=== PATIENT | female | born 1955 | race African-American/Black ===

== ENCOUNTER 2018-01-05 09:31 | Inpatient (IN) | payer OTHER ==
[2018-01-05 10:14] LABS: ADD MAN DIFF? NO
[2018-01-05 10:20] LABS: BASO # 0.1 x10^3/uL (0.0-0.2); BASO % 1 % (0-3); EOS # 0.2 x10^3/uL (0.0-0.7); EOS % 2 % (0-3); HEMATOCRIT 35.3 % (36.0-47.0); HEMOGLOBIN 11.8 g/dL (12.0-15.5); LYMPH % 34 % (24-48); MEAN CORPUSCULAR HEMOGLOBIN 32 pg (25-35); MEAN CORPUSCULAR HGB CONC 33 g/dL (31-37); MEAN CORPUSCULAR VOLUME 95 fL (79-100); MONO # 1.2 x10^3/uL (0.0-1.1); MONO % 10 % (0-9); NEUT # 6.4 x10^3uL (1.8-7.7); NEUT % 53 % (31-73); PLATELET COUNT 395 x10^3/uL (140-400); RED BLOOD COUNT 3.72 x10^6/uL (3.50-5.40); RED CELL DISTRIBUTION WIDTH 14.1 % (11.5-14.5)
[2018-01-05 10:28] LABS: ANION GAP 7 (6-14); BLOOD UREA NITROGEN 20 mg/dL (7-20); BUN/CREATININE RATIO 18 (6-20); CALCIUM 8.3 mg/dL (8.5-10.1); CARBON DIOXIDE 27 mmol/L (21-32); CHLORIDE 106 mmol/L (98-107); CREATININE 1.1 mg/dL (0.6-1.0); GFR 60.9; GLUCOSE 347 mg/dL (70-99); POTASSIUM 4.5 mmol/L (3.5-5.1); SODIUM 140 mmol/L (136-145)
[2018-01-05 10:34] LABS: ALBUMIN 2.7 g/dL (3.4-5.0); ALBUMIN/GLOBULIN RATIO 0.6 (1.0-1.7); ALK PHOS 91 U/L (46-116); ALT (SGPT) 38 U/L (14-59); AST (SGOT) 27 U/L (15-37); LIPASE 179 U/L (73-393); TOTAL BILIRUBIN 0.2 mg/dL (0.2-1.0); TOTAL PROTEIN 7.5 g/dL (6.4-8.2)
[2018-01-05] MEDS: HYDROcodone/APAP 5/325MG 1 TAB TABLET PO (10:36)
[2018-01-05] MEDS: FUROSEMIDE 40 MG/4 ML VIAL. IVP (10:38)
[2018-01-05] MEDS: ONDANSETRON PF 4 MG/2 ML VIAL. IV ×2 (13:03→19:32)
[2018-01-05] MEDS: fentaNYL PF VIAL 100 MCG/2 ML VIAL IV ×2 (13:05→19:33)
[2018-01-05 16:27] LABS: POC GLUCOSE 263 mg/dL (70-99)
[2018-01-05 20:21] LABS: POC GLUCOSE 271 mg/dL (70-99)
[2018-01-05] MEDS: PREGABALIN 75 MG CAPSULE PO (23:00)
[2018-01-05] MEDS: INSULIN GLARGINE 300 UNITS/3 ML INSULN.PEN. SQ (23:04)
[2018-01-06] MEDS: HYDROcodone/APAP 5/325MG 1 TAB TABLET PO (01:32)
[2018-01-06] MEDS: ONDANSETRON PF 4 MG/2 ML VIAL. IV ×2 (01:50→13:41)
[2018-01-06] MEDS: fentaNYL PF VIAL 100 MCG/2 ML VIAL IV (01:50)
[2018-01-06 05:10] LABS: ADD MAN DIFF? NO
[2018-01-06 05:21] LABS: BASO # 0.1 x10^3/uL (0.0-0.2); BASO % 1 % (0-3); EOS # 0.4 x10^3/uL (0.0-0.7); EOS % 3 % (0-3); HEMATOCRIT 32.5 % (36.0-47.0); HEMOGLOBIN 10.9 g/dL (12.0-15.5); LYMPH # 5.1 x10^3/uL (1.0-4.8); LYMPH % 45 % (24-48); MEAN CORPUSCULAR HEMOGLOBIN 32 pg (25-35); MEAN CORPUSCULAR HGB CONC 34 g/dL (31-37); MEAN CORPUSCULAR VOLUME 95 fL (79-100); MONO # 1.4 x10^3/uL (0.0-1.1); MONO % 12 % (0-9); NEUT # 4.5 x10^3uL (1.8-7.7); NEUT % 39 % (31-73); PLATELET COUNT 362 x10^3/uL (140-400); RED BLOOD COUNT 3.43 x10^6/uL (3.50-5.40); RED CELL DISTRIBUTION WIDTH 13.8 % (11.5-14.5); WHITE BLOOD COUNT 11.4 x10^3/uL (4.0-11.0)
[2018-01-06 05:57] LABS: ANION GAP 6 (6-14); BLOOD UREA NITROGEN 21 mg/dL (7-20); CALCIUM 8.6 mg/dL (8.5-10.1); CARBON DIOXIDE 27 mmol/L (21-32); CHLORIDE 107 mmol/L (98-107); GLUCOSE 199 mg/dL (70-99); POTASSIUM 4.3 mmol/L (3.5-5.1); SODIUM 140 mmol/L (136-145)
[2018-01-06 08:05] LABS: POC GLUCOSE 171 mg/dL (70-99)
[2018-01-06] MEDS: LISINOPRIL 20 MG TABLET PO (08:29)
[2018-01-06] MEDS: PREGABALIN 75 MG CAPSULE PO ×3 (08:30→20:09)
[2018-01-06] MEDS: INSULIN LISPRO 300 UNITS/3 ML INSULN.PEN. SQ ×5 (08:33→17:00)
[2018-01-06] MEDS ORDERED: ACETAMINOPHEN 500 MG TABLET PO (08:45)
[2018-01-06] MEDS ORDERED: DEXTROSE 50% 25 GM / 50ML DISP.SYRIN. IV (08:45)
[2018-01-06] MEDS ORDERED: fentaNYL PF VIAL 100 MCG/2 ML VIAL IV (08:45)
[2018-01-06 11:48] LABS: POC GLUCOSE 112 mg/dL (70-99)
[2018-01-06] MEDS: POLYETHYLENE GLYCOL 3350 17 GM PACKET. PO (11:49)
[2018-01-06] MEDS: FUROSEMIDE 20 MG/2 ML VIAL. IVP (11:49)
[2018-01-06] MEDS: MAGNESIUM HYDROXIDE 2,400 MG/30 ML ORAL.SUSP. PO (11:50)
[2018-01-06] MEDS: HYDROcodone/APAP 10/325 1 TAB TABLET PO ×2 (11:50→20:09)
[2018-01-06 14:31] LABS: MRSA BY PCR Negative (Negative)
[2018-01-06] MEDS: guaiFENesin DM 200MG/20MG 10 ML SYRUP PO (15:17)
[2018-01-06] MEDS: DULoxetine HCL 20 MG CAPSULE.DR PO (15:17)
[2018-01-06] MEDS: FUROSEMIDE 40 MG/4 ML VIAL. IVP (15:17)
[2018-01-06] MEDS: BENZONATATE 100 MG CAPSULE. PO ×2 (15:18→20:09)
[2018-01-06 16:54] LABS: POC GLUCOSE 86 mg/dL (70-99)
[2018-01-06] MEDS: MONTELUKAST SODIUM 10 MG TABLET. PO (20:09)
[2018-01-06] MEDS: DOCUSATE SODIUM 100 MG CAPSULE. PO (20:10)
[2018-01-06 20:48] LABS: POC GLUCOSE 158 mg/dL (70-99)
[2018-01-06] MEDS: INSULIN GLARGINE 300 UNITS/3 ML INSULN.PEN. SQ (21:08)
[2018-01-07] MEDS: HYDROcodone/APAP 10/325 1 TAB TABLET PO ×2 (02:33→10:03)
[2018-01-07] MEDS: ONDANSETRON PF 4 MG/2 ML VIAL. IV (06:43)
[2018-01-07] MEDS: INSULIN LISPRO 300 UNITS/3 ML INSULN.PEN. SQ ×6 (07:30→17:00)
[2018-01-07] MEDS: LISINOPRIL 20 MG TABLET PO (08:15)
[2018-01-07] MEDS: FUROSEMIDE 40 MG/4 ML VIAL. IVP ×2 (08:15→15:03)
[2018-01-07] MEDS: MAGNESIUM HYDROXIDE 2,400 MG/30 ML ORAL.SUSP. PO (08:15)
[2018-01-07] MEDS: DULoxetine HCL 20 MG CAPSULE.DR PO (08:15)
[2018-01-07] MEDS: BENZONATATE 100 MG CAPSULE. PO ×3 (08:16→20:37)
[2018-01-07] MEDS: PREGABALIN 75 MG CAPSULE PO ×3 (08:16→20:37)
[2018-01-07] MEDS: POLYETHYLENE GLYCOL 3350 17 GM PACKET. PO ×2 (08:16→15:40)
[2018-01-07] MEDS: DOCUSATE SODIUM 100 MG CAPSULE. PO ×2 (08:16→20:37)
[2018-01-07 08:44] LABS: POC GLUCOSE 65 mg/dL (70-99)
[2018-01-07 08:45] LABS: POC GLUCOSE 152 mg/dL (70-99)
[2018-01-07 08:59] LABS: ADD MAN DIFF? NO
[2018-01-07 09:01] LABS: BASO # 0.1 x10^3/uL (0.0-0.2); BASO % 1 % (0-3); EOS # 0.3 x10^3/uL (0.0-0.7); EOS % 2 % (0-3); HEMATOCRIT 36.6 % (36.0-47.0); HEMOGLOBIN 12.1 g/dL (12.0-15.5); LYMPH # 4.4 x10^3/uL (1.0-4.8); LYMPH % 42 % (24-48); MEAN CORPUSCULAR HEMOGLOBIN 32 pg (25-35); MEAN CORPUSCULAR HGB CONC 33 g/dL (31-37); MEAN CORPUSCULAR VOLUME 95 fL (79-100); MONO % 9 % (0-9); NEUT # 4.8 x10^3uL (1.8-7.7); NEUT % 46 % (31-73); PLATELET COUNT 395 x10^3/uL (140-400); RED BLOOD COUNT 3.85 x10^6/uL (3.50-5.40); RED CELL DISTRIBUTION WIDTH 13.7 % (11.5-14.5); WHITE BLOOD COUNT 10.5 x10^3/uL (4.0-11.0)
[2018-01-07 09:13] LABS: ANION GAP 9 (6-14); BLOOD UREA NITROGEN 21 mg/dL (7-20); CALCIUM 8.6 mg/dL (8.5-10.1); CARBON DIOXIDE 27 mmol/L (21-32); CHLORIDE 103 mmol/L (98-107); GLUCOSE 190 mg/dL (70-99); POTASSIUM 4.5 mmol/L (3.5-5.1); SODIUM 139 mmol/L (136-145)
[2018-01-07 11:14] LABS: SEDIMENTATION RATE 43 (0-25)
[2018-01-07 12:06] LABS: POC GLUCOSE 141 mg/dL (70-99)
[2018-01-07 16:59] LABS: POC GLUCOSE 110 mg/dL (70-99)
[2018-01-07] MEDS: MONTELUKAST SODIUM 10 MG TABLET. PO (20:37)
[2018-01-07] MEDS: HYDROcodone/APAP 5/325MG 1 TAB TABLET PO (20:44)
[2018-01-07] MEDS: INSULIN GLARGINE 300 UNITS/3 ML INSULN.PEN. SQ (20:51)
[2018-01-08 01:50] LABS: POC GLUCOSE 178 mg/dL (70-99)
[2018-01-08] MEDS: HYDROcodone/APAP 5/325MG 1 TAB TABLET PO ×2 (02:19→14:45)
[2018-01-08 04:21] LABS: HEMOGLOBIN A1C 13.5 % (4.8-5.6)
[2018-01-08 07:16] LABS: POC GLUCOSE 257 mg/dL (70-99)
[2018-01-08] MEDS: INSULIN LISPRO 300 UNITS/3 ML INSULN.PEN. SQ ×6 (08:22→17:04)
[2018-01-08] MEDS: POLYETHYLENE GLYCOL 3350 17 GM PACKET. PO (08:33)
[2018-01-08] MEDS: PREGABALIN 75 MG CAPSULE PO ×3 (08:34→21:06)
[2018-01-08] MEDS: FUROSEMIDE 40 MG/4 ML VIAL. IVP ×2 (08:34→14:44)
[2018-01-08] MEDS: DOCUSATE SODIUM 100 MG CAPSULE. PO ×2 (08:34→21:06)
[2018-01-08] MEDS: LISINOPRIL 20 MG TABLET PO (08:35)
[2018-01-08] MEDS: HYDROcodone/APAP 10/325 1 TAB TABLET PO ×2 (08:35→21:07)
[2018-01-08] MEDS: BENZONATATE 100 MG CAPSULE. PO ×3 (08:35→21:06)
[2018-01-08] MEDS: DULoxetine HCL 20 MG CAPSULE.DR PO (08:35)
[2018-01-08 11:11] LABS: POC GLUCOSE 109 mg/dL (70-99)
[2018-01-08 16:58] LABS: POC GLUCOSE 110 mg/dL (70-99)
[2018-01-08 20:43] LABS: POC GLUCOSE 109 mg/dL (70-99)
[2018-01-08] MEDS: MONTELUKAST SODIUM 10 MG TABLET. PO (21:06)
[2018-01-08] MEDS: INSULIN GLARGINE 300 UNITS/3 ML INSULN.PEN. SQ (21:11)
[2018-01-09] MEDS: HYDROcodone/APAP 5/325MG 1 TAB TABLET PO (01:09)
[2018-01-09 04:35] LABS: HEMATOCRIT 33.4 % (36.0-47.0); HEMOGLOBIN 11.2 g/dL (12.0-15.5); MEAN CORPUSCULAR HEMOGLOBIN 32 pg (25-35); MEAN CORPUSCULAR HGB CONC 34 g/dL (31-37); MEAN CORPUSCULAR VOLUME 95 fL (79-100); PLATELET COUNT 376 x10^3/uL (140-400); RED BLOOD COUNT 3.52 x10^6/uL (3.50-5.40); RED CELL DISTRIBUTION WIDTH 13.7 % (11.5-14.5); WHITE BLOOD COUNT 11.1 x10^3/uL (4.0-11.0)
[2018-01-09 05:40] LABS: ANION GAP 3 (6-14); BLOOD UREA NITROGEN 19 mg/dL (7-20); CALCIUM 8.3 mg/dL (8.5-10.1); CARBON DIOXIDE 32 mmol/L (21-32); CHLORIDE 106 mmol/L (98-107); GLUCOSE 114 mg/dL (70-99); POTASSIUM 4.5 mmol/L (3.5-5.1); SODIUM 141 mmol/L (136-145)
[2018-01-09] MEDS: INSULIN LISPRO 300 UNITS/3 ML INSULN.PEN. SQ ×6 (08:00→17:42)
[2018-01-09] MEDS: DULoxetine HCL 20 MG CAPSULE.DR PO (08:34)
[2018-01-09] MEDS: DULoxetine HCL 30 MG CAPSULE.DR PO (08:35)
[2018-01-09] MEDS: LISINOPRIL 20 MG TABLET PO (08:35)
[2018-01-09] MEDS: DOCUSATE SODIUM 100 MG CAPSULE. PO ×2 (08:35→20:52)
[2018-01-09] MEDS: BENZONATATE 100 MG CAPSULE. PO ×3 (08:35→20:52)
[2018-01-09] MEDS: POLYETHYLENE GLYCOL 3350 17 GM PACKET. PO (08:36)
[2018-01-09] MEDS: FUROSEMIDE 40 MG/4 ML VIAL. IVP (08:36)
[2018-01-09] MEDS: PREGABALIN 75 MG CAPSULE PO ×3 (08:36→20:53)
[2018-01-09] MEDS: HYDROcodone/APAP 10/325 1 TAB TABLET PO ×2 (08:42→21:37)
[2018-01-09 09:00] LABS: POC GLUCOSE 149 mg/dL (70-99)
[2018-01-09 11:39] LABS: POC GLUCOSE 158 mg/dL (70-99)
[2018-01-09] MEDS: CEPHALEXIN 250 MG CAPSULE. PO ×2 (13:55→20:53)
[2018-01-09] MEDS: FUROSEMIDE 100 MG/10 ML VIAL. IVP (13:55)
[2018-01-09 17:20] LABS: POC GLUCOSE 225 mg/dL (70-99)
[2018-01-09] MEDS: MONTELUKAST SODIUM 10 MG TABLET. PO (20:52)
[2018-01-09] MEDS: INSULIN GLARGINE 300 UNITS/3 ML INSULN.PEN. SQ (21:02)
[2018-01-09 22:14] LABS: POC GLUCOSE 137 mg/dL (70-99)
[2018-01-10] MEDS: INSULIN LISPRO 300 UNITS/3 ML INSULN.PEN. SQ ×6 (08:00→17:01)
[2018-01-10 08:34] LABS: POC GLUCOSE 114 mg/dL (70-99)
[2018-01-10] MEDS: POLYETHYLENE GLYCOL 3350 17 GM PACKET. PO (09:02)
[2018-01-10] MEDS: DOCUSATE SODIUM 100 MG CAPSULE. PO ×2 (09:03→21:48)
[2018-01-10] MEDS: LISINOPRIL 20 MG TABLET PO (09:03)
[2018-01-10] MEDS: CEPHALEXIN 250 MG CAPSULE. PO ×3 (09:04→21:48)
[2018-01-10] MEDS: BENZONATATE 100 MG CAPSULE. PO ×3 (09:04→21:48)
[2018-01-10] MEDS: DULoxetine HCL 30 MG CAPSULE.DR PO (09:04)
[2018-01-10] MEDS: PREGABALIN 75 MG CAPSULE PO ×3 (09:04→22:35)
[2018-01-10] MEDS: FUROSEMIDE 100 MG/10 ML VIAL. IVP ×3 (09:05→21:52)
[2018-01-10] MEDS: HYDROcodone/APAP 10/325 1 TAB TABLET PO ×2 (09:13→22:35)
[2018-01-10 11:41] LABS: POC GLUCOSE 164 mg/dL (70-99)
[2018-01-10 16:55] LABS: POC GLUCOSE 182 mg/dL (70-99)
[2018-01-10 21:14] LABS: POC GLUCOSE 105 mg/dL (70-99)
[2018-01-10] MEDS: MONTELUKAST SODIUM 10 MG TABLET. PO (21:48)
[2018-01-10] MEDS: LACTOBACILLUS RHAMNOSUS GG 1 CAPSULE. PO (21:48)
[2018-01-10] MEDS: INSULIN GLARGINE 300 UNITS/3 ML INSULN.PEN. SQ (22:39)
[2018-01-11 08:03] LABS: POC GLUCOSE 199 mg/dL (70-99)
[2018-01-11] MEDS: POLYETHYLENE GLYCOL 3350 17 GM PACKET. PO (08:11)
[2018-01-11] MEDS: HYDROcodone/APAP 10/325 1 TAB TABLET PO ×2 (08:12→21:00)
[2018-01-11] MEDS: CEPHALEXIN 250 MG CAPSULE. PO ×3 (08:12→21:00)
[2018-01-11] MEDS: LISINOPRIL 20 MG TABLET PO (08:13)
[2018-01-11] MEDS: DOCUSATE SODIUM 100 MG CAPSULE. PO ×2 (08:13→20:59)
[2018-01-11] MEDS: DULoxetine HCL 30 MG CAPSULE.DR PO (08:14)
[2018-01-11] MEDS: BENZONATATE 100 MG CAPSULE. PO ×3 (08:14→20:59)
[2018-01-11] MEDS: LACTOBACILLUS RHAMNOSUS GG 1 CAPSULE. PO ×2 (08:14→20:59)
[2018-01-11] MEDS: PREGABALIN 75 MG CAPSULE PO ×3 (08:14→20:59)
[2018-01-11] MEDS: FUROSEMIDE 100 MG/10 ML VIAL. IVP ×3 (08:15→21:00)
[2018-01-11] MEDS: INSULIN LISPRO 300 UNITS/3 ML INSULN.PEN. SQ ×6 (08:24→17:21)
[2018-01-11 12:11] LABS: POC GLUCOSE 104 mg/dL (70-99)
[2018-01-11 12:53] LABS: BILIRUBIN,URINE NEGATIVE (NEG); CLARITY,URINE CLEAR; COLOR,URINE YELLOW; GLUCOSE,URINE NEGATIVE (NEG); NITRITE,URINE NEGATIVE (NEG); PROTEIN,URINE 100 mg/dL (NEG-TRACE); UROBILINOGEN,URINE 0.2 mg/dL (0.2 mg/dL)
[2018-01-11 13:13] LABS: BACTERIA,URINE 0 /HPF (0-FEW); RBC,URINE 0 /HPF (0-2); SQUAMOUS EPITHELIAL CELL,UR MOD /LPF
[2018-01-11 17:19] LABS: POC GLUCOSE 165 mg/dL (70-99)
[2018-01-11] MEDS: MONTELUKAST SODIUM 10 MG TABLET. PO (21:00)
[2018-01-11] MEDS: INSULIN GLARGINE 300 UNITS/3 ML INSULN.PEN. SQ (21:18)
[2018-01-11 21:32] LABS: POC GLUCOSE 157 mg/dL (70-99)
[2018-01-12] MEDS: HYDROcodone/APAP 10/325 1 TAB TABLET PO (03:09)
[2018-01-12 05:03] LABS: ADD MAN DIFF? NO
[2018-01-12 05:28] LABS: BASO # 0.1 x10^3/uL (0.0-0.2); BASO % 1 % (0-3); EOS # 0.3 x10^3/uL (0.0-0.7); EOS % 3 % (0-3); HEMATOCRIT 33.4 % (36.0-47.0); LYMPH # 5.1 x10^3/uL (1.0-4.8); LYMPH % 46 % (24-48); MEAN CORPUSCULAR HEMOGLOBIN 31 pg (25-35); MEAN CORPUSCULAR HGB CONC 33 g/dL (31-37); MEAN CORPUSCULAR VOLUME 95 fL (79-100); MONO # 1.2 x10^3/uL (0.0-1.1); MONO % 11 % (0-9); NEUT # 4.3 x10^3uL (1.8-7.7); NEUT % 39 % (31-73); PLATELET COUNT 372 x10^3/uL (140-400); RED BLOOD COUNT 3.51 x10^6/uL (3.50-5.40); RED CELL DISTRIBUTION WIDTH 13.8 % (11.5-14.5)
[2018-01-12 05:56] LABS: ALBUMIN 2.5 g/dL (3.4-5.0); ANION GAP 5 (6-14); BLOOD UREA NITROGEN 22 mg/dL (7-20); CALCIUM 8.4 mg/dL (8.5-10.1); CARBON DIOXIDE 35 mmol/L (21-32); CHLORIDE 102 mmol/L (98-107); CREATININE 1.2 mg/dL (0.6-1.0); GFR 55.1; GLUCOSE 189 mg/dL (70-99); PHOSPHORUS 4.7 mg/dL (2.6-4.7); POTASSIUM 4.9 mmol/L (3.5-5.1); SODIUM 142 mmol/L (136-145)
[2018-01-12 07:33] LABS: POC GLUCOSE 203 mg/dL (70-99)
[2018-01-12] MEDS: POLYETHYLENE GLYCOL 3350 17 GM PACKET. PO (08:05)
[2018-01-12] MEDS: DOCUSATE SODIUM 100 MG CAPSULE. PO (08:06)
[2018-01-12] MEDS: CEPHALEXIN 250 MG CAPSULE. PO (08:06)
[2018-01-12] MEDS: LACTOBACILLUS RHAMNOSUS GG 1 CAPSULE. PO (08:06)
[2018-01-12] MEDS: HYDROcodone/APAP 5/325MG 1 TAB TABLET PO (08:06)
[2018-01-12] MEDS: BENZONATATE 100 MG CAPSULE. PO (08:06)
[2018-01-12] MEDS: LISINOPRIL 20 MG TABLET PO (08:07)
[2018-01-12] MEDS: PREGABALIN 75 MG CAPSULE PO (08:07)
[2018-01-12] MEDS: DULoxetine HCL 30 MG CAPSULE.DR PO (08:07)
[2018-01-12] MEDS: FUROSEMIDE 100 MG/10 ML VIAL. IVP (08:09)
[2018-01-12] MEDS: INSULIN LISPRO 300 UNITS/3 ML INSULN.PEN. SQ ×4 (08:15→11:54)
[2018-01-12 11:49] LABS: POC GLUCOSE 128 mg/dL (70-99)
== END 2018-01-12 13:30 | disposition home health service (06) | DRG 602 ==
LOC: ER 09:31 → 6 SOUTH 12:41 → 5 SOUTH 14:41
DX: L03.116 Cellulitis of left lower limb (principal); E43 Unspecified severe protein-calorie malnutrition; E11.22 Type 2 diabetes mellitus with diabetic chronic kidney disease; E11.42 Type 2 diabetes mellitus with diabetic polyneuropathy; E11.43 Type 2 diabetes mellitus with diabetic autonomic (poly)neuropathy; F11.20 Opioid dependence, uncomplicated; I89.0 Lymphedema, not elsewhere classified; K31.84 Gastroparesis; E11.649 Type 2 diabetes mellitus with hypoglycemia without coma; Z68.35 Body mass index [BMI] 35.0-35.9, adult; D63.8 Anemia in other chronic diseases classified elsewhere; E66.9 Obesity, unspecified; F12.10 Cannabis abuse, uncomplicated; G47.419 Narcolepsy without cataplexy; G89.29 Other chronic pain; I12.9 Hypertensive chronic kidney disease with stage 1 through stage 4 chronic kidney disease, or unspecified chronic kidney disease; J44.9 Chronic obstructive pulmonary disease, unspecified; L03.115 Cellulitis of right lower limb; K21.0 Gastro-esophageal reflux disease with esophagitis; K52.9 Noninfective gastroenteritis and colitis, unspecified; K59.00 Constipation, unspecified; M54.9 Dorsalgia, unspecified; N18.3 Chronic kidney disease, stage 3 (moderate); Z68.32 Body mass index [BMI] 32.0-32.9, adult; Z79.4 Long term (current) use of insulin; Z79.899 Other long term (current) drug therapy; Z83.3 Family history of diabetes mellitus; Z90.710 Acquired absence of both cervix and uterus; Z90.81 Acquired absence of spleen; Z90.49 Acquired absence of other specified parts of digestive tract
CPT/HCPCS: 36415; 80048; 80053; 80069; 81001; 82962; 83036; 83690; 85025; 85027; 85651; 87641; 93970; 96365; 96375; 97116-GP; 97140-GO; 97162-GP; 97165-GO; 97530-GP; 99285; 99285-25; J0690; J1815; J1940; J2405; J3010

== ENCOUNTER 2018-11-17 13:38 | Inpatient (IN) | payer OTHER ==
[~2018-11-17] VITALS: Ht 170.2 cm; Wt 84.4 kg
[~2018-11-17 13:38] MED LIST: BENZ-8 PO; CIPR250T30 PO; FURO-68 PO; GUAI5SYR PO; INSU100I11 SQ; INSU100I13 SQ; LISI-130 PO; METR500T PO; MONT10TA9 PO; PREG75CA PO
[2018-11-17] MEDS ORDERED: VANCOMYCIN PER PHARMACY MC PRN (14:30)
[2018-11-17] MEDS ORDERED: PIPERACILLIN/TAZOBACTAM 3.375 GM in IV NORMAL SALINE 50ML 50 ML IV ONE (14:30)
[2018-11-17] MEDS ORDERED: VANCOMYCIN 2 GM in IV NORMAL SALINE 500ML BAG 500 ML IV ONE (14:45)
--- NOTE | 2018-11-17 14:48 | RAD ---
EXAM: Chest, single view. HISTORY: Swelling. Shortness of air. COMPARISON: None. FINDINGS: A frontal view of the chest is obtained. There is a small nodular opacity overlying the left upper lobe measuring approximately 1.4 cm. There is no consolidation, pleural effusion or pneumothorax. The heart is normal in size. IMPRESSION: Small nodular opacity overlying the left upper lobe. This may be due to nodular infiltrate or noncalcified pulmonary nodule. Short-term radiographic or CT follow-up is recommended to exclude neoplasm. Electronically signed by: Cecily Hernandez MD (11/17/2018 2:45 PM) [id number]
--- NOTE | 2018-11-17 15:00 | RAD ---
CT head without contrast dated 11/17/2018. No comparison available. Clinical indication: Altered mental status. TECHNIQUE: Contiguous axial imaging the head was performed from skull base to vertex. No contrast administered.. One or more of the following individualized dose reduction techniques were utilized for this examination: 1. Automated exposure control 2. Adjustment of the mA and/or kV according to patient size 3. Use of iterative reconstruction technique FINDINGS: Ventricles and sulci are mildly prominent for age. No midline shift or mass effect. Mild patchy low density in the deep/subcortical periventricular white matter. No hemorrhage or extra axial collection. Posterior fossa and brainstem unremarkable. Minimal mucosal thickening of the bilateral ethmoid air cells. The visualized paranasal sinuses and mastoid air cells are otherwise clear. No apparent calvarial abnormality. IMPRESSION: 1. No evidence of acute intracranial hemorrhage or mass. 2. Mild chronic small vessel ischemic changes and atrophy. 3. Mild sinus disease. Electronically signed by: Rian Spence MD (11/17/2018 2:57 PM) [id number]
[2018-11-17 15:18] LABS: BASO # 0.1 x10^3/uL (0.0-0.2); BASO % 1 % (0-3); EOS # 0.2 x10^3/uL (0.0-0.7); EOS % 2 % (0-3); HEMATOCRIT 40.6 % (36.0-47.0); HEMOGLOBIN 13.5 g/dL (12.0-15.5); LYMPH # 3.8 x10^3/uL (1.0-4.8); LYMPH % 30 % (24-48); MEAN CORPUSCULAR HEMOGLOBIN 33 pg (25-35); MEAN CORPUSCULAR HGB CONC 33 g/dL (31-37); MEAN CORPUSCULAR VOLUME 100 fL (79-100); MONO # 1.2 x10^3/uL (0.0-1.1); MONO % 9 % (0-9); NEUT # 7.2 x10^3uL (1.8-7.7); NEUT % 58 % (31-73); PLATELET COUNT 388 x10^3/uL (140-400); RED BLOOD COUNT 4.05 x10^6/uL (3.50-5.40); RED CELL DISTRIBUTION WIDTH 13.9 % (11.5-14.5); WHITE BLOOD COUNT 12.5 x10^3/uL (4.0-11.0)
[2018-11-17 15:31] LABS: CALCIUM 8.7 mg/dL (8.5-10.1); CREATININE 1.7 mg/dL (0.6-1.0); GFR 36.7
[2018-11-17 15:35] LABS: ALBUMIN 2.3 g/dL (3.4-5.0); ALBUMIN/GLOBULIN RATIO 0.4 (1.0-1.7); TOTAL BILIRUBIN 0.2 mg/dL (0.2-1.0); TOTAL PROTEIN 7.5 g/dL (6.4-8.2)
[2018-11-17 16:04] LABS: BILIRUBIN,URINE NEGATIVE (NEG); CLARITY,URINE CLEAR; COLOR,URINE YELLOW; NITRITE,URINE POSITIVE (NEG); PH,URINE 6.5; PROTEIN,URINE >=300 mg/dL (NEG-TRACE)
[2018-11-17 16:14] LABS: BARBITURATES NEG (NEG); BENZODIAZEPINES NEG (NEG); CANNABINOIDS POS (NEG); COCAINE POS (NEG); METHADONE NEG (NEG); OPIATES NEG (NEG); PHENCYCLIDINE NEG (NEG)
[2018-11-17 16:19] LABS: AMPHETAMINE/METHAMPHETAMINE NEG (NEG)
[2018-11-17 16:28] LABS: BACTERIA,URINE MANY /HPF (0-FEW); RBC,URINE RARE /HPF (0-2); SQUAMOUS EPITHELIAL CELL,UR FEW /LPF
--- NOTE | 2018-11-17 16:29 | EKG ---
[facility] [address] [place] [address] Test Date: 2018-11-17 Test Time: 15:19:48 Pat Name: ANAND DEGROOT Department: Room: Gender: F Director Acute: : 1955 Requested By: AMY GARCIA Order Number: [id number] Reading MD: Graham Asher MD Measurements Intervals [place] Rate: 88 P: 63 DC: 146 QRS: 62 QRSD: 76 T: 59 QT: 368 QTc: 448 Interpretive Statements SINUS RHYTHM POSSIBLE LVH Electronically Signed On 11-26-2018 9:30:18 CDT by Graham Asher MD
--- NOTE | 2018-11-17 16:32 | RAD ---
EXAM: Left lower extremity venous Doppler sonogram. HISTORY: Pain. TECHNIQUE: Greenfield scale and color Doppler sonographic evaluation of the left lower extremity veins with spectral waveform analysis was performed. FINDINGS: There is normal color flow, normal compressibility and there are normal spectral waveforms in the common femoral, superficial femoral, and popliteal veins. The calf veins not well seen due to edema. IMPRESSION: No Doppler evidence of lower extremity deep venous thrombosis, with limited evaluation of the calf veins due to soft tissue edema. Electronically signed by: Cecily Hernandez MD (11/17/2018 4:29 PM) [facility]
--- NOTE | 2018-11-17 17:09 | PHYS DOC ---
Past Medical History Past Medical History: COPD, Diabetes-Type II, High Cholesterol, Hypertension, Other Additional Past Medical Histor: neuropathy Past Surgical History: Cholecystectomy, , Hysterectomy, Splenectomy Additional Information: 1 PPD Alcohol Use: None Drug Use: Cocaine, Marijuana, Other Social History Narrative: LAST USED FRIDAY,NOVEMBER 16, 2018 Adult General Chief Complaint Chief Complaint: LOWER EXTREMITY SWELLING HPI HPI Patient is a 63 year old female with history of chronic lymphedema, diabetes, hypertension COPD homelessness, who presents to the ED today complaining of some redness to the left lower extremity and increased swelling. Patient states she scraped her left gray on tile one week ago. Patient arrives in the ED crying out loud. At some points he starts stating she's been hallucinating 4 days. She states she keeps seeing "things". Patient denies any suicidal or homicidal ideations at some point she fell asleep and has been sleeping on and off since then. PAT team was consulted. Review of Systems Review of Systems Constitutional: Denies fever or chills [] Eyes: Denies change in visual acuity, redness, or eye pain [] HENT: Denies nasal congestion or sore throat [] Respiratory: Denies cough or shortness of breath [] Cardiovascular: No additional information not addressed in HPI [] GI: Denies abdominal pain, nausea, vomiting, bloody stools or diarrhea [] : Denies dysuria or hematuria [] Musculoskeletal: Denies back pain or joint pain [] Integument: Denies rash or skin lesions [] Neurologic: Denies headache, focal weakness or sensory changes [] Pysch: Reports hallucination All other systems were reviewed and found to be within normal limits, except as documented in this note. Current Medications Current Medications Current Medications Medications (Trade) Dose Ordered Sig/Lisa Start Time Stop Time Status Last Admin Dose Admin Piperacillin Sod/ Tazobactam Sod 3.375 gm/Sodium Chloride 50 ml @ 100 mls/hr 1X ONCE 11/17/18 14:30 11/17/18 14:59 DC 11/17/18 15:45 100 MLS/HR Vancomycin HCl (Vanco Per Pharmacy) 1 each PRN DAILY PRN 11/17/18 14:30 UNV Vancomycin HCl 2 gm/Sodium Chloride 500 ml @ 250 mls/hr ONCE ONCE 11/17/18 14:45 11/17/18 16:44 DC 11/17/18 16:20 250 MLS/HR Allergies Allergies Allergies Coded Allergies Type Severity Reaction Last Updated Verified aspirin Adverse Reaction Mild Nausea and Vomiting 01/05/18 Yes ketorolac Adverse Reaction Mild Nausea 01/05/18 Yes morphine Adverse Reaction Mild Nausea and Vomiting 01/05/18 Yes Physical Exam Physical Exam Constitutional: Well developed, well nourished, no acute distress, non-toxic appearance. [] HENT: Normocephalic, atraumatic, bilateral external ears normal, oropharynx moist, no oral exudates, nose normal. [] Eyes: PERRLA, EOMI, conjunctiva normal, no discharge. [] Neck: Normal range of motion, no tenderness, supple, no stridor. [] Cardiovascular:Heart rate regular rhythm, no murmur [] Lungs & Thorax: Bilateral breath sounds clear to auscultation [] Abdomen: Bowel sounds normal, soft, no tenderness, no masses, no pulsatile masses. [] Skin: Warm, dry, no erythema, no rash. [] Back: No tenderness, no CVA tenderness. [] Extremities: Bilateral lower extremities with +3 chronic lymphedema. There is cellulitis over the left gray, there is an open wound approximately 2 cm long on the proximal aspect of the left gray. Negative Homans sign bilaterally. +1 bilateral pedal pulses. Neurologic: Alert and oriented X 3, normal motor function, normal sensory function, no focal deficits noted. [] Psychologic: Tearful, crying out loud, stopped crying and started falling asleep every few minutes during conversations Current Patient Data Vital Signs Vital Signs Date Time Temp Pulse Resp B/P (MAP) Pulse Ox O2 Delivery O2 Flow Rate FiO2 11/17/18 16:49 82 18 116/57 (76) 100 11/17/18 14:10 98.2 Room Air 98.2 Lab Values Laboratory Tests Test 11/17/18 15:06 11/17/18 15:55 White Blood Count 12.5 x10^3/uL (4.0-11.0) H Red Blood Count 4.05 x10^6/uL (3.50-5.40) Hemoglobin 13.5 g/dL (12.0-15.5) Hematocrit 40.6 % (36.0-47.0) Mean Corpuscular Volume 100 fL (79-100) Mean Corpuscular Hemoglobin 33 pg (25-35) Mean Corpuscular Hemoglobin Concent 33 g/dL (31-37) Red Cell Distribution Width 13.9 % (11.5-14.5) Platelet Count 388 x10^3/uL (140-400) Neutrophils (%) (Auto) 58 % (31-73) Lymphocytes (%) (Auto) 30 % (24-48) Monocytes (%) (Auto) 9 % (0-9) Eosinophils (%) (Auto) 2 % (0-3) Basophils (%) (Auto) 1 % (0-3) Neutrophils # (Auto) 7.2 x10^3uL (1.8-7.7) Lymphocytes # (Auto) 3.8 x10^3/uL (1.0-4.8) Monocytes # (Auto) 1.2 x10^3/uL (0.0-1.1) H Eosinophils # (Auto) 0.2 x10^3/uL (0.0-0.7) Basophils # (Auto) 0.1 x10^3/uL (0.0-0.2) Sodium Level 142 mmol/L (136-145) Potassium Level 4.0 mmol/L (3.5-5.1) Chloride Level 105 mmol/L (98-107) Carbon Dioxide Level 30 mmol/L (21-32) Anion Gap 7 (6-14) Blood Urea Nitrogen 29 mg/dL (7-20) H Creatinine 1.7 mg/dL (0.6-1.0) H Estimated GFR (Cockcroft-Gault) 36.7 BUN/Creatinine Ratio 17 (6-20) Glucose Level 173 mg/dL (70-99) H Calcium Level 8.7 mg/dL (8.5-10.1) Total Bilirubin 0.2 mg/dL (0.2-1.0) Aspartate Amino Transferase (AST) 32 U/L (15-37) Alanine Aminotransferase (ALT) 35 U/L (14-59) Alkaline Phosphatase 79 U/L (46-116) Troponin I Quantitative < 0.017 ng/mL (0.000-0.055) IW-Pul-U-Type Natriuretic Peptide 225 pg/mL (0-124) H Total Protein 7.5 g/dL (6.4-8.2) Albumin 2.3 g/dL (3.4-5.0) L Albumin/Globulin Ratio 0.4 (1.0-1.7) L Ethyl Alcohol Level < 10 mg/dL (0-10) Urine Collection Type U cath Urine Color Yellow Urine Clarity Clear Urine pH 6.5 Urine Specific [place] 1.020 Urine Protein >=300 mg/dL (NEG-TRACE) Urine Glucose (UA) Negative mg/dL (NEG) Urine Ketones (Stick) Negative mg/dL (NEG) Urine Blood Small (NEG) Urine Nitrite Positive (NEG) Urine Bilirubin Negative (NEG) Urine Urobilinogen Dipstick 1.0 mg/dL (0.2 mg/dL) Urine Leukocyte Esterase Trace (NEG) Urine RBC Rare /HPF (0-2) Urine WBC 1-4 /HPF (0-4) Urine Squamous Epithelial Cells Few /LPF Urine Bacteria Many /HPF (0-FEW) Urine Opiates Screen Neg (NEG) Urine Methadone Screen Neg (NEG) Urine Barbiturates Neg (NEG) Urine Phencyclidine Screen Neg (NEG) Urine Amphetamine/Methamphetamine Neg (NEG) Urine Benzodiazepines Screen Neg (NEG) Urine Cocaine Screen Pos (NEG) Urine Cannabinoids Screen Pos (NEG) Urine Ethyl Alcohol Neg (NEG) Laboratory Tests 11/17/18 15:06 Laboratory Tests 11/17/18 15:06 EKG EKG [] Radiology/Procedures Radiology/Procedures [] Course & Med Decision Making Course & Med Decision Making Pertinent Labs and Imaging studies reviewed. (See chart for details) This is a 63-year-old female patient presenting to the ED today with multiple complaints. Patient spent complain is redness and swelling to the left lower extremity. Physical exam she has cellulitis to the left lower extremity stemming from a wound on the anterior gray that she sustained after scraping her gray on tile a week ago. She also has chronic lymphedema. Venous Doppler of the left lower extremity is negative for any acute findings. CBC with a WBC of 12.5, CMP with creatinine of 1.7, BUN 29. CT of the head is negative for any acute findings, chest x-ray is negative. She somehow started sleeping in the ED and has been sleeping on and off since then. She is also homeless. Her drug screen is positive for cocaine and marijuana she admits to using. PAT was notified. Patient was started on vancomycin and Zosyn in the ED and IV fluids ordered. Consulted with Dr. Guerrero who accepted patient for admission. Dragon Disclaimer Dragon Disclaimer This electronic medical record was generated, in whole or in part, using a voice recognition dictation system. Departure Departure Impression: Primary Impression: Cellulitis of left lower extremity Additional Impressions: Chronic acquired lymphedema Drug abuse Homeless Disposition: 09 ADMITTED INPATIENT Condition: STABLE Referrals: TAISHA SANTOS MD (PCP) Problem Qualifiers AMY GARCIA APRN Nov 17, 2018 17:09
[2018-11-17] MEDS ORDERED: ACETAMINOPHEN 325 MG TABLET. PO PRN (17:15)
[2018-11-17] MEDS ORDERED: ONDANSETRON PF 4 MG/2 ML VIAL. IV PRN (17:15)
[2018-11-17] MEDS ORDERED: IV NORMAL SALINE 1000ML BAG 1,000 ML IV ONE (17:15)
--- NOTE | 2018-11-17 18:11 | PDOC1 ---
History and Physical Date of Admission Date of Admission DATE: 11/17/18 TIME: 18:11 Identification/Chief Complaint Chief Complaint SEEN IN ER WITH INFECTED LEFT ANKLE history of chronic lymphedema, diabetes, hypertension COPD homelessness, who presents to the ED today complaining of MARKED redness to the left lower extremity and increased swelling. Patient states she scraped her left gray on tile one week ago. she's been hallucinating 4 days. She states she keeps seeing "things". Patient denies any suicidal or homicidal ideations denies injecting cocaine/ unreliable hx//. PAT team consulted. History of Present Illness History of Present Illness Past Medical History Past Medical History: COPD, Diabetes-Type II, High Cholesterol, Hypertension, Other Additional Past Medical Histor: neuropathy Past Surgical History: Cholecystectomy, , Hysterectomy, Splenectomy Additional Information: 1 PPD Alcohol Use: None Drug Use: Cocaine, Marijuana, Other Social History Narrative: LAST USED 2018 fhx copd, drug use Past Medical History Psych: Anxiety, Addictions Dermatology: Cellulitis Family History Family History: No Significant Social History ALCOHOL: none Drugs: Marijuana Current Problem List Problem List Problems Medical Problems: (1) Cellulitis of left lower extremity Status: Acute (2) Chronic acquired lymphedema Status: Acute (3) Drug abuse Status: Acute (4) Homeless Status: Acute Current Medications Current Medications Current Medications Piperacillin Sod/ Tazobactam Sod 3.375 gm/Sodium Chloride 50 ml @ 100 mls/hr 1X ONCE IV Last administered on 11/17/18at 15:45; Start 11/17/18 at 14:30; Stop 11/17/18 at 14:59; Status DC Vancomycin HCl (Vanco Per Pharmacy) 1 each PRN DAILY PRN MC SEE COMMENTS; Start 11/17/18 at 14:30; Status UNV Vancomycin HCl 2 gm/Sodium Chloride 500 ml @ 250 mls/hr ONCE ONCE IV Last administered on 11/17/18at 16:20; Start 11/17/18 at 14:45; Stop 11/17/18 at 16:44 ; Status DC Ondansetron HCl (Zofran) 4 mg PRN Q8HRS PRN IV NAUSEA/VOMITING; Start 11/17/18 at 17:15; Stop 11/18/18 at 17:14 Acetaminophen (Tylenol) 650 mg PRN Q4HRS PRN PO FEVER; Start 11/17/18 at 17:15 ; Stop 11/18/18 at 17:14 Sodium Chloride 1,000 ml @ 75 mls/hr 1X ONCE IV ; Start 11/17/18 at 17:15; Stop 11/18/18 at 06:34 Active Scripts Active Lasix (Furosemide) 40 Mg Tablet 40 Mg PO BID 30 Days Humalog (Insulin Lispro) 100 Unit/1 Ml Insuln.pen 7 Units SQ TIDAC 30 Days Lantus Solostar (Insulin Glargine,Hum.rec.anlog) 100 Unit/1 Ml Insuln.pen 20 Units SQ QHS 30 Days Guaifenesin Dm Syrup (Guaifenesin/Dextromethorphan) 5 Ml Syrup 10 Ml PO PRN Q6HRS PRN 30 Days Benzonatate 100 Mg Capsule 100 Mg PO [id number] 30 Days Montelukast Sodium Tablet (Montelukast Sodium) 10 Mg Tablet 10 Mg PO QHS 30 Days Humalog (Insulin Lispro) 100 Unit/1 Ml Insuln.pen 10 Units SQ TIDAC 30 Days Lantus Solostar (Insulin Glargine,Hum.rec.anlog) 100 Unit/1 Ml Insuln.pen 30 Units SQ QHS 30 Days Lyrica (Pregabalin) 75 Mg Capsule 75 Mg PO TID 30 Days Lisinopril 40 Mg Tablet 20 Mg PO DAILY 30 Days Allergies Allergies: Coded Allergies: aspirin (Verified Adverse Reaction, Mild, Nausea and Vomiting, 01/05/18) ketorolac (Verified Adverse Reaction, Mild, Nausea, 01/05/18) morphine (Verified Adverse Reaction, Mild, Nausea and Vomiting, 01/05/18) ROS Review of System Review of Systems Review of Systems Constitutional: fever / chills [] Eyes: Denies change in visual acuity, redness, or eye pain [] HENT: Denies nasal congestion or sore throat [] Respiratory: Denies cough or shortness of breath [] Cardiovascular: No additional information not addressed in HPI [] GI: Denies abdominal pain, nausea, vomiting, bloody stools or diarrhea [] : Denies dysuria or hematuria [] Musculoskeletal: Denies back pain or joint pain [] Integument: left ankle rash // skin lesions SEVERE CELLULITIS LEFT LOWER LEG [] Neurologic: Denies headache, focal weakness or sensory changes [] Pysch: Reports hallucination 14 pt systems were reviewed and found to be within normal limits, except as documented General: YES: Fatigue PSYCHOLOGICAL ROS: YES: Anxiety Respiratory: No: Cough, Hemoptysis, Orthopnea, Pleuritic Pain, Shortness of breath, SOB with excertion, Sputum Changes, Stridor, Tachypnea, Wheezing, Other Musculoskeletal: Yes Joint Stiffness, Yes Joint Swelling, Yes Muscle Pain, Yes Muscular Weakness Physical Exam Physical Exam Physical Exam Physical Exam Constitutional: Well developed, well nourished, severe acute distress, non- toxic appearance. [] HENT: Normocephalic, atraumatic, bilateral external ears normal, oropharynx moist, no oral exudates, nose normal. [] Eyes: PERRLA, EOMI, conjunctiva normal, no discharge. [] Neck: Normal range of motion, no tenderness, supple, no stridor. [] Cardiovascular:Heart rate regular rhythm, no murmur [] Lungs & Thorax: Bilateral breath sounds clear to auscultation [] Abdomen: Bowel sounds normal, soft, no tenderness, no masses, no pulsatile masses. [] Skin: Warm, dry, no erythema, no rash. [] Back: No tenderness, no CVA tenderness. [] Extremities: Bilateral lower extremities with +3 chronic lymphedema. There marked cellulitis over the left gray, there is an open wound approximately 2 cm long on the proximal aspect of the left gray. Negative Homans sign bilaterally. +1 bilateral pedal pulses. Neurologic: normal sensory function, no focal deficits noted. [] Psychologic: Tearful, crying out loud, / then difficult to awake General: Cooperative, moderate distress HEENT: Atraumatic, EOMI, Mucous membr. moist/pink Lungs: Clear to auscultation Heart: RRR Breasts: Not examined Abdomen: Soft, No tenderness Rectal Exam: not examined Skin: Other (MARKED ERYTHEMA LEFT ANKLE/ LOWER LEG TENDER) Neuro: Cranial nerves 3-12 NL Vitals Vitals Vital Signs Date Time Temp Pulse Resp B/P (MAP) Pulse Ox O2 Delivery O2 Flow Rate FiO2 11/17/18 16:49 82 18 116/57 (76) 100 11/17/18 14:10 98.2 Room Air 98.2 Labs Labs Laboratory Tests Test 11/17/18 15:05 11/17/18 15:06 11/17/18 15:55 Lactic Acid Level 1.4 mmol/L (0.4-2.0) White Blood Count 12.5 x10^3/uL (4.0-11.0) Red Blood Count 4.05 x10^6/uL (3.50-5.40) Hemoglobin 13.5 g/dL (12.0-15.5) Hematocrit 40.6 % (36.0-47.0) Mean Corpuscular Volume 100 fL (79-100) Mean Corpuscular Hemoglobin 33 pg (25-35) Mean Corpuscular Hemoglobin Concent 33 g/dL (31-37) Red Cell Distribution Width 13.9 % (11.5-14.5) Platelet Count 388 x10^3/uL (140-400) Neutrophils (%) (Auto) 58 % (31-73) Lymphocytes (%) (Auto) 30 % (24-48) Monocytes (%) (Auto) 9 % (0-9) Eosinophils (%) (Auto) 2 % (0-3) Basophils (%) (Auto) 1 % (0-3) Neutrophils # (Auto) 7.2 x10^3uL (1.8-7.7) Lymphocytes # (Auto) 3.8 x10^3/uL (1.0-4.8) Monocytes # (Auto) 1.2 x10^3/uL (0.0-1.1) Eosinophils # (Auto) 0.2 x10^3/uL (0.0-0.7) Basophils # (Auto) 0.1 x10^3/uL (0.0-0.2) Sodium Level 142 mmol/L (136-145) Potassium Level 4.0 mmol/L (3.5-5.1) Chloride Level 105 mmol/L (98-107) Carbon Dioxide Level 30 mmol/L (21-32) Anion Gap 7 (6-14) Blood Urea Nitrogen 29 mg/dL (7-20) Creatinine 1.7 mg/dL (0.6-1.0) Estimated GFR (Cockcroft-Gault) 36.7 BUN/Creatinine Ratio 17 (6-20) Glucose Level 173 mg/dL (70-99) Calcium Level 8.7 mg/dL (8.5-10.1) Total Bilirubin 0.2 mg/dL (0.2-1.0) Aspartate Amino Transf (AST/SGOT) 32 U/L (15-37) Alanine Aminotransferase (ALT/SGPT) 35 U/L (14-59) Alkaline Phosphatase 79 U/L (46-116) Troponin I Quantitative < 0.017 ng/mL (0.000-0.055) RD-Gnl-O-Type Natriuretic Peptide 225 pg/mL (0-124) Total Protein 7.5 g/dL (6.4-8.2) Albumin 2.3 g/dL (3.4-5.0) Albumin/Globulin Ratio 0.4 (1.0-1.7) Ethyl Alcohol Level < 10 mg/dL (0-10) Urine Collection Type U cath Urine Color Yellow Urine Clarity Clear Urine pH 6.5 Urine Specific [place] 1.020 Urine Protein >=300 mg/dL (NEG-TRACE) Urine Glucose (UA) Negative mg/dL (NEG) Urine Ketones (Stick) Negative mg/dL (NEG) Urine Blood Small (NEG) Urine Nitrite Positive (NEG) Urine Bilirubin Negative (NEG) Urine Urobilinogen Dipstick 1.0 mg/dL (0.2 mg/dL) Urine Leukocyte Esterase Trace (NEG) Urine RBC Rare /HPF (0-2) Urine WBC 1-4 /HPF (0-4) Urine Squamous Epithelial Cells Few /LPF Urine Bacteria Many /HPF (0-FEW) Urine Opiates Screen Neg (NEG) Urine Methadone Screen Neg (NEG) Urine Barbiturates Neg (NEG) Urine Phencyclidine Screen Neg (NEG) Urine Amphetamine/Methamphetamine Neg (NEG) Urine Benzodiazepines Screen Neg (NEG) Urine Cocaine Screen Pos (NEG) Urine Cannabinoids Screen Pos (NEG) Urine Ethyl Alcohol Neg (NEG) Laboratory Tests Test 11/17/18 15:05 11/17/18 15:06 11/17/18 15:55 Lactic Acid Level 1.4 mmol/L (0.4-2.0) White Blood Count 12.5 x10^3/uL (4.0-11.0) Red Blood Count 4.05 x10^6/uL (3.50-5.40) Hemoglobin 13.5 g/dL (12.0-15.5) Hematocrit 40.6 % (36.0-47.0) Mean Corpuscular Volume 100 fL (79-100) Mean Corpuscular Hemoglobin 33 pg (25-35) Mean Corpuscular Hemoglobin Concent 33 g/dL (31-37) Red Cell Distribution Width 13.9 % (11.5-14.5) Platelet Count 388 x10^3/uL (140-400) Neutrophils (%) (Auto) 58 % (31-73) Lymphocytes (%) (Auto) 30 % (24-48) Monocytes (%) (Auto) 9 % (0-9) Eosinophils (%) (Auto) 2 % (0-3) Basophils (%) (Auto) 1 % (0-3) Neutrophils # (Auto) 7.2 x10^3uL (1.8-7.7) Lymphocytes # (Auto) 3.8 x10^3/uL (1.0-4.8) Monocytes # (Auto) 1.2 x10^3/uL (0.0-1.1) Eosinophils # (Auto) 0.2 x10^3/uL (0.0-0.7) Basophils # (Auto) 0.1 x10^3/uL (0.0-0.2) Sodium Level 142 mmol/L (136-145) Potassium Level 4.0 mmol/L (3.5-5.1) Chloride Level 105 mmol/L (98-107) Carbon Dioxide Level 30 mmol/L (21-32) Anion Gap 7 (6-14) Blood Urea Nitrogen 29 mg/dL (7-20) Creatinine 1.7 mg/dL (0.6-1.0) Estimated GFR (Cockcroft-Gault) 36.7 BUN/Creatinine Ratio 17 (6-20) Glucose Level 173 mg/dL (70-99) Calcium Level 8.7 mg/dL (8.5-10.1) Total Bilirubin 0.2 mg/dL (0.2-1.0) Aspartate Amino Transf (AST/SGOT) 32 U/L (15-37) Alanine Aminotransferase (ALT/SGPT) 35 U/L (14-59) Alkaline Phosphatase 79 U/L (46-116) Troponin I Quantitative < 0.017 ng/mL (0.000-0.055) XM-Thz-I-Type Natriuretic Peptide 225 pg/mL (0-124) Total Protein 7.5 g/dL (6.4-8.2) Albumin 2.3 g/dL (3.4-5.0) Albumin/Globulin Ratio 0.4 (1.0-1.7) Ethyl Alcohol Level < 10 mg/dL (0-10) Urine Collection Type U cath Urine Color Yellow Urine Clarity Clear Urine pH 6.5 Urine Specific [place] 1.020 Urine Protein >=300 mg/dL (NEG-TRACE) Urine Glucose (UA) Negative mg/dL (NEG) Urine Ketones (Stick) Negative mg/dL (NEG) Urine Blood Small (NEG) Urine Nitrite Positive (NEG) Urine Bilirubin Negative (NEG) Urine Urobilinogen Dipstick 1.0 mg/dL (0.2 mg/dL) Urine Leukocyte Esterase Trace (NEG) Urine RBC Rare /HPF (0-2) Urine WBC 1-4 /HPF (0-4) Urine Squamous Epithelial Cells Few /LPF Urine Bacteria Many /HPF (0-FEW) Urine Opiates Screen Neg (NEG) Urine Methadone Screen Neg (NEG) Urine Barbiturates Neg (NEG) Urine Phencyclidine Screen Neg (NEG) Urine Amphetamine/Methamphetamine Neg (NEG) Urine Benzodiazepines Screen Neg (NEG) Urine Cocaine Screen Pos (NEG) Urine Cannabinoids Screen Pos (NEG) Urine Ethyl Alcohol Neg (NEG) Images Images CT head without contrast dated 11/17/2018. No comparison available. Clinical indication: Altered mental status. TECHNIQUE: Contiguous axial imaging the head was performed from skull base to vertex. No contrast administered.. One or more of the following individualized dose reduction techniques were utilized for this examination: 1. Automated exposure control 2. Adjustment of the mA and/or kV according to patient size 3. Use of iterative reconstruction technique FINDINGS: Ventricles and sulci are mildly prominent for age. No midline shift or mass effect. Mild patchy low density in the deep/subcortical periventricular white matter. No hemorrhage or extra axial collection. Posterior fossa and brainstem unremarkable. Minimal mucosal thickening of the bilateral ethmoid air cells. The visualized paranasal sinuses and mastoid air cells are otherwise clear. No apparent calvarial abnormality. IMPRESSION: 1. No evidence of acute intracranial hemorrhage or mass. 2. Mild chronic small vessel ischemic changes and atrophy. 3. Mild sinus disease. Electronically signed by: Rian Spence MD (11/17/2018 2:57 PM) [id number] EXAM: Left lower extremity venous Doppler sonogram. HISTORY: Pain. TECHNIQUE: Greenfield scale and color Doppler sonographic evaluation of the left lower extremity veins with spectral waveform analysis was performed. FINDINGS: There is normal color flow, normal compressibility and there are normal spectral waveforms in the common femoral, superficial femoral, and popliteal veins. The calf veins not well seen due to edema. IMPRESSION: No Doppler evidence of lower extremity deep venous thrombosis, with limited evaluation of the calf veins due to soft tissue edema. Electronically signed by: Cecily Hernandez MD (11/17/2018 4:29 PM) [id number] VTE Prophylaxis Ordered VTE Prophylaxis Devices: Yes VTE Pharmacological Prophylaxi: Yes Assessment/Plan Assessment/Plan impression 1. severe cellulitis left lower leg/ ankle 2. bilat lymphedema 3. homeless socal issues/ complex care needed 4. hx iv cocaine abuse 5. THC ABUSE 6. WITHDRAWAL FROM COCAINE/THC 7. DELIRIUM 8. Anemia of chronic disease, normocytic 9. Constipation 10. Narcotic dependence 11.acute weakness and debility 12 gastroenteritis HX 13. 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 HX moderate gastroparesis 20. back pain chronic 21reflux esophagitis 22. bl leg lymphedema 23, COCAINE ABUSE PLAN 1, BLOOD CULT 2. IV ANTIBIOTICS 3. BANANA BAG IV 4.IV VANC 5. ID CONSULT 6. CONSULT WOUND CARE NURSE 7. IV ATIVAN PRN AGITATION PROTOCOL/SET 8. iv vanc/ zosyn pending ID CONSULT 9. TD BOOSTER IF NOT UTD 10. DVT PROPHYLAXIS 11. WOUND CULTURE LEFT LEG COMPLEX CARE RE SOCIAL /UNSTABLE/ DRUG ABUSE after chart review per SEBAS Ruvalcaba MD Nov 17, 2018 18:11
--- NOTE | 2018-11-17 18:28 | NUR ---
Pharmacy Vancomycin Dosing Note S:Consulted to monitor and dose vancomycin started 11/17/18. O:WAYANAND V is a 63 year old F with Cellulitis . Height: 5 feet, 7 inches Weight: 81.262244 kg [place] Body Weight: 61.60 Adjusted Body Weight: 69.68 Dosing Weight: Actual Other Antibiotics: LABS: Last BUN: Last Creatinine: 1.7 Creatinine Clearance: 37 mL/min Last WBC: 12.5 Last Procalcitonin: Tmax (past 24 hours): Microbiology: I/O: Drug Levels: Last level: on at Last dose given 11/17/18 at 1630 Vancomycin Dosing: Loading Dose: 2000 mg x1 Dosing Weight: Actual Target Trough: 10-20 A: Based on: WEIGHT AND RENAL FUNCTION, VANCOMYCIN 2GM IV BOLUS, THEN P: 1. Begin Vancomycin 1250 mg IV q24h TOMORROW 2. Follow up Trough level on 11/19/18 at 1600 3. Pharmacy will continue to monitor, follow and adjust therapy as needed. BECCA JACKSON, [facility], 11/17/18 [id number]
--- NOTE | 2018-11-17 18:50 | NUR ---
The patient, ANAND DEGROOT V, 63 y/o, F admitted by SEBAS ROOT MD, was given written information regarding hospital policies, unit procedures and contact persons. Valuables were checked and left with her.
[2018-11-17 19:00] VITALS: BP 161/104
--- NOTE | 2018-11-17 19:00 | NUR ---
This nurse went into patient room with Aaliyah Sheikh RN to do walking shift report. Patient was on gurney from ED. Mert Martínez was also in room from ED and CARROLL Pennington in room to assist patient to commode. Patient had eyes closed on gurney and this nurse moved patient purse from gurney to chair and clasp was open, patient had cigarettes and lighters at the top of purse. Patient woke up and began yelling at this nurse to not go through her things and that we could not go through her purse. She stated she would call her sister to picking table worker her purse. Patient informed she could not use cigarettes or lighters in room and patient stated that the next thing you know we would be having her arrested for something in her bag. Patient informed she was not to have illegal things in the facility and that she could call sister to come get personal items or that they would need to be locked in security if patient was worried about items. Patient agitated stating this nurse was taking advantage of her narcolepsy to go through her things. Other staff in room also saw cigarette pack at top of bag which was closed and placed in patient's chair who was then assisted to BSC. nursing supervisory civil engineer notified. Patient verbalized she is aware that she can call family to picking table worker personal items.
[2018-11-17] MEDS: ENOXAPARIN 40 MG/0.4 ML SYRINGE. SQ SCH ×2 (22:00→22:56)
[2018-11-17] MEDS ORDERED: HALOPERIDOL LACTATE 5 MG/ML VIAL. IVP PRN (22:00)
[2018-11-17] MEDS ORDERED: diphenhydrAMINE 50 MG/ML VIAL IVP PRN (22:00)
[2018-11-17] MEDS ORDERED: NOREPINEPHRIN 8MG/250ML PREMIX 250 ML IV PRN (22:00)
[2018-11-17] MEDS ORDERED: LORazepam 1 MG TABLET PO PRN (22:00)
[2018-11-17] MEDS ORDERED: IV NORMAL SALINE 1000ML BAG 1,000 ML IV SCH (22:15)
[2018-11-17] MEDS ORDERED: IV NORMAL SALINE 500ML BAG 500 ML IV PRN (22:15)
[2018-11-17] MEDS: cloNIDine HCL 0.1 MG TABLET PO PRN (22:55)
[2018-11-17 23:46] VITALS: BP 142/63
--- NOTE | 2018-11-18 02:53 | RAD ---
Indication:swelling left ankle foot TECHNIQUE: 3 views of the left ankle COMPARISON:None FINDINGS/ impression: No acute fracture or dislocation. Ankle mortise is intact. Ankle edema. Electronically signed by: Bassem Méndez DO (11/18/2018 2:51 AM) [id number]
--- NOTE | 2018-11-18 02:55 | RAD ---
Indication:swelling left ankle foot TECHNIQUE: 3 views of the left foot COMPARISON:None FINDINGS/ impression: No acute fracture or dislocation. Significant foot soft tissue swelling noted. No arthritic process. Electronically signed by: Bassem Méndez DO (11/18/2018 2:52 AM) [id number]
[2018-11-18 03:21] VITALS: BP 113/55
[2018-11-18 04:26] LABS: BASO # 0.1 x10^3/uL (0.0-0.2); BASO % 1 % (0-3); EOS # 0.2 x10^3/uL (0.0-0.7); EOS % 3 % (0-3); HEMOGLOBIN 11.4 g/dL (12.0-15.5); LYMPH # 3.1 x10^3/uL (1.0-4.8); LYMPH % 35 % (24-48); MEAN CORPUSCULAR HEMOGLOBIN 33 pg (25-35); MEAN CORPUSCULAR HGB CONC 33 g/dL (31-37); MEAN CORPUSCULAR VOLUME 101 fL (79-100); MONO % 11 % (0-9); NEUT # 4.7 x10^3uL (1.8-7.7); NEUT % 52 % (31-73); PLATELET COUNT 337 x10^3/uL (140-400); RED BLOOD COUNT 3.48 x10^6/uL (3.50-5.40); WHITE BLOOD COUNT 9.1 x10^3/uL (4.0-11.0)
[2018-11-18 04:35] LABS: PROTHROMBIN TIME PATIENT 12.7 SEC (11.7-14.0)
[2018-11-18 04:45] LABS: CREATININE 1.4 mg/dL (0.6-1.0); POTASSIUM 4.2 mmol/L (3.5-5.1)
[2018-11-18 07:47] VITALS: BP 160/76
[2018-11-18] MEDS ORDERED: THIAMINE IM 200 MG/2 ML VIAL. IM SCH (09:00)
[2018-11-18] MEDS ORDERED: FOLIC ACID 1 MG TABLET. PO SCH (09:00)
[2018-11-18] MEDS: MULTIVIT INFUSN,ADULT 4,VIT K 10 ML, THIAMINE INJ 100 MG, FOLIC ACID INJ 1 MG in IV NOR... IV SCH (10:11)
[2018-11-18] MEDS: MULTIVITAMIN with MINERAL TABLET. PO SCH (10:11)
[2018-11-18 11:00] VITALS: BP 178/82
[2018-11-18] MEDS: oxyCODONE IR 5 MG TABLET PO PRN ×2 (11:18→17:44)
--- NOTE | 2018-11-18 11:45 | NUR ---
Wound care: Patient seen per wound care consult. See wound assessment. Patient has wound to left lower leg, wound cleansed and assessed. Recommendations for Xeroform gauze and Aquacel foam dressing. Dressing applied and patient tolerated well. There are no other wounds noted upon complete head to toe assessment. Dressing change instructions left in room. Patient repositioned in bed. Bilateral lower extremities elevated. Patient educated on elevating to help with swelling. Reinforcements needed as patient is drowsy. Bed lowered and call light in reach. Spoke with RN regarding POC. Will follow patient regarding wound care.
--- NOTE | 2018-11-18 11:54 | PDOC ---
Infectious Disease Note Vital Sign Vital Signs Vital Signs Date Time Temp Pulse Resp B/P (MAP) Pulse Ox O2 Delivery O2 Flow Rate FiO2 11/18/18 11:18 18 100 Nasal Cannula 2.0 11/18/18 11:00 98.6 71 178/82 (114) 98.6 Labs Lab Laboratory Tests Test 11/17/18 15:05 11/17/18 15:06 11/17/18 15:55 11/18/18 03:15 Lactic Acid Level 1.4 mmol/L (0.4-2.0) White Blood Count 12.5 x10^3/uL (4.0-11.0) 9.1 x10^3/uL (4.0-11.0) Red Blood Count 4.05 x10^6/uL (3.50-5.40) 3.48 x10^6/uL (3.50-5.40) Hemoglobin 13.5 g/dL (12.0-15.5) 11.4 g/dL (12.0-15.5) Hematocrit 40.6 % (36.0-47.0) 35.0 % (36.0-47.0) Mean Corpuscular Volume 100 fL (79-100) 101 fL (79-100) Mean Corpuscular Hemoglobin 33 pg (25-35) 33 pg (25-35) Mean Corpuscular Hemoglobin Concent 33 g/dL (31-37) 33 g/dL (31-37) Red Cell Distribution Width 13.9 % (11.5-14.5) 14.0 % (11.5-14.5) Platelet Count 388 x10^3/uL (140-400) 337 x10^3/uL (140-400) Neutrophils (%) (Auto) 58 % (31-73) 52 % (31-73) Lymphocytes (%) (Auto) 30 % (24-48) 35 % (24-48) Monocytes (%) (Auto) 9 % (0-9) 11 % (0-9) Eosinophils (%) (Auto) 2 % (0-3) 3 % (0-3) Basophils (%) (Auto) 1 % (0-3) 1 % (0-3) Neutrophils # (Auto) 7.2 x10^3uL (1.8-7.7) 4.7 x10^3uL (1.8-7.7) Lymphocytes # (Auto) 3.8 x10^3/uL (1.0-4.8) 3.1 x10^3/uL (1.0-4.8) Monocytes # (Auto) 1.2 x10^3/uL (0.0-1.1) 1.0 x10^3/uL (0.0-1.1) Eosinophils # (Auto) 0.2 x10^3/uL (0.0-0.7) 0.2 x10^3/uL (0.0-0.7) Basophils # (Auto) 0.1 x10^3/uL (0.0-0.2) 0.1 x10^3/uL (0.0-0.2) Sodium Level 142 mmol/L (136-145) 144 mmol/L (136-145) Potassium Level 4.0 mmol/L (3.5-5.1) 4.2 mmol/L (3.5-5.1) Chloride Level 105 mmol/L (98-107) 110 mmol/L (98-107) Carbon Dioxide Level 30 mmol/L (21-32) 27 mmol/L (21-32) Anion Gap 7 (6-14) 7 (6-14) Blood Urea Nitrogen 29 mg/dL (7-20) 26 mg/dL (7-20) Creatinine 1.7 mg/dL (0.6-1.0) 1.4 mg/dL (0.6-1.0) Estimated GFR (Cockcroft-Gault) 36.7 46.0 BUN/Creatinine Ratio 17 (6-20) Glucose Level 173 mg/dL (70-99) 134 mg/dL (70-99) Calcium Level 8.7 mg/dL (8.5-10.1) 8.0 mg/dL (8.5-10.1) Total Bilirubin 0.2 mg/dL (0.2-1.0) Aspartate Amino Transf (AST/SGOT) 32 U/L (15-37) Alanine Aminotransferase (ALT/SGPT) 35 U/L (14-59) Alkaline Phosphatase 79 U/L (46-116) Troponin I Quantitative < 0.017 ng/mL (0.000-0.055) DZ-Jel-W-Type Natriuretic Peptide 225 pg/mL (0-124) Total Protein 7.5 g/dL (6.4-8.2) Albumin 2.3 g/dL (3.4-5.0) Albumin/Globulin Ratio 0.4 (1.0-1.7) Ethyl Alcohol Level < 10 mg/dL (0-10) Urine Collection Type U cath Urine Color Yellow Urine Clarity Clear Urine pH 6.5 Urine Specific [place] 1.020 Urine Protein >=300 mg/dL (NEG-TRACE) Urine Glucose (UA) Negative mg/dL (NEG) Urine Ketones (Stick) Negative mg/dL (NEG) Urine Blood Small (NEG) Urine Nitrite Positive (NEG) Urine Bilirubin Negative (NEG) Urine Urobilinogen Dipstick 1.0 mg/dL (0.2 mg/dL) Urine Leukocyte Esterase Trace (NEG) Urine RBC Rare /HPF (0-2) Urine WBC 1-4 /HPF (0-4) Urine Squamous Epithelial Cells Few /LPF Urine Bacteria Many /HPF (0-FEW) Urine Opiates Screen Neg (NEG) Urine Methadone Screen Neg (NEG) Urine Barbiturates Neg (NEG) Urine Phencyclidine Screen Neg (NEG) Urine Amphetamine/Methamphetamine Neg (NEG) Urine Benzodiazepines Screen Neg (NEG) Urine Cocaine Screen Pos (NEG) Urine Cannabinoids Screen Pos (NEG) Urine Ethyl Alcohol Neg (NEG) Prothrombin Time 12.7 SEC (11.7-14.0) Prothromb Time International Ratio 1.0 (0.8-1.1) Activated Partial Thromboplast Time 27 SEC (24-38) Procalcitonin < 0.10 ng/mL (0.00-0.10) Test 11/18/18 07:46 Glucose (Fingerstick) 174 mg/dL (70-99) Objective Assessment Left leg cellulitis Leukocytosis Fever DM COPD Lymphedema Plan Plan of Care d/c vanc cont zosyn leg elevation ZENIA LU MD Nov 18, 2018 11:54
[2018-11-18] MEDS ORDERED: DEXTROSE 50% 25 GM / 50ML DISP.SYRIN. IV PRN (13:15)
[2018-11-18] MEDS: INSULIN LISPRO 300 UNITS/3 ML INSULN.PEN. SQ SCH ×2 (13:42→17:00)
--- NOTE | 2018-11-18 14:19 | PDOC ---
PROGRESS NOTES Chief Complaint Chief Complaint 1. severe cellulitis left lower leg/ ankle 2. bilat lymphedema 3. homeless socal issues/ complex care needed 4. hx iv cocaine abuse 5. THC ABUSE 6. WITHDRAWAL FROM COCAINE/THC 7. DELIRIUM 8. Anemia of chronic disease, normocytic 9. Constipation 10. Narcotic dependence 11.acute weakness and debility 12 gastroenteritis HX 13. 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 HX moderate gastroparesis 20. back pain chronic 21reflux esophagitis 22. bl leg lymphedema 23, COCAINE ABUSE History of Present Illness History of Present Illness Pt seen and examined with RN Pt was tearful Vitals Vitals Vital Signs Date Time Temp Pulse Resp B/P (MAP) Pulse Ox O2 Delivery O2 Flow Rate FiO2 11/18/18 12:20 18 100 Nasal Cannula 2.0 11/18/18 11:00 98.6 71 178/82 (114) 98.6 Physical Exam General: Alert, Oriented X3, Cooperative, moderate distress Heart: Regular rate, Normal S1 Lungs: Clear Abdomen: Normal bowel sounds, Soft, No tenderness Extremities: Other (R leg swollen more than left) Skin: No breakdown (leg is swollen too.), Other (MARKED ERYTHEMA LEFT ANKLE/ LOWER LEG TENDER CDI bandaging) Labs LABS Laboratory Tests Test 11/17/18 15:05 11/17/18 15:06 11/17/18 15:55 11/18/18 03:15 Lactic Acid Level 1.4 mmol/L (0.4-2.0) White Blood Count 12.5 x10^3/uL (4.0-11.0) 9.1 x10^3/uL (4.0-11.0) Red Blood Count 4.05 x10^6/uL (3.50-5.40) 3.48 x10^6/uL (3.50-5.40) Hemoglobin 13.5 g/dL (12.0-15.5) 11.4 g/dL (12.0-15.5) Hematocrit 40.6 % (36.0-47.0) 35.0 % (36.0-47.0) Mean Corpuscular Volume 100 fL (79-100) 101 fL (79-100) Mean Corpuscular Hemoglobin 33 pg (25-35) 33 pg (25-35) Mean Corpuscular Hemoglobin Concent 33 g/dL (31-37) 33 g/dL (31-37) Red Cell Distribution Width 13.9 % (11.5-14.5) 14.0 % (11.5-14.5) Platelet Count 388 x10^3/uL (140-400) 337 x10^3/uL (140-400) Neutrophils (%) (Auto) 58 % (31-73) 52 % (31-73) Lymphocytes (%) (Auto) 30 % (24-48) 35 % (24-48) Monocytes (%) (Auto) 9 % (0-9) 11 % (0-9) Eosinophils (%) (Auto) 2 % (0-3) 3 % (0-3) Basophils (%) (Auto) 1 % (0-3) 1 % (0-3) Neutrophils # (Auto) 7.2 x10^3uL (1.8-7.7) 4.7 x10^3uL (1.8-7.7) Lymphocytes # (Auto) 3.8 x10^3/uL (1.0-4.8) 3.1 x10^3/uL (1.0-4.8) Monocytes # (Auto) 1.2 x10^3/uL (0.0-1.1) 1.0 x10^3/uL (0.0-1.1) Eosinophils # (Auto) 0.2 x10^3/uL (0.0-0.7) 0.2 x10^3/uL (0.0-0.7) Basophils # (Auto) 0.1 x10^3/uL (0.0-0.2) 0.1 x10^3/uL (0.0-0.2) Sodium Level 142 mmol/L (136-145) 144 mmol/L (136-145) Potassium Level 4.0 mmol/L (3.5-5.1) 4.2 mmol/L (3.5-5.1) Chloride Level 105 mmol/L (98-107) 110 mmol/L (98-107) Carbon Dioxide Level 30 mmol/L (21-32) 27 mmol/L (21-32) Anion Gap 7 (6-14) 7 (6-14) Blood Urea Nitrogen 29 mg/dL (7-20) 26 mg/dL (7-20) Creatinine 1.7 mg/dL (0.6-1.0) 1.4 mg/dL (0.6-1.0) Estimated GFR (Cockcroft-Gault) 36.7 46.0 BUN/Creatinine Ratio 17 (6-20) Glucose Level 173 mg/dL (70-99) 134 mg/dL (70-99) Calcium Level 8.7 mg/dL (8.5-10.1) 8.0 mg/dL (8.5-10.1) Total Bilirubin 0.2 mg/dL (0.2-1.0) Aspartate Amino Transf (AST/SGOT) 32 U/L (15-37) Alanine Aminotransferase (ALT/SGPT) 35 U/L (14-59) Alkaline Phosphatase 79 U/L (46-116) Troponin I Quantitative < 0.017 ng/mL (0.000-0.055) ZQ-Cmj-V-Type Natriuretic Peptide 225 pg/mL (0-124) Total Protein 7.5 g/dL (6.4-8.2) Albumin 2.3 g/dL (3.4-5.0) Albumin/Globulin Ratio 0.4 (1.0-1.7) Ethyl Alcohol Level < 10 mg/dL (0-10) Urine Collection Type U cath Urine Color Yellow Urine Clarity Clear Urine pH 6.5 Urine Specific Hamilton 1.020 Urine Protein >=300 mg/dL (NEG-TRACE) Urine Glucose (UA) Negative mg/dL (NEG) Urine Ketones (Stick) Negative mg/dL (NEG) Urine Blood Small (NEG) Urine Nitrite Positive (NEG) Urine Bilirubin Negative (NEG) Urine Urobilinogen Dipstick 1.0 mg/dL (0.2 mg/dL) Urine Leukocyte Esterase Trace (NEG) Urine RBC Rare /HPF (0-2) Urine WBC 1-4 /HPF (0-4) Urine Squamous Epithelial Cells Few /LPF Urine Bacteria Many /HPF (0-FEW) Urine Opiates Screen Neg (NEG) Urine Methadone Screen Neg (NEG) Urine Barbiturates Neg (NEG) Urine Phencyclidine Screen Neg (NEG) Urine Amphetamine/Methamphetamine Neg (NEG) Urine Benzodiazepines Screen Neg (NEG) Urine Cocaine Screen Pos (NEG) Urine Cannabinoids Screen Pos (NEG) Urine Ethyl Alcohol Neg (NEG) Prothrombin Time 12.7 SEC (11.7-14.0) Prothromb Time International Ratio 1.0 (0.8-1.1) Activated Partial Thromboplast Time 27 SEC (24-38) Procalcitonin < 0.10 ng/mL (0.00-0.10) Test 11/18/18 07:46 11/18/18 12:01 Glucose (Fingerstick) 174 mg/dL (70-99) 262 mg/dL (70-99) Review of Systems Review of Systems co pain co depression Assessment and Plan Assessmemt and Plan Problems Medical Problems: (1) Cellulitis of left lower extremity Status: Acute (2) Chronic acquired lymphedema Status: Acute (3) Drug abuse Status: Acute (4) Homeless Status: Acute 1. severe cellulitis left lower leg/ ankle 2. bilat lymphedema 3. homeless socal issues/ complex care needed 4. hx iv cocaine abuse 5. THC ABUSE 6. WITHDRAWAL FROM COCAINE/THC 7. DELIRIUM 8. Anemia of chronic disease, normocytic 9. Constipation 10. Narcotic dependence 11.acute weakness and debility 12 gastroenteritis HX 13. 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 HX moderate gastroparesis 20. back pain chronic 21reflux esophagitis 22. bl leg lymphedema 23, COCAINE ABUSE PLAN 1, BLOOD CULT 2. IV ANTIBIOTICS 3. BANANA BAG IV 4.IV VANC 5. ID CONSULT 6. CONSULT WOUND CARE NURSE 7. IV ATIVAN PRN AGITATION PROTOCOL/SET 8. iv vanc/ zosyn pending ID CONSULT 9. TD BOOSTER IF NOT UTD 10. DVT PROPHYLAXIS 11. WOUND CULTURE LEFT LEG Plan IV antibx ID Consulted Labs PRN narcotics Home meds Banana Bag DVT proph PTOT Comment Review of Relevant I have reviewed the following items peyton (where applicable) has been applied. Labs Laboratory Tests Test 11/17/18 15:05 11/17/18 15:06 11/17/18 15:55 11/18/18 03:15 Lactic Acid Level 1.4 mmol/L (0.4-2.0) White Blood Count 12.5 x10^3/uL (4.0-11.0) 9.1 x10^3/uL (4.0-11.0) Red Blood Count 4.05 x10^6/uL (3.50-5.40) 3.48 x10^6/uL (3.50-5.40) Hemoglobin 13.5 g/dL (12.0-15.5) 11.4 g/dL (12.0-15.5) Hematocrit 40.6 % (36.0-47.0) 35.0 % (36.0-47.0) Mean Corpuscular Volume 100 fL (79-100) 101 fL (79-100) Mean Corpuscular Hemoglobin 33 pg (25-35) 33 pg (25-35) Mean Corpuscular Hemoglobin Concent 33 g/dL (31-37) 33 g/dL (31-37) Red Cell Distribution Width 13.9 % (11.5-14.5) 14.0 % (11.5-14.5) Platelet Count 388 x10^3/uL (140-400) 337 x10^3/uL (140-400) Neutrophils (%) (Auto) 58 % (31-73) 52 % (31-73) Lymphocytes (%) (Auto) 30 % (24-48) 35 % (24-48) Monocytes (%) (Auto) 9 % (0-9) 11 % (0-9) Eosinophils (%) (Auto) 2 % (0-3) 3 % (0-3) Basophils (%) (Auto) 1 % (0-3) 1 % (0-3) Neutrophils # (Auto) 7.2 x10^3uL (1.8-7.7) 4.7 x10^3uL (1.8-7.7) Lymphocytes # (Auto) 3.8 x10^3/uL (1.0-4.8) 3.1 x10^3/uL (1.0-4.8) Monocytes # (Auto) 1.2 x10^3/uL (0.0-1.1) 1.0 x10^3/uL (0.0-1.1) Eosinophils # (Auto) 0.2 x10^3/uL (0.0-0.7) 0.2 x10^3/uL (0.0-0.7) Basophils # (Auto) 0.1 x10^3/uL (0.0-0.2) 0.1 x10^3/uL (0.0-0.2) Sodium Level 142 mmol/L (136-145) 144 mmol/L (136-145) Potassium Level 4.0 mmol/L (3.5-5.1) 4.2 mmol/L (3.5-5.1) Chloride Level 105 mmol/L (98-107) 110 mmol/L (98-107) Carbon Dioxide Level 30 mmol/L (21-32) 27 mmol/L (21-32) Anion Gap 7 (6-14) 7 (6-14) Blood Urea Nitrogen 29 mg/dL (7-20) 26 mg/dL (7-20) Creatinine 1.7 mg/dL (0.6-1.0) 1.4 mg/dL (0.6-1.0) Estimated GFR (Cockcroft-Gault) 36.7 46.0 BUN/Creatinine Ratio 17 (6-20) Glucose Level 173 mg/dL (70-99) 134 mg/dL (70-99) Calcium Level 8.7 mg/dL (8.5-10.1) 8.0 mg/dL (8.5-10.1) Total Bilirubin 0.2 mg/dL (0.2-1.0) Aspartate Amino Transf (AST/SGOT) 32 U/L (15-37) Alanine Aminotransferase (ALT/SGPT) 35 U/L (14-59) Alkaline Phosphatase 79 U/L (46-116) Troponin I Quantitative < 0.017 ng/mL (0.000-0.055) GY-Cgn-Z-Type Natriuretic Peptide 225 pg/mL (0-124) Total Protein 7.5 g/dL (6.4-8.2) Albumin 2.3 g/dL (3.4-5.0) Albumin/Globulin Ratio 0.4 (1.0-1.7) Ethyl Alcohol Level < 10 mg/dL (0-10) Urine Collection Type U cath Urine Color Yellow Urine Clarity Clear Urine pH 6.5 Urine Specific Hamilton 1.020 Urine Protein >=300 mg/dL (NEG-TRACE) Urine Glucose (UA) Negative mg/dL (NEG) Urine Ketones (Stick) Negative mg/dL (NEG) Urine Blood Small (NEG) Urine Nitrite Positive (NEG) Urine Bilirubin Negative (NEG) Urine Urobilinogen Dipstick 1.0 mg/dL (0.2 mg/dL) Urine Leukocyte Esterase Trace (NEG) Urine RBC Rare /HPF (0-2) Urine WBC 1-4 /HPF (0-4) Urine Squamous Epithelial Cells Few /LPF Urine Bacteria Many /HPF (0-FEW) Urine Opiates Screen Neg (NEG) Urine Methadone Screen Neg (NEG) Urine Barbiturates Neg (NEG) Urine Phencyclidine Screen Neg (NEG) Urine Amphetamine/Methamphetamine Neg (NEG) Urine Benzodiazepines Screen Neg (NEG) Urine Cocaine Screen Pos (NEG) Urine Cannabinoids Screen Pos (NEG) Urine Ethyl Alcohol Neg (NEG) Prothrombin Time 12.7 SEC (11.7-14.0) Prothromb Time International Ratio 1.0 (0.8-1.1) Activated Partial Thromboplast Time 27 SEC (24-38) Procalcitonin < 0.10 ng/mL (0.00-0.10) Test 11/18/18 07:46 11/18/18 12:01 Glucose (Fingerstick) 174 mg/dL (70-99) 262 mg/dL (70-99) Laboratory Tests Test 11/17/18 15:05 11/17/18 15:06 11/17/18 15:55 11/18/18 03:15 Lactic Acid Level 1.4 mmol/L (0.4-2.0) White Blood Count 12.5 x10^3/uL (4.0-11.0) 9.1 x10^3/uL (4.0-11.0) Red Blood Count 4.05 x10^6/uL (3.50-5.40) 3.48 x10^6/uL (3.50-5.40) Hemoglobin 13.5 g/dL (12.0-15.5) 11.4 g/dL (12.0-15.5) Hematocrit 40.6 % (36.0-47.0) 35.0 % (36.0-47.0) Mean Corpuscular Volume 100 fL (79-100) 101 fL (79-100) Mean Corpuscular Hemoglobin 33 pg (25-35) 33 pg (25-35) Mean Corpuscular Hemoglobin Concent 33 g/dL (31-37) 33 g/dL (31-37) Red Cell Distribution Width 13.9 % (11.5-14.5) 14.0 % (11.5-14.5) Platelet Count 388 x10^3/uL (140-400) 337 x10^3/uL (140-400) Neutrophils (%) (Auto) 58 % (31-73) 52 % (31-73) Lymphocytes (%) (Auto) 30 % (24-48) 35 % (24-48) Monocytes (%) (Auto) 9 % (0-9) 11 % (0-9) Eosinophils (%) (Auto) 2 % (0-3) 3 % (0-3) Basophils (%) (Auto) 1 % (0-3) 1 % (0-3) Neutrophils # (Auto) 7.2 x10^3uL (1.8-7.7) 4.7 x10^3uL (1.8-7.7) Lymphocytes # (Auto) 3.8 x10^3/uL (1.0-4.8) 3.1 x10^3/uL (1.0-4.8) Monocytes # (Auto) 1.2 x10^3/uL (0.0-1.1) 1.0 x10^3/uL (0.0-1.1) Eosinophils # (Auto) 0.2 x10^3/uL (0.0-0.7) 0.2 x10^3/uL (0.0-0.7) Basophils # (Auto) 0.1 x10^3/uL (0.0-0.2) 0.1 x10^3/uL (0.0-0.2) Sodium Level 142 mmol/L (136-145) 144 mmol/L (136-145) Potassium Level 4.0 mmol/L (3.5-5.1) 4.2 mmol/L (3.5-5.1) Chloride Level 105 mmol/L (98-107) 110 mmol/L (98-107) Carbon Dioxide Level 30 mmol/L (21-32) 27 mmol/L (21-32) Anion Gap 7 (6-14) 7 (6-14) Blood Urea Nitrogen 29 mg/dL (7-20) 26 mg/dL (7-20) Creatinine 1.7 mg/dL (0.6-1.0) 1.4 mg/dL (0.6-1.0) Estimated GFR (Cockcroft-Gault) 36.7 46.0 BUN/Creatinine Ratio 17 (6-20) Glucose Level 173 mg/dL (70-99) 134 mg/dL (70-99) Calcium Level 8.7 mg/dL (8.5-10.1) 8.0 mg/dL (8.5-10.1) Total Bilirubin 0.2 mg/dL (0.2-1.0) Aspartate Amino Transf (AST/SGOT) 32 U/L (15-37) Alanine Aminotransferase (ALT/SGPT) 35 U/L (14-59) Alkaline Phosphatase 79 U/L (46-116) Troponin I Quantitative < 0.017 ng/mL (0.000-0.055) TV-Rlz-W-Type Natriuretic Peptide 225 pg/mL (0-124) Total Protein 7.5 g/dL (6.4-8.2) Albumin 2.3 g/dL (3.4-5.0) Albumin/Globulin Ratio 0.4 (1.0-1.7) Ethyl Alcohol Level < 10 mg/dL (0-10) Urine Collection Type U cath Urine Color Yellow Urine Clarity Clear Urine pH 6.5 Urine Specific Hamilton 1.020 Urine Protein >=300 mg/dL (NEG-TRACE) Urine Glucose (UA) Negative mg/dL (NEG) Urine Ketones (Stick) Negative mg/dL (NEG) Urine Blood Small (NEG) Urine Nitrite Positive (NEG) Urine Bilirubin Negative (NEG) Urine Urobilinogen Dipstick 1.0 mg/dL (0.2 mg/dL) Urine Leukocyte Esterase Trace (NEG) Urine RBC Rare /HPF (0-2) Urine WBC 1-4 /HPF (0-4) Urine Squamous Epithelial Cells Few /LPF Urine Bacteria Many /HPF (0-FEW) Urine Opiates Screen Neg (NEG) Urine Methadone Screen Neg (NEG) Urine Barbiturates Neg (NEG) Urine Phencyclidine Screen Neg (NEG) Urine Amphetamine/Methamphetamine Neg (NEG) Urine Benzodiazepines Screen Neg (NEG) Urine Cocaine Screen Pos (NEG) Urine Cannabinoids Screen Pos (NEG) Urine Ethyl Alcohol Neg (NEG) Prothrombin Time 12.7 SEC (11.7-14.0) Prothromb Time International Ratio 1.0 (0.8-1.1) Activated Partial Thromboplast Time 27 SEC (24-38) Procalcitonin < 0.10 ng/mL (0.00-0.10) Test 11/18/18 07:46 11/18/18 12:01 Glucose (Fingerstick) 174 mg/dL (70-99) 262 mg/dL (70-99) Medications Current Medications Piperacillin Sod/ Tazobactam Sod 3.375 gm/Sodium Chloride 50 ml @ 100 mls/hr 1X ONCE IV Last administered on 11/17/18 15:45; Start 11/17/18 at 14:30; Stop 11/17/18 at 14:59; Status DC Vancomycin HCl (Vanco Per Pharmacy) 1 each PRN DAILY PRN MC SEE COMMENTS Last administered on 11/17/18at 18:24; Start 11/17/18 at 14:30; Stop 11/18/18 at 11:54 ; Status DC Vancomycin HCl 2 gm/Sodium Chloride 500 ml @ 250 mls/hr ONCE ONCE IV Last administered on 11/17/18at 16:20; Start 11/17/18 at 14:45; Stop 11/17/18 at 16:44 ; Status DC Ondansetron HCl (Zofran) 4 mg PRN Q8HRS PRN IV NAUSEA/VOMITING; Start 11/17/18 at 17:15; Stop 11/18/18 at 17:14 Acetaminophen (Tylenol) 650 mg PRN Q4HRS PRN PO FEVER Last administered on 11/17at 19:55; Start 11/17/18 at 17:15; Stop 11/18/18 at 17:14 Sodium Chloride 1,000 ml @ 75 mls/hr 1X ONCE IV Last administered on at 19:55; Start 11/17/18 at 17:15; Stop 11/18/18 at 06:34; Status DC Vancomycin HCl 1.25 gm/Sodium Chloride 250 ml @ 167 mls/hr Q24H IV ; Start at 16:30; Stop 11/18/18 at 16:30; Status DC Vancomycin HCl (Vancomycin Trough Level) 1 each 1X ONCE MC ; Start 11/19/18 at 16:00; Stop 11/19/18 at 16:00; Status DC Enoxaparin Sodium (Lovenox 40mg Syringe) 40 mg Q24H SQ ; Start 11/17/18 at 22:00 Sodium Chloride 1,000 ml @ 1,860 mls/hr Q33M IV ; Start 11/17/18 at 22:15; Stop 11/17/18 at 22:48; Status DC Sodium Chloride 500 ml @ 1,000 mls/hr PRN Q30MIN PRN IV SEE COMMENTS; Start at 22:15; Stop 11/17/18 at 22:48; Status DC Norepinephrine Bitartrate 250 ml @ 0 mls/hr CONT PRN IV SEE I/O RECORD; Start 11/17/18 at 22:00; Status UNV Multivitamins 10 ml/Thiamine HCl 100 mg/Folic Acid 1 mg/Sodium Chloride 1,011.2 ml @ 100 mls/ hr DAILY IV Last administered on 11/18/18at 10:11; Start at 09:00; Stop 11/22/18 at 19:07 Multivitamins (Thera M Plus) 1 tab DAILY PO Last administered on 11/18/18at 10: 11; Start 11/18/18 at 09:00 Folic Acid (Folic Acid) 1 mg DAILY PO Last administered on 11/18/18at 10:11; Start 11/18/18 at 09:00 Thiamine HCl 100 mg DAILY IM ; Start 11/18/18 at 09:00; Stop 11/23/18 at 08:59 Lorazepam (Ativan) 4 mg PRN Q1HR PRN PO For CIWA 8-14; Start 11/17/18 at 22:00 Lorazepam (Ativan) 2 mg PRN Q1HR PRN IV For CIWA 8-14; Start 11/17/18 at 22:00 Haloperidol Lactate (Haldol Inj) 5 mg PRN Q4HRS PRN IVP Hallucinatns,Confusn, Delirium; Start 11/17/18 at 22:00 Diphenhydramine HCl (Benadryl) 25 mg PRN Q15MIN PRN IVP EPS symptoms 2'Haldol admin; Start 11/17/18 at 22:00 Clonidine HCl (Catapres) 0.1 mg PRN Q1HR PRN PO SBP > 180 or DBP > 100, MRX3 Last administered on 11/17/18at 22:55; Start 11/17/18 at 22:00 Lorazepam (Ativan) 2 mg PRN Q15MIN PRN IV ANXIETY / AGITATION; Start 11/17/18 at 22:00; Stop 11/18/18 at 06:02; Status DC Fentanyl Citrate (Fentanyl 2ml Vial) 50 mcg PRN Q2HR PRN IV PAIN; Start at 11:00 Oxycodone HCl (Roxicodone) 5 mg PRN Q6HRS PRN PO PAIN Last administered on 11/18at 11:18; Start 11/18/18 at 11:00 Insulin Human Lispro (HumaLOG) 0-7 UNITS TIDWMEALS SQ Last administered on 11/18at 13:42; Start 11/18/18 at 13:30 Dextrose (Dextrose 50%-Water Syringe) 12.5 gm PRN Q15MIN PRN IV SEE COMMENTS; Start 11/18/18 at 13:15 Active Scripts Active Lasix (Furosemide) 40 Mg Tablet 40 Mg PO BID 30 Days Humalog (Insulin Lispro) 100 Unit/1 Ml Insuln.pen 7 Units SQ TIDAC 30 Days Lantus Solostar (Insulin Glargine,Hum.rec.anlog) 100 Unit/1 Ml Insuln.pen 20 Units SQ QHS 30 Days Guaifenesin Dm Syrup (Guaifenesin/Dextromethorphan) 5 Ml Syrup 10 Ml PO PRN Q6HRS PRN 30 Days Benzonatate 100 Mg Capsule 100 Mg PO QAG958 30 Days Montelukast Sodium Tablet (Montelukast Sodium) 10 Mg Tablet 10 Mg PO QHS 30 Days Humalog (Insulin Lispro) 100 Unit/1 Ml Insuln.pen 10 Units SQ TIDAC 30 Days Lantus Solostar (Insulin Glargine,Hum.rec.anlog) 100 Unit/1 Ml Insuln.pen 30 Units SQ QHS 30 Days Lyrica (Pregabalin) 75 Mg Capsule 75 Mg PO TID 30 Days Lisinopril 40 Mg Tablet 20 Mg PO DAILY 30 Days Vitals/I & O Vital Sign - Last 24 Hours 11/17/18 11/17/18 11/17/1812/19 15:33 16:49 17:56 18:07 Pulse 96 82 80 78 Resp 16 18 25 18 B/P (MAP) 186/92 (123) 116/57 (76) 181/85 (117) 152/78 (102) Pulse Ox 100 100 100 100 O2 Delivery Room Air Nasal Cannula O2 Flow Rate 2.0 11/17/18 11/17/18 11/17/18 11/17/18 18:50 19:00 22:55 23:46 Temp 98.5 98.3 98.5 98.3 Pulse 80 80 71 Resp 20 20 B/P (MAP) 161/104 (123) 161/104 142/63 (89) Pulse Ox 100 100 O2 Delivery Nasal Cannula Nasal Cannula Nasal Cannula O2 Flow Rate 2.0 2.0 2.0 11/18/18 11/18/18 11/18/18 11/18/18 03:21 07:47 08:00 11:00 Temp 98.2 99.1 98.6 98.2 99.1 98.6 Pulse 67 69 71 Resp 20 20 20 B/P (MAP) 113/55 (74) 160/76 (104) 178/82 (114) Pulse Ox 94 100 100 O2 Delivery Nasal Cannula Nasal Cannula Nasal Cannula Nasal Cannula O2 Flow Rate 2.0 2.0 2.0 2.0 11/18/18 11/18/18 11:18 12:20 Resp 18 18 Pulse Ox 100 100 O2 Delivery Nasal Cannula Nasal Cannula O2 Flow Rate 2.0 2.0 Intake and Output 11/17/18 11/17/18 11/18/18 15:00 23:00 07:00 Intake Total 800 ml 0 ml Balance 800 ml 0 ml JASON HOUSE III DO Nov 18, 2018 14:19
[2018-11-18 15:00] VITALS: BP 157/74
--- NOTE | 2018-11-18 16:03 | NUR ---
SW responding to a referral regarding homeless. Spoke with pt in room who was tearful and reported she has been homeless for a while. Pt reported she has been staying with family members. Pt reported she is thinking on moving to [place] to be close to some family members but is not sure when she will do that. Pt states she was staying with her niece prior hospital admission and her daughter lives in [place]. Pt stated she will have somewhere to go to upon dc. Pt aware SW can assist with finding homeless shelters as well. Pt verbalized understanding. Will continue to follow.
[2018-11-18] MEDS ORDERED: VANCOMYCIN 1.25 GM in IV NORMAL SALINE 250ML 250 ML IV SCH (16:30)
[2018-11-18] MEDS: PIPERACILLIN/TAZOBACTAM 3.375 GM in IV NORMAL SALINE 50ML 50 ML IV SCH ×2 (17:45→23:28)
[2018-11-18 19:45] VITALS: BP 148/75
[2018-11-18] MEDS: LACTOBACILLUS RHAMNOSUS GG 1 CAPSULE. PO SCH (20:58)
[2018-11-18] MEDS: IV NORMAL SALINE 1000ML BAG 1,000 ML IV SCH (20:58)
[2018-11-18] MEDS: ENOXAPARIN 40 MG/0.4 ML SYRINGE. SQ SCH (21:03)
[2018-11-18 23:16] VITALS: BP 156/76
[2018-11-19] VITALS (7 sets, daily range): BP systolic 166–187; BP diastolic 69–94
[2018-11-19] MEDS: oxyCODONE IR 5 MG TABLET PO PRN ×2 (02:30→18:01)
[2018-11-19] MEDS: PIPERACILLIN/TAZOBACTAM 3.375 GM in IV NORMAL SALINE 50ML 50 ML IV SCH ×2 (06:02→12:41)
--- NOTE | 2018-11-19 06:39 | CONS ---
DATE OF CONSULTATION: 11/18/2018 REQUESTING PHYSICIAN: Dr. Guerrero. REASON FOR CONSULTATION: Cellulitis. HISTORY OF PRESENT ILLNESS: This is a 63-year-old -[place] female with history of multiple medical problems including drug use, who presented with a week history of injury to the left leg as she scraped her leg on to the tile. The patient subsequently developed redness, swelling and pain, hence she came in. She says that was the reason also she did drugs. The patient did have fever, did have leukocytosis and left leg swelling and redness and induration. The patient denies any nausea, vomiting, diarrhea. Denies any urinary symptoms. Denies any chest pain or shortness of breath. PAST MEDICAL HISTORY: Positive for diabetes mellitus, hypertension, obesity, COPD, hyperlipidemia. She has had hysterectomy, splenectomy, cholecystectomy and . SOCIAL HISTORY: Positive for smoking. Occasional alcohol use and she does do off and on drugs. ALLERGIES: LISTED ALLERGIC TO ASPIRIN, KETOROLAC AND MORPHINE. CURRENT MEDICATIONS: Reviewed. The patient is on vancomycin and Zosyn. REVIEW OF SYSTEMS: As per HPI. All other systems reviewed are negative. PHYSICAL EXAMINATION: GENERAL: Alert, oriented female, not in any distress. VITAL SIGNS: Stable, afebrile. HEENT: NAD. NECK: Supple, no JVP, no lymphadenopathy. LUNGS: Clear. HEART: S1, S2 regular. ABDOMEN: Benign. EXTREMITIES: Right lower extremity has some edema. Left lower extremity is much more swollen, red and tender and there is some minor skin breakdown on the lower part of the leg. The patient is neurologically alert, awake and appropriate. No focal neurologic deficit. LABORATORY DATA: White count is 12.5 on admission, now down to 9.1. Hemoglobin 11.4, platelets are normal. BUN and creatinine is 26 and 1.4. Urinalysis unremarkable. Drug screen was positive with cocaine and marijuana. X-ray not showing any acute fracture or injury. IMPRESSION: 1. Left leg cellulitis. 2. Leukocytosis. 3. History of fever at home. 4. Minor trauma to the left leg with skin breakdown. 5. Diabetes. 6. Hypertension. 7. Drug use. RECOMMENDATIONS: We will discontinue vancomycin, continue Zosyn. Leg elevation, supportive care and we will continue to follow. Thank you very much, Dr. Guerrero, for giving me the opportunity to participate in this patient's care. ZENIA LU MD DR: SARA/lionel JOB#: [id number] / [id number]
[2018-11-19] MEDS: INSULIN LISPRO 300 UNITS/3 ML INSULN.PEN. SQ SCH ×3 (07:30→16:51)
--- NOTE | 2018-11-19 08:07 | NUR ---
SW following pt. JOSE left a voice mail at PAT team for assessment and evaluation for drug use. Will continue to follow.
[2018-11-19] MEDS: LACTOBACILLUS RHAMNOSUS GG 1 CAPSULE. PO SCH ×2 (08:24→20:16)
[2018-11-19] MEDS: MULTIVITAMIN with MINERAL TABLET. PO SCH (08:24)
[2018-11-19] MEDS: MULTIVIT INFUSN,ADULT 4,VIT K 10 ML, THIAMINE INJ 100 MG, FOLIC ACID INJ 1 MG in IV NOR... IV SCH (08:36)
[2018-11-19] MEDS: IV NORMAL SALINE 1000ML BAG 1,000 ML IV SCH ×2 (08:37→22:40)
[2018-11-19] MEDS: cloNIDine HCL 0.1 MG TABLET PO PRN (11:04)
--- NOTE | 2018-11-19 11:11 | PDOC ---
PROGRESS NOTES Chief Complaint Chief Complaint 1. severe cellulitis left lower leg/ ankle 2. bilat lymphedema, 3. homeless socal issues/ complex care needed, Hx of Bipolar disorder 4. THC and cocaine abuse disorder 5. Anemia of chronic disease, normocytic 6. Constipation 7. Narcotic dependence 8.acute weakness and debility 9 gastroenteritis HX 10. 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 chronic pain History of Present Illness History of Present Illness she feels better still having pain, has taken Gabapentin with poor side effects, better with Lyrica, some benefit Neuro with Cymbalta, meds reviewed more than 10 minutes plus exam, Vitals Vitals Vital Signs Date Time Temp Pulse Resp B/P (MAP) Pulse Ox O2 Delivery O2 Flow Rate FiO2 11/19/18 11:04 76 187/94 11/19/18 10:59 98.1 18 100 Room Air 98.1 11/19/18 03:30 2.0 Physical Exam General: Alert, Oriented X3, Cooperative, moderate distress Heart: Regular rate, Normal S1 Lungs: Clear Abdomen: Normal bowel sounds, Soft, No tenderness Extremities: Other (R leg swollen more than left) Skin: No breakdown (leg is swollen too.), Other (MARKED ERYTHEMA LEFT ANKLE/ LOWER LEG TENDER CDI bandaging) Labs LABS Laboratory Tests Test 11/18/18 12:01 11/18/18 16:55 11/18/18 19:53 11/19/18 07:10 Glucose (Fingerstick) 262 mg/dL (70-99) 117 mg/dL (70-99) 142 mg/dL (70-99) 132 mg/dL (70-99) Assessment and Plan Assessmemt and Plan Problems Medical Problems: (1) Cellulitis of left lower extremity Status: Acute (2) Chronic acquired lymphedema Status: Acute (3) Drug abuse Status: Acute (4) Homeless Status: Acute Comment Review of Relevant I have reviewed the following items peyton (where applicable) has been applied. Labs Laboratory Tests Test 11/17/18 15:05 11/17/18 15:06 11/17/18 15:55 11/18/18 02:45 Lactic Acid Level 1.4 mmol/L (0.4-2.0) White Blood Count 12.5 x10^3/uL (4.0-11.0) Red Blood Count 4.05 x10^6/uL (3.50-5.40) Hemoglobin 13.5 g/dL (12.0-15.5) Hematocrit 40.6 % (36.0-47.0) Mean Corpuscular Volume 100 fL (79-100) Mean Corpuscular Hemoglobin 33 pg (25-35) Mean Corpuscular Hemoglobin Concent 33 g/dL (31-37) Red Cell Distribution Width 13.9 % (11.5-14.5) Platelet Count 388 x10^3/uL (140-400) Neutrophils (%) (Auto) 58 % (31-73) Lymphocytes (%) (Auto) 30 % (24-48) Monocytes (%) (Auto) 9 % (0-9) Eosinophils (%) (Auto) 2 % (0-3) Basophils (%) (Auto) 1 % (0-3) Neutrophils # (Auto) 7.2 x10^3uL (1.8-7.7) Lymphocytes # (Auto) 3.8 x10^3/uL (1.0-4.8) Monocytes # (Auto) 1.2 x10^3/uL (0.0-1.1) Eosinophils # (Auto) 0.2 x10^3/uL (0.0-0.7) Basophils # (Auto) 0.1 x10^3/uL (0.0-0.2) Sodium Level 142 mmol/L (136-145) Potassium Level 4.0 mmol/L (3.5-5.1) Chloride Level 105 mmol/L (98-107) Carbon Dioxide Level 30 mmol/L (21-32) Anion Gap 7 (6-14) Blood Urea Nitrogen 29 mg/dL (7-20) Creatinine 1.7 mg/dL (0.6-1.0) Estimated GFR (Cockcroft-Gault) 36.7 BUN/Creatinine Ratio 17 (6-20) Glucose Level 173 mg/dL (70-99) Calcium Level 8.7 mg/dL (8.5-10.1) Total Bilirubin 0.2 mg/dL (0.2-1.0) Aspartate Amino Transf (AST/SGOT) 32 U/L (15-37) Alanine Aminotransferase (ALT/SGPT) 35 U/L (14-59) Alkaline Phosphatase 79 U/L (46-116) Troponin I Quantitative < 0.017 ng/mL (0.000-0.055) SX-Hoz-F-Type Natriuretic Peptide 225 pg/mL (0-124) Total Protein 7.5 g/dL (6.4-8.2) Albumin 2.3 g/dL (3.4-5.0) Albumin/Globulin Ratio 0.4 (1.0-1.7) Ethyl Alcohol Level < 10 mg/dL (0-10) Urine Collection Type U cath Urine Color Yellow Urine Clarity Clear Urine pH 6.5 Urine Specific [place] 1.020 Urine Protein >=300 mg/dL (NEG-TRACE) Urine Glucose (UA) Negative mg/dL (NEG) Urine Ketones (Stick) Negative mg/dL (NEG) Urine Blood Small (NEG) Urine Nitrite Positive (NEG) Urine Bilirubin Negative (NEG) Urine Urobilinogen Dipstick 1.0 mg/dL (0.2 mg/dL) Urine Leukocyte Esterase Trace (NEG) Urine RBC Rare /HPF (0-2) Urine WBC 1-4 /HPF (0-4) Urine Squamous Epithelial Cells Few /LPF Urine Bacteria Many /HPF (0-FEW) Urine Opiates Screen Neg (NEG) Urine Methadone Screen Neg (NEG) Urine Barbiturates Neg (NEG) Urine Phencyclidine Screen Neg (NEG) Urine Amphetamine/Methamphetamine Neg (NEG) Urine Benzodiazepines Screen Neg (NEG) Urine Cocaine Screen Pos (NEG) Urine Cannabinoids Screen Pos (NEG) Urine Ethyl Alcohol Neg (NEG) Nasal Screen MRSA (PCR) Negative (Negative) Test 11/18/18 03:15 11/18/18 07:46 11/18/18 12:01 11/18/18 16:55 White Blood Count 9.1 x10^3/uL (4.0-11.0) Red Blood Count 3.48 x10^6/uL (3.50-5.40) Hemoglobin 11.4 g/dL (12.0-15.5) Hematocrit 35.0 % (36.0-47.0) Mean Corpuscular Volume 101 fL (79-100) Mean Corpuscular Hemoglobin 33 pg (25-35) Mean Corpuscular Hemoglobin Concent 33 g/dL (31-37) Red Cell Distribution Width 14.0 % (11.5-14.5) Platelet Count 337 x10^3/uL (140-400) Neutrophils (%) (Auto) 52 % (31-73) Lymphocytes (%) (Auto) 35 % (24-48) Monocytes (%) (Auto) 11 % (0-9) Eosinophils (%) (Auto) 3 % (0-3) Basophils (%) (Auto) 1 % (0-3) Neutrophils # (Auto) 4.7 x10^3uL (1.8-7.7) Lymphocytes # (Auto) 3.1 x10^3/uL (1.0-4.8) Monocytes # (Auto) 1.0 x10^3/uL (0.0-1.1) Eosinophils # (Auto) 0.2 x10^3/uL (0.0-0.7) Basophils # (Auto) 0.1 x10^3/uL (0.0-0.2) Prothrombin Time 12.7 SEC (11.7-14.0) Prothromb Time International Ratio 1.0 (0.8-1.1) Activated Partial Thromboplast Time 27 SEC (24-38) Sodium Level 144 mmol/L (136-145) Potassium Level 4.2 mmol/L (3.5-5.1) Chloride Level 110 mmol/L (98-107) Carbon Dioxide Level 27 mmol/L (21-32) Anion Gap 7 (6-14) Blood Urea Nitrogen 26 mg/dL (7-20) Creatinine 1.4 mg/dL (0.6-1.0) Estimated GFR (Cockcroft-Gault) 46.0 Glucose Level 134 mg/dL (70-99) Calcium Level 8.0 mg/dL (8.5-10.1) Procalcitonin < 0.10 ng/mL (0.00-0.10) Glucose (Fingerstick) 174 mg/dL (70-99) 262 mg/dL (70-99) 117 mg/dL (70-99) Test 11/18/18 19:53 11/19/18 07:10 Glucose (Fingerstick) 142 mg/dL (70-99) 132 mg/dL (70-99) Laboratory Tests Test 11/18/18 12:01 11/18/18 16:55 11/18/18 19:53 11/19/18 07:10 Glucose (Fingerstick) 262 mg/dL (70-99) 117 mg/dL (70-99) 142 mg/dL (70-99) 132 mg/dL (70-99) Microbiology 11/17/18 Blood Culture - Preliminary, Resulted NO GROWTH AFTER 1 DAY Medications Current Medications Piperacillin Sod/ Tazobactam Sod 3.375 gm/Sodium Chloride 50 ml @ 100 mls/hr 1X ONCE IV Last administered on 11/17/18at 15:45; Start 11/17/18 at 14:30; Stop 11/17/18 at 14:59; Status DC Vancomycin HCl (Vanco Per Pharmacy) 1 each PRN DAILY PRN MC SEE COMMENTS Last administered on 11/17/18at 18:24; Start 11/17/18 at 14:30; Stop 11/18/18 at 11:54 ; Status DC Vancomycin HCl 2 gm/Sodium Chloride 500 ml @ 250 mls/hr ONCE ONCE IV Last administered on 11/17/18at 16:20; Start 11/17/18 at 14:45; Stop 11/17/18 at 16:44 ; Status DC Ondansetron HCl (Zofran) 4 mg PRN Q8HRS PRN IV NAUSEA/VOMITING; Start 11/17/18 at 17:15; Stop 11/18/18 at 17:14; Status DC Acetaminophen (Tylenol) 650 mg PRN Q4HRS PRN PO FEVER Last administered on 11/17at 19:55; Start 11/17/18 at 17:15; Stop 11/18/18 at 17:14; Status DC Sodium Chloride 1,000 ml @ 75 mls/hr 1X ONCE IV Last administered on at 19:55; Start 11/17/18 at 17:15; Stop 11/18/18 at 06:34; Status DC Vancomycin HCl 1.25 gm/Sodium Chloride 250 ml @ 167 mls/hr Q24H IV ; Start at 16:30; Stop 11/18/18 at 16:30; Status DC Vancomycin HCl (Vancomycin Trough Level) 1 each 1X ONCE MC ; Start 11/19/18 at 16:00; Stop 11/19/18 at 16:00; Status DC Enoxaparin Sodium (Lovenox 40mg Syringe) 40 mg Q24H SQ Last administered on at 21:03; Start 11/17/18 at 22:00 Sodium Chloride 1,000 ml @ 1,860 mls/hr Q33M IV ; Start 11/17/18 at 22:15; Stop 11/17/18 at 22:48; Status DC Sodium Chloride 500 ml @ 1,000 mls/hr PRN Q30MIN PRN IV SEE COMMENTS; Start at 22:15; Stop 11/17/18 at 22:48; Status DC Norepinephrine Bitartrate 250 ml @ 0 mls/hr CONT PRN IV SEE I/O RECORD; Start 11/17/18 at 22:00; Status UNV Multivitamins 10 ml/Thiamine HCl 100 mg/Folic Acid 1 mg/Sodium Chloride 1,011.2 ml @ 100 mls/ hr DAILY IV Last administered on 11/19/18at 08:36; Start at 09:00; Stop 11/22/18 at 19:07 Multivitamins (Thera M Plus) 1 tab DAILY PO Last administered on 11/18/18at 10: 11; Start 11/18/18 at 09:00 Folic Acid (Folic Acid) 1 mg DAILY PO Last administered on 11/18/18at 10:11; Start 11/18/18 at 09:00; Stop 11/18/18 at 16:15; Status DC Thiamine HCl 100 mg DAILY IM ; Start 11/18/18 at 09:00; Stop 11/18/18 at 16:13; Status DC Lorazepam (Ativan) 4 mg PRN Q1HR PRN PO For CIWA 8-14; Start 11/17/18 at 22:00 Lorazepam (Ativan) 2 mg PRN Q1HR PRN IV For CIWA 8-14; Start 11/17/18 at 22:00 Haloperidol Lactate (Haldol Inj) 5 mg PRN Q4HRS PRN IVP Hallucinatns,Confusn, Delirium; Start 11/17/18 at 22:00 Diphenhydramine HCl (Benadryl) 25 mg PRN Q15MIN PRN IVP EPS symptoms 2'Haldol admin; Start 11/17/18 at 22:00 Clonidine HCl (Catapres) 0.1 mg PRN Q1HR PRN PO SBP > 180 or DBP > 100, MRX3 Last administered on 11/19/18at 11:04; Start 11/17/18 at 22:00 Lorazepam (Ativan) 2 mg PRN Q15MIN PRN IV ANXIETY / AGITATION; Start 11/17/18 at 22:00; Stop 11/18/18 at 06:02; Status DC Fentanyl Citrate (Fentanyl 2ml Vial) 50 mcg PRN Q2HR PRN IV PAIN; Start at 11:00 Oxycodone HCl (Roxicodone) 5 mg PRN Q6HRS PRN PO PAIN Last administered on 11/19at 02:30; Start 11/18/18 at 11:00 Insulin Human Lispro (HumaLOG) 0-7 UNITS TIDWMEALS SQ Last administered on 11/18at 13:42; Start 11/18/18 at 13:30 Dextrose (Dextrose 50%-Water Syringe) 12.5 gm PRN Q15MIN PRN IV SEE COMMENTS; Start 11/18/18 at 13:15 Sodium Chloride 1,000 ml @ 75 mls/hr [id number] IV Last administered on at 20:58; Start 11/18/18 at 20:00 Folic Acid (Folic Acid) 1 mg DAILY PO ; Start 11/23/18 at 09:00 Lactobacillus Rhamnosus (Culturelle) 1 cap BID PO Last administered on at 20:58; Start 11/18/18 at 21:00 Piperacillin Sod/ Tazobactam Sod 3.375 gm/Sodium Chloride 50 ml @ 100 mls/hr Q6HRS IV Last administered on 11/19/18at 06:02; Start 11/18/18 at 17:00 Active Scripts Active Lasix (Furosemide) 40 Mg Tablet 40 Mg PO BID 30 Days Humalog (Insulin Lispro) 100 Unit/1 Ml Insuln.pen 7 Units SQ TIDAC 30 Days Lantus Solostar (Insulin Glargine,Hum.rec.anlog) 100 Unit/1 Ml Insuln.pen 20 Units SQ QHS 30 Days Guaifenesin Dm Syrup (Guaifenesin/Dextromethorphan) 5 Ml Syrup 10 Ml PO PRN Q6HRS PRN 30 Days Benzonatate 100 Mg Capsule 100 Mg PO [id number] 30 Days Montelukast Sodium Tablet (Montelukast Sodium) 10 Mg Tablet 10 Mg PO QHS 30 Days Humalog (Insulin Lispro) 100 Unit/1 Ml Insuln.pen 10 Units SQ TIDAC 30 Days Lantus Solostar (Insulin Glargine,Hum.rec.anlog) 100 Unit/1 Ml Insuln.pen 30 Units SQ QHS 30 Days Lyrica (Pregabalin) 75 Mg Capsule 75 Mg PO TID 30 Days Lisinopril 40 Mg Tablet 20 Mg PO DAILY 30 Days Vitals/I & O Vital Sign - Last 24 Hours 11/18/18 11/18/18 11/18/18 11/18/18 11:18 12:20 15:00 17:44 Temp 97.9 97.9 Pulse 71 Resp 18 18 20 18 B/P (MAP) 157/74 (101) Pulse Ox 100 100 100 O2 Delivery Nasal Cannula Nasal Cannula Nasal Cannula O2 Flow Rate 2.0 2.0 2.0 11/18/18 11/18/18 11/18/18 11/19/18 19:45 20:00 23:16 02:30 Temp 98.2 98.0 98.2 98.0 Pulse 70 64 Resp 20 20 B/P (MAP) 148/75 (99) 156/76 (102) Pulse Ox 98 100 100 O2 Delivery Nasal Cannula Nasal Cannula Nasal Cannula Nasal Cannula O2 Flow Rate 2.0 2.0 2.0 2.0 11/19/18 11/19/18 11/19/18 11/19/18 03:29 03:30 07:19 08:00 Temp 98.6 98.2 98.6 98.2 Pulse 69 65 Resp 20 18 B/P (MAP) 177/69 (105) 166/74 (104) Pulse Ox 100 100 99 O2 Delivery Nasal Cannula Nasal Cannula Room Air Nasal Cannula O2 Flow Rate 2.0 2.0 11/19/18 11/19/18 10:59 11:04 Temp 98.1 98.1 Pulse 76 76 Resp 18 B/P (MAP) 187/94 (125) 187/94 Pulse Ox 100 O2 Delivery Room Air Intake and Output 11/18/18 11/18/18 11/19/18 14:59 22:59 06:59 Intake Total 220 ml 300 ml 150 ml Balance 220 ml 300 ml 150 ml KARLA MOREAU MD Nov 19, 2018 11:11
[2018-11-19] MEDS: PREGABALIN 25 MG CAPSULE PO SCH ×2 (14:20→20:16)
--- NOTE | 2018-11-19 14:29 | PDOC ---
Infectious Disease Note Subjective Subjective pt is feeling ok ROS ROS no n/v/d/sob Vital Sign Vital Signs Vital Signs Date Time Temp Pulse Resp B/P (MAP) Pulse Ox O2 Delivery O2 Flow Rate FiO2 11/19/18 11:51 81 175/87 (116) 11/19/18 10:59 98.1 18 100 Room Air 98.1 11/19/18 03:30 2.0 Physical Exam PHYSICAL EXAM GENERAL: Alert, oriented female, not in any distress. VITAL SIGNS: Stable, afebrile. HEENT: NAD. NECK: Supple, no JVP, no lymphadenopathy. LUNGS: Clear. HEART: S1, S2 regular. ABDOMEN: Benign. EXTREMITIES: Right lower extremity has some edema. Left lower extremity is much more swollen, red and tender and there is some minor skin breakdown on the lower part of the leg. The patient is neurologically alert, awake and appropriate. No focal neurologic deficit. redness better Labs Lab Laboratory Tests Test 11/18/18 16:55 11/18/18 19:53 11/19/18 07:10 11/19/18 11:47 Glucose (Fingerstick) 117 mg/dL (70-99) 142 mg/dL (70-99) 132 mg/dL (70-99) 138 mg/dL (70-99) Micro bc Objective Assessment Left leg cellulitis Leukocytosis Fever DM COPD Lymphedema Plan Plan of Care zosyn,, change to po augmentin leg elevation ok to d/c ZENIA LU MD Nov 19, 2018 14:29
--- NOTE | 2018-11-19 15:39 | NUR ---
SW following pt. Spoke with Casey and pt has been off of Bipolar medication for two years, smokes marijuana and had used cocaine recently. Pt has an appointment with Dr. Rian Nunez, in [place], [place] and will f/u about her medications. Pt does not think she needs help regarding marijuana use and reported she had only used cocaine recently. Community resources are provided to pt. RN aware.
[2018-11-19] MEDS: AMOXICILLIN/K CLAV 875/125MG TABLET. PO SCH (20:16)
[2018-11-19] MEDS: ENOXAPARIN 40 MG/0.4 ML SYRINGE. SQ SCH (20:16)
[2018-11-20] MEDS: oxyCODONE IR 5 MG TABLET PO PRN ×4 (02:46→23:43)
[2018-11-20 03:46] VITALS: BP 179/83
[2018-11-20 07:12] VITALS: BP 197/96
[2018-11-20] MEDS: INSULIN LISPRO 300 UNITS/3 ML INSULN.PEN. SQ SCH ×3 (08:00→17:41)
[2018-11-20] MEDS: cloNIDine HCL 0.1 MG TABLET PO PRN (08:09)
[2018-11-20] MEDS: MULTIVIT INFUSN,ADULT 4,VIT K 10 ML, THIAMINE INJ 100 MG, FOLIC ACID INJ 1 MG in IV NOR... IV SCH (08:14)
[2018-11-20] MEDS: LACTOBACILLUS RHAMNOSUS GG 1 CAPSULE. PO SCH ×2 (08:25→21:33)
[2018-11-20] MEDS: AMOXICILLIN/K CLAV 875/125MG TABLET. PO SCH (08:25)
[2018-11-20] MEDS: PREGABALIN 25 MG CAPSULE PO SCH ×2 (08:26→14:40)
--- NOTE | 2018-11-20 10:24 | PDOC ---
Infectious Disease Note Subjective Subjective cont to have leg pain, coughing bloody sputum ROS ROS no n/v/d/fever Vital Sign Vital Signs Vital Signs Date Time Temp Pulse Resp B/P (MAP) Pulse Ox O2 Delivery O2 Flow Rate FiO2 11/20/18 08:48 18 99 Room Air 11/20/18 08:09 63 197/96 11/20/18 08:00 2.0 11/20/18 07:12 98.1 98.1 Physical Exam PHYSICAL EXAM GENERAL: Alert, oriented female, not in any distress. VITAL SIGNS: Stable, afebrile. HEENT: NAD. NECK: Supple, no JVP, no lymphadenopathy. LUNGS: Clear. HEART: S1, S2 regular. ABDOMEN: Benign. EXTREMITIES: Right lower extremity has some edema. Left lower extremity is much more swollen, red and tender and there is some minor skin breakdown on the lower part of the leg. The patient is neurologically alert, awake and appropriate. No focal neurologic deficit. redness better Labs Lab Laboratory Tests Test 11/19/18 11:47 11/19/18 16:39 11/19/18 20:44 11/20/18 07:11 Glucose (Fingerstick) 138 mg/dL (70-99) 121 mg/dL (70-99) 176 mg/dL (70-99) 106 mg/dL (70-99) Micro AEROBIC CULTURE Preliminary Preliminary report AEROBIC RES 1 Preliminary Staphylococcus aureus 4+ AEROBIC RES 2 Preliminary Gram negative rods 4+ Performed at: - [facility] [address], [place], [place] [id number] [employer] Supervisor: BRIONNA Means MD, Phone: [phone] GRAM STAIN Final Final report GRAM STAIN RESULT 1 Final Comment No white blood cells seen. GRAM STAIN RESULT 2 Final Comment Few gram positive cocci Objective Assessment Left leg cellulitis Leukocytosis Fever DM COPD Lymphedema Plan Plan of Care zosyn and zyvox leg elevation ZENIA LU MD Nov 20, 2018 10:24
[2018-11-20 10:56] VITALS: BP 153/73
--- NOTE | 2018-11-20 11:58 | RAD ---
CT of the chest without contrast, 11/20/2018: HISTORY: Infiltrate versus nodule Noncontrast scans were obtained. There is moderate calcific plaquing of the aorta without evidence of aneurysm. Several coronary artery calcifications are noted. There is streaky increased density in the subcutaneous and mediastinal fat suggesting anasarca. No mediastinal mass is evident. There are small bilateral pleural effusions. There is mild underlying atelectasis posteriorly in the lung bases. A tiny 3-4 mm nodule is noted laterally in the left upper lobe on image 21 of series #2. No calcification is evident in the nodule. No other pulmonary nodularity or consolidation is seen. Moderate scattered degenerative changes are present in the spine. IMPRESSION: 1. Small bilateral pleural effusions with mild underlying basilar atelectasis. 2. Anasarca. 3. Tiny left upper lobe pulmonary nodule. Depending on the patient's risk factors, CT follow-up may be useful to establish stability. PQRS Compliance Statement: One or more of the following individualized dose reduction techniques were utilized for this examination: 1. Automated exposure control 2. Adjustment of the mA and/or kV according to patient size 3. Use of iterative reconstruction technique Electronically signed by: Luis Haque MD (11/20/2018 11:55 AM) [facility]
[2018-11-20] MEDS: IV NORMAL SALINE 1000ML BAG 1,000 ML IV SCH ×2 (12:00→23:44)
[2018-11-20] MEDS: ONDANSETRON PF 4 MG/2 ML VIAL. IV PRN (12:06)
[2018-11-20] MEDS: PIPERACILLIN/TAZOBACTAM 3.375 GM in IV NORMAL SALINE 50ML 50 ML IV SCH ×3 (12:07→23:43)
[2018-11-20] MEDS: LINEZOLID 600 MG TABLET PO SCH ×2 (12:19→21:32)
[2018-11-20 14:59] VITALS: BP 136/80
[2018-11-20] MEDS: PREGABALIN 50 MG CAPSULE PO SCH ×2 (14:59→21:32)
--- NOTE | 2018-11-20 14:59 | NUR ---
Patient had episode of coughing out blood (bright red) this morning, no chest pain or phlegm. Dr. Carpenter requested for chest CT. Dr. Beltrán aware of patient's complaint. She also had 2 episodes of vomiting of previously ingested food before lunch. Zofran given per IV. Upon rounds at 1430, patient is more comfortable, no episodes of coughing out blood, no N/V. However, patient refused the banana bag and IV NS. She said, she wants to take a break from IVF.
--- NOTE | 2018-11-20 15:17 | PDOC ---
PROGRESS NOTES Chief Complaint Chief Complaint 1. severe cellulitis left lower leg/ ankle 2. bilat lymphedema, 3. homeless socal issues/ complex care needed, Hx of Bipolar disorder 4. THC and cocaine abuse disorder 5. Anemia of chronic disease, normocytic 6. Constipation 7. Narcotic dependence 8.acute weakness and debility 9 gastroenteritis HX 10. 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 chronic pain History of Present Illness History of Present Illness she feels better still having pain, wants a higher dose of lyrica meds reviewed more than 10 minutes plus exam, Vitals Vitals Vital Signs Date Time Temp Pulse Resp B/P (MAP) Pulse Ox O2 Delivery O2 Flow Rate FiO2 11/20/18 14:59 97.6 64 17 136/80 (98) 99 Room Air 97.6 11/20/18 08:00 2.0 Physical Exam Physical Exam GENERAL: Alert, oriented female, not in any distress. VITAL SIGNS: Stable, afebrile. HEENT: NAD. NECK: Supple, no JVP, no lymphadenopathy. LUNGS: Clear. HEART: S1, S2 regular. ABDOMEN: Benign. EXTREMITIES: Right lower extremity has some edema. Left lower extremity is much more swollen, red and tender and there is some minor skin breakdown on the lower part of the leg. The patient is neurologically alert, awake and appropriate. No focal neurologic deficit. redness better General: Alert, Oriented X3, Cooperative, moderate distress Heart: Regular rate, Normal S1 Lungs: Clear Abdomen: Normal bowel sounds, Soft, No tenderness Extremities: Other (R leg swollen more than left) Skin: No breakdown (leg is swollen too.), Other (MARKED ERYTHEMA LEFT ANKLE/ LOWER LEG TENDER CDI bandaging) Labs LABS Laboratory Tests Test 11/19/18 16:39 11/19/18 20:44 11/20/18 07:11 11/20/18 11:58 Glucose (Fingerstick) 121 mg/dL (70-99) 176 mg/dL (70-99) 106 mg/dL (70-99) 157 mg/dL (70-99) Review of Systems Review of Systems no n.v.d Assessment and Plan Assessmemt and Plan Problems Medical Problems: (1) Cellulitis of left lower extremity Status: Acute (2) Chronic acquired lymphedema Status: Acute (3) Drug abuse Status: Acute (4) Homeless Status: Acute Comment Review of Relevant I have reviewed the following items peyton (where applicable) has been applied. Labs Laboratory Tests Test 11/18/18 16:55 11/18/18 19:53 11/19/18 07:10 11/19/18 11:47 Glucose (Fingerstick) 117 mg/dL (70-99) 142 mg/dL (70-99) 132 mg/dL (70-99) 138 mg/dL (70-99) Test 11/19/18 16:39 11/19/18 20:44 11/20/18 07:11 11/20/18 11:58 Glucose (Fingerstick) 121 mg/dL (70-99) 176 mg/dL (70-99) 106 mg/dL (70-99) 157 mg/dL (70-99) Laboratory Tests Test 11/19/18 16:39 11/19/18 20:44 11/20/18 07:11 11/20/18 11:58 Glucose (Fingerstick) 121 mg/dL (70-99) 176 mg/dL (70-99) 106 mg/dL (70-99) 157 mg/dL (70-99) Microbiology 11/17/18 Blood Culture - Preliminary, Resulted NO GROWTH AFTER 3 DAYS 11/17/18 Urine Culture - Preliminary, Resulted 11/17/18 Urine Culture Result 1 (GABRIELE) - Preliminary, Resulted 11/17/18 Aerobic Culture - Final, Complete 11/17/18 Aerobic Culture Result 1 (GABRIELE) - Final, Complete 11/17/18 Aerobic Culture Result 2 (GABRIELE) - Final, Complete 11/17/18 Antimicrobic Susceptibility - Final, Complete 11/17/18 Gram Stain - Final, Complete 11/17/18 Gram Stain Result 1 (GABRIELE) - Final, Complete 11/17/18 Gram Stain Result 2 (GABRIELE) - Final, Complete Medications Current Medications Piperacillin Sod/ Tazobactam Sod 3.375 gm/Sodium Chloride 50 ml @ 100 mls/hr 1X ONCE IV Last administered on 11/17/18at 15:45; Start 11/17/18 at 14:30; Stop 11/17/18 at 14:59; Status DC Vancomycin HCl (Vanco Per Pharmacy) 1 each PRN DAILY PRN MC SEE COMMENTS Last administered on 11/17/18at 18:24; Start 11/17/18 at 14:30; Stop 3/13/19 at 11:54 ; Status DC Vancomycin HCl 2 gm/Sodium Chloride 500 ml @ 250 mls/hr ONCE ONCE IV Last administered on 11/17/18at 16:20; Start 11/17/18 at 14:45; Stop 11/17/18 at 16:44 ; Status DC Ondansetron HCl (Zofran) 4 mg PRN Q8HRS PRN IV NAUSEA/VOMITING; Start 11/17/18 at 17:15; Stop 11/18/18 at 17:14; Status DC Acetaminophen (Tylenol) 650 mg PRN Q4HRS PRN PO FEVER Last administered on 11/17at 19:55; Start 11/17/18 at 17:15; Stop 11/18/18 at 17:14; Status DC Sodium Chloride 1,000 ml @ 75 mls/hr 1X ONCE IV Last administered on at 19:55; Start 11/17/18 at 17:15; Stop 11/18/18 at 06:34; Status DC Vancomycin HCl 1.25 gm/Sodium Chloride 250 ml @ 167 mls/hr Q24H IV ; Start at 16:30; Stop 11/18/18 at 16:30; Status DC Vancomycin HCl (Vancomycin Trough Level) 1 each 1X ONCE MC ; Start 11/19/18 at 16:00; Stop 11/19/18 at 16:00; Status DC Enoxaparin Sodium (Lovenox 40mg Syringe) 40 mg Q24H SQ Last administered on at 20:16; Start 11/17/18 at 22:00 Sodium Chloride 1,000 ml @ 1,860 mls/hr Q33M IV ; Start 11/17/18 at 22:15; Stop 11/17/18 at 22:48; Status DC Sodium Chloride 500 ml @ 1,000 mls/hr PRN Q30MIN PRN IV SEE COMMENTS; Start at 22:15; Stop 11/17/18 at 22:48; Status DC Norepinephrine Bitartrate 250 ml @ 0 mls/hr CONT PRN IV SEE I/O RECORD; Start 11/17/18 at 22:00; Status UNV Multivitamins 10 ml/Thiamine HCl 100 mg/Folic Acid 1 mg/Sodium Chloride 1,011.2 ml @ 100 mls/ hr DAILY IV Last administered on 11/20/18at 08:14; Start at 09:00; Stop 11/20/18 at 13:45; Status DC Multivitamins (Thera M Plus) 1 tab DAILY PO Last administered on 11/18/18at 10: 11; Start 11/18/18 at 09:00; Stop 11/19/18 at 15:09; Status DC Folic Acid (Folic Acid) 1 mg DAILY PO Last administered on 11/18/18at 10:11; Start 11/18/18 at 09:00; Stop 11/18/18 at 16:15; Status DC Thiamine HCl 100 mg DAILY IM ; Start 11/18/18 at 09:00; Stop 11/18/18 at 16:13; Status DC Lorazepam (Ativan) 4 mg PRN Q1HR PRN PO For CIWA 8-14; Start 11/17/18 at 22:00 Lorazepam (Ativan) 2 mg PRN Q1HR PRN IV For CIWA 8-14; Start 11/17/18 at 22:00 Haloperidol Lactate (Haldol Inj) 5 mg PRN Q4HRS PRN IVP Hallucinatns,Confusn, Delirium; Start 11/17/18 at 22:00 Diphenhydramine HCl (Benadryl) 25 mg PRN Q15MIN PRN IVP EPS symptoms 2'Haldol admin; Start 11/17/18 at 22:00 Clonidine HCl (Catapres) 0.1 mg PRN Q1HR PRN PO SBP > 180 or DBP > 100, MRX3 Last administered on 11/20/18at 08:09; Start 11/17/18 at 22:00 Lorazepam (Ativan) 2 mg PRN Q15MIN PRN IV ANXIETY / AGITATION; Start 11/17/18 at 22:00; Stop 11/18/18 at 06:02; Status DC Fentanyl Citrate (Fentanyl 2ml Vial) 50 mcg PRN Q2HR PRN IV PAIN; Start at 11:00 Oxycodone HCl (Roxicodone) 5 mg PRN Q6HRS PRN PO PAIN Last administered on 11/20at 08:48; Start 11/18/18 at 11:00 Insulin Human Lispro (HumaLOG) 0-7 UNITS TIDWMEALS SQ Last administered on 11/20 12:26; Start 11/18/18 at 13:30 Dextrose (Dextrose 50%-Water Syringe) 12.5 gm PRN Q15MIN PRN IV SEE COMMENTS; Start 11/18/18 at 13:15 Sodium Chloride 1,000 ml @ 75 mls/hr [id number] IV Last administered on at 20:58; Start 11/18/18 at 20:00 Folic Acid (Folic Acid) 1 mg DAILY PO ; Start 11/21/18 at 09:00 Lactobacillus Rhamnosus (Culturelle) 1 cap BID PO Last administered on 08:25; Start 11/18/18 at 21:00 Piperacillin Sod/ Tazobactam Sod 3.375 gm/Sodium Chloride 50 ml @ 100 mls/hr Q6HRS IV Last administered on 11/19/18at 12:41; Start 11/18/18 at 17:00; Stop at 14:32; Status DC Pregabalin (Lyrica) 25 mg [id number] PO Last administered on 11/20/18 08:26; Start 11/19/18 at 14:00; Stop 11/20/18 at 14:49; Status DC Amoxicillin/ Clavulanate Potassium (Augmentin 875/ 125mg) 1 tab BID PO Last administered on 11/20/18 08:25; Start 11/19/18 at 21:00; Stop 11/20/18 at 10:29 ; Status DC Multivitamins (Thera M Plus) 1 tab DAILY PO ; Start 11/21/18 at 09:00 Piperacillin Sod/ Tazobactam Sod 3.375 gm/Sodium Chloride 50 ml @ 100 mls/hr Q6HRS IV Last administered on 11/20/18at 12:07; Start 11/20/18 at 11:00 Linezolid (Zyvox) 600 mg BID PO Last administered on 11/20/18at 12:19; Start at 11:00 Ondansetron HCl (Zofran) 4 mg PRN Q8HRS PRN IV NAUSEA/VOMITING Last administered on 11/20/18at 12:06; Start 11/20/18 at 12:00 Thiamine Mononitrate (Vitamin B-1) 100 mg DAILY PO ; Start 11/21/18 at 09:00 Pregabalin (Lyrica) 50 mg TID PO Last administered on 11/20/18at 14:59; Start at 15:00 Active Scripts Active Lasix (Furosemide) 40 Mg Tablet 40 Mg PO BID 30 Days Humalog (Insulin Lispro) 100 Unit/1 Ml Insuln.pen 7 Units SQ TIDAC 30 Days Lantus Solostar (Insulin Glargine,Hum.rec.anlog) 100 Unit/1 Ml Insuln.pen 20 Units SQ QHS 30 Days Guaifenesin Dm Syrup (Guaifenesin/Dextromethorphan) 5 Ml Syrup 10 Ml PO PRN Q6HRS PRN 30 Days Benzonatate 100 Mg Capsule 100 Mg PO [id number] 30 Days Montelukast Sodium Tablet (Montelukast Sodium) 10 Mg Tablet 10 Mg PO QHS 30 Days Humalog (Insulin Lispro) 100 Unit/1 Ml Insuln.pen 10 Units SQ TIDAC 30 Days Lantus Solostar (Insulin Glargine,Hum.rec.anlog) 100 Unit/1 Ml Insuln.pen 30 Units SQ QHS 30 Days Lyrica (Pregabalin) 75 Mg Capsule 75 Mg PO TID 30 Days Lisinopril 40 Mg Tablet 20 Mg PO DAILY 30 Days Vitals/I & O Vital Sign - Last 24 Hours 11/19/18 11/19/18 11/19/18 11/19/18 15:20 18:01 19:55 20:00 Temp 98.2 98.2 98.2 98.2 Pulse 68 69 Resp 18 18 B/P (MAP) 173/76 (108) 183/82 (115) Pulse Ox 100 97 O2 Delivery Room Air Room Air Room Air Room Air 11/19/18 11/20/18 11/20/18 11/20/18 23:29 02:46 03:46 07:12 Temp 97.9 98.6 98.1 97.9 98.6 98.1 Pulse 61 63 63 Resp 20 18 20 18 B/P (MAP) 167/77 (107) 179/83 (115) 197/96 (129) Pulse Ox 100 97 99 O2 Delivery Room Air Room Air Room Air Room Air 11/20/18 11/20/18 11/20/18 11/20/18 08:00 08:09 08:48 09:48 Pulse 63 Resp 18 18 B/P (MAP) 197/96 Pulse Ox 99 98 O2 Delivery Room Air Room Air Room Air O2 Flow Rate 2.0 11/20/18 11/20/18 10:56 14:59 Temp 97.9 97.6 97.9 97.6 Pulse 57 64 Resp 16 17 B/P (MAP) 153/73 (99) 136/80 (98) Pulse Ox 98 99 O2 Delivery Room Air Room Air Intake and Output 11/19/18 11/19/18 11/20/18 15:00 23:00 07:00 Intake Total 840 ml 3300 ml 1200 ml Output Total 700 ml Balance 840 ml 3300 ml 500 ml KARLA MOREAU MD Nov 20, 2018 15:17
[2018-11-20 19:25] VITALS: BP 150/83
[2018-11-20] MEDS: ENOXAPARIN 40 MG/0.4 ML SYRINGE. SQ SCH (21:37)
[2018-11-20 23:25] VITALS: BP 134/72
[2018-11-21 03:25] VITALS: BP 135/78
[2018-11-21] MEDS: PIPERACILLIN/TAZOBACTAM 3.375 GM in IV NORMAL SALINE 50ML 50 ML IV SCH ×3 (06:18→18:18)
[2018-11-21 07:25] VITALS: BP 168/83
[2018-11-21] MEDS: THIAMINE 100 MG TABLET. PO SCH (08:28)
[2018-11-21] MEDS: MULTIVITAMIN with MINERAL TABLET. PO SCH (08:28)
[2018-11-21] MEDS: INSULIN LISPRO 300 UNITS/3 ML INSULN.PEN. SQ SCH ×3 (08:29→18:28)
[2018-11-21] MEDS: LINEZOLID 600 MG TABLET PO SCH ×2 (08:29→21:09)
[2018-11-21] MEDS: LACTOBACILLUS RHAMNOSUS GG 1 CAPSULE. PO SCH ×2 (08:30→21:09)
[2018-11-21] MEDS: FOLIC ACID 1 MG TABLET. PO SCH (08:30)
[2018-11-21] MEDS: PREGABALIN 50 MG CAPSULE PO SCH (08:31)
[2018-11-21] MEDS: QUEtiapine 100 MG TABLET. PO SCH (10:30)
[2018-11-21 10:39] VITALS: BP 167/82
[2018-11-21] MEDS ORDERED: diphenhydrAMINE HCL 25 MG CAPSULE PO PRN (12:00)
--- NOTE | 2018-11-21 12:10 | PDOC ---
PROGRESS NOTES Chief Complaint Chief Complaint 1. severe cellulitis left lower leg/ ankle 2. bilat lymphedema, 3. homeless socal issues/ complex care needed, Hx of Bipolar disorder 4. THC and cocaine abuse disorder 5. Anemia of chronic disease, normocytic 6. Constipation 7. Narcotic dependence 8.acute weakness and debility 9 gastroenteritis HX 10. 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 chronic pain History of Present Illness History of Present Illness tearful and emotional today, upset with friends of her for being mean to her, still having pain, lyrica changed to 75 TID today, increased dose aggresively, will give benadryl and ativan to try to help her calm down and try to sleep she asked for spiritual support meds reviewed Vitals Vitals Vital Signs Date Time Temp Pulse Resp B/P (MAP) Pulse Ox O2 Delivery O2 Flow Rate FiO2 11/21/18 10:39 98.0 60 17 167/82 (110) 100 Room Air 98.0 11/20/18 08:00 2.0 Physical Exam Physical Exam GENERAL: Alert, oriented female, not in any distress. VITAL SIGNS: Stable, afebrile. HEENT: NAD. NECK: Supple, no JVP, no lymphadenopathy. LUNGS: Clear. HEART: S1, S2 regular. ABDOMEN: Benign. EXTREMITIES: Right lower extremity has some edema. Left lower extremity is much more swollen, red and tender and there is some minor skin breakdown on the lower part of the leg. The patient is neurologically alert, awake and appropriate. No focal neurologic deficit. redness better General: Alert, Oriented X3, Cooperative, moderate distress Heart: Regular rate, Normal S1 Lungs: Clear Abdomen: Normal bowel sounds, Soft, No tenderness Extremities: Other (R leg swollen more than left) Skin: No breakdown (leg is swollen too.), Other (MARKED ERYTHEMA LEFT ANKLE/ LOWER LEG TENDER CDI bandaging) Labs LABS Laboratory Tests Test 11/20/18 16:32 11/20/18 21:00 11/21/18 07:30 11/21/18 11:28 Glucose (Fingerstick) 197 mg/dL (70-99) 179 mg/dL (70-99) 162 mg/dL (70-99) 161 mg/dL (70-99) Assessment and Plan Assessmemt and Plan Problems Medical Problems: (1) Cellulitis of left lower extremity Status: Acute (2) Chronic acquired lymphedema Status: Acute (3) Drug abuse Status: Acute (4) Homeless Status: Acute Comment Review of Relevant I have reviewed the following items peyton (where applicable) has been applied. Labs Laboratory Tests Test 11/19/18 16:39 11/19/18 20:44 11/20/18 07:11 11/20/18 11:58 Glucose (Fingerstick) 121 mg/dL (70-99) 176 mg/dL (70-99) 106 mg/dL (70-99) 157 mg/dL (70-99) Test 11/20/18 16:32 11/20/18 21:00 11/21/18 07:30 11/21/18 11:28 Glucose (Fingerstick) 197 mg/dL (70-99) 179 mg/dL (70-99) 162 mg/dL (70-99) 161 mg/dL (70-99) Laboratory Tests Test 11/20/18 16:32 11/20/18 21:00 11/21/18 07:30 11/21/18 11:28 Glucose (Fingerstick) 197 mg/dL (70-99) 179 mg/dL (70-99) 162 mg/dL (70-99) 161 mg/dL (70-99) Microbiology 11/17/18 Blood Culture - Preliminary, Resulted NO GROWTH AFTER 3 DAYS 11/17/18 Urine Culture - Preliminary, Resulted 11/17/18 Urine Culture Result 1 (GABRIELE) - Preliminary, Resulted 11/17/18 Aerobic Culture - Final, Complete 11/17/18 Aerobic Culture Result 1 (GABRIELE) - Final, Complete 11/17/18 Aerobic Culture Result 2 (GABRIELE) - Final, Complete 11/17/18 Antimicrobic Susceptibility - Final, Complete 11/17/18 Gram Stain - Final, Complete 11/17/18 Gram Stain Result 1 (GABRIELE) - Final, Complete 11/17/18 Gram Stain Result 2 (GABRIELE) - Final, Complete Medications Current Medications Piperacillin Sod/ Tazobactam Sod 3.375 gm/Sodium Chloride 50 ml @ 100 mls/hr 1X ONCE IV Last administered on 11/17/18at 15:45; Start 11/17/18 at 14:30; Stop 11/17/18 at 14:59; Status DC Vancomycin HCl (Vanco Per Pharmacy) 1 each PRN DAILY PRN MC SEE COMMENTS Last administered on 11/17/18at 18:24; Start 11/17/18 at 14:30; Stop 11/18/18 at 11:54 ; Status DC Vancomycin HCl 2 gm/Sodium Chloride 500 ml @ 250 mls/hr ONCE ONCE IV Last administered on 11/17/18at 16:20; Start 11/17/18 at 14:45; Stop 11/17/18 at 16:44 ; Status DC Ondansetron HCl (Zofran) 4 mg PRN Q8HRS PRN IV NAUSEA/VOMITING; Start 11/17/18 at 17:15; Stop 11/18/18 at 17:14; Status DC Acetaminophen (Tylenol) 650 mg PRN Q4HRS PRN PO FEVER Last administered on 11/17at 19:55; Start 11/17/18 at 17:15; Stop 11/18/18 at 17:14; Status DC Sodium Chloride 1,000 ml @ 75 mls/hr 1X ONCE IV Last administered on at 19:55; Start 11/17/18 at 17:15; Stop 11/18/18 at 06:34; Status DC Vancomycin HCl 1.25 gm/Sodium Chloride 250 ml @ 167 mls/hr Q24H IV ; Start at 16:30; Stop 11/18/18 at 16:30; Status DC Vancomycin HCl (Vancomycin Trough Level) 1 each 1X ONCE MC ; Start 11/19/18 at 16:00; Stop 11/19/18 at 16:00; Status DC Enoxaparin Sodium (Lovenox 40mg Syringe) 40 mg Q24H SQ Last administered on at 21:37; Start 11/17/18 at 22:00 Sodium Chloride 1,000 ml @ 1,860 mls/hr Q33M IV ; Start 11/17/18 at 22:15; Stop 11/17/18 at 22:48; Status DC Sodium Chloride 500 ml @ 1,000 mls/hr PRN Q30MIN PRN IV SEE COMMENTS; Start at 22:15; Stop 11/17/18 at 22:48; Status DC Norepinephrine Bitartrate 250 ml @ 0 mls/hr CONT PRN IV SEE I/O RECORD; Start 11/17/18 at 22:00; Status UNV Multivitamins 10 ml/Thiamine HCl 100 mg/Folic Acid 1 mg/Sodium Chloride 1,011.2 ml @ 100 mls/ hr DAILY IV Last administered on 11/20/18at 08:14; Start at 09:00; Stop 11/20/18 at 13:45; Status DC Multivitamins (Thera M Plus) 1 tab DAILY PO Last administered on 11/18/18at 10: 11; Start 11/18/18 at 09:00; Stop 11/19/18 at 15:09; Status DC Folic Acid (Folic Acid) 1 mg DAILY PO Last administered on 11/18/18at 10:11; Start 11/18/18 at 09:00; Stop 11/18/18 at 16:15; Status DC Thiamine HCl 100 mg DAILY IM ; Start 11/18/18 at 09:00; Stop 11/18/18 at 16:13; Status DC Lorazepam (Ativan) 4 mg PRN Q1HR PRN PO For CIWA 8-14 Last administered on 11/20at 23:47; Start 11/17/18 at 22:00 Lorazepam (Ativan) 2 mg PRN Q1HR PRN IV For CIWA 8-14; Start 11/17/18 at 22:00 Haloperidol Lactate (Haldol Inj) 5 mg PRN Q4HRS PRN IVP Hallucinatns,Confusn, Delirium; Start 11/17/18 at 22:00 Diphenhydramine HCl (Benadryl) 25 mg PRN Q15MIN PRN IVP EPS symptoms 2'Haldol admin; Start 11/17/18 at 22:00 Clonidine HCl (Catapres) 0.1 mg PRN Q1HR PRN PO SBP > 180 or DBP > 100, MRX3 Last administered on 11/20/18at 08:09; Start 11/17/18 at 22:00 Lorazepam (Ativan) 2 mg PRN Q15MIN PRN IV ANXIETY / AGITATION; Start 11/17/18 at 22:00; Stop 11/18/18 at 06:02; Status DC Fentanyl Citrate (Fentanyl 2ml Vial) 50 mcg PRN Q2HR PRN IV PAIN; Start at 11:00 Oxycodone HCl (Roxicodone) 5 mg PRN Q6HRS PRN PO PAIN Last administered on 11/20 23:43; Start 11/18/18 at 11:00 Insulin Human Lispro (HumaLOG) 0-7 UNITS TIDWMEALS SQ Last administered on 11/21 08:29; Start 11/18/18 at 13:30 Dextrose (Dextrose 50%-Water Syringe) 12.5 gm PRN Q15MIN PRN IV SEE COMMENTS; Start 11/18/18 at 13:15 Sodium Chloride 1,000 ml @ 75 mls/hr [id number] IV Last administered on 23:44; Start 11/18/18 at 20:00 Folic Acid (Folic Acid) 1 mg DAILY PO Last administered on 11/21/18 08:30; Start 11/21/18 at 09:00 Lactobacillus Rhamnosus (Culturelle) 1 cap BID PO Last administered on 08:30; Start 11/18/18 at 21:00 Piperacillin Sod/ Tazobactam Sod 3.375 gm/Sodium Chloride 50 ml @ 100 mls/hr Q6HRS IV Last administered on 11/19/18 12:41; Start 11/18/18 at 17:00; Stop at 14:32; Status DC Pregabalin (Lyrica) 25 mg [id number] PO Last administered on 11/20/18 08:26; Start 11/19/18 at 14:00; Stop 11/20/18 at 14:49; Status DC Amoxicillin/ Clavulanate Potassium (Augmentin 875/ 125mg) 1 tab BID PO Last administered on 11/20/18 08:25; Start 11/19/18 at 21:00; Stop 11/20/18 at 10:29 ; Status DC Multivitamins (Thera M Plus) 1 tab DAILY PO Last administered on 11/21/18 08: 28; Start 11/21/18 at 09:00 Piperacillin Sod/ Tazobactam Sod 3.375 gm/Sodium Chloride 50 ml @ 100 mls/hr Q6HRS IV Last administered on 11/21/18 06:18; Start 11/20/18 at 11:00 Linezolid (Zyvox) 600 mg BID PO Last administered on 3/16/19at 08:29; Start at 11:00 Ondansetron HCl (Zofran) 4 mg PRN Q8HRS PRN IV NAUSEA/VOMITING Last administered on 11/20/18at 12:06; Start 11/20/18 at 12:00 Thiamine Mononitrate (Vitamin B-1) 100 mg DAILY PO Last administered on at 08:28; Start 11/21/18 at 09:00 Pregabalin (Lyrica) 50 mg TID PO Last administered on 11/21/18at 08:31; Start at 15:00; Stop 11/21/18 at 09:49; Status DC Lorazepam (Ativan) 2 mg PRN Q4HRS PRN IV ANXIETY / AGITATION; Start 11/21/18 at 10:00 Pregabalin (Lyrica) 75 mg TID PO ; Start 11/21/18 at 14:00 Quetiapine Fumarate (SEROquel) 100 mg DAILY PO ; Start 11/21/18 at 10:30 Diphenhydramine HCl (Benadryl) 25 mg PRN Q6HRS PRN PO WITHDRAWAL IRRITABILITY; Start 11/21/18 at 12:00 Active Scripts Active Lasix (Furosemide) 40 Mg Tablet 40 Mg PO BID 30 Days Humalog (Insulin Lispro) 100 Unit/1 Ml Insuln.pen 7 Units SQ TIDAC 30 Days Lantus Solostar (Insulin Glargine,Hum.rec.anlog) 100 Unit/1 Ml Insuln.pen 20 Units SQ QHS 30 Days Guaifenesin Dm Syrup (Guaifenesin/Dextromethorphan) 5 Ml Syrup 10 Ml PO PRN Q6HRS PRN 30 Days Benzonatate 100 Mg Capsule 100 Mg PO [id number] 30 Days Montelukast Sodium Tablet (Montelukast Sodium) 10 Mg Tablet 10 Mg PO QHS 30 Days Humalog (Insulin Lispro) 100 Unit/1 Ml Insuln.pen 10 Units SQ TIDAC 30 Days Lantus Solostar (Insulin Glargine,Hum.rec.anlog) 100 Unit/1 Ml Insuln.pen 30 Units SQ QHS 30 Days Lyrica (Pregabalin) 75 Mg Capsule 75 Mg PO TID 30 Days Lisinopril 40 Mg Tablet 20 Mg PO DAILY 30 Days Vitals/I & O Vital Sign - Last 24 Hours 11/20/18 11/20/18 11/20/18 11/20/18 14:59 17:43 18:43 19:25 Temp 97.6 98.4 97.6 98.4 Pulse 64 68 Resp 17 18 18 20 B/P (MAP) 136/80 (98) 150/83 (105) Pulse Ox 99 99 99 98 O2 Delivery Room Air Room Air Room Air Room Air 11/20/18 11/20/18 11/21/18 11/21/18 20:10 23:25 03:25 07:25 Temp 98.2 98.0 98.0 98.2 98.0 98.0 Pulse 55 59 59 Resp 18 18 17 B/P (MAP) 134/72 (92) 135/78 (97) 168/83 (111) Pulse Ox 98 94 100 O2 Delivery Room Air Room Air Room Air Room Air 11/21/18 11/21/18 08:00 10:39 Temp 98.0 98.0 Pulse 60 Resp 17 B/P (MAP) 167/82 (110) Pulse Ox 100 O2 Delivery Room Air Room Air Intake and Output 11/20/18 11/20/18 11/21/18 14:59 22:59 06:59 Intake Total 600 ml 1740 ml 400 ml Output Total 200 ml Balance 600 ml 1740 ml 200 ml KARLA MOREAU MD Nov 21, 2018 12:10
--- NOTE | 2018-11-21 13:46 | NUR ---
Patient was agitated, has been crying after talking to his daughter. She became impulsive and threw the breakfast tray on the floor. Then she took a shower this morning. Paged Dr. Beltrán at 1000, order was placed for ativan. Patient was also seen at bedside. Ativan and Benadryl were given. However she refused seroquel stating that it makes her sleep for 2 days. At 1300, she called for help. This nurse came to check the patient, she was teary eyed, and was walking in her room. She was noted to be unsteady thus assisted to the bed. Patient was encouraged to eat her lunch, reassured that staff will be taking good care of her. We'll continue to monitor patient.
[2018-11-21 14:43] VITALS: BP 179/82
[2018-11-21] MEDS: PREGABALIN 75 MG CAPSULE PO SCH ×2 (15:44→21:11)
[2018-11-21] MEDS: oxyCODONE IR 5 MG TABLET PO PRN (15:46)
--- NOTE | 2018-11-21 17:30 | PDOC ---
Infectious Disease Note Subjective Subjective Comfortable, denies pain No fevers/chills/aches No N/V/D ROS ROS per HPI Vital Sign Vital Signs Vital Signs Date Time Temp Pulse Resp B/P (MAP) Pulse Ox O2 Delivery O2 Flow Rate FiO2 11/21/18 15:46 18 99 Room Air 2.0 11/21/18 14:43 98.1 70 179/82 (114) 98.1 Physical Exam PHYSICAL EXAM GENERAL: Sleeping HEENT: Oral cavity clear NECK: Supple, no JVP, no lymphadenopathy. LUNGS: Clear. HEART: S1, S2 regular. ABDOMEN: SOft and nontender EXTREMITIES: RLE trace edema. LLE edema, less red and less tender with minor skin breakdown on the lower part of the leg. 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, responds to few questions appropriately PIV ok Labs Lab Laboratory Tests Test 11/20/18 21:00 11/21/18 07:30 11/21/18 11:28 11/21/18 16:23 Glucose (Fingerstick) 179 mg/dL (70-99) 162 mg/dL (70-99) 161 mg/dL (70-99) 160 mg/dL (70-99) Micro 11/17/18 Blood Culture - Preliminary, Resulted NO GROWTH AFTER 4 DAYS URINE CULTURE RES 1 Final Comment Diphtheroids, not Corynebacterium urealyticum AEROBIC RES 1 Final Staphylococcus aureus AEROBIC RES 2 Final Escherichia coli ANTIMICROBIAL SUSCEPTIBILITY Final MICS are expressed in micrograms per mL Antibiotic RSLT#1 RSLT#2 Amoxicillin/Clavulanic Acid S =4 Ampicillin S =8 Cefepime S<=0.12 Ceftriaxone S<=0.25 Cefuroxime I =16 Ciprofloxacin S<=0.5 S<=0.25 Clindamycin S<=0.25 Ertapenem S<=0.12 Erythromycin R>=8 Gentamicin S<=0.5 S<=1 Imipenem S<=0.25 Levofloxacin S<=0.12 S<=0.12 Linezolid S =2 Meropenem S<=0.25 Moxifloxacin S<=0.25 Oxacillin S =0.5 Penicillin R =0.25 Piperacillin/Tazobactam S<=4 Quinupristin/Dalfopristin S<=0.25 Rifampin S<=0.5 Tetracycline S<=1 S<=1 Tobramycin S<=1 Trimethoprim/Sulfa S<=10 S<=20 Vancomycin S =1 Objective Assessment Left leg cellulitis with small infected wound. MSSA and E. coli Leukocytosis, improved Fever, improved DM COPD Lymphedema Substance abuse Plan Plan of Care Zosyn and Zyvox leg elevation D/w nursing Patient seen and examined. Chart reviewed in detail. Case discussed with CPA TAX. Agree with above plan. BRITTANY BRANHAM APRN Nov 21, 2018 17:30 JAMEEL WREN MD Nov 21, 2018 20:11
[2018-11-21] MEDS: IV NORMAL SALINE 1000ML BAG 1,000 ML IV SCH (18:20)
[2018-11-21 19:00] VITALS: BP 176/93
[2018-11-21] MEDS: ENOXAPARIN 40 MG/0.4 ML SYRINGE. SQ SCH (21:11)
[2018-11-21 22:59] VITALS: BP 181/82
[2018-11-22] MEDS: PIPERACILLIN/TAZOBACTAM 3.375 GM in IV NORMAL SALINE 50ML 50 ML IV SCH ×4 (00:55→17:29)
[2018-11-22] MEDS: fentaNYL PF VIAL 100 MCG/2 ML VIAL IV PRN ×6 (02:18→22:34)
[2018-11-22 02:58] VITALS: BP 177/89
[2018-11-22] MEDS: IV NORMAL SALINE 1000ML BAG 1,000 ML IV SCH (05:38)
--- NOTE | 2018-11-22 06:00 | NUR ---
LE, Pt more calm during the noc, pt brother did come by to see her and the only complications at the time was pain in lower ext. Pt given fentanyl IV x1 during the noc and pain was relieved. Pt states being able to sleep without complications. Will continue current plan of care.
[2018-11-22 07:24] VITALS: BP 157/89
--- NOTE | 2018-11-22 07:54 | PDOC ---
Infectious Disease Note Subjective Subjective c/o legs feeling achy and heavy No fevers/chills/aches No N/V/D ROS ROS per HPI Vital Sign Vital Signs Vital Signs Date Time Temp Pulse Resp B/P (MAP) Pulse Ox O2 Delivery O2 Flow Rate FiO2 11/22/18 07:24 98.6 68 18 157/89 (111) 99 Room Air 98.6 11/22/18 02:58 2.0 Physical Exam PHYSICAL EXAM GENERAL: Sitting on the side of the bed, listening to music, alert, HEENT: Oral cavity clear NECK: Supple, no JVP, no lymphadenopathy. LUNGS: Clear. HEART: S1, S2 regular. ABDOMEN: Soft and nontender EXTREMITIES: BLE edema R > L; small minor wound left lower leg. 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: Alert, responds to few questions appropriately PIV ok Labs Lab Laboratory Tests Test 11/21/18 11:28 11/21/18 16:23 11/21/18 20:23 11/22/18 07:22 Glucose (Fingerstick) 161 mg/dL (70-99) 160 mg/dL (70-99) 144 mg/dL (70-99) 115 mg/dL (70-99) Micro 11/17/18 Blood Culture - Preliminary, Resulted NO GROWTH AFTER 4 DAYS URINE CULTURE RES 1 Final Comment Diphtheroids, not Corynebacterium urealyticum AEROBIC RES 1 Final Staphylococcus aureus AEROBIC RES 2 Final Escherichia coli ANTIMICROBIAL SUSCEPTIBILITY Final MICS are expressed in micrograms per mL Antibiotic RSLT#1 RSLT#2 Amoxicillin/Clavulanic Acid S =4 Ampicillin S =8 Cefepime S<=0.12 Ceftriaxone S<=0.25 Cefuroxime I =16 Ciprofloxacin S<=0.5 S<=0.25 Clindamycin S<=0.25 Ertapenem S<=0.12 Erythromycin R>=8 Gentamicin S<=0.5 S<=1 Imipenem S<=0.25 Levofloxacin S<=0.12 S<=0.12 Linezolid S =2 Meropenem S<=0.25 Moxifloxacin S<=0.25 Oxacillin S =0.5 Penicillin R =0.25 Piperacillin/Tazobactam S<=4 Quinupristin/Dalfopristin S<=0.25 Rifampin S<=0.5 Tetracycline S<=1 S<=1 Tobramycin S<=1 Trimethoprim/Sulfa S<=10 S<=20 Vancomycin S =1 Objective Assessment Left leg cellulitis with small infected wound. MSSA and E. coli Leukocytosis, improved Fever, improved DM COPD Lymphedema Substance abuse Plan Plan of Care Zosyn and Zyvox - wean soon leg elevation Patient seen and examined. Chart reviewed in detail. Case discussed with CLINIC RECEPTIONIST. Agree with above plan. BRITTANY BRANHAM APRN Nov 22, 2018 07:54 JAMEEL WREN MD Nov 22, 2018 21:21
[2018-11-22] MEDS: INSULIN LISPRO 300 UNITS/3 ML INSULN.PEN. SQ SCH ×3 (08:00→17:00)
[2018-11-22] MEDS: QUEtiapine 100 MG TABLET. PO SCH (09:00)
[2018-11-22] MEDS: PREGABALIN 75 MG CAPSULE PO SCH ×4 (09:02→19:55)
[2018-11-22] MEDS: THIAMINE 100 MG TABLET. PO SCH (09:02)
[2018-11-22] MEDS: MULTIVITAMIN with MINERAL TABLET. PO SCH (09:02)
[2018-11-22] MEDS: LINEZOLID 600 MG TABLET PO SCH ×2 (09:02→19:55)
[2018-11-22] MEDS: LACTOBACILLUS RHAMNOSUS GG 1 CAPSULE. PO SCH ×2 (09:02→19:55)
[2018-11-22] MEDS: FOLIC ACID 1 MG TABLET. PO SCH (09:02)
[2018-11-22 11:13] VITALS: BP 165/85
[2018-11-22] MEDS: LISINOPRIL 5 MG TABLET. PO SCH (12:28)
[2018-11-22] MEDS: VITAMIN B12,B9,B6 COMPLEX 1 TABLET. PO SCH (12:28)
--- NOTE | 2018-11-22 13:26 | PDOC ---
PROGRESS NOTES Chief Complaint Chief Complaint 1. severe cellulitis left lower leg/ ankle 2. bilat lymphedema, 3. homeless socal issues/ complex care needed, Hx of Bipolar disorder 4. THC and cocaine abuse disorder 5. Anemia of chronic disease, normocytic 6. Constipation 7. Narcotic dependence 8.acute weakness and debility 9 gastroenteritis HX 10. 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 chronic pain History of Present Illness History of Present Illness more agreeable today complains of LE edema, will stop IV fluid vitals better, Pain OK will need PT and OT< start today lyrica 75 TID she asked for spiritual support meds reviewed Vitals Vitals Vital Signs Date Time Temp Pulse Resp B/P (MAP) Pulse Ox O2 Delivery O2 Flow Rate FiO2 11/22/18 12:28 76 165/85 11/22/18 11:30 18 95 Room Air 11/22/18 11:13 97.5 97.5 11/22/18 02:58 2.0 Physical Exam Physical Exam GENERAL: Sitting on the side of the bed, listening to music, alert, HEENT: Oral cavity clear NECK: Supple, no JVP, no lymphadenopathy. LUNGS: Clear. HEART: S1, S2 regular. ABDOMEN: Soft and nontender EXTREMITIES: BLE edema R > L; small minor wound left lower leg. 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, responds to few questions appropriately PIV ok General: Alert, Oriented X3, Cooperative, moderate distress Heart: Regular rate, Normal S1 Lungs: Clear Abdomen: Normal bowel sounds, Soft, No tenderness Extremities: Other (R leg swollen more than left) Skin: No breakdown (leg is swollen too.), Other (MARKED ERYTHEMA LEFT ANKLE/ LOWER LEG TENDER CDI bandaging) Labs LABS Laboratory Tests Test 11/21/18 16:23 11/21/18 20:23 11/22/18 07:22 11/22/18 11:38 Glucose (Fingerstick) 160 mg/dL (70-99) 144 mg/dL (70-99) 115 mg/dL (70-99) 164 mg/dL (70-99) Assessment and Plan Assessmemt and Plan Problems Medical Problems: (1) Cellulitis of left lower extremity Status: Acute (2) Chronic acquired lymphedema Status: Acute (3) Drug abuse Status: Acute (4) Homeless Status: Acute Comment Review of Relevant I have reviewed the following items peyton (where applicable) has been applied. Labs Laboratory Tests Test 11/20/18 16:32 11/20/18 21:00 11/21/18 07:30 11/21/18 11:28 Glucose (Fingerstick) 197 mg/dL (70-99) 179 mg/dL (70-99) 162 mg/dL (70-99) 161 mg/dL (70-99) Test 11/21/18 16:23 11/21/18 20:23 11/22/18 07:22 11/22/18 11:38 Glucose (Fingerstick) 160 mg/dL (70-99) 144 mg/dL (70-99) 115 mg/dL (70-99) 164 mg/dL (70-99) Laboratory Tests Test 11/21/18 16:23 11/21/18 20:23 11/22/18 07:22 11/22/18 11:38 Glucose (Fingerstick) 160 mg/dL (70-99) 144 mg/dL (70-99) 115 mg/dL (70-99) 164 mg/dL (70-99) Microbiology 11/17/18 Blood Culture - Preliminary, Resulted NO GROWTH AFTER 4 DAYS 11/17/18 Urine Culture - Final, Complete 11/17/18 Urine Culture Result 1 (GABRIELE) - Final, Complete 11/17/18 Aerobic Culture - Final, Complete 11/17/18 Aerobic Culture Result 1 (GABRIELE) - Final, Complete 11/17/18 Aerobic Culture Result 2 (GABRIELE) - Final, Complete 11/17/18 Antimicrobic Susceptibility - Final, Complete 11/17/18 Gram Stain - Final, Complete 11/17/18 Gram Stain Result 1 (GABRIELE) - Final, Complete 11/17/18 Gram Stain Result 2 (GABRIELE) - Final, Complete Medications Current Medications Piperacillin Sod/ Tazobactam Sod 3.375 gm/Sodium Chloride 50 ml @ 100 mls/hr 1X ONCE IV Last administered on 11/17/18at 15:45; Start 11/17/18 at 14:30; Stop 11/17/18 at 14:59; Status DC Vancomycin HCl (Vanco Per Pharmacy) 1 each PRN DAILY PRN MC SEE COMMENTS Last administered on 11/17/18at 18:24; Start 11/17/18 at 14:30; Stop 11/18/18 at 11:54 ; Status DC Vancomycin HCl 2 gm/Sodium Chloride 500 ml @ 250 mls/hr ONCE ONCE IV Last administered on 11/17/18at 16:20; Start 11/17/18 at 14:45; Stop 11/17/18 at 16:44 ; Status DC Ondansetron HCl (Zofran) 4 mg PRN Q8HRS PRN IV NAUSEA/VOMITING; Start 11/17/18 at 17:15; Stop 11/18/18 at 17:14; Status DC Acetaminophen (Tylenol) 650 mg PRN Q4HRS PRN PO FEVER Last administered on 11/17at 19:55; Start 11/17/18 at 17:15; Stop 11/18/18 at 17:14; Status DC Sodium Chloride 1,000 ml @ 75 mls/hr 1X ONCE IV Last administered on at 19:55; Start 11/17/18 at 17:15; Stop 11/18/18 at 06:34; Status DC Vancomycin HCl 1.25 gm/Sodium Chloride 250 ml @ 167 mls/hr Q24H IV ; Start at 16:30; Stop 11/18/18 at 16:30; Status DC Vancomycin HCl (Vancomycin Trough Level) 1 each 1X ONCE MC ; Start 11/19/18 at 16:00; Stop 11/19/18 at 16:00; Status DC Enoxaparin Sodium (Lovenox 40mg Syringe) 40 mg Q24H SQ Last administered on at 21:11; Start 11/17/18 at 22:00 Sodium Chloride 1,000 ml @ 1,860 mls/hr Q33M IV ; Start 11/17/18 at 22:15; Stop 11/17/18 at 22:48; Status DC Sodium Chloride 500 ml @ 1,000 mls/hr PRN Q30MIN PRN IV SEE COMMENTS; Start at 22:15; Stop 11/17/18 at 22:48; Status DC Norepinephrine Bitartrate 250 ml @ 0 mls/hr CONT PRN IV SEE I/O RECORD; Start 11/17/18 at 22:00; Status UNV Multivitamins 10 ml/Thiamine HCl 100 mg/Folic Acid 1 mg/Sodium Chloride 1,011.2 ml @ 100 mls/ hr DAILY IV Last administered on 11/20/18at 08:14; Start at 09:00; Stop 11/20/18 at 13:45; Status DC Multivitamins (Thera M Plus) 1 tab DAILY PO Last administered on 11/18/18at 10: 11; Start 11/18/18 at 09:00; Stop 11/19/18 at 15:09; Status DC Folic Acid (Folic Acid) 1 mg DAILY PO Last administered on 11/18/18at 10:11; Start 11/18/18 at 09:00; Stop 11/18/18 at 16:15; Status DC Thiamine HCl 100 mg DAILY IM ; Start 11/18/18 at 09:00; Stop 11/18/18 at 16:13; Status DC Lorazepam (Ativan) 4 mg PRN Q1HR PRN PO For CIWA 8-14 Last administered on 11/20at 23:47; Start 11/17/18 at 22:00 Lorazepam (Ativan) 2 mg PRN Q1HR PRN IV For CIWA 8-14; Start 11/17/18 at 22:00 Haloperidol Lactate (Haldol Inj) 5 mg PRN Q4HRS PRN IVP Hallucinatns,Confusn, Delirium; Start 11/17/18 at 22:00 Diphenhydramine HCl (Benadryl) 25 mg PRN Q15MIN PRN IVP EPS symptoms 2'Haldol admin; Start 11/17/18 at 22:00 Clonidine HCl (Catapres) 0.1 mg PRN Q1HR PRN PO SBP > 180 or DBP > 100, MRX3 Last administered on 11/20/18at 08:09; Start 11/17/18 at 22:00 Lorazepam (Ativan) 2 mg PRN Q15MIN PRN IV ANXIETY / AGITATION; Start 11/17/18 at 22:00; Stop 11/18/18 at 06:02; Status DC Fentanyl Citrate (Fentanyl 2ml Vial) 50 mcg PRN Q2HR PRN IV PAIN Last administered on 11/22/18at 10:54; Start 11/18/18 at 11:00 Oxycodone HCl (Roxicodone) 5 mg PRN Q6HRS PRN PO PAIN Last administered on 11/21at 15:46; Start 11/18/18 at 11:00 Insulin Human Lispro (HumaLOG) 0-7 UNITS TIDWMEALS SQ Last administered on 11/22at 12:33; Start 11/18/18 at 13:30 Dextrose (Dextrose 50%-Water Syringe) 12.5 gm PRN Q15MIN PRN IV SEE COMMENTS; Start 11/18/18 at 13:15 Sodium Chloride 1,000 ml @ 75 mls/hr [id number] IV Last administered on at 05:38; Start 11/18/18 at 20:00; Stop 11/22/18 at 11:43; Status DC Folic Acid (Folic Acid) 1 mg DAILY PO Last administered on 11/22/18 09:02; Start 11/21/18 at 09:00 Lactobacillus Rhamnosus (Culturelle) 1 cap BID PO Last administered on 09:02; Start 11/18/18 at 21:00 Piperacillin Sod/ Tazobactam Sod 3.375 gm/Sodium Chloride 50 ml @ 100 mls/hr Q6HRS IV Last administered on 11/19/18at 12:41; Start 11/18/18 at 17:00; Stop at 14:32; Status DC Pregabalin (Lyrica) 25 mg [id number] PO Last administered on 11/20/18 08:26; Start 11/19/18 at 14:00; Stop 11/20/18 at 14:49; Status DC Amoxicillin/ Clavulanate Potassium (Augmentin 875/ 125mg) 1 tab BID PO Last administered on 11/20/18at 08:25; Start 11/19/18 at 21:00; Stop 11/20/18 at 10:29 ; Status DC Multivitamins (Thera M Plus) 1 tab DAILY PO Last administered on 11/22/18at 09: 02; Start 11/21/18 at 09:00 Piperacillin Sod/ Tazobactam Sod 3.375 gm/Sodium Chloride 50 ml @ 100 mls/hr Q6HRS IV Last administered on 11/22/18at 12:27; Start 11/20/18 at 11:00 Linezolid (Zyvox) 600 mg BID PO Last administered on 11/22/18at 09:02; Start at 11:00 Ondansetron HCl (Zofran) 4 mg PRN Q8HRS PRN IV NAUSEA/VOMITING Last administered on 11/20/18 12:06; Start 11/20/18 at 12:00 Thiamine Mononitrate (Vitamin B-1) 100 mg DAILY PO Last administered on 09:02; Start 11/21/18 at 09:00 Pregabalin (Lyrica) 50 mg TID PO Last administered on 11/21/18at 08:31; Start at 15:00; Stop 11/21/18 at 09:49; Status DC Lorazepam (Ativan) 2 mg PRN Q4HRS PRN IV ANXIETY / AGITATION Last administered on 11/21/18at 12:20; Start 11/21/18 at 10:00 Pregabalin (Lyrica) 75 mg TID PO Last administered on 11/22/18at 09:02; Start at 14:00 Quetiapine Fumarate (SEROquel) 100 mg DAILY PO ; Start 11/21/18 at 10:30 Diphenhydramine HCl (Benadryl) 25 mg PRN Q6HRS PRN PO WITHDRAWAL IRRITABILITY Last administered on 11/21/18 12:20; Start 11/21/18 at 12:00 Vitamin B Complex (Folbic Tablet) 1 tab DAILY PO Last administered on 12:28; Start 11/22/18 at 12:30 Lisinopril (Prinivil) 5 mg DAILY PO Last administered on 11/22/18at 12:28; Start 11/22/18 at 12:00 Active Scripts Active Lasix (Furosemide) 40 Mg Tablet 40 Mg PO BID 30 Days Humalog (Insulin Lispro) 100 Unit/1 Ml Insuln.pen 7 Units SQ TIDAC 30 Days Lantus Solostar (Insulin Glargine,Hum.rec.anlog) 100 Unit/1 Ml Insuln.pen 20 Units SQ QHS 30 Days Guaifenesin Dm Syrup (Guaifenesin/Dextromethorphan) 5 Ml Syrup 10 Ml PO PRN Q6HRS PRN 30 Days Benzonatate 100 Mg Capsule 100 Mg PO [id number] 30 Days Montelukast Sodium Tablet (Montelukast Sodium) 10 Mg Tablet 10 Mg PO QHS 30 Days Humalog (Insulin Lispro) 100 Unit/1 Ml Insuln.pen 10 Units SQ TIDAC 30 Days Lantus Solostar (Insulin Glargine,Hum.rec.anlog) 100 Unit/1 Ml Insuln.pen 30 Units SQ QHS 30 Days Lyrica (Pregabalin) 75 Mg Capsule 75 Mg PO TID 30 Days Lisinopril 40 Mg Tablet 20 Mg PO DAILY 30 Days Vitals/I & O Vital Sign - Last 24 Hours 11/21/18 11/21/18 11/21/18 11/21/18 14:43 15:46 16:50 19:00 Temp 98.1 99.3 98.1 99.3 Pulse 70 84 Resp 17 18 18 18 B/P (MAP) 179/82 (114) 176/93 (120) Pulse Ox 99 99 99 96 O2 Delivery Room Air Room Air Room Air Room Air O2 Flow Rate 2.0 2.0 11/21/18 11/21/18 11/22/18 11/22/18 20:00 22:59 02:18 02:58 Temp 98.2 98.1 98.2 98.1 Pulse 70 67 Resp 18 18 B/P (MAP) 181/82 (115) 177/89 (118) Pulse Ox 100 97 O2 Delivery Room Air Room Air Room Air Room Air O2 Flow Rate 2.0 2.0 2.0 11/22/18 11/22/18 11/22/18 11/22/18 07:24 08:00 10:54 11:13 Temp 98.6 97.5 98.6 97.5 Pulse 68 76 Resp 18 18 20 B/P (MAP) 157/89 (111) 165/85 (111) Pulse Ox 99 99 95 O2 Delivery Room Air Room Air Room Air Room Air 11/22/18 11/22/18 11:30 12:28 Pulse 76 Resp 18 B/P (MAP) 165/85 Pulse Ox 95 O2 Delivery Room Air Intake and Output 11/21/18 11/21/18 11/22/18 15:00 23:00 07:00 Intake Total 540 ml 1000 ml Balance 540 ml 1000 ml KARLA MOREAU MD Nov 22, 2018 13:26
[2018-11-22 15:05] VITALS: BP 177/96
[2018-11-22] MEDS: oxyCODONE IR 5 MG TABLET PO PRN (15:23)
[2018-11-22] MEDS: FUROSEMIDE 20 MG TABLET PO SCH (16:59)
[2018-11-22] MEDS: ONDANSETRON PF 4 MG/2 ML VIAL. IV PRN (17:11)
[2018-11-22 19:23] VITALS: BP 162/79
[2018-11-22 22:30] VITALS: BP 147/69
[2018-11-22] MEDS: ENOXAPARIN 40 MG/0.4 ML SYRINGE. SQ SCH (22:35)
--- NOTE | 2018-11-22 22:52 | NUR ---
Pt states feeling a little restless tonight and having pain in lower ext. Pt given fentanyl IV tonight. Pt wants to wait on ativan before taking to see if fentanyl will work. No further complaints at this time. Will continue to monitor.
[2018-11-23] MEDS: PIPERACILLIN/TAZOBACTAM 3.375 GM in IV NORMAL SALINE 50ML 50 ML IV SCH ×3 (00:31→12:08)
--- NOTE | 2018-11-23 00:45 | NUR ---
Pt states having a difficult time resting at this time and would like to go ahead and take the ativan. Pt states going through some mental health issues at this time. Pt given ativan. No further complaints at this time. Will continue to monitor.
[2018-11-23 02:30] VITALS: BP 134/64
[2018-11-23 05:39] LABS: BASO # 0.1 x10^3/uL (0.0-0.2); BASO % 1 % (0-3); EOS # 0.3 x10^3/uL (0.0-0.7); EOS % 3 % (0-3); HEMOGLOBIN 11.9 g/dL (12.0-15.5); LYMPH # 3.9 x10^3/uL (1.0-4.8); LYMPH % 37 % (24-48); MEAN CORPUSCULAR HEMOGLOBIN 33 pg (25-35); MEAN CORPUSCULAR HGB CONC 33 g/dL (31-37); MEAN CORPUSCULAR VOLUME 100 fL (79-100); MONO # 1.1 x10^3/uL (0.0-1.1); MONO % 10 % (0-9); NEUT # 5.1 x10^3uL (1.8-7.7); NEUT % 49 % (31-73); PLATELET COUNT 343 x10^3/uL (140-400); RED BLOOD COUNT 3.59 x10^6/uL (3.50-5.40); RED CELL DISTRIBUTION WIDTH 13.6 % (11.5-14.5); WHITE BLOOD COUNT 10.5 x10^3/uL (4.0-11.0)
[2018-11-23 06:15] LABS: ALBUMIN 1.6 g/dL (3.4-5.0); ALBUMIN/GLOBULIN RATIO 0.4 (1.0-1.7); CALCIUM 8.4 mg/dL (8.5-10.1); CREATININE 1.1 mg/dL (0.6-1.0); GFR 60.7; POTASSIUM 4.4 mmol/L (3.5-5.1); TOTAL BILIRUBIN 0.2 mg/dL (0.2-1.0); TOTAL PROTEIN 6.1 g/dL (6.4-8.2)
[2018-11-23 07:00] VITALS: BP 167/83
[2018-11-23] MEDS: THIAMINE 100 MG TABLET. PO SCH (08:28)
[2018-11-23] MEDS: LACTOBACILLUS RHAMNOSUS GG 1 CAPSULE. PO SCH ×2 (08:28→21:15)
[2018-11-23] MEDS: LINEZOLID 600 MG TABLET PO SCH ×2 (08:28→21:15)
[2018-11-23] MEDS: FOLIC ACID 1 MG TABLET. PO SCH (08:28)
[2018-11-23] MEDS: PREGABALIN 75 MG CAPSULE PO SCH ×3 (08:28→21:16)
[2018-11-23] MEDS: MULTIVITAMIN with MINERAL TABLET. PO SCH (08:28)
[2018-11-23] MEDS: VITAMIN B12,B9,B6 COMPLEX 1 TABLET. PO SCH (08:28)
[2018-11-23] MEDS: FUROSEMIDE 20 MG TABLET PO SCH (08:29)
[2018-11-23] MEDS: LISINOPRIL 5 MG TABLET. PO SCH (08:29)
[2018-11-23] MEDS: QUEtiapine 100 MG TABLET. PO SCH ×2 (08:31→17:13)
[2018-11-23] MEDS: INSULIN LISPRO 300 UNITS/3 ML INSULN.PEN. SQ SCH ×3 (08:35→17:26)
[2018-11-23 11:00] VITALS: BP 128/80
--- NOTE | 2018-11-23 11:44 | PDOC ---
Infectious Disease Note Subjective Subjective c/o legs feeling achy and heavy No fevers/chills/aches No N/V/D Vital Sign Vital Signs Vital Signs Date Time Temp Pulse Resp B/P (MAP) Pulse Ox O2 Delivery O2 Flow Rate FiO2 11/23/18 11:00 98.5 87 16 128/80 (96) 98 Room Air 98.5 11/22/18 20:00 2.0 Physical Exam PHYSICAL EXAM GENERAL: Sitting on the side of the bed, listening to music, alert, HEENT: Oral cavity clear NECK: Supple, no JVP, no lymphadenopathy. LUNGS: Clear. HEART: S1, S2 regular. ABDOMEN: Soft and nontender EXTREMITIES: BLE edema R > L; small minor wound left lower leg. 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, responds to few questions appropriately PIV ok Labs Lab Laboratory Tests Test 11/22/18 16:42 11/22/18 20:31 11/23/18 04:34 11/23/18 07:35 Glucose (Fingerstick) 96 mg/dL (70-99) 164 mg/dL (70-99) 181 mg/dL (70-99) White Blood Count 10.5 x10^3/uL (4.0-11.0) Red Blood Count 3.59 x10^6/uL (3.50-5.40) Hemoglobin 11.9 g/dL (12.0-15.5) Hematocrit 36.0 % (36.0-47.0) Mean Corpuscular Volume 100 fL (79-100) Mean Corpuscular Hemoglobin 33 pg (25-35) Mean Corpuscular Hemoglobin Concent 33 g/dL (31-37) Red Cell Distribution Width 13.6 % (11.5-14.5) Platelet Count 343 x10^3/uL (140-400) Neutrophils (%) (Auto) 49 % (31-73) Lymphocytes (%) (Auto) 37 % (24-48) Monocytes (%) (Auto) 10 % (0-9) Eosinophils (%) (Auto) 3 % (0-3) Basophils (%) (Auto) 1 % (0-3) Neutrophils # (Auto) 5.1 x10^3uL (1.8-7.7) Lymphocytes # (Auto) 3.9 x10^3/uL (1.0-4.8) Monocytes # (Auto) 1.1 x10^3/uL (0.0-1.1) Eosinophils # (Auto) 0.3 x10^3/uL (0.0-0.7) Basophils # (Auto) 0.1 x10^3/uL (0.0-0.2) Sodium Level 142 mmol/L (136-145) Potassium Level 4.4 mmol/L (3.5-5.1) Chloride Level 108 mmol/L (98-107) Carbon Dioxide Level 28 mmol/L (21-32) Anion Gap 6 (6-14) Blood Urea Nitrogen 16 mg/dL (7-20) Creatinine 1.1 mg/dL (0.6-1.0) Estimated GFR (Cockcroft-Gault) 60.7 BUN/Creatinine Ratio 15 (6-20) Glucose Level 135 mg/dL (70-99) Calcium Level 8.4 mg/dL (8.5-10.1) Total Bilirubin 0.2 mg/dL (0.2-1.0) Aspartate Amino Transf (AST/SGOT) 25 U/L (15-37) Alanine Aminotransferase (ALT/SGPT) 24 U/L (14-59) Alkaline Phosphatase 66 U/L (46-116) Total Protein 6.1 g/dL (6.4-8.2) Albumin 1.6 g/dL (3.4-5.0) Albumin/Globulin Ratio 0.4 (1.0-1.7) Vitamin B12 Level 485 pg/mL (247-911) Test 11/23/18 11:25 Glucose (Fingerstick) 268 mg/dL (70-99) Micro AEROBIC CULTURE Preliminary Preliminary report AEROBIC RES 1 Preliminary Staphylococcus aureus 4+ AEROBIC RES 2 Preliminary Gram negative rods 4+ Performed at: DA - [facility] [address] [facility] [address], [place], [place] [id number] [employer] Operator: BRIONNA Means MD, Phone: [phone] GRAM STAIN Final Final report GRAM STAIN RESULT 1 Final Comment No white blood cells seen. GRAM STAIN RESULT 2 Final Comment Few gram positive cocci Objective Assessment Left leg cellulitis Leukocytosis Fever DM COPD Lymphedema Plan Plan of Care change Zosyn and Zyvox - to po augmentin leg elevation Consult pulmonary, lung nodule, for f/u d/w ZENIA GOMEZ MD Nov 23, 2018 11:44
--- NOTE | 2018-11-23 13:15 | PDOC ---
PROGRESS NOTES Chief Complaint Chief Complaint 1. severe cellulitis left lower leg/ ankle 2. bilat lymphedema, 3. homeless socal issues/ complex care needed, Hx of Bipolar disorder 4. THC and cocaine abuse disorder 5. Anemia of chronic disease, normocytic 6. Constipation 7. Narcotic dependence 8.acute weakness and debility 9 gastroenteritis HX 10. 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 chronic pain History of Present Illness History of Present Illness more agreeable today, took her seroquel complains of LE edema, it is a bit worse today. vitals better, Pain OK will need PT and OT lyrica 75 TID may need to be reduced based on her swelling. Compressive wraps today. she asked for spiritual support meds reviewed Vitals Vitals Vital Signs Date Time Temp Pulse Resp B/P (MAP) Pulse Ox O2 Delivery O2 Flow Rate FiO2 11/23/18 11:00 98.5 87 16 128/80 (96) 98 Room Air 98.5 11/22/18 20:00 2.0 Physical Exam Physical Exam GENERAL: Sitting on the side of the bed, listening to music, alert, HEENT: Oral cavity clear NECK: Supple, no JVP, no lymphadenopathy. LUNGS: Clear. HEART: S1, S2 regular. ABDOMEN: Soft and nontender EXTREMITIES: BLE edema R > L; small minor wound left lower leg. SKIN: Warm without rash [employer]: Alert, responds to few questions appropriately PIV ok General: Alert, Oriented X3, Cooperative, moderate distress Heart: Regular rate, Normal S1 Lungs: Clear Abdomen: Normal bowel sounds, Soft, No tenderness Extremities: Other (R leg swollen more than left) Skin: No breakdown (leg is swollen too.), Other (MARKED ERYTHEMA LEFT ANKLE/ LOWER LEG TENDER CDI bandaging) Labs LABS Laboratory Tests Test 11/22/18 16:42 11/22/18 20:31 11/23/18 04:34 11/23/18 07:35 Glucose (Fingerstick) 96 mg/dL (70-99) 164 mg/dL (70-99) 181 mg/dL (70-99) White Blood Count 10.5 x10^3/uL (4.0-11.0) Red Blood Count 3.59 x10^6/uL (3.50-5.40) Hemoglobin 11.9 g/dL (12.0-15.5) Hematocrit 36.0 % (36.0-47.0) Mean Corpuscular Volume 100 fL (79-100) Mean Corpuscular Hemoglobin 33 pg (25-35) Mean Corpuscular Hemoglobin Concent 33 g/dL (31-37) Red Cell Distribution Width 13.6 % (11.5-14.5) Platelet Count 343 x10^3/uL (140-400) Neutrophils (%) (Auto) 49 % (31-73) Lymphocytes (%) (Auto) 37 % (24-48) Monocytes (%) (Auto) 10 % (0-9) Eosinophils (%) (Auto) 3 % (0-3) Basophils (%) (Auto) 1 % (0-3) Neutrophils # (Auto) 5.1 x10^3uL (1.8-7.7) Lymphocytes # (Auto) 3.9 x10^3/uL (1.0-4.8) Monocytes # (Auto) 1.1 x10^3/uL (0.0-1.1) Eosinophils # (Auto) 0.3 x10^3/uL (0.0-0.7) Basophils # (Auto) 0.1 x10^3/uL (0.0-0.2) Sodium Level 142 mmol/L (136-145) Potassium Level 4.4 mmol/L (3.5-5.1) Chloride Level 108 mmol/L (98-107) Carbon Dioxide Level 28 mmol/L (21-32) Anion Gap 6 (6-14) Blood Urea Nitrogen 16 mg/dL (7-20) Creatinine 1.1 mg/dL (0.6-1.0) Estimated GFR (Cockcroft-Gault) 60.7 BUN/Creatinine Ratio 15 (6-20) Glucose Level 135 mg/dL (70-99) Calcium Level 8.4 mg/dL (8.5-10.1) Total Bilirubin 0.2 mg/dL (0.2-1.0) Aspartate Amino Transf (AST/SGOT) 25 U/L (15-37) Alanine Aminotransferase (ALT/SGPT) 24 U/L (14-59) Alkaline Phosphatase 66 U/L (46-116) Total Protein 6.1 g/dL (6.4-8.2) Albumin 1.6 g/dL (3.4-5.0) Albumin/Globulin Ratio 0.4 (1.0-1.7) Vitamin B12 Level 485 pg/mL (247-911) Test 11/23/18 11:25 Glucose (Fingerstick) 268 mg/dL (70-99) Assessment and Plan Assessmemt and Plan Problems Medical Problems: (1) Cellulitis of left lower extremity Status: Acute (2) Chronic acquired lymphedema Status: Acute (3) Drug abuse Status: Acute (4) Homeless Status: Acute Comment Review of Relevant I have reviewed the following items peyton (where applicable) has been applied. Labs Laboratory Tests Test 11/21/18 16:23 11/21/18 20:23 11/22/18 07:22 11/22/18 11:38 Glucose (Fingerstick) 160 mg/dL (70-99) 144 mg/dL (70-99) 115 mg/dL (70-99) 164 mg/dL (70-99) Test 11/22/18 16:42 11/22/18 20:31 11/23/18 04:34 11/23/18 07:35 Glucose (Fingerstick) 96 mg/dL (70-99) 164 mg/dL (70-99) 181 mg/dL (70-99) White Blood Count 10.5 x10^3/uL (4.0-11.0) Red Blood Count 3.59 x10^6/uL (3.50-5.40) Hemoglobin 11.9 g/dL (12.0-15.5) Hematocrit 36.0 % (36.0-47.0) Mean Corpuscular Volume 100 fL (79-100) Mean Corpuscular Hemoglobin 33 pg (25-35) Mean Corpuscular Hemoglobin Concent 33 g/dL (31-37) Red Cell Distribution Width 13.6 % (11.5-14.5) Platelet Count 343 x10^3/uL (140-400) Neutrophils (%) (Auto) 49 % (31-73) Lymphocytes (%) (Auto) 37 % (24-48) Monocytes (%) (Auto) 10 % (0-9) Eosinophils (%) (Auto) 3 % (0-3) Basophils (%) (Auto) 1 % (0-3) Neutrophils # (Auto) 5.1 x10^3uL (1.8-7.7) Lymphocytes # (Auto) 3.9 x10^3/uL (1.0-4.8) Monocytes # (Auto) 1.1 x10^3/uL (0.0-1.1) Eosinophils # (Auto) 0.3 x10^3/uL (0.0-0.7) Basophils # (Auto) 0.1 x10^3/uL (0.0-0.2) Sodium Level 142 mmol/L (136-145) Potassium Level 4.4 mmol/L (3.5-5.1) Chloride Level 108 mmol/L (98-107) Carbon Dioxide Level 28 mmol/L (21-32) Anion Gap 6 (6-14) Blood Urea Nitrogen 16 mg/dL (7-20) Creatinine 1.1 mg/dL (0.6-1.0) Estimated GFR (Cockcroft-Gault) 60.7 BUN/Creatinine Ratio 15 (6-20) Glucose Level 135 mg/dL (70-99) Calcium Level 8.4 mg/dL (8.5-10.1) Total Bilirubin 0.2 mg/dL (0.2-1.0) Aspartate Amino Transf (AST/SGOT) 25 U/L (15-37) Alanine Aminotransferase (ALT/SGPT) 24 U/L (14-59) Alkaline Phosphatase 66 U/L (46-116) Total Protein 6.1 g/dL (6.4-8.2) Albumin 1.6 g/dL (3.4-5.0) Albumin/Globulin Ratio 0.4 (1.0-1.7) Vitamin B12 Level 485 pg/mL (247-911) Test 11/23/18 11:25 Glucose (Fingerstick) 268 mg/dL (70-99) Laboratory Tests Test 11/22/18 16:42 11/22/18 20:31 11/23/18 04:34 11/23/18 07:35 Glucose (Fingerstick) 96 mg/dL (70-99) 164 mg/dL (70-99) 181 mg/dL (70-99) White Blood Count 10.5 x10^3/uL (4.0-11.0) Red Blood Count 3.59 x10^6/uL (3.50-5.40) Hemoglobin 11.9 g/dL (12.0-15.5) Hematocrit 36.0 % (36.0-47.0) Mean Corpuscular Volume 100 fL (79-100) Mean Corpuscular Hemoglobin 33 pg (25-35) Mean Corpuscular Hemoglobin Concent 33 g/dL (31-37) Red Cell Distribution Width 13.6 % (11.5-14.5) Platelet Count 343 x10^3/uL (140-400) Neutrophils (%) (Auto) 49 % (31-73) Lymphocytes (%) (Auto) 37 % (24-48) Monocytes (%) (Auto) 10 % (0-9) Eosinophils (%) (Auto) 3 % (0-3) Basophils (%) (Auto) 1 % (0-3) Neutrophils # (Auto) 5.1 x10^3uL (1.8-7.7) Lymphocytes # (Auto) 3.9 x10^3/uL (1.0-4.8) Monocytes # (Auto) 1.1 x10^3/uL (0.0-1.1) Eosinophils # (Auto) 0.3 x10^3/uL (0.0-0.7) Basophils # (Auto) 0.1 x10^3/uL (0.0-0.2) Sodium Level 142 mmol/L (136-145) Potassium Level 4.4 mmol/L (3.5-5.1) Chloride Level 108 mmol/L (98-107) Carbon Dioxide Level 28 mmol/L (21-32) Anion Gap 6 (6-14) Blood Urea Nitrogen 16 mg/dL (7-20) Creatinine 1.1 mg/dL (0.6-1.0) Estimated GFR (Cockcroft-Gault) 60.7 BUN/Creatinine Ratio 15 (6-20) Glucose Level 135 mg/dL (70-99) Calcium Level 8.4 mg/dL (8.5-10.1) Total Bilirubin 0.2 mg/dL (0.2-1.0) Aspartate Amino Transf (AST/SGOT) 25 U/L (15-37) Alanine Aminotransferase (ALT/SGPT) 24 U/L (14-59) Alkaline Phosphatase 66 U/L (46-116) Total Protein 6.1 g/dL (6.4-8.2) Albumin 1.6 g/dL (3.4-5.0) Albumin/Globulin Ratio 0.4 (1.0-1.7) Vitamin B12 Level 485 pg/mL (247-911) Test 11/23/18 11:25 Glucose (Fingerstick) 268 mg/dL (70-99) Microbiology 11/17/18 Blood Culture - Final, Complete NO GROWTH AFTER 5 DAYS 11/17/18 Urine Culture - Final, Complete 11/17/18 Urine Culture Result 1 (GABRIELE) - Final, Complete 11/17/18 Aerobic Culture - Final, Complete 11/17/18 Aerobic Culture Result 1 (GABRIELE) - Final, Complete 11/17/18 Aerobic Culture Result 2 (GABRIELE) - Final, Complete 11/17/18 Antimicrobic Susceptibility - Final, Complete 11/17/18 Gram Stain - Final, Complete 11/17/18 Gram Stain Result 1 (GABRIELE) - Final, Complete 11/17/18 Gram Stain Result 2 (GABRIELE) - Final, Complete Medications Current Medications Piperacillin Sod/ Tazobactam Sod 3.375 gm/Sodium Chloride 50 ml @ 100 mls/hr 1X ONCE IV Last administered on 11/17/18at 15:45; Start 11/17/18 at 14:30; Stop 11/17/18 at 14:59; Status DC Vancomycin HCl (Vanco Per Pharmacy) 1 each PRN DAILY PRN MC SEE COMMENTS Last administered on 11/17/18at 18:24; Start 11/17/18 at 14:30; Stop 11/18/18 at 11:54 ; Status DC Vancomycin HCl 2 gm/Sodium Chloride 500 ml @ 250 mls/hr ONCE ONCE IV Last administered on 11/17/18at 16:20; Start 11/17/18 at 14:45; Stop 11/17/18 at 16:44 ; Status DC Ondansetron HCl (Zofran) 4 mg PRN Q8HRS PRN IV NAUSEA/VOMITING; Start 11/17/18 at 17:15; Stop 11/18/18 at 17:14; Status DC Acetaminophen (Tylenol) 650 mg PRN Q4HRS PRN PO FEVER Last administered on 11/17at 19:55; Start 11/17/18 at 17:15; Stop 11/18/18 at 17:14; Status DC Sodium Chloride 1,000 ml @ 75 mls/hr 1X ONCE IV Last administered on at 19:55; Start 11/17/18 at 17:15; Stop 11/18/18 at 06:34; Status DC Vancomycin HCl 1.25 gm/Sodium Chloride 250 ml @ 167 mls/hr Q24H IV ; Start at 16:30; Stop 11/18/18 at 16:30; Status DC Vancomycin HCl (Vancomycin Trough Level) 1 each 1X ONCE MC ; Start 11/19/18 at 16:00; Stop 11/19/18 at 16:00; Status DC Enoxaparin Sodium (Lovenox 40mg Syringe) 40 mg Q24H SQ Last administered on at 22:35; Start 11/17/18 at 22:00 Sodium Chloride 1,000 ml @ 1,860 mls/hr Q33M IV ; Start 11/17/18 at 22:15; Stop 11/17/18 at 22:48; Status DC Sodium Chloride 500 ml @ 1,000 mls/hr PRN Q30MIN PRN IV SEE COMMENTS; Start at 22:15; Stop 11/17/18 at 22:48; Status DC Norepinephrine Bitartrate 250 ml @ 0 mls/hr CONT PRN IV SEE I/O RECORD; Start 11/17/18 at 22:00; Status UNV Multivitamins 10 ml/Thiamine HCl 100 mg/Folic Acid 1 mg/Sodium Chloride 1,011.2 ml @ 100 mls/ hr DAILY IV Last administered on 11/20/18at 08:14; Start at 09:00; Stop 11/20/18 at 13:45; Status DC Multivitamins (Thera M Plus) 1 tab DAILY PO Last administered on 11/18/18at 10: 11; Start 11/18/18 at 09:00; Stop 11/19/18 at 15:09; Status DC Folic Acid (Folic Acid) 1 mg DAILY PO Last administered on 11/18/18at 10:11; Start 11/18/18 at 09:00; Stop 11/18/18 at 16:15; Status DC Thiamine HCl 100 mg DAILY IM ; Start 11/18/18 at 09:00; Stop 11/18/18 at 16:13; Status DC Lorazepam (Ativan) 4 mg PRN Q1HR PRN PO For CIWA 8-14 Last administered on 11/20at 23:47; Start 11/17/18 at 22:00 Lorazepam (Ativan) 2 mg PRN Q1HR PRN IV For CIWA 8-14; Start 11/17/18 at 22:00 Haloperidol Lactate (Haldol Inj) 5 mg PRN Q4HRS PRN IVP Hallucinatns,Confusn, Delirium; Start 11/17/18 at 22:00 Diphenhydramine HCl (Benadryl) 25 mg PRN Q15MIN PRN IVP EPS symptoms 2'Haldol admin; Start 11/17/18 at 22:00 Clonidine HCl (Catapres) 0.1 mg PRN Q1HR PRN PO SBP > 180 or DBP > 100, MRX3 Last administered on 11/20/18at 08:09; Start 11/17/18 at 22:00 Lorazepam (Ativan) 2 mg PRN Q15MIN PRN IV ANXIETY / AGITATION; Start 11/17/18 at 22:00; Stop 11/18/18 at 06:02; Status DC Fentanyl Citrate (Fentanyl 2ml Vial) 50 mcg PRN Q2HR PRN IV PAIN Last administered on 11/22/18at 22:34; Start 11/18/18 at 11:00 Oxycodone HCl (Roxicodone) 5 mg PRN Q6HRS PRN PO PAIN Last administered on 11/22at 15:23; Start 11/18/18 at 11:00 Insulin Human Lispro (HumaLOG) 0-7 UNITS TIDWMEALS SQ Last administered on 11/23at 12:15; Start 11/18/18 at 13:30 Dextrose (Dextrose 50%-Water Syringe) 12.5 gm PRN Q15MIN PRN IV SEE COMMENTS; Start 11/18/18 at 13:15 Sodium Chloride 1,000 ml @ 75 mls/hr [id number] IV Last administered on at 05:38; Start 11/18/18 at 20:00; Stop 11/22/18 at 11:43; Status DC Folic Acid (Folic Acid) 1 mg DAILY PO Last administered on 11/23/18at 08:28; Start 11/21/18 at 09:00 Lactobacillus Rhamnosus (Culturelle) 1 cap BID PO Last administered on 08:28; Start 11/18/18 at 21:00 Piperacillin Sod/ Tazobactam Sod 3.375 gm/Sodium Chloride 50 ml @ 100 mls/hr Q6HRS IV Last administered on 11/19/18 12:41; Start 11/18/18 at 17:00; Stop at 14:32; Status DC Pregabalin (Lyrica) 25 mg [id number] PO Last administered on 11/20/18 08:26; Start 11/19/18 at 14:00; Stop 11/20/18 at 14:49; Status DC Amoxicillin/ Clavulanate Potassium (Augmentin 875/ 125mg) 1 tab BID PO Last administered on 11/20/18 08:25; Start 11/19/18 at 21:00; Stop 11/20/18 at 10:29 ; Status DC Multivitamins (Thera M Plus) 1 tab DAILY PO Last administered on 11/23/18 08: 28; Start 11/21/18 at 09:00 Piperacillin Sod/ Tazobactam Sod 3.375 gm/Sodium Chloride 50 ml @ 100 mls/hr Q6HRS IV Last administered on 11/23/18 12:08; Start 11/20/18 at 11:00 Linezolid (Zyvox) 600 mg BID PO Last administered on 11/23/18 08:28; Start at 11:00 Ondansetron HCl (Zofran) 4 mg PRN Q8HRS PRN IV NAUSEA/VOMITING Last administered on 11/22/18 17:11; Start 11/20/18 at 12:00 Thiamine Mononitrate (Vitamin B-1) 100 mg DAILY PO Last administered on 08:28; Start 11/21/18 at 09:00 Pregabalin (Lyrica) 50 mg TID PO Last administered on 11/21/18 08:31; Start at 15:00; Stop 11/21/18 at 09:49; Status DC Lorazepam (Ativan) 2 mg PRN Q4HRS PRN IV ANXIETY / AGITATION Last administered on 11/23/18 00:38; Start 11/21/18 at 10:00 Pregabalin (Lyrica) 75 mg TID PO Last administered on 11/23/18 08:28; Start at 14:00 Quetiapine Fumarate (SEROquel) 100 mg DAILY PO Last administered on 11/23/18 08:31; Start 11/21/18 at 10:30 Diphenhydramine HCl (Benadryl) 25 mg PRN Q6HRS PRN PO WITHDRAWAL IRRITABILITY Last administered on 11/21/18at 12:20; Start 11/21/18 at 12:00 Vitamin B Complex (Folbic Tablet) 1 tab DAILY PO Last administered on 08:28; Start 11/22/18 at 12:30 Lisinopril (Prinivil) 5 mg DAILY PO Last administered on 11/23/18 08:29; Start 11/22/18 at 12:00 Furosemide (Lasix) 20 mg DAILY PO Last administered on 11/23/18 08:29; Start 11/22/18 at 16:30 Active Scripts Active Lasix (Furosemide) 40 Mg Tablet 40 Mg PO BID 30 Days Humalog (Insulin Lispro) 100 Unit/1 Ml Insuln.pen 7 Units SQ TIDAC 30 Days Lantus Solostar (Insulin Glargine,Hum.rec.anlog) 100 Unit/1 Ml Insuln.pen 20 Units SQ QHS 30 Days Guaifenesin Dm Syrup (Guaifenesin/Dextromethorphan) 5 Ml Syrup 10 Ml PO PRN Q6HRS PRN 30 Days Benzonatate 100 Mg Capsule 100 Mg PO [id number] 30 Days Montelukast Sodium Tablet (Montelukast Sodium) 10 Mg Tablet 10 Mg PO QHS 30 Days Humalog (Insulin Lispro) 100 Unit/1 Ml Insuln.pen 10 Units SQ TIDAC 30 Days Lantus Solostar (Insulin Glargine,Hum.rec.anlog) 100 Unit/1 Ml Insuln.pen 30 Units SQ QHS 30 Days Lyrica (Pregabalin) 75 Mg Capsule 75 Mg PO TID 30 Days Lisinopril 40 Mg Tablet 20 Mg PO DAILY 30 Days Vitals/I & O Vital Sign - Last 24 Hours 11/22/18 11/22/18 11/22/18 11/22/18 15:05 15:23 16:25 17:28 Temp 98.4 98.4 Pulse 74 Resp 20 18 18 18 B/P (MAP) 177/96 (123) Pulse Ox 99 99 99 99 O2 Delivery Room Air Room Air Room Air Room Air 11/22/18 11/22/18 11/22/18 11/22/18 18:00 19:23 19:56 20:00 Temp 97.9 97.9 Pulse 75 Resp 19 16 B/P (MAP) 162/79 (106) Pulse Ox 99 100 O2 Delivery Room Air Room Air Room Air O2 Flow Rate 2.0 11/22/18 11/22/18 11/22/18 11/23/18 22:30 22:34 23:04 02:30 Temp 98.2 98.1 98.2 98.1 Pulse 68 65 B/P (MAP) 147/69 (95) 134/64 (87) Pulse Ox 100 99 O2 Delivery Room Air Room Air Room Air Room Air 11/23/18 11/23/18 11/23/18 11/23/18 07:00 08:00 08:29 11:00 Temp 98.4 98.5 98.4 98.5 Pulse 74 74 87 Resp 18 16 B/P (MAP) 167/83 (111) 167/83 128/80 (96) Pulse Ox 100 98 O2 Delivery Room Air Room Air Room Air Intake and Output 11/22/18 11/22/18 11/23/18 14:59 22:59 06:59 Intake Total 500 ml 300 ml 480 ml Output Total 1 ml 200 ml Balance 499 ml 300 ml 280 ml EBNOIE COLE MD Nov 23, 2018 13:15
--- NOTE | 2018-11-23 14:02 | CONS ---
DATE OF CONSULTATION: ATTENDING PHYSICIAN: Dr. Guerrero. REASON FOR CONSULTATION: Lung nodule. HISTORY OF PRESENT ILLNESS: The patient is a 63-year-old who smoked for at least 35 years and still has not completely quit. She has history of chronic lymphedema over lower extremities. She was hospitalized for left lower extremity cellulitis. She had a CT chest, which was reviewed by me and was abnormal. As a result, consult was obtained. The patient has a tiny 3-4 mm nodule in the left upper lobe. There were small bilateral pleural effusions. She denies any headache. No nausea, vomiting, no diarrhea. She has occasional shortness of breath. No chest pain. No dysuria. No focal weakness. PAST MEDICAL HISTORY: Significant for COPD, type 2 diabetes, dyslipidemia, hypertension and neuropathy. PAST SURGICAL HISTORY: Cholecystectomy, , hysterectomy, splenectomy. ALLERGIES: ASPIRIN, KETOROLAC AND MORPHINE. SOCIAL HISTORY: Smoker for 35-40 years and still smokes a few cigarettes a day. MEDICATIONS: All reviewed as listed in the MRAD. REVIEW OF SYSTEMS: Twelve-point system obtained. Pertinent positives discussed in my history of present illness, otherwise noncontributory. All systems that were negative were reviewed as well. PHYSICAL EXAMINATION: VITAL SIGNS: Reviewed. Pulse ox 98% room air, afebrile. NECK: Supple. LUNGS: Clear. CARDIOVASCULAR: Regular rate and rhythm. ABDOMEN: Soft, obese. EXTREMITIES: With lymphedema of lower extremities. Erythema in the left leg. LABORATORY DATA: Reviewed. White cell count 10.5, hemoglobin 11.9, platelets are 343. IMPRESSION: 1. Abnormal CT chest with tiny 4-5 mm nodule in the left upper lobe. This is a patient who smoked for at least 35 years. I would recommend repeating a CT chest in 6 months. She also has small tiny basal pleural effusion, which is not of much significance. 2. 35+ years of tobacco use, has not completely quit. Suspect underlying chronic obstructive pulmonary disease. 3. Chronic lower extremity edema with cellulitis of left lower extremity. RECOMMENDATIONS: 1. From a pulmonary standpoint, I have recommended a followup CT in 6 months regarding any further increase in the size of the nodule and assess for stability. 2. Smoking cessation counseling provided. 3. PFTs as an outpatient. 4. Antibiotic per ID for cellulitis. Will be available for further recommendations. The patient can have a CT chest follow through her primary care. CHESTER JANG MD DR: MARCIAL/lionel JOB#: [id number] / [id number]
[2018-11-23 15:00] VITALS: BP 180/93
[2018-11-23 19:30] VITALS: BP 191/97
[2018-11-23] MEDS: AMOXICILLIN/K CLAV 875/125MG TABLET. PO SCH (21:15)
[2018-11-23] MEDS: ENOXAPARIN 40 MG/0.4 ML SYRINGE. SQ SCH (21:19)
[2018-11-23] MEDS: fentaNYL PF VIAL 100 MCG/2 ML VIAL IV PRN (21:19)
[2018-11-23 23:30] VITALS: BP 125/67
[2018-11-24] MEDS: fentaNYL PF VIAL 100 MCG/2 ML VIAL IV PRN ×3 (02:57→09:00)
[2018-11-24 03:30] VITALS: BP 128/65
[2018-11-24 07:30] VITALS: BP 172/89
--- NOTE | 2018-11-24 08:01 | PDOC ---
PROGRESS NOTES Chief Complaint Chief Complaint 1. severe cellulitis left lower leg/ ankle 2. bilat lymphedema, 3. homeless socal issues/ complex care needed, Hx of Bipolar disorder 4. THC and cocaine abuse disorder 5. Anemia of chronic disease, normocytic 6. Constipation 7. Narcotic dependence 8.acute weakness and debility 9 gastroenteritis HX 10. 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 chronic pain History of Present Illness History of Present Illness more agreeable today, took her seroquel LE edema much better vitals better, Pain OK She needs all her outpatient meds refilled lyrica 75 TID may need to be reduced based on her swelling. Compressive wraps helped D/c today Vitals Vitals Vital Signs Date Time Temp Pulse Resp B/P (MAP) Pulse Ox O2 Delivery O2 Flow Rate FiO2 11/24/18 07:30 97.9 72 17 172/89 (116) 99 Room Air 97.9 11/23/18 21:49 2.0 Physical Exam Physical Exam GENERAL: Sitting on the side of the bed, listening to music, alert, HEENT: Oral cavity clear NECK: Supple, no JVP, no lymphadenopathy. LUNGS: Clear. HEART: S1, S2 regular. ABDOMEN: Soft and nontender EXTREMITIES: BLE edema R > L; small minor wound left lower leg. 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 appropriately PIV ok General: Alert, Oriented X3, Cooperative, moderate distress Heart: Regular rate, Normal S1 Lungs: Clear Abdomen: Normal bowel sounds, Soft, No tenderness Extremities: Other (R leg swollen more than left) Skin: No breakdown (leg is swollen too.), Other (MARKED ERYTHEMA LEFT ANKLE/ LOWER LEG TENDER CDI bandaging) Labs LABS Laboratory Tests Test 11/23/18 11:25 11/23/18 16:32 11/23/18 20:45 11/24/18 07:23 Glucose (Fingerstick) 268 mg/dL (70-99) 176 mg/dL (70-99) 138 mg/dL (70-99) 209 mg/dL (70-99) Assessment and Plan Assessmemt and Plan Problems Medical Problems: (1) Cellulitis of left lower extremity Status: Acute (2) Chronic acquired lymphedema Status: Acute (3) Drug abuse Status: Acute (4) Homeless Status: Acute Comment Review of Relevant I have reviewed the following items peyton (where applicable) has been applied. Labs Laboratory Tests Test 11/22/18 11:38 11/22/18 16:42 11/22/18 20:31 11/23/18 04:34 Glucose (Fingerstick) 164 mg/dL (70-99) 96 mg/dL (70-99) 164 mg/dL (70-99) White Blood Count 10.5 x10^3/uL (4.0-11.0) Red Blood Count 3.59 x10^6/uL (3.50-5.40) Hemoglobin 11.9 g/dL (12.0-15.5) Hematocrit 36.0 % (36.0-47.0) Mean Corpuscular Volume 100 fL (79-100) Mean Corpuscular Hemoglobin 33 pg (25-35) Mean Corpuscular Hemoglobin Concent 33 g/dL (31-37) Red Cell Distribution Width 13.6 % (11.5-14.5) Platelet Count 343 x10^3/uL (140-400) Neutrophils (%) (Auto) 49 % (31-73) Lymphocytes (%) (Auto) 37 % (24-48) Monocytes (%) (Auto) 10 % (0-9) Eosinophils (%) (Auto) 3 % (0-3) Basophils (%) (Auto) 1 % (0-3) Neutrophils # (Auto) 5.1 x10^3uL (1.8-7.7) Lymphocytes # (Auto) 3.9 x10^3/uL (1.0-4.8) Monocytes # (Auto) 1.1 x10^3/uL (0.0-1.1) Eosinophils # (Auto) 0.3 x10^3/uL (0.0-0.7) Basophils # (Auto) 0.1 x10^3/uL (0.0-0.2) Sodium Level 142 mmol/L (136-145) Potassium Level 4.4 mmol/L (3.5-5.1) Chloride Level 108 mmol/L (98-107) Carbon Dioxide Level 28 mmol/L (21-32) Anion Gap 6 (6-14) Blood Urea Nitrogen 16 mg/dL (7-20) Creatinine 1.1 mg/dL (0.6-1.0) Estimated GFR (Cockcroft-Gault) 60.7 BUN/Creatinine Ratio 15 (6-20) Glucose Level 135 mg/dL (70-99) Calcium Level 8.4 mg/dL (8.5-10.1) Total Bilirubin 0.2 mg/dL (0.2-1.0) Aspartate Amino Transf (AST/SGOT) 25 U/L (15-37) Alanine Aminotransferase (ALT/SGPT) 24 U/L (14-59) Alkaline Phosphatase 66 U/L (46-116) Total Protein 6.1 g/dL (6.4-8.2) Albumin 1.6 g/dL (3.4-5.0) Albumin/Globulin Ratio 0.4 (1.0-1.7) Vitamin B12 Level 485 pg/mL (247-911) Test 11/23/18 07:35 11/23/18 11:25 11/23/18 16:32 11/23/18 20:45 Glucose (Fingerstick) 181 mg/dL (70-99) 268 mg/dL (70-99) 176 mg/dL (70-99) 138 mg/dL (70-99) Test 11/24/18 07:23 Glucose (Fingerstick) 209 mg/dL (70-99) Laboratory Tests Test 11/23/18 11:25 11/23/18 16:32 11/23/18 20:45 11/24/18 07:23 Glucose (Fingerstick) 268 mg/dL (70-99) 176 mg/dL (70-99) 138 mg/dL (70-99) 209 mg/dL (70-99) Microbiology 11/17/18 Blood Culture - Final, Complete NO GROWTH AFTER 5 DAYS 11/17/18 Urine Culture - Final, Complete 11/17/18 Urine Culture Result 1 (GABRIELE) - Final, Complete 11/17/18 Aerobic Culture - Final, Complete 11/17/18 Aerobic Culture Result 1 (GABRIELE) - Final, Complete 11/17/18 Aerobic Culture Result 2 (GABRIELE) - Final, Complete 11/17/18 Antimicrobic Susceptibility - Final, Complete 11/17/18 Gram Stain - Final, Complete 11/17/18 Gram Stain Result 1 (GABRIELE) - Final, Complete 11/17/18 Gram Stain Result 2 (GABRIELE) - Final, Complete Medications Current Medications Piperacillin Sod/ Tazobactam Sod 3.375 gm/Sodium Chloride 50 ml @ 100 mls/hr 1X ONCE IV Last administered on 11/17/18at 15:45; Start 11/17/18 at 14:30; Stop 11/17/18 at 14:59; Status DC Vancomycin HCl (Vanco Per Pharmacy) 1 each PRN DAILY PRN MC SEE COMMENTS Last administered on 11/17/18at 18:24; Start 11/17/18 at 14:30; Stop 11/18/18 at 11:54 ; Status DC Vancomycin HCl 2 gm/Sodium Chloride 500 ml @ 250 mls/hr ONCE ONCE IV Last administered on 11/17/18at 16:20; Start 11/17/18 at 14:45; Stop 11/17/18 at 16:44 ; Status DC Ondansetron HCl (Zofran) 4 mg PRN Q8HRS PRN IV NAUSEA/VOMITING; Start 11/17/18 at 17:15; Stop 11/18/18 at 17:14; Status DC Acetaminophen (Tylenol) 650 mg PRN Q4HRS PRN PO FEVER Last administered on 11/17at 19:55; Start 11/17/18 at 17:15; Stop 11/18/18 at 17:14; Status DC Sodium Chloride 1,000 ml @ 75 mls/hr 1X ONCE IV Last administered on at 19:55; Start 11/17/18 at 17:15; Stop 11/18/18 at 06:34; Status DC Vancomycin HCl 1.25 gm/Sodium Chloride 250 ml @ 167 mls/hr Q24H IV ; Start at 16:30; Stop 11/18/18 at 16:30; Status DC Vancomycin HCl (Vancomycin Trough Level) 1 each 1X ONCE MC ; Start 11/19/18 at 16:00; Stop 11/19/18 at 16:00; Status DC Enoxaparin Sodium (Lovenox 40mg Syringe) 40 mg Q24H SQ Last administered on at 21:19; Start 11/17/18 at 22:00 Sodium Chloride 1,000 ml @ 1,860 mls/hr Q33M IV ; Start 11/17/18 at 22:15; Stop 11/17/18 at 22:48; Status DC Sodium Chloride 500 ml @ 1,000 mls/hr PRN Q30MIN PRN IV SEE COMMENTS; Start at 22:15; Stop 11/17/18 at 22:48; Status DC Norepinephrine Bitartrate 250 ml @ 0 mls/hr CONT PRN IV SEE I/O RECORD; Start 11/17/18 at 22:00; Status UNV Multivitamins 10 ml/Thiamine HCl 100 mg/Folic Acid 1 mg/Sodium Chloride 1,011.2 ml @ 100 mls/ hr DAILY IV Last administered on 11/20/18at 08:14; Start at 09:00; Stop 11/20/18 at 13:45; Status DC Multivitamins (Thera M Plus) 1 tab DAILY PO Last administered on 11/18/18at 10: 11; Start 11/18/18 at 09:00; Stop 11/19/18 at 15:09; Status DC Folic Acid (Folic Acid) 1 mg DAILY PO Last administered on 11/18/18at 10:11; Start 11/18/18 at 09:00; Stop 11/18/18 at 16:15; Status DC Thiamine HCl 100 mg DAILY IM ; Start 11/18/18 at 09:00; Stop 11/18/18 at 16:13; Status DC Lorazepam (Ativan) 4 mg PRN Q1HR PRN PO For CIWA 8-14 Last administered on 11/20at 23:47; Start 11/17/18 at 22:00 Lorazepam (Ativan) 2 mg PRN Q1HR PRN IV For CIWA 8-14; Start 11/17/18 at 22:00 Haloperidol Lactate (Haldol Inj) 5 mg PRN Q4HRS PRN IVP Hallucinatns,Confusn, Delirium; Start 11/17/18 at 22:00 Diphenhydramine HCl (Benadryl) 25 mg PRN Q15MIN PRN IVP EPS symptoms 2'Haldol admin; Start 11/17/18 at 22:00 Clonidine HCl (Catapres) 0.1 mg PRN Q1HR PRN PO SBP > 180 or DBP > 100, MRX3 Last administered on 11/20/18at 08:09; Start 11/17/18 at 22:00 Lorazepam (Ativan) 2 mg PRN Q15MIN PRN IV ANXIETY / AGITATION; Start 11/17/18 at 22:00; Stop 11/18/18 at 06:02; Status DC Fentanyl Citrate (Fentanyl 2ml Vial) 50 mcg PRN Q2HR PRN IV PAIN Last administered on 11/24/18at 05:16; Start 11/18/18 at 11:00 Oxycodone HCl (Roxicodone) 5 mg PRN Q6HRS PRN PO PAIN Last administered on 11/22at 15:23; Start 11/18/18 at 11:00 Insulin Human Lispro (HumaLOG) 0-7 UNITS TIDWMEALS SQ Last administered on 11/23at 17:26; Start 11/18/18 at 13:30 Dextrose (Dextrose 50%-Water Syringe) 12.5 gm PRN Q15MIN PRN IV SEE COMMENTS; Start 11/18/18 at 13:15 Sodium Chloride 1,000 ml @ 75 mls/hr [id number] IV Last administered on at 05:38; Start 11/18/18 at 20:00; Stop 11/22/18 at 11:43; Status DC Folic Acid (Folic Acid) 1 mg DAILY PO Last administered on 11/23/18at 08:28; Start 11/21/18 at 09:00 Lactobacillus Rhamnosus (Culturelle) 1 cap BID PO Last administered on at 21:15; Start 11/18/18 at 21:00 Piperacillin Sod/ Tazobactam Sod 3.375 gm/Sodium Chloride 50 ml @ 100 mls/hr Q6HRS IV Last administered on 11/19/18at 12:41; Start 11/18/18 at 17:00; Stop at 14:32; Status DC Pregabalin (Lyrica) 25 mg [id number] PO Last administered on 11/20/18 08:26; Start 11/19/18 at 14:00; Stop 11/20/18 at 14:49; Status DC Amoxicillin/ Clavulanate Potassium (Augmentin 875/ 125mg) 1 tab BID PO Last administered on 11/20/18at 08:25; Start 11/19/18 at 21:00; Stop 11/20/18 at 10:29 ; Status DC Multivitamins (Thera M Plus) 1 tab DAILY PO Last administered on 11/23/18 08: 28; Start 11/21/18 at 09:00 Piperacillin Sod/ Tazobactam Sod 3.375 gm/Sodium Chloride 50 ml @ 100 mls/hr Q6HRS IV Last administered on 11/23/18 12:08; Start 11/20/18 at 11:00; Stop at 17:18; Status DC Linezolid (Zyvox) 600 mg BID PO Last administered on 11/23/18 21:15; Start at 11:00 Ondansetron HCl (Zofran) 4 mg PRN Q8HRS PRN IV NAUSEA/VOMITING Last administered on 11/22/18 17:11; Start 11/20/18 at 12:00 Thiamine Mononitrate (Vitamin B-1) 100 mg DAILY PO Last administered on 08:28; Start 11/21/18 at 09:00 Pregabalin (Lyrica) 50 mg TID PO Last administered on 11/21/18 08:31; Start at 15:00; Stop 11/21/18 at 09:49; Status DC Lorazepam (Ativan) 2 mg PRN Q4HRS PRN IV ANXIETY / AGITATION Last administered on 11/23/18 00:38; Start 11/21/18 at 10:00 Pregabalin (Lyrica) 75 mg TID PO Last administered on 11/23/18 21:16; Start at 14:00 Quetiapine Fumarate (SEROquel) 100 mg DAILY PO Last administered on 11/23/18 08:31; Start 11/21/18 at 10:30 Diphenhydramine HCl (Benadryl) 25 mg PRN Q6HRS PRN PO WITHDRAWAL IRRITABILITY Last administered on 11/21/18 12:20; Start 11/21/18 at 12:00 Vitamin B Complex (Folbic Tablet) 1 tab DAILY PO Last administered on 08:28; Start 11/22/18 at 12:30 Lisinopril (Prinivil) 5 mg DAILY PO Last administered on 11/23/18 08:29; Start 11/22/18 at 12:00 Furosemide (Lasix) 20 mg DAILY PO Last administered on 11/23/18at 08:29; Start 11/22/18 at 16:30 Amoxicillin/ Clavulanate Potassium (Augmentin 875/ 125mg) 1 tab BID PO Last administered on 11/23/18at 21:15; Start 11/23/18 at 21:00 Active Scripts Active Lasix (Furosemide) 40 Mg Tablet 40 Mg PO BID 30 Days Humalog (Insulin Lispro) 100 Unit/1 Ml Insuln.pen 7 Units SQ TIDAC 30 Days Lantus Solostar (Insulin Glargine,Hum.rec.anlog) 100 Unit/1 Ml Insuln.pen 20 Units SQ QHS 30 Days Guaifenesin Dm Syrup (Guaifenesin/Dextromethorphan) 5 Ml Syrup 10 Ml PO PRN Q6HRS PRN 30 Days Benzonatate 100 Mg Capsule 100 Mg PO [id number] 30 Days Montelukast Sodium Tablet (Montelukast Sodium) 10 Mg Tablet 10 Mg PO QHS 30 Days Humalog (Insulin Lispro) 100 Unit/1 Ml Insuln.pen 10 Units SQ TIDAC 30 Days Lantus Solostar (Insulin Glargine,Hum.rec.anlog) 100 Unit/1 Ml Insuln.pen 30 Units SQ QHS 30 Days Lyrica (Pregabalin) 75 Mg Capsule 75 Mg PO TID 30 Days Lisinopril 40 Mg Tablet 20 Mg PO DAILY 30 Days Vitals/I & O Vital Sign - Last 24 Hours 11/23/18 11/23/18 11/23/18 11/23/18 08:29 11:00 15:00 19:30 Temp 98.5 98.4 98.5 98.5 98.4 98.5 Pulse 74 87 86 90 Resp 16 16 16 B/P (MAP) 167/83 128/80 (96) 180/93 (122) 191/97 (128) Pulse Ox 98 100 100 O2 Delivery Room Air Room Air Room Air 11/23/18 11/23/18 11/23/18 11/23/18 20:00 21:19 21:49 23:30 Temp 97.8 97.8 Pulse 80 Resp 16 B/P (MAP) 125/67 (86) Pulse Ox 100 98 O2 Delivery Room Air Room Air Room Air O2 Flow Rate 2.0 11/24/18 11/24/18 11/24/18 11/24/18 02:57 03:30 05:16 05:46 Temp 98.2 98.2 Pulse 67 Resp 16 B/P (MAP) 128/65 (86) Pulse Ox 98 98 98 97 O2 Delivery Room Air Room Air Room Air Room Air 11/24/18 07:30 Temp 97.9 97.9 Pulse 72 Resp 17 B/P (MAP) 172/89 (116) Pulse Ox 99 O2 Delivery Room Air Intake and Output 11/23/18 11/23/18 11/24/18 15:00 23:00 07:00 Intake Total 1080 ml 480 ml 1100 ml Output Total 600 ml Balance 480 ml 480 ml 1100 ml EBONIE COLE MD Nov 24, 2018 08:01
[2018-11-24] MEDS: AMOXICILLIN/K CLAV 875/125MG TABLET. PO SCH (09:03)
[2018-11-24] MEDS: FOLIC ACID 1 MG TABLET. PO SCH (09:03)
[2018-11-24] MEDS: LACTOBACILLUS RHAMNOSUS GG 1 CAPSULE. PO SCH (09:03)
[2018-11-24] MEDS: FUROSEMIDE 20 MG TABLET PO SCH (09:03)
[2018-11-24] MEDS: PREGABALIN 75 MG CAPSULE PO SCH ×2 (09:03→14:00)
[2018-11-24] MEDS: MULTIVITAMIN with MINERAL TABLET. PO SCH (09:03)
[2018-11-24] MEDS: THIAMINE 100 MG TABLET. PO SCH (09:03)
[2018-11-24] MEDS: VITAMIN B12,B9,B6 COMPLEX 1 TABLET. PO SCH (09:03)
[2018-11-24] MEDS: LISINOPRIL 5 MG TABLET. PO SCH (09:03)
[2018-11-24] MEDS: LINEZOLID 600 MG TABLET PO SCH (09:03)
[2018-11-24] MEDS: INSULIN LISPRO 300 UNITS/3 ML INSULN.PEN. SQ SCH ×2 (09:26→13:21)
--- NOTE | 2018-11-24 10:20 | PDOC ---
PULMONARY PROGRESS NOTES Subjective no soa Vitals Vital Signs Date Time Temp Pulse Resp B/P (MAP) Pulse Ox O2 Delivery O2 Flow Rate FiO2 11/24/18 10:09 99 Room Air 2.0 11/24/18 09:03 72 172/89 11/24/18 07:30 97.9 17 97.9 ROS: No Chest Pain, No Increase Cough General: Alert, No acute distress Lungs: Clear Cardiovascular: S1 Abdomen: Soft Neuro Exam: Alert Extremities: Other (lymphedema) Labs Laboratory Tests Test 11/22/18 11:38 11/22/18 16:42 11/22/18 20:31 11/23/18 04:34 Glucose (Fingerstick) 164 mg/dL (70-99) 96 mg/dL (70-99) 164 mg/dL (70-99) White Blood Count 10.5 x10^3/uL (4.0-11.0) Red Blood Count 3.59 x10^6/uL (3.50-5.40) Hemoglobin 11.9 g/dL (12.0-15.5) Hematocrit 36.0 % (36.0-47.0) Mean Corpuscular Volume 100 fL (79-100) Mean Corpuscular Hemoglobin 33 pg (25-35) Mean Corpuscular Hemoglobin Concent 33 g/dL (31-37) Red Cell Distribution Width 13.6 % (11.5-14.5) Platelet Count 343 x10^3/uL (140-400) Neutrophils (%) (Auto) 49 % (31-73) Lymphocytes (%) (Auto) 37 % (24-48) Monocytes (%) (Auto) 10 % (0-9) Eosinophils (%) (Auto) 3 % (0-3) Basophils (%) (Auto) 1 % (0-3) Neutrophils # (Auto) 5.1 x10^3uL (1.8-7.7) Lymphocytes # (Auto) 3.9 x10^3/uL (1.0-4.8) Monocytes # (Auto) 1.1 x10^3/uL (0.0-1.1) Eosinophils # (Auto) 0.3 x10^3/uL (0.0-0.7) Basophils # (Auto) 0.1 x10^3/uL (0.0-0.2) Sodium Level 142 mmol/L (136-145) Potassium Level 4.4 mmol/L (3.5-5.1) Chloride Level 108 mmol/L (98-107) Carbon Dioxide Level 28 mmol/L (21-32) Anion Gap 6 (6-14) Blood Urea Nitrogen 16 mg/dL (7-20) Creatinine 1.1 mg/dL (0.6-1.0) Estimated GFR (Cockcroft-Gault) 60.7 BUN/Creatinine Ratio 15 (6-20) Glucose Level 135 mg/dL (70-99) Calcium Level 8.4 mg/dL (8.5-10.1) Total Bilirubin 0.2 mg/dL (0.2-1.0) Aspartate Amino Transf (AST/SGOT) 25 U/L (15-37) Alanine Aminotransferase (ALT/SGPT) 24 U/L (14-59) Alkaline Phosphatase 66 U/L (46-116) Total Protein 6.1 g/dL (6.4-8.2) Albumin 1.6 g/dL (3.4-5.0) Albumin/Globulin Ratio 0.4 (1.0-1.7) Vitamin B12 Level 485 pg/mL (247-911) Test 11/23/18 07:35 11/23/18 11:25 11/23/18 16:32 11/23/18 20:45 Glucose (Fingerstick) 181 mg/dL (70-99) 268 mg/dL (70-99) 176 mg/dL (70-99) 138 mg/dL (70-99) Test 11/24/18 07:23 Glucose (Fingerstick) 209 mg/dL (70-99) Laboratory Tests Test 11/23/18 11:25 11/23/18 16:32 11/23/18 20:45 11/24/18 07:23 Glucose (Fingerstick) 268 mg/dL (70-99) 176 mg/dL (70-99) 138 mg/dL (70-99) 209 mg/dL (70-99) Medications Active Scripts Medications Dose Route/Sig Max Daily Dose Days Date Category Lasix (Furosemide) 40 Mg Tablet 40 Mg PO BID 30 01/12/18 Rx Humalog (Insulin Lispro) 100 Unit/1 Ml Insuln.pen 7 Units SQ TIDAC 30 01/12/18 Rx Lantus Solostar (Insulin Glargine,Hum.rec.anlog) 100 Unit/1 Ml Insuln.pen 20 Units SQ QHS 30 01/12/18 Rx Guaifenesin Dm Syrup (Guaifenesin/Dextromethorphan) 5 Ml Syrup 10 Ml PO PRN Q6HRS PRN 30 01/12/18 Rx Benzonatate 100 Mg Capsule 100 Mg PO [id number] 30 01/12/18 Rx Montelukast Sodium Tablet (Montelukast Sodium) 10 Mg Tablet 10 Mg PO QHS 30 01/12/18 Rx Humalog (Insulin Lispro) 100 Unit/1 Ml Insuln.pen 10 Units SQ TIDAC 30 01/03/18 Rx Lantus Solostar (Insulin Glargine,Hum.rec.anlog) 100 Unit/1 Ml Insuln.pen 30 Units SQ QHS 30 01/03/18 Rx Lyrica (Pregabalin) 75 Mg Capsule 75 Mg PO TID 30 01/03/18 Rx Lisinopril 40 Mg Tablet 20 Mg PO DAILY 30 01/03/18 Rx Impression . 1. Abnormal CT chest with tiny 4-5 mm nodule in the left upper lobe. This is a patient who smoked for at least 35 years. I would recommend repeating a CT chest in 6 months. She also has small tiny basal pleural effusion, which is not of much significance. 2. 35+ years of tobacco use, has not completely quit. Suspect underlying chronic obstructive pulmonary disease. 3. Chronic lower extremity edema with cellulitis of left lower extremity. Plan . 1. From a pulmonary standpoint, I have recommended a followup CT in 6 months regarding any further increase in the size of the nodule and assess for stability. 2. Smoking cessation counseling provided. 3. PFTs as an outpatient. 4. Antibiotic per ID for cellulitis. 5. f/u with me in [address] chest prior CHESTER JANG MD Nov 24, 2018 10:20
[2018-11-24 10:29] VITALS: BP 150/106
[2018-11-24] MEDS ORDERED: AMOX1TAB61 PO (10:41)
[2018-11-24] MEDS ORDERED: DULO30CA2 PO (10:41)
[2018-11-24] MEDS ORDERED: TRAM50TA PO (10:41)
[2018-11-24] MEDS ORDERED: QUET100T PO (10:41)
--- NOTE | 2018-11-24 10:45 | PDOC3 ---
Discharge Summary Visit Information Date of Admission: Nov 17, 2018 Date of Discharge: Nov 24, 2018 Admitting Diagnosis: Cellulitis LLE Final Diagnosis Problems Medical Problems: (1) Cellulitis of left lower extremity Status: Acute (2) Chronic acquired lymphedema Status: Acute (3) Drug abuse Status: Acute (4) Homeless Status: Acute Brief Hospital Course Allergies Allergies Coded Allergies Type Severity Reaction Last Updated Verified aspirin Adverse Reaction Mild Nausea and Vomiting 01/05/18 Yes ketorolac Adverse Reaction Mild Nausea 01/05/18 Yes morphine Adverse Reaction Mild Nausea and Vomiting 01/05/18 Yes Vital Signs Vital Signs Date Time Temp Pulse Resp B/P (MAP) Pulse Ox O2 Delivery O2 Flow Rate FiO2 11/24/18 10:29 98.1 76 18 150/106 (121) 98 Room Air 98.1 11/24/18 10:09 2.0 Lab Results Laboratory Tests Test 11/22/18 11:38 11/22/18 16:42 11/22/18 20:31 11/23/18 04:34 Glucose (Fingerstick) 164 mg/dL (70-99) 96 mg/dL (70-99) 164 mg/dL (70-99) White Blood Count 10.5 x10^3/uL (4.0-11.0) Red Blood Count 3.59 x10^6/uL (3.50-5.40) Hemoglobin 11.9 g/dL (12.0-15.5) Hematocrit 36.0 % (36.0-47.0) Mean Corpuscular Volume 100 fL (79-100) Mean Corpuscular Hemoglobin 33 pg (25-35) Mean Corpuscular Hemoglobin Concent 33 g/dL (31-37) Red Cell Distribution Width 13.6 % (11.5-14.5) Platelet Count 343 x10^3/uL (140-400) Neutrophils (%) (Auto) 49 % (31-73) Lymphocytes (%) (Auto) 37 % (24-48) Monocytes (%) (Auto) 10 % (0-9) Eosinophils (%) (Auto) 3 % (0-3) Basophils (%) (Auto) 1 % (0-3) Neutrophils # (Auto) 5.1 x10^3uL (1.8-7.7) Lymphocytes # (Auto) 3.9 x10^3/uL (1.0-4.8) Monocytes # (Auto) 1.1 x10^3/uL (0.0-1.1) Eosinophils # (Auto) 0.3 x10^3/uL (0.0-0.7) Basophils # (Auto) 0.1 x10^3/uL (0.0-0.2) Sodium Level 142 mmol/L (136-145) Potassium Level 4.4 mmol/L (3.5-5.1) Chloride Level 108 mmol/L (98-107) Carbon Dioxide Level 28 mmol/L (21-32) Anion Gap 6 (6-14) Blood Urea Nitrogen 16 mg/dL (7-20) Creatinine 1.1 mg/dL (0.6-1.0) Estimated GFR (Cockcroft-Gault) 60.7 BUN/Creatinine Ratio 15 (6-20) Glucose Level 135 mg/dL (70-99) Calcium Level 8.4 mg/dL (8.5-10.1) Total Bilirubin 0.2 mg/dL (0.2-1.0) Aspartate Amino Transf (AST/SGOT) 25 U/L (15-37) Alanine Aminotransferase (ALT/SGPT) 24 U/L (14-59) Alkaline Phosphatase 66 U/L (46-116) Total Protein 6.1 g/dL (6.4-8.2) Albumin 1.6 g/dL (3.4-5.0) Albumin/Globulin Ratio 0.4 (1.0-1.7) Vitamin B12 Level 485 pg/mL (247-911) Test 11/23/18 07:35 11/23/18 11:25 11/23/18 16:32 11/23/18 20:45 Glucose (Fingerstick) 181 mg/dL (70-99) 268 mg/dL (70-99) 176 mg/dL (70-99) 138 mg/dL (70-99) Test 11/24/18 07:23 Glucose (Fingerstick) 209 mg/dL (70-99) Laboratory Tests Test 11/23/18 11:25 11/23/18 16:32 11/23/18 20:45 11/24/18 07:23 Glucose (Fingerstick) 268 mg/dL (70-99) 176 mg/dL (70-99) 138 mg/dL (70-99) 209 mg/dL (70-99) Brief Hospital Course The patient is a 63-year-old who smoked for at least 35 years and still has not completely quit, has PMHx DM, ?BP disorder with depression, chronic lymphedema over lower extremities. She was hospitalized for left lower extremity cellulitis. She had a CT chest, which was reviewed by Pulmonology and was abnormal. The patient has a tiny 3-4 mm nodule in the left upper lobe. There were small bilateral pleural effusions. She denies any headache. No nausea, vomiting, no diarrhea. She has occasional shortness of breath. No chest pain. No dysuria. No focal weakness. Was also seen by ID for treatment for her cellulitis, had LE wraps, discharged on augmentin after days on zyvox, vancomycin. lyrica 75 TID may need to be reduced based on her swelling. Compressive wraps today. she asked for spiritual support Greater than 30 minutes spent on discharge including PCP f/u the 3rd week of December. 1. severe cellulitis left lower leg/ ankle 2. bilat lymphedema, 3. homeless socal issues/ complex care needed, Hx of Bipolar disorder 4. THC and cocaine abuse disorder 5. Anemia of chronic disease, normocytic 6. Constipation 7. Narcotic dependence 8.acute weakness and debility 9 gastroenteritis HX 10. 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 chronic pain Discharge Information Condition at Discharge: Improved Follow Up: Weeks (2) Disposition/Orders: D/C to Home Scheduled Amoxicillin/Potassium Clav (Augmentin 875-125 Tablet) 1 Each Tablet, 1 TAB PO BID for Cellulitis for 7 Days, #14 Prescribed by: EBONIE COLE MD on 11/24/18 1041 Benzonatate (Benzonatate) 100 Mg Capsule, 100 MG PO [id number] for 30 Days, #90 Prescribed by: PRATIMA ARANGO on 01/12/18 1107 Duloxetine Hcl (Cymbalta) 30 Mg Capsule., 1 CAP PO DAILY for Mood, #30 Ref 0 Prescribed by: EBONIE COLE MD on 11/24/18 1041 Furosemide (Lasix) 40 Mg Tablet, 40 MG PO BID for 30 Days, #60 Prescribed by: PRATIMA ARANGO on 01/12/18 1107 Insulin Glargine,Hum.rec.anlog (Lantus Solostar) 100 Unit/1 Ml Insuln.pen, 20 UNITS SQ QHS for 30 Days Prescribed by: PRATIMA ARANGO on 01/12/18 1107 Insulin Lispro (Humalog) 100 Unit/1 Ml Insuln.pen, 7 UNITS SQ TIDAC for 30 Days Prescribed by: PRATIMA ARANGO on 01/12/18 1107 Lisinopril (Lisinopril) 40 Mg Tablet, 20 MG PO DAILY for 30 Days, #30 Prescribed by: CHET CAZARES MD on 01/03/18 1121 Montelukast Sodium (Montelukast Sodium Tablet) 10 Mg Tablet, 10 MG PO QHS for 30 Days, #30 Prescribed by: PRATIMA ARANGO on 01/12/18 1107 Pregabalin (Lyrica) 75 Mg Capsule, 75 MG PO TID for 30 Days, #90 Prescribed by: CHET CAZARES MD on 01/03/18 1121 Quetiapine Fumarate (Quetiapine Fumarate) 100 Mg Tablet, 100 MG PO QHS for Mood for 30 Days, #30 Prescribed by: EBONIE COLE MD on 11/24/18 1041 Scheduled PRN Guaifenesin/Dextromethorphan (Guaifenesin Dm Syrup) 5 Ml Syrup, 10 ML PO PRN Q6HRS PRN for COUGH for 30 Days Prescribed by: PRTAIMA ARANGO on 01/12/18 1107 Tramadol Hcl (Tramadol Hcl) 50 Mg Tablet, 50 MG PO Q6HRS PRN for PAIN for 6 Days , #24 Prescribed by: EBONIE COLE MD on 11/24/18 1041 EBONIE COLE MD Nov 24, 2018 10:45
--- NOTE | 2018-11-24 11:22 | PDOC ---
Infectious Disease Note Subjective Subjective c/o legs feeling achy and heavy No fevers/chills/aches No N/V/D Vital Sign Vital Signs Vital Signs Date Time Temp Pulse Resp B/P (MAP) Pulse Ox O2 Delivery O2 Flow Rate FiO2 11/24/18 10:29 98.1 76 18 150/106 (121) 98 Room Air 98.1 11/24/18 10:09 2.0 Physical Exam PHYSICAL EXAM GENERAL: Sitting on the side of the bed, listening to music, alert, HEENT: Oral cavity clear NECK: Supple, no JVP, no lymphadenopathy. LUNGS: Clear. HEART: S1, S2 regular. ABDOMEN: Soft and nontender EXTREMITIES: BLE edema R > L; small minor wound left lower leg. SKIN: Warm without rash SPECIAL NEEDS NANNY: Alert, responds to few questions appropriately PIV ok Labs Lab Laboratory Tests Test 11/23/18 11:25 11/23/18 16:32 11/23/18 20:45 11/24/18 07:23 Glucose (Fingerstick) 268 mg/dL (70-99) 176 mg/dL (70-99) 138 mg/dL (70-99) 209 mg/dL (70-99) Micro AEROBIC CULTURE Preliminary Preliminary report AEROBIC RES 1 Preliminary Staphylococcus aureus 4+ AEROBIC RES 2 Preliminary Gram negative rods 4+ Performed at: [facility], [place], [place] [id number] Driver Supervisor: BRIONNA Means MD, Phone: [phone] GRAM STAIN Final Final report GRAM STAIN RESULT 1 Final Comment No white blood cells seen. GRAM STAIN RESULT 2 Final Comment Few gram positive cocci Objective Assessment Left leg cellulitis Leukocytosis Fever DM COPD Lymphedema Plan Plan of Care po augmentin for 5 more days leg elevation pulmonary, lung nodule, for f/u d/w ZENIA GOMEZ MD Nov 24, 2018 11:22
--- NOTE | 2018-11-24 12:15 | NUR ---
Wound care: Patient seen per f/u of wound care consult. See wound assessment. Patient has wound to left lower leg, wound cleaned, measured and pictured and redressed with recommendations of Xeroform gauze and Aquacel foam dressing. Dressing applied and patient tolerated well. per AEMYA Proctor patient is to discharge today and is going to [place], patient given extra supplies for dressing changes, educated patient regarding dressing changes, notified AMEYA Proctor.
--- NOTE | 2018-11-24 17:16 | NUR ---
Discharge Note: ANAND DEGROOT V [address] [facility] Discharge instructions and discharge home medications reviewed with Patient and a copy given. All questions have been answered and understanding verbalized. The following instructions and handouts were given: Diet, activity, medication list and follow up instructions provided to patient. Patient given prescriptions to refill home medications and prescription to get glucose monitor supplies. Discontinued lines and drains: Peripheral IV discontinued and catheter intact. Patient discharged to Home or Self Care with Family Member via Wheelchair
== END 2018-11-24 17:05 | disposition home or self-care (01) | DRG 871 ==
LOC: ER 13:38 → 6 SOUTH 16:49
PROVIDERS: ADMIT Family Medicine; ATTEND Family Medicine
DX: A41.9 Sepsis, unspecified organism (principal); N17.0 Acute kidney failure with tubular necrosis; L03.116 Cellulitis of left lower limb; F14.23 Cocaine dependence with withdrawal; F11.20 Opioid dependence, uncomplicated; N18.3 Chronic kidney disease, stage 3 (moderate); I12.9 Hypertensive chronic kidney disease with stage 1 through stage 4 chronic kidney disease, or unspecified chronic kidney disease; F12.10 Cannabis abuse, uncomplicated; E11.22 Type 2 diabetes mellitus with diabetic chronic kidney disease; I89.0 Lymphedema, not elsewhere classified; J44.9 Chronic obstructive pulmonary disease, unspecified; G47.419 Narcolepsy without cataplexy; D63.8 Anemia in other chronic diseases classified elsewhere; K59.00 Constipation, unspecified; G89.29 Other chronic pain; F19.10 Other psychoactive substance abuse, uncomplicated; E78.00 Pure hypercholesterolemia, unspecified; E11.40 Type 2 diabetes mellitus with diabetic neuropathy, unspecified; F41.9 Anxiety disorder, unspecified; K20.9 Esophagitis, unspecified; E78.5 Hyperlipidemia, unspecified; E66.9 Obesity, unspecified; F17.210 Nicotine dependence, cigarettes, uncomplicated; F31.9 Bipolar disorder, unspecified; Z59.0 Homelessness; Z90.710 Acquired absence of both cervix and uterus; Z90.81 Acquired absence of spleen; Z90.49 Acquired absence of other specified parts of digestive tract; Z88.6 Allergy status to analgesic agent; Z88.5 Allergy status to narcotic agent; Z82.5 Family history of asthma and other chronic lower respiratory diseases; Z68.29 Body mass index [BMI] 29.0-29.9, adult; Z71.6 Tobacco abuse counseling
CPT/HCPCS: 36415; 51701; 70450; 71045; 71250; 73610; 73630; 80048; 80053; 80307; 81001; 82607; 82962; 83605; 83880; 84145; 84484; 85025; 85610; 85730; 87040; 87070; 87086; 87186; 87641; 93005; 93971; 96365; 96366; 96367; G0480; J1650; J1815; J2060; J2405; J2543; J3010; J3370; J7030; J7040; Q0163; 97116; 97535; 99285-25

== ENCOUNTER 2018-11-26 08:39 | Inpatient (IN) | payer OTHER ==
[~2018-11-26] VITALS: Ht 170.2 cm; Wt 89.8 kg
[~2018-11-26 08:39] MED LIST changes: +AMOX1TAB61 PO; +DULO30CA2 PO; +QUET100T PO; +TRAM50TA PO
[2018-11-26] MEDS ORDERED: fentaNYL PF VIAL 100 MCG/2 ML VIAL IV ONE ×2 (09:30→11:15)
[2018-11-26 09:34] LABS: BILIRUBIN,URINE NEGATIVE (NEG); CLARITY,URINE CLEAR; COLOR,URINE YELLOW; NITRITE,URINE NEGATIVE (NEG); PH,URINE 7.5; PROTEIN,URINE >=300 mg/dL (NEG-TRACE)
[2018-11-26 09:41] LABS: BACTERIA,URINE FEW /HPF (0-FEW); BARBITURATES NEG (NEG); BENZODIAZEPINES NEG (NEG); CANNABINOIDS POS (NEG); COCAINE POS (NEG); HYALINE CASTS, URINE FEW /HPF; METHADONE NEG (NEG); OPIATES NEG (NEG); PHENCYCLIDINE NEG (NEG); RBC,URINE 0 /HPF (0-2); SQUAMOUS EPITHELIAL CELL,UR FEW /LPF
[2018-11-26 09:45] LABS: AMPHETAMINE/METHAMPHETAMINE NEG (NEG)
[2018-11-26 10:38] LABS: BASO # 0.1 x10^3/uL (0.0-0.2); BASO % 1 % (0-3); EOS # 0.3 x10^3/uL (0.0-0.7); EOS % 2 % (0-3); HEMATOCRIT 39.7 % (36.0-47.0); HEMOGLOBIN 12.9 g/dL (12.0-15.5); LYMPH # 3.7 x10^3/uL (1.0-4.8); LYMPH % 30 % (24-48); MEAN CORPUSCULAR HEMOGLOBIN 33 pg (25-35); MEAN CORPUSCULAR HGB CONC 32 g/dL (31-37); MEAN CORPUSCULAR VOLUME 101 fL (79-100); MONO # 1.3 x10^3/uL (0.0-1.1); MONO % 10 % (0-9); NEUT # 6.7 x10^3uL (1.8-7.7); NEUT % 56 % (31-73); PLATELET COUNT 355 x10^3/uL (140-400); RED BLOOD COUNT 3.95 x10^6/uL (3.50-5.40); RED CELL DISTRIBUTION WIDTH 14.3 % (11.5-14.5); WHITE BLOOD COUNT 12.1 x10^3/uL (4.0-11.0)
[2018-11-26 10:52] LABS: CALCIUM 8.7 mg/dL (8.5-10.1); CREATININE 1.6 mg/dL (0.6-1.0); GFR 39.4; POTASSIUM 4.4 mmol/L (3.5-5.1)
[2018-11-26 10:56] LABS: ALBUMIN 1.9 g/dL (3.4-5.0); ALBUMIN/GLOBULIN RATIO 0.4 (1.0-1.7); TOTAL BILIRUBIN 0.2 mg/dL (0.2-1.0); TOTAL PROTEIN 6.8 g/dL (6.4-8.2)
--- NOTE | 2018-11-26 11:41 | PDOC1 ---
History and Physical Date of Admission Date of Admission DATE: 11/26/18 TIME: 11:39 Identification/Chief Complaint Chief Complaint Acute Psychosis Source Source: Chart review History of Present Illness History of Present Illness The patient is a 63-year-old who smoked for at least 35 years and still has not completely quit, has PMHx DM, ?BP disorder with depression, chronic lymphedema over lower extremities. She was hospitalized for left lower extremity cellulitis this past week. She had a CT chest, which was reviewed by Pulmonology and was abnormal. The patient has a tiny 3-4 mm nodule in the left upper lobe. She returns to the ED today acutely psychotic, cocaine positive UDS. Blood pressure and blood sugar elevated. There were small bilateral pleural effusions. She denies any headache. No nausea, vomiting, no diarrhea. She has occasional shortness of breath. No chest pain. No dysuria. No focal weakness. Was also seen by ID for treatment for her cellulitis, had LE wraps, discharged on augmentin after days on zyvox (1x vancomycin), and zosyn Past Medical History Psych: Anxiety, Addictions Family History Family History: No Significant Social History ALCOHOL: none Drugs: Marijuana Current Medications Current Medications Current Medications Fentanyl Citrate (Fentanyl 2ml Vial) 50 mcg 1X ONCE IV Last administered on at 10:02; Start 11/26/18 at 09:30; Stop 11/26/18 at 09:31; Status DC Fentanyl Citrate (Fentanyl 2ml Vial) 50 mcg 1X ONCE IV Last administered on at 11:18; Start 11/26/18 at 11:15; Stop 11/26/18 at 11:16; Status DC Metoprolol Tartrate (Lopressor Vial) 5 mg 1X ONCE IVP ; Start 11/26/18 at 11:45 ; Stop 11/26/18 at 11:46 Active Scripts Active Cymbalta (Duloxetine Hcl) 30 Mg Capsule.dr 1 Cap PO DAILY Tramadol Hcl 50 Mg Tablet 50 Mg PO Q6HRS PRN 6 Days Augmentin 875-125 Tablet (Amoxicillin/Potassium Clav) 1 Each Tablet 1 Tab PO BID 7 Days Quetiapine Fumarate 100 Mg Tablet 100 Mg PO QHS 30 Days Lasix (Furosemide) 40 Mg Tablet 40 Mg PO BID 30 Days Humalog (Insulin Lispro) 100 Unit/1 Ml Insuln.pen 7 Units SQ TIDAC 30 Days Lantus Solostar (Insulin Glargine,Hum.rec.anlog) 100 Unit/1 Ml Insuln.pen 20 Units SQ QHS 30 Days Guaifenesin Dm Syrup (Guaifenesin/Dextromethorphan) 5 Ml Syrup 10 Ml PO PRN Q6HRS PRN 30 Days Benzonatate 100 Mg Capsule 100 Mg PO [id number] 30 Days Montelukast Sodium Tablet (Montelukast Sodium) 10 Mg Tablet 10 Mg PO QHS 30 Days Lyrica (Pregabalin) 75 Mg Capsule 75 Mg PO TID 30 Days Lisinopril 40 Mg Tablet 20 Mg PO DAILY 30 Days Allergies Allergies: Coded Allergies: aspirin (Verified Adverse Reaction, Mild, Nausea and Vomiting, 01/05/18) ketorolac (Verified Adverse Reaction, Mild, Nausea, 01/05/18) morphine (Verified Adverse Reaction, Mild, Nausea and Vomiting, 01/05/18) Physical Exam General: Alert, Oriented X3, Cooperative, No acute distress, mild distress HEENT: Atraumatic, PERRLA, EOMI, Mucous membr. moist/pink Lungs: Clear to auscultation, Normal air movement Heart: S1S2, RRR Abdomen: Normal bowel sounds, Soft, No tenderness, No hepatosplenomegaly, No masses Extremities: No clubbing, No cyanosis, Normal pulses, No tenderness/swelling Skin: No rashes, No breakdown, No significant lesion Neuro: Normal gait, Normal speech, Strength at 5/5 X4 ext, Normal tone, Sensation intact, Cranial nerves 3-12 NL, Reflexes 2+ Psych/Mental Status: Mental status NL, Mood NL Vitals Vitals Vital Signs Date Time Temp Pulse Resp B/P (MAP) Pulse Ox O2 Delivery O2 Flow Rate FiO2 11/26/18 11:18 18 100 Room Air 11/26/18 08:55 98.3 95 178/91 (120) 98.3 Labs Labs Laboratory Tests Test 11/26/18 09:07 11/26/18 10:30 Urine Collection Type Unknown Urine Color Yellow Urine Clarity Clear Urine pH 7.5 Urine Specific [place] 1.020 Urine Protein >=300 mg/dL (NEG-TRACE) Urine Glucose (UA) 100 mg/dL (NEG) Urine Ketones (Stick) Negative mg/dL (NEG) Urine Blood Negative (NEG) Urine Nitrite Negative (NEG) Urine Bilirubin Negative (NEG) Urine Urobilinogen Dipstick 1.0 mg/dL (0.2 mg/dL) Urine Leukocyte Esterase Negative (NEG) Urine RBC 0 /HPF (0-2) Urine WBC 1-4 /HPF (0-4) Urine Squamous Epithelial Cells Few /LPF Urine Bacteria Few /HPF (0-FEW) Urine Hyaline Casts Few /HPF Urine Mucus Slight /LPF Urine Opiates Screen Neg (NEG) Urine Methadone Screen Neg (NEG) Urine Barbiturates Neg (NEG) Urine Phencyclidine Screen Neg (NEG) Urine Amphetamine/Methamphetamine Neg (NEG) Urine Benzodiazepines Screen Neg (NEG) Urine Cocaine Screen Pos (NEG) Urine Cannabinoids Screen Pos (NEG) Urine Ethyl Alcohol Neg (NEG) White Blood Count 12.1 x10^3/uL (4.0-11.0) Red Blood Count 3.95 x10^6/uL (3.50-5.40) Hemoglobin 12.9 g/dL (12.0-15.5) Hematocrit 39.7 % (36.0-47.0) Mean Corpuscular Volume 101 fL (79-100) Mean Corpuscular Hemoglobin 33 pg (25-35) Mean Corpuscular Hemoglobin Concent 32 g/dL (31-37) Red Cell Distribution Width 14.3 % (11.5-14.5) Platelet Count 355 x10^3/uL (140-400) Neutrophils (%) (Auto) 56 % (31-73) Lymphocytes (%) (Auto) 30 % (24-48) Monocytes (%) (Auto) 10 % (0-9) Eosinophils (%) (Auto) 2 % (0-3) Basophils (%) (Auto) 1 % (0-3) Neutrophils # (Auto) 6.7 x10^3uL (1.8-7.7) Lymphocytes # (Auto) 3.7 x10^3/uL (1.0-4.8) Monocytes # (Auto) 1.3 x10^3/uL (0.0-1.1) Eosinophils # (Auto) 0.3 x10^3/uL (0.0-0.7) Basophils # (Auto) 0.1 x10^3/uL (0.0-0.2) Sodium Level 143 mmol/L (136-145) Potassium Level 4.4 mmol/L (3.5-5.1) Chloride Level 107 mmol/L (98-107) Carbon Dioxide Level 26 mmol/L (21-32) Anion Gap 10 (6-14) Blood Urea Nitrogen 35 mg/dL (7-20) Creatinine 1.6 mg/dL (0.6-1.0) Estimated GFR (Cockcroft-Gault) 39.4 BUN/Creatinine Ratio 22 (6-20) Glucose Level 177 mg/dL (70-99) Calcium Level 8.7 mg/dL (8.5-10.1) Total Bilirubin 0.2 mg/dL (0.2-1.0) Aspartate Amino Transf (AST/SGOT) 29 U/L (15-37) Alanine Aminotransferase (ALT/SGPT) 30 U/L (14-59) Alkaline Phosphatase 81 U/L (46-116) Total Protein 6.8 g/dL (6.4-8.2) Albumin 1.9 g/dL (3.4-5.0) Albumin/Globulin Ratio 0.4 (1.0-1.7) Laboratory Tests Test 11/26/18 09:07 11/26/18 10:30 Urine Collection Type Unknown Urine Color Yellow Urine Clarity Clear Urine pH 7.5 Urine Specific [place]ris 1.020 Urine Protein >=300 mg/dL (NEG-TRACE) Urine Glucose (UA) 100 mg/dL (NEG) Urine Ketones (Stick) Negative mg/dL (NEG) Urine Blood Negative (NEG) Urine Nitrite Negative (NEG) Urine Bilirubin Negative (NEG) Urine Urobilinogen Dipstick 1.0 mg/dL (0.2 mg/dL) Urine Leukocyte Esterase Negative (NEG) Urine RBC 0 /HPF (0-2) Urine WBC 1-4 /HPF (0-4) Urine Squamous Epithelial Cells Few /LPF Urine Bacteria Few /HPF (0-FEW) Urine Hyaline Casts Few /HPF Urine Mucus Slight /LPF Urine Opiates Screen Neg (NEG) Urine Methadone Screen Neg (NEG) Urine Barbiturates Neg (NEG) Urine Phencyclidine Screen Neg (NEG) Urine Amphetamine/Methamphetamine Neg (NEG) Urine Benzodiazepines Screen Neg (NEG) Urine Cocaine Screen Pos (NEG) Urine Cannabinoids Screen Pos (NEG) Urine Ethyl Alcohol Neg (NEG) White Blood Count 12.1 x10^3/uL (4.0-11.0) Red Blood Count 3.95 x10^6/uL (3.50-5.40) Hemoglobin 12.9 g/dL (12.0-15.5) Hematocrit 39.7 % (36.0-47.0) Mean Corpuscular Volume 101 fL (79-100) Mean Corpuscular Hemoglobin 33 pg (25-35) Mean Corpuscular Hemoglobin Concent 32 g/dL (31-37) Red Cell Distribution Width 14.3 % (11.5-14.5) Platelet Count 355 x10^3/uL (140-400) Neutrophils (%) (Auto) 56 % (31-73) Lymphocytes (%) (Auto) 30 % (24-48) Monocytes (%) (Auto) 10 % (0-9) Eosinophils (%) (Auto) 2 % (0-3) Basophils (%) (Auto) 1 % (0-3) Neutrophils # (Auto) 6.7 x10^3uL (1.8-7.7) Lymphocytes # (Auto) 3.7 x10^3/uL (1.0-4.8) Monocytes # (Auto) 1.3 x10^3/uL (0.0-1.1) Eosinophils # (Auto) 0.3 x10^3/uL (0.0-0.7) Basophils # (Auto) 0.1 x10^3/uL (0.0-0.2) Sodium Level 143 mmol/L (136-145) Potassium Level 4.4 mmol/L (3.5-5.1) Chloride Level 107 mmol/L (98-107) Carbon Dioxide Level 26 mmol/L (21-32) Anion Gap 10 (6-14) Blood Urea Nitrogen 35 mg/dL (7-20) Creatinine 1.6 mg/dL (0.6-1.0) Estimated GFR (Cockcroft-Gault) 39.4 BUN/Creatinine Ratio 22 (6-20) Glucose Level 177 mg/dL (70-99) Calcium Level 8.7 mg/dL (8.5-10.1) Total Bilirubin 0.2 mg/dL (0.2-1.0) Aspartate Amino Transf (AST/SGOT) 29 U/L (15-37) Alanine Aminotransferase (ALT/SGPT) 30 U/L (14-59) Alkaline Phosphatase 81 U/L (46-116) Total Protein 6.8 g/dL (6.4-8.2) Albumin 1.9 g/dL (3.4-5.0) Albumin/Globulin Ratio 0.4 (1.0-1.7) VTE Prophylaxis Ordered VTE Prophylaxis Devices: Contraindicated VTE Pharmacological Prophylaxi: Yes Assessment/Plan Assessment/Plan A/P: Severe cellulitis left lower leg/ ankle - zyvox and zosyn. Repeat MRSA and ASO titers. may need to reconsult ID Bilat lymphedema - advised to stop lyrica, she refuses. Elevated, compression Bipolar disorder - acutely psychotic, continue home meds THC and cocaine abuse disorder - positive for use right before admit. 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 chronic pain - tramadol, cymbalta, small dose lyrica FEN - General diet PPX - Lovenox FULL CODE Inpatient for acute psychosis, needs placement, will stabilize her BP and her cellulitis over the next 24 hours. EBONIE COLE MD Nov 26, 2018 11:41
[2018-11-26] MEDS: METOPROLOL TARTRATE 5 MG/5 ML VIAL. IVP ONE ×2 (11:45→12:27)
[2018-11-26] MEDS ORDERED: ONDANSETRON PF 4 MG/2 ML VIAL. IV PRN (13:00)
[2018-11-26] MEDS ORDERED: fentaNYL PF VIAL 100 MCG/2 ML VIAL IV PRN (13:00)
[2018-11-26] MEDS ORDERED: traMADol 50 MG TABLET PO PRN (14:00)
[2018-11-26] MEDS ORDERED: guaiFENesin DM 200MG/20MG 10 ML SYRUP PO PRN (14:00)
[2018-11-26] MEDS: ENOXAPARIN 30 MG/0.3 ML SYRINGE. SQ SCH (14:43)
[2018-11-26] MEDS: BENZONATATE 100 MG CAPSULE. PO SCH ×2 (14:43→20:22)
[2018-11-26] MEDS: DULoxetine HCL 30 MG CAPSULE.DR PO SCH (14:43)
[2018-11-26] MEDS: HYDROcodone/APAP 5/325MG 1 TAB TABLET PO PRN ×2 (14:43→20:22)
[2018-11-26] MEDS: PREGABALIN 75 MG CAPSULE PO SCH ×2 (14:43→20:22)
[2018-11-26] MEDS: IV NORMAL SALINE 1000ML BAG 1,000 ML IV SCH ×2 (14:44→20:21)
[2018-11-26 15:00] VITALS: BP 158/85
[2018-11-26] MEDS: INSULIN LISPRO 300 UNITS/3 ML INSULN.PEN. SQ SCH (16:30)
[2018-11-26] MEDS: PIPERACILLIN/TAZOBACTAM 3.375 GM in IV NORMAL SALINE 50ML 50 ML IV SCH (16:44)
--- NOTE | 2018-11-26 18:49 | PHYS DOC ---
Past Medical History Past Medical History: COPD, Depression, Diabetes-Type II, High Cholesterol, Hypertension, Other Additional Past Medical Histor: neuropathy, narcolepsy Past Surgical History: Cholecystectomy, , Hysterectomy, Splenectomy Additional Information: 4-10 CIGS/DAY Alcohol Use: None Drug Use: Cocaine, Marijuana, Other Adult General Chief Complaint Chief Complaint: LOWER EXTREMITY SWELLING HPI HPI Patient is a 63 year old female who presents with problems with stress and coping. The patient is also having pain to her left lower leg from a diagnosis of cellulitis. She also was complaining of a headache. The patient states that she was inpatient and discharged 2 days ago. She states that she was unable to get her medications filled. She states that she is currently living at her niece 's house. She states that there is a lot of commotion at the home and it is very stressful. The patient is tearful. She was recently living in [place] but was homeless. She states that she does not have mental health services in the area. She is requesting assistance from the psychiatric assessment team for help. Review of Systems Review of Systems Constitutional: Denies fever or chills [] Eyes: Denies change in visual acuity, redness, or eye pain [] HENT: Denies nasal congestion or sore throat [] Respiratory: Denies cough or shortness of breath [] Cardiovascular: No additional information not addressed in HPI [] GI: Denies abdominal pain, nausea, vomiting, bloody stools or diarrhea [] : Denies dysuria or hematuria [] Musculoskeletal: Denies back pain or joint pain [] Integument: See history of present illness Neurologic: See history of present illness Endocrine: Denies polyuria or polydipsia [] All other systems were reviewed and found to be within normal limits, except as documented in this note. Current Medications Current Medications Current Medications Medications (Trade) Dose Ordered Sig/[facility] Start Time Stop Time Status Last Admin Dose Admin Fentanyl Citrate (Fentanyl 2ml Vial) 50 mcg 1X ONCE 11/26/18 11:15 11/26/18 11:16 DC 11/26/18 11:18 50 MCG Allergies Allergies Allergies Coded Allergies Type Severity Reaction Last Updated Verified aspirin Adverse Reaction Mild Nausea and Vomiting 01/05/18 Yes ketorolac Adverse Reaction Mild Nausea 01/05/18 Yes morphine Adverse Reaction Mild Nausea and Vomiting 01/05/18 Yes Physical Exam Physical Exam Constitutional: Well developed, well nourished, no acute distress, non-toxic appearance. [] Cardiovascular:Heart rate regular rhythm, no murmur [] Lungs & Thorax: Bilateral breath sounds clear to auscultation [] Abdomen: Bowel sounds normal, soft, no tenderness, no masses, no pulsatile masses. [] Skin: Warm, dry, no erythema, no rash. [] Back: No tenderness, no CVA tenderness. [] Extremities: No tenderness, no cyanosis, no clubbing, ROM intact, no edema. [] Neurologic: Alert and oriented X 3, normal motor function, normal sensory function, no focal deficits noted. [] Psychologic: The patient is tearful with pressured speech Current Patient Data Vital Signs Vital Signs Date Time Temp Pulse Resp B/P (MAP) Pulse Ox O2 Delivery O2 Flow Rate FiO2 11/26/18 11:18 18 100 Room Air 11/26/18 11:00 92 177/81 (113) 11/26/18 08:55 98.3 98.3 Lab Values Laboratory Tests Test 11/26/18 09:07 11/26/18 10:30 Urine Collection Type Unknown Urine Color Yellow Urine Clarity Clear Urine pH 7.5 Urine Specific [place] 1.020 Urine Protein >=300 mg/dL (NEG-TRACE) Urine Glucose (UA) 100 mg/dL (NEG) Urine Ketones (Stick) Negative mg/dL (NEG) Urine Blood Negative (NEG) Urine Nitrite Negative (NEG) Urine Bilirubin Negative (NEG) Urine Urobilinogen Dipstick 1.0 mg/dL (0.2 mg/dL) Urine Leukocyte Esterase Negative (NEG) Urine RBC 0 /HPF (0-2) Urine WBC 1-4 /HPF (0-4) Urine Squamous Epithelial Cells Few /LPF Urine Bacteria Few /HPF (0-FEW) Urine Hyaline Casts Few /HPF Urine Mucus Slight /LPF Urine Opiates Screen Neg (NEG) Urine Methadone Screen Neg (NEG) Urine Barbiturates Neg (NEG) Urine Phencyclidine Screen Neg (NEG) Urine Amphetamine/Methamphetamine Neg (NEG) Urine Benzodiazepines Screen Neg (NEG) Urine Cocaine Screen Pos (NEG) Urine Cannabinoids Screen Pos (NEG) Urine Ethyl Alcohol Neg (NEG) White Blood Count 12.1 x10^3/uL (4.0-11.0) H Red Blood Count 3.95 x10^6/uL (3.50-5.40) Hemoglobin 12.9 g/dL (12.0-15.5) Hematocrit 39.7 % (36.0-47.0) Mean Corpuscular Volume 101 fL (79-100) H Mean Corpuscular Hemoglobin 33 pg (25-35) Mean Corpuscular Hemoglobin Concent 32 g/dL (31-37) Red Cell Distribution Width 14.3 % (11.5-14.5) Platelet Count 355 x10^3/uL (140-400) Neutrophils (%) (Auto) 56 % (31-73) Lymphocytes (%) (Auto) 30 % (24-48) Monocytes (%) (Auto) 10 % (0-9) H Eosinophils (%) (Auto) 2 % (0-3) Basophils (%) (Auto) 1 % (0-3) Neutrophils # (Auto) 6.7 x10^3uL (1.8-7.7) Lymphocytes # (Auto) 3.7 x10^3/uL (1.0-4.8) Monocytes # (Auto) 1.3 x10^3/uL (0.0-1.1) H Eosinophils # (Auto) 0.3 x10^3/uL (0.0-0.7) Basophils # (Auto) 0.1 x10^3/uL (0.0-0.2) Sodium Level 143 mmol/L (136-145) Potassium Level 4.4 mmol/L (3.5-5.1) Chloride Level 107 mmol/L (98-107) Carbon Dioxide Level 26 mmol/L (21-32) Anion Gap 10 (6-14) Blood Urea Nitrogen 35 mg/dL (7-20) H Creatinine 1.6 mg/dL (0.6-1.0) H Estimated GFR (Cockcroft-Gault) 39.4 BUN/Creatinine Ratio 22 (6-20) H Glucose Level 177 mg/dL (70-99) H Calcium Level 8.7 mg/dL (8.5-10.1) Total Bilirubin 0.2 mg/dL (0.2-1.0) Aspartate Amino Transferase (AST) 29 U/L (15-37) Alanine Aminotransferase (ALT) 30 U/L (14-59) Alkaline Phosphatase 81 U/L (46-116) Total Protein 6.8 g/dL (6.4-8.2) Albumin 1.9 g/dL (3.4-5.0) L Albumin/Globulin Ratio 0.4 (1.0-1.7) L Laboratory Tests 11/26/18 10:30 Laboratory Tests 11/26/18 10:30 EKG EKG [] Radiology/Procedures Radiology/Procedures [] Course & Med Decision Making Course & Med Decision Making Pertinent Labs and Imaging studies reviewed. (See chart for details) Casey, with the psychiatric assessment team, spoke with the patient. The patient is in agreement to go to [facility] but does need to be medically stable before she can be admitted to that institution. The patient is being admitted to Dr. Padilla's service for medical stabilization. A social work consult has also been placed. Dragon Disclaimer Dragon Disclaimer This electronic medical record was generated, in whole or in part, using a voice recognition dictation system. Departure Departure Impression: Primary Impression: Hypertension Additional Impressions: Cellulitis of left lower extremity Bipolar 1 disorder, depressed Diabetes Disposition: 09 ADMITTED INPATIENT Condition: GOOD Problem Qualifiers RICK CRESPO APRN Nov 26, 2018 18:49
[2018-11-26 19:00] VITALS: BP 172/87
[2018-11-26] MEDS: MONTELUKAST SODIUM 10 MG TABLET. PO SCH (20:22)
[2018-11-26] MEDS ORDERED: QUEtiapine 50 MG TAB.ER.24H. PO SCH (21:00)
[2018-11-26] MEDS: INSULIN GLARGINE 300 UNITS/3 ML INSULN.PEN. SQ SCH (22:25)
[2018-11-26 23:00] VITALS: BP 133/69
[2018-11-27] MEDS: PIPERACILLIN/TAZOBACTAM 3.375 GM in IV NORMAL SALINE 50ML 50 ML IV SCH ×4 (00:37→17:45)
[2018-11-27 03:00] VITALS: BP 130/68
[2018-11-27] MEDS: IV NORMAL SALINE 1000ML BAG 1,000 ML IV SCH (05:33)
[2018-11-27 05:37] LABS: BASO # 0.1 x10^3/uL (0.0-0.2); BASO % 1 % (0-3); EOS # 0.4 x10^3/uL (0.0-0.7); EOS % 4 % (0-3); HEMATOCRIT 38.2 % (36.0-47.0); HEMOGLOBIN 12.2 g/dL (12.0-15.5); LYMPH # 4.4 x10^3/uL (1.0-4.8); LYMPH % 44 % (24-48); MEAN CORPUSCULAR HEMOGLOBIN 32 pg (25-35); MEAN CORPUSCULAR HGB CONC 32 g/dL (31-37); MEAN CORPUSCULAR VOLUME 101 fL (79-100); MONO # 1.1 x10^3/uL (0.0-1.1); MONO % 11 % (0-9); NEUT # 3.8 x10^3uL (1.8-7.7); NEUT % 39 % (31-73); PLATELET COUNT 366 x10^3/uL (140-400); RED BLOOD COUNT 3.78 x10^6/uL (3.50-5.40); RED CELL DISTRIBUTION WIDTH 14.3 % (11.5-14.5); WHITE BLOOD COUNT 9.8 x10^3/uL (4.0-11.0)
[2018-11-27 05:59] LABS: CALCIUM 8.2 mg/dL (8.5-10.1); CREATININE 1.4 mg/dL (0.6-1.0); POTASSIUM 4.4 mmol/L (3.5-5.1)
[2018-11-27 07:00] VITALS: BP 139/100
[2018-11-27] MEDS: INSULIN LISPRO 300 UNITS/3 ML INSULN.PEN. SQ SCH ×6 (07:30→17:00)
[2018-11-27] MEDS: PREGABALIN 75 MG CAPSULE PO SCH ×3 (07:45→20:56)
[2018-11-27] MEDS: DULoxetine HCL 30 MG CAPSULE.DR PO SCH (07:46)
[2018-11-27] MEDS: BENZONATATE 100 MG CAPSULE. PO SCH ×3 (07:46→20:55)
--- NOTE | 2018-11-27 08:08 | PDOC ---
PROGRESS NOTES Chief Complaint Chief Complaint A/P: Severe cellulitis left lower leg/ ankle - zyvox and zosyn. Repeat MRSA and ASO titers. may need to reconsult ID. ASO titer negative Bilat lymphedema - advised to stop lyrica, she refuses. Elevated, compression Bipolar disorder - acutely psychotic, continue home meds THC and cocaine abuse disorder - positive for use right before admit. 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 chronic pain - tramadol, cymbalta, small dose lyrica FEN - General diet PPX - Lovenox FULL CODE Inpatient for acute psychosis, needs placement, will stabilize her BP and her cellulitis over the next 24 hours. History of Present Illness History of Present Illness The patient is a 63-year-old who smoked for at least 35 years and still has not completely quit, has PMHx DM, ?BP disorder with depression, chronic lymphedema over lower extremities. She was hospitalized for left lower extremity cellulitis this past week. She had a CT chest, which was reviewed by Pulmonology and was abnormal. The patient has a tiny 3-4 mm nodule in the left upper lobe. She returns to the ED today acutely psychotic, cocaine positive UDS. Blood pressure and blood sugar elevated. There were small bilateral pleural effusions. She denies any headache. No nausea, vomiting, no diarrhea. She has occasional shortness of breath. No chest pain. No dysuria. No focal weakness. Was also seen by ID for treatment for her cellulitis, had LE wraps, discharged on augmentin after days on zyvox (1x vancomycin), and zosyn BP better controlled. Blood glucose up. Cr improving. ASO titer low, awaiting MRSA nares. She states she does not want to take seroquel, has some N/V this morning. Plan: With compliance difficulties, placement may be the best way to ensure her cellulitis is treated, will need MRSA nares back as this may be MRSA we are treating as she has low ASO titer Will change to [facility] Vitals Vitals Vital Signs Date Time Temp Pulse Resp B/P (MAP) Pulse Ox O2 Delivery O2 Flow Rate FiO2 11/27/18 03:00 97.8 72 20 130/68 (88) 98 Room Air 97.8 Physical Exam General: Alert, Oriented X3, Cooperative, No acute distress, mild distress Lungs: Clear Abdomen: Normal bowel sounds, Soft, No tenderness, No hepatosplenomegaly, No masses Extremities: No clubbing, No cyanosis, Normal pulses, No tenderness/swelling Skin: No rashes, No breakdown, No significant lesion Labs LABS Laboratory Tests Test 11/26/18 09:07 11/26/18 10:30 11/26/18 14:33 11/26/18 15:45 Urine Collection Type Unknown Urine Color Yellow Urine Clarity Clear Urine pH 7.5 Urine Specific [place] 1.020 Urine Protein >=300 mg/dL (NEG-TRACE) Urine Glucose (UA) 100 mg/dL (NEG) Urine Ketones (Stick) Negative mg/dL (NEG) Urine Blood Negative (NEG) Urine Nitrite Negative (NEG) Urine Bilirubin Negative (NEG) Urine Urobilinogen Dipstick 1.0 mg/dL (0.2 mg/dL) Urine Leukocyte Esterase Negative (NEG) Urine RBC 0 /HPF (0-2) Urine WBC 1-4 /HPF (0-4) Urine Squamous Epithelial Cells Few /LPF Urine Bacteria Few /HPF (0-FEW) Urine Hyaline Casts Few /HPF Urine Mucus Slight /LPF Urine Opiates Screen Neg (NEG) Urine Methadone Screen Neg (NEG) Urine Barbiturates Neg (NEG) Urine Phencyclidine Screen Neg (NEG) Urine Amphetamine/Methamphetamine Neg (NEG) Urine Benzodiazepines Screen Neg (NEG) Urine Cocaine Screen Pos (NEG) Urine Cannabinoids Screen Pos (NEG) Urine Ethyl Alcohol Neg (NEG) White Blood Count 12.1 x10^3/uL (4.0-11.0) Red Blood Count 3.95 x10^6/uL (3.50-5.40) Hemoglobin 12.9 g/dL (12.0-15.5) Hematocrit 39.7 % (36.0-47.0) Mean Corpuscular Volume 101 fL (79-100) Mean Corpuscular Hemoglobin 33 pg (25-35) Mean Corpuscular Hemoglobin Concent 32 g/dL (31-37) Red Cell Distribution Width 14.3 % (11.5-14.5) Platelet Count 355 x10^3/uL (140-400) Neutrophils (%) (Auto) 56 % (31-73) Lymphocytes (%) (Auto) 30 % (24-48) Monocytes (%) (Auto) 10 % (0-9) Eosinophils (%) (Auto) 2 % (0-3) Basophils (%) (Auto) 1 % (0-3) Neutrophils # (Auto) 6.7 x10^3uL (1.8-7.7) Lymphocytes # (Auto) 3.7 x10^3/uL (1.0-4.8) Monocytes # (Auto) 1.3 x10^3/uL (0.0-1.1) Eosinophils # (Auto) 0.3 x10^3/uL (0.0-0.7) Basophils # (Auto) 0.1 x10^3/uL (0.0-0.2) Sodium Level 143 mmol/L (136-145) Potassium Level 4.4 mmol/L (3.5-5.1) Chloride Level 107 mmol/L (98-107) Carbon Dioxide Level 26 mmol/L (21-32) Anion Gap 10 (6-14) Blood Urea Nitrogen 35 mg/dL (7-20) Creatinine 1.6 mg/dL (0.6-1.0) Estimated GFR (Cockcroft-Gault) 39.4 BUN/Creatinine Ratio 22 (6-20) Glucose Level 177 mg/dL (70-99) Calcium Level 8.7 mg/dL (8.5-10.1) Total Bilirubin 0.2 mg/dL (0.2-1.0) Aspartate Amino Transf (AST/SGOT) 29 U/L (15-37) Alanine Aminotransferase (ALT/SGPT) 30 U/L (14-59) Alkaline Phosphatase 81 U/L (46-116) Total Protein 6.8 g/dL (6.4-8.2) Albumin 1.9 g/dL (3.4-5.0) Albumin/Globulin Ratio 0.4 (1.0-1.7) Glucose (Fingerstick) 146 mg/dL (70-99) Anti-Streptolysin O Antibody 57.8 IU/mL (0.0-200.0) Test 11/26/18 16:44 11/26/18 21:06 11/27/18 04:15 Glucose (Fingerstick) 178 mg/dL (70-99) 229 mg/dL (70-99) White Blood Count 9.8 x10^3/uL (4.0-11.0) Red Blood Count 3.78 x10^6/uL (3.50-5.40) Hemoglobin 12.2 g/dL (12.0-15.5) Hematocrit 38.2 % (36.0-47.0) Mean Corpuscular Volume 101 fL (79-100) Mean Corpuscular Hemoglobin 32 pg (25-35) Mean Corpuscular Hemoglobin Concent 32 g/dL (31-37) Red Cell Distribution Width 14.3 % (11.5-14.5) Platelet Count 366 x10^3/uL (140-400) Neutrophils (%) (Auto) 39 % (31-73) Lymphocytes (%) (Auto) 44 % (24-48) Monocytes (%) (Auto) 11 % (0-9) Eosinophils (%) (Auto) 4 % (0-3) Basophils (%) (Auto) 1 % (0-3) Neutrophils # (Auto) 3.8 x10^3uL (1.8-7.7) Lymphocytes # (Auto) 4.4 x10^3/uL (1.0-4.8) Monocytes # (Auto) 1.1 x10^3/uL (0.0-1.1) Eosinophils # (Auto) 0.4 x10^3/uL (0.0-0.7) Basophils # (Auto) 0.1 x10^3/uL (0.0-0.2) Sodium Level 142 mmol/L (136-145) Potassium Level 4.4 mmol/L (3.5-5.1) Chloride Level 107 mmol/L (98-107) Carbon Dioxide Level 28 mmol/L (21-32) Anion Gap 7 (6-14) Blood Urea Nitrogen 33 mg/dL (7-20) Creatinine 1.4 mg/dL (0.6-1.0) Estimated GFR (Cockcroft-Gault) 46.0 Glucose Level 76 mg/dL (70-99) Calcium Level 8.2 mg/dL (8.5-10.1) Assessment and Plan Assessmemt and Plan Problems Medical Problems: (1) Bipolar 1 disorder, depressed Status: Acute (2) Bipolar 1 disorder, depressed, severe Status: Acute (3) Cellulitis of left lower extremity Status: Acute (4) Diabetes Status: Acute (5) Hypertension Status: Acute Comment Review of Relevant I have reviewed the following items peyton (where applicable) has been applied. Labs Laboratory Tests Test 11/26/18 09:07 11/26/18 10:30 11/26/18 14:33 11/26/18 15:45 Urine Collection Type Unknown Urine Color Yellow Urine Clarity Clear Urine pH 7.5 Urine Specific [place] 1.020 Urine Protein >=300 mg/dL (NEG-TRACE) Urine Glucose (UA) 100 mg/dL (NEG) Urine Ketones (Stick) Negative mg/dL (NEG) Urine Blood Negative (NEG) Urine Nitrite Negative (NEG) Urine Bilirubin Negative (NEG) Urine Urobilinogen Dipstick 1.0 mg/dL (0.2 mg/dL) Urine Leukocyte Esterase Negative (NEG) Urine RBC 0 /HPF (0-2) Urine WBC 1-4 /HPF (0-4) Urine Squamous Epithelial Cells Few /LPF Urine Bacteria Few /HPF (0-FEW) Urine Hyaline Casts Few /HPF Urine Mucus Slight /LPF Urine Opiates Screen Neg (NEG) Urine Methadone Screen Neg (NEG) Urine Barbiturates Neg (NEG) Urine Phencyclidine Screen Neg (NEG) Urine Amphetamine/Methamphetamine Neg (NEG) Urine Benzodiazepines Screen Neg (NEG) Urine Cocaine Screen Pos (NEG) Urine Cannabinoids Screen Pos (NEG) Urine Ethyl Alcohol Neg (NEG) White Blood Count 12.1 x10^3/uL (4.0-11.0) Red Blood Count 3.95 x10^6/uL (3.50-5.40) Hemoglobin 12.9 g/dL (12.0-15.5) Hematocrit 39.7 % (36.0-47.0) Mean Corpuscular Volume 101 fL (79-100) Mean Corpuscular Hemoglobin 33 pg (25-35) Mean Corpuscular Hemoglobin Concent 32 g/dL (31-37) Red Cell Distribution Width 14.3 % (11.5-14.5) Platelet Count 355 x10^3/uL (140-400) Neutrophils (%) (Auto) 56 % (31-73) Lymphocytes (%) (Auto) 30 % (24-48) Monocytes (%) (Auto) 10 % (0-9) Eosinophils (%) (Auto) 2 % (0-3) Basophils (%) (Auto) 1 % (0-3) Neutrophils # (Auto) 6.7 x10^3uL (1.8-7.7) Lymphocytes # (Auto) 3.7 x10^3/uL (1.0-4.8) Monocytes # (Auto) 1.3 x10^3/uL (0.0-1.1) Eosinophils # (Auto) 0.3 x10^3/uL (0.0-0.7) Basophils # (Auto) 0.1 x10^3/uL (0.0-0.2) Sodium Level 143 mmol/L (136-145) Potassium Level 4.4 mmol/L (3.5-5.1) Chloride Level 107 mmol/L (98-107) Carbon Dioxide Level 26 mmol/L (21-32) Anion Gap 10 (6-14) Blood Urea Nitrogen 35 mg/dL (7-20) Creatinine 1.6 mg/dL (0.6-1.0) Estimated GFR (Cockcroft-Gault) 39.4 BUN/Creatinine Ratio 22 (6-20) Glucose Level 177 mg/dL (70-99) Calcium Level 8.7 mg/dL (8.5-10.1) Total Bilirubin 0.2 mg/dL (0.2-1.0) Aspartate Amino Transf (AST/SGOT) 29 U/L (15-37) Alanine Aminotransferase (ALT/SGPT) 30 U/L (14-59) Alkaline Phosphatase 81 U/L (46-116) Total Protein 6.8 g/dL (6.4-8.2) Albumin 1.9 g/dL (3.4-5.0) Albumin/Globulin Ratio 0.4 (1.0-1.7) Glucose (Fingerstick) 146 mg/dL (70-99) Anti-Streptolysin O Antibody 57.8 IU/mL (0.0-200.0) Test 11/26/18 16:44 11/26/18 21:06 11/27/18 04:15 Glucose (Fingerstick) 178 mg/dL (70-99) 229 mg/dL (70-99) White Blood Count 9.8 x10^3/uL (4.0-11.0) Red Blood Count 3.78 x10^6/uL (3.50-5.40) Hemoglobin 12.2 g/dL (12.0-15.5) Hematocrit 38.2 % (36.0-47.0) Mean Corpuscular Volume 101 fL (79-100) Mean Corpuscular Hemoglobin 32 pg (25-35) Mean Corpuscular Hemoglobin Concent 32 g/dL (31-37) Red Cell Distribution Width 14.3 % (11.5-14.5) Platelet Count 366 x10^3/uL (140-400) Neutrophils (%) (Auto) 39 % (31-73) Lymphocytes (%) (Auto) 44 % (24-48) Monocytes (%) (Auto) 11 % (0-9) Eosinophils (%) (Auto) 4 % (0-3) Basophils (%) (Auto) 1 % (0-3) Neutrophils # (Auto) 3.8 x10^3uL (1.8-7.7) Lymphocytes # (Auto) 4.4 x10^3/uL (1.0-4.8) Monocytes # (Auto) 1.1 x10^3/uL (0.0-1.1) Eosinophils # (Auto) 0.4 x10^3/uL (0.0-0.7) Basophils # (Auto) 0.1 x10^3/uL (0.0-0.2) Sodium Level 142 mmol/L (136-145) Potassium Level 4.4 mmol/L (3.5-5.1) Chloride Level 107 mmol/L (98-107) Carbon Dioxide Level 28 mmol/L (21-32) Anion Gap 7 (6-14) Blood Urea Nitrogen 33 mg/dL (7-20) Creatinine 1.4 mg/dL (0.6-1.0) Estimated GFR (Cockcroft-Gault) 46.0 Glucose Level 76 mg/dL (70-99) Calcium Level 8.2 mg/dL (8.5-10.1) Laboratory Tests Test 11/26/18 09:07 11/26/18 10:30 11/26/18 14:33 11/26/18 15:45 Urine Collection Type Unknown Urine Color Yellow Urine Clarity Clear Urine pH 7.5 Urine Specific [place] 1.020 Urine Protein >=300 mg/dL (NEG-TRACE) Urine Glucose (UA) 100 mg/dL (NEG) Urine Ketones (Stick) Negative mg/dL (NEG) Urine Blood Negative (NEG) Urine Nitrite Negative (NEG) Urine Bilirubin Negative (NEG) Urine Urobilinogen Dipstick 1.0 mg/dL (0.2 mg/dL) Urine Leukocyte Esterase Negative (NEG) Urine RBC 0 /HPF (0-2) Urine WBC 1-4 /HPF (0-4) Urine Squamous Epithelial Cells Few /LPF Urine Bacteria Few /HPF (0-FEW) Urine Hyaline Casts Few /HPF Urine Mucus Slight /LPF Urine Opiates Screen Neg (NEG) Urine Methadone Screen Neg (NEG) Urine Barbiturates Neg (NEG) Urine Phencyclidine Screen Neg (NEG) Urine Amphetamine/Methamphetamine Neg (NEG) Urine Benzodiazepines Screen Neg (NEG) Urine Cocaine Screen Pos (NEG) Urine Cannabinoids Screen Pos (NEG) Urine Ethyl Alcohol Neg (NEG) White Blood Count 12.1 x10^3/uL (4.0-11.0) Red Blood Count 3.95 x10^6/uL (3.50-5.40) Hemoglobin 12.9 g/dL (12.0-15.5) Hematocrit 39.7 % (36.0-47.0) Mean Corpuscular Volume 101 fL (79-100) Mean Corpuscular Hemoglobin 33 pg (25-35) Mean Corpuscular Hemoglobin Concent 32 g/dL (31-37) Red Cell Distribution Width 14.3 % (11.5-14.5) Platelet Count 355 x10^3/uL (140-400) Neutrophils (%) (Auto) 56 % (31-73) Lymphocytes (%) (Auto) 30 % (24-48) Monocytes (%) (Auto) 10 % (0-9) Eosinophils (%) (Auto) 2 % (0-3) Basophils (%) (Auto) 1 % (0-3) Neutrophils # (Auto) 6.7 x10^3uL (1.8-7.7) Lymphocytes # (Auto) 3.7 x10^3/uL (1.0-4.8) Monocytes # (Auto) 1.3 x10^3/uL (0.0-1.1) Eosinophils # (Auto) 0.3 x10^3/uL (0.0-0.7) Basophils # (Auto) 0.1 x10^3/uL (0.0-0.2) Sodium Level 143 mmol/L (136-145) Potassium Level 4.4 mmol/L (3.5-5.1) Chloride Level 107 mmol/L (98-107) Carbon Dioxide Level 26 mmol/L (21-32) Anion Gap 10 (6-14) Blood Urea Nitrogen 35 mg/dL (7-20) Creatinine 1.6 mg/dL (0.6-1.0) Estimated GFR (Cockcroft-Gault) 39.4 BUN/Creatinine Ratio 22 (6-20) Glucose Level 177 mg/dL (70-99) Calcium Level 8.7 mg/dL (8.5-10.1) Total Bilirubin 0.2 mg/dL (0.2-1.0) Aspartate Amino Transf (AST/SGOT) 29 U/L (15-37) Alanine Aminotransferase (ALT/SGPT) 30 U/L (14-59) Alkaline Phosphatase 81 U/L (46-116) Total Protein 6.8 g/dL (6.4-8.2) Albumin 1.9 g/dL (3.4-5.0) Albumin/Globulin Ratio 0.4 (1.0-1.7) Glucose (Fingerstick) 146 mg/dL (70-99) Anti-Streptolysin O Antibody 57.8 IU/mL (0.0-200.0) Test 11/26/18 16:44 11/26/18 21:06 11/27/18 04:15 Glucose (Fingerstick) 178 mg/dL (70-99) 229 mg/dL (70-99) White Blood Count 9.8 x10^3/uL (4.0-11.0) Red Blood Count 3.78 x10^6/uL (3.50-5.40) Hemoglobin 12.2 g/dL (12.0-15.5) Hematocrit 38.2 % (36.0-47.0) Mean Corpuscular Volume 101 fL (79-100) Mean Corpuscular Hemoglobin 32 pg (25-35) Mean Corpuscular Hemoglobin Concent 32 g/dL (31-37) Red Cell Distribution Width 14.3 % (11.5-14.5) Platelet Count 366 x10^3/uL (140-400) Neutrophils (%) (Auto) 39 % (31-73) Lymphocytes (%) (Auto) 44 % (24-48) Monocytes (%) (Auto) 11 % (0-9) Eosinophils (%) (Auto) 4 % (0-3) Basophils (%) (Auto) 1 % (0-3) Neutrophils # (Auto) 3.8 x10^3uL (1.8-7.7) Lymphocytes # (Auto) 4.4 x10^3/uL (1.0-4.8) Monocytes # (Auto) 1.1 x10^3/uL (0.0-1.1) Eosinophils # (Auto) 0.4 x10^3/uL (0.0-0.7) Basophils # (Auto) 0.1 x10^3/uL (0.0-0.2) Sodium Level 142 mmol/L (136-145) Potassium Level 4.4 mmol/L (3.5-5.1) Chloride Level 107 mmol/L (98-107) Carbon Dioxide Level 28 mmol/L (21-32) Anion Gap 7 (6-14) Blood Urea Nitrogen 33 mg/dL (7-20) Creatinine 1.4 mg/dL (0.6-1.0) Estimated GFR (Cockcroft-Gault) 46.0 Glucose Level 76 mg/dL (70-99) Calcium Level 8.2 mg/dL (8.5-10.1) Medications Current Medications Fentanyl Citrate (Fentanyl 2ml Vial) 50 mcg 1X ONCE IV Last administered on at 10:02; Start 11/26/18 at 09:30; Stop 11/26/18 at 09:31; Status DC Fentanyl Citrate (Fentanyl 2ml Vial) 50 mcg 1X ONCE IV Last administered on at 11:18; Start 11/26/18 at 11:15; Stop 11/26/18 at 11:16; Status DC Metoprolol Tartrate (Lopressor Vial) 5 mg 1X ONCE IVP ; Start 11/26/18 at 11:45 ; Stop 11/26/18 at 11:46; Status DC Ondansetron HCl (Zofran) 4 mg PRN Q8HRS PRN IV NAUSEA/VOMITING; Start 11/26/18 at 13:00; Stop 11/27/18 at 12:59 Fentanyl Citrate (Fentanyl 2ml Vial) 50 mcg PRN Q1HR PRN IV PAIN; Start at 13:00; Stop 11/27/18 at 12:59 Sodium Chloride 1,000 ml @ 125 mls/hr Q8H IV Last administered on 11/27/18at 05 :33; Start 11/26/18 at 12:53; Stop 11/27/18 at 12:52 Duloxetine HCl (Cymbalta) 30 mg DAILY PO Last administered on 11/27/18at 07:46; Start 11/26/18 at 14:00 Guaifenesin (Robitussin Dm) 10 ml PRN Q6HRS PRN PO COUGH; Start 11/26/18 at 14: 00 Insulin Glargine (Lantus) 20 units QHS SQ Last administered on 11/26/18at 22:25 ; Start 11/26/18 at 21:00 Insulin Human Lispro (HumaLOG) 7 units TIDAC SQ ; Start 11/26/18 at 16:30 Pregabalin (Lyrica) 75 mg TID PO Last administered on 11/27/18at 07:45; Start at 14:00 Tramadol HCl (Ultram) 50 mg PRN Q6HRS PRN PO PAIN; Start 11/26/18 at 14:00 Benzonatate (Tessalon Perle) 100 mg [id number] PO Last administered on 11/27/18at 07 :46; Start 11/26/18 at 14:00 Montelukast Sodium (Singulair) 10 mg QHS PO Last administered on 11/26/18at 20: 22; Start 11/26/18 at 21:00 Quetiapine Fumarate (SEROquel XR) 100 mg QHS PO Last administered on 11/26/18at 20:22; Start 11/26/18 at 21:00 Labetalol HCl (Normodyne Iv Push) 10 mg PRN Q4HRS PRN IVP HYPERTENSION, SEE COMMENTS; Start 11/26/18 at 14:00 Piperacillin Sod/ Tazobactam Sod 3.375 gm/Sodium Chloride 50 ml @ 100 mls/hr Q6HRS IV Last administered on 11/27/18at 05:33; Start 11/26/18 at 18:00 Linezolid/Dextrose 300 ml @ 300 mls/hr Q12HR IV Last administered on at 07:45; Start 11/26/18 at 21:00 Enoxaparin Sodium (Lovenox 30mg Syringe) 30 mg Q24H SQ Last administered on at 14:43; Start 11/26/18 at 14:15 Acetaminophen/ Hydrocodone Bitart (Lortab 5/325) 1 tab PRN Q4HRS PRN PO PAIN Last administered on 11/26/18at 20:22; Start 11/26/18 at 14:15 Insulin Human Lispro (HumaLOG) 0-5 UNITS TIDWMEALS SQ ; Start 11/27/18 at 12:00 ; Status UNV Dextrose (Dextrose 50%-Water Syringe) 12.5 gm PRN Q15MIN PRN IV SEE COMMENTS; Start 11/27/18 at 08:15; Status UNV Lisinopril (Prinivil) 20 mg DAILY PO ; Start 11/27/18 at 09:00; Status UNV Active Scripts Active Cymbalta (Duloxetine Hcl) 30 Mg Capsule.dr 1 Cap PO DAILY Tramadol Hcl 50 Mg Tablet 50 Mg PO Q6HRS PRN 6 Days Augmentin 875-125 Tablet (Amoxicillin/Potassium Clav) 1 Each Tablet 1 Tab PO BID 7 Days Quetiapine Fumarate 100 Mg Tablet 100 Mg PO QHS 30 Days Lasix (Furosemide) 40 Mg Tablet 40 Mg PO BID 30 Days Humalog (Insulin Lispro) 100 Unit/1 Ml Insuln.pen 7 Units SQ TIDAC 30 Days Lantus Solostar (Insulin Glargine,Hum.rec.anlog) 100 Unit/1 Ml Insuln.pen 20 Units SQ QHS 30 Days Guaifenesin Dm Syrup (Guaifenesin/Dextromethorphan) 5 Ml Syrup 10 Ml PO PRN Q6HRS PRN 30 Days Benzonatate 100 Mg Capsule 100 Mg PO [id number] 30 Days Montelukast Sodium Tablet (Montelukast Sodium) 10 Mg Tablet 10 Mg PO QHS 30 Days Lyrica (Pregabalin) 75 Mg Capsule 75 Mg PO TID 30 Days Lisinopril 40 Mg Tablet 20 Mg PO DAILY 30 Days Vitals/I & O Vital Sign - Last 24 Hours 11/26/18 11/26/18 11/26/18 11/26/18 08:55 10:00 10:02 11:00 Temp 98.3 98.3 Pulse 95 88 92 Resp 20 18 18 18 B/P (MAP) 178/91 (120) 173/87 (115) 177/81 (113) Pulse Ox 100 99 100 100 O2 Delivery Room Air Room Air Room Air Room Air 11/26/18 11/26/18 11/26/18 11/26/18 11:18 12:00 13:00 14:43 Pulse 90 86 Resp 18 18 18 B/P (MAP) 186/80 (115) 140/73 (95) Pulse Ox 100 100 100 100 O2 Delivery Room Air Room Air Room Air 11/26/18 11/26/18 11/26/18 11/26/18 15:00 15:47 19:00 20:00 Temp 99.0 98.5 99.0 98.5 Pulse 81 78 Resp 19 18 B/P (MAP) 158/85 (109) 172/87 (115) Pulse Ox 98 98 100 O2 Delivery Room Air Room Air Room Air 11/26/18 11/26/18 11/26/18 11/27/18 20:22 21:22 23:00 03:00 Temp 98.2 97.8 98.2 97.8 Pulse 79 72 Resp 18 20 B/P (MAP) 133/69 (90) 130/68 (88) Pulse Ox 95 98 O2 Delivery Room Air Room Air Room Air Room Air Intake and Output 11/26/18 11/26/18 11/27/18 14:59 22:59 06:59 Intake Total 200 ml 250 ml Balance 200 ml 250 ml EBONIE COLE MD Nov 27, 2018 08:08
[2018-11-27] MEDS ORDERED: DEXTROSE 50% 25 GM / 50ML DISP.SYRIN. IV PRN (08:15)
[2018-11-27] MEDS: LISINOPRIL 20 MG TABLET PO SCH (09:22)
[2018-11-27 11:00] VITALS: BP 173/106
[2018-11-27] MEDS: LABETALOL 20 MG/4 ML DISP.SYRIN. IVP PRN ×2 (12:04→19:59)
--- NOTE | 2018-11-27 12:53 | NUR ---
SW following. Discussed with RN, pt is homeless and has mental health history. PAT team had been consulted. JOSE contacted Casey with [facility] to determine if pt had been seen. Casey advised pt is homeless but has been staying with her niece here in , but is wanting to get back to the homeless [facility] in [place], because they have been assisting pt with housing. RN notified, PT/OT has been ordered. JOSE will continue to follow for discharge planning.
--- NOTE | 2018-11-27 14:30 | NUR ---
Wound Care Wound care consult for LLE wound. Pt just left with instructions to dress with Xeroform and foam dressing every 3 days. Pt does not have a dressing in place at this time. Cleansed wound and dressed with Medihoney, contact layer and foam dressing recommend to change every 2 days. Pt educated on PU prevention. No other wounds noted at this time. WC will continue to follow for possible changes.
[2018-11-27] MEDS: ENOXAPARIN 30 MG/0.3 ML SYRINGE. SQ SCH (14:56)
[2018-11-27] MEDS: HYDROcodone/APAP 5/325MG 1 TAB TABLET PO PRN (14:56)
[2018-11-27 15:00] VITALS: BP 106/87
[2018-11-27 19:00] VITALS: BP 198/96
[2018-11-27] MEDS: LACTOBACILLUS RHAMNOSUS GG 1 CAPSULE. PO SCH (20:54)
[2018-11-27] MEDS: MONTELUKAST SODIUM 10 MG TABLET. PO SCH (20:54)
[2018-11-27] MEDS: INSULIN GLARGINE 300 UNITS/3 ML INSULN.PEN. SQ SCH (21:02)
[2018-11-27] MEDS: ZIPRASIDONE 20 MG CAPSULE PO SCH (21:07)
[2018-11-27 23:00] VITALS: BP 178/82
[2018-11-28] VITALS (7 sets, daily range): BP systolic 108–221; BP diastolic 74–105
[2018-11-28] MEDS: PIPERACILLIN/TAZOBACTAM 3.375 GM in IV NORMAL SALINE 50ML 50 ML IV SCH ×5 (00:02→23:08)
[2018-11-28] MEDS: LABETALOL 20 MG/4 ML DISP.SYRIN. IVP PRN (07:53)
[2018-11-28] MEDS: INSULIN LISPRO 300 UNITS/3 ML INSULN.PEN. SQ SCH ×3 (08:00→17:00)
[2018-11-28] MEDS: BENZONATATE 100 MG CAPSULE. PO SCH ×3 (08:02→21:02)
[2018-11-28] MEDS: PREGABALIN 75 MG CAPSULE PO SCH ×3 (08:02→21:01)
[2018-11-28] MEDS: LACTOBACILLUS RHAMNOSUS GG 1 CAPSULE. PO SCH ×2 (08:03→21:02)
[2018-11-28] MEDS: DULoxetine HCL 30 MG CAPSULE.DR PO SCH (08:03)
[2018-11-28] MEDS: LISINOPRIL 20 MG TABLET PO SCH (08:03)
[2018-11-28] MEDS ORDERED: IBUPROFEN 400 MG TABLET. PO PRN (08:45)
[2018-11-28] MEDS ORDERED: ACETAMINOPHEN/CODEINE 300/30MG TABLET. PO PRN (08:45)
[2018-11-28] MEDS ORDERED: ACETAMINOPHEN 500 MG TABLET PO PRN (08:45)
[2018-11-28] MEDS ORDERED: hydroCHLOROthiazide 25 MG TABLET PO SCH (09:00)
--- NOTE | 2018-11-28 10:12 | PDOC ---
PROGRESS NOTES Chief Complaint Chief Complaint cellulitis left lower leg/ ankle - zyvox and zosyn. 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 chronic pain - tramadol, cymbalta, small dose lyrica History of Present Illness History of Present Illness Left ankle wound doesn't look bad at all No fevers, no white count She is willing to go back to [facility] and she likes that place Blood pressure is high, 225 systolic She does smoke cigars Colleague started her on Zyvox and Zosyn which she was on not too long ago and shifted by ID to by mouth Augmentin for 5 days upon dc - but she did not fill that SHe feels tired Plan : labetolol when necessary Start HCTZ 12.5. She is already on lisinopril 20. She was on 40 once a day at home but I feel like doubling the dose of lisinopril will cause more untoward effects than just adding a third agent Legs are swollen, on Lasix 40 by mouth twice a day Shift to IV lasix E lites while on IV diuresis Stop IVF DC K IVF is potassium is now normal Not ready to DC, blood pressure high. follow blood cultures Likely by mouth Augmentin on discharge to [facility] Friday Vitals Vitals Vital Signs Date Time Temp Pulse Resp B/P (MAP) Pulse Ox O2 Delivery O2 Flow Rate FiO2 11/28/18 08:03 72 225/105 11/28/18 07:00 98.3 18 97 Room Air 98.3 Physical Exam General: Alert, Oriented X3, Cooperative, No acute distress, mild distress Heart: Regular rate, Normal S1, Normal S2 Lungs: Clear Abdomen: Normal bowel sounds, Soft, No tenderness, No hepatosplenomegaly, No masses Extremities: No clubbing, No cyanosis, Normal pulses, No tenderness/swelling Skin: No rashes, No significant lesion, Other (small left ankle wound abrasion maybe 1 cm in greatest diameter, no foul-smelling discharge or drainage) Labs LABS Laboratory Tests Test 11/27/18 11:22 11/27/18 16:49 11/27/18 20:52 11/28/18 07:32 Glucose (Fingerstick) 75 mg/dL (70-99) 103 mg/dL (70-99) 110 mg/dL (70-99) 65 mg/dL (70-99) Review of Systems Review of Systems Tired, the rest of ROS 14 point negative Assessment and Plan Assessmemt and Plan Problems Medical Problems: (1) Bipolar 1 disorder, depressed Status: Acute (2) Bipolar 1 disorder, depressed, severe Status: Acute (3) Cellulitis of left lower extremity Status: Acute (4) Diabetes Status: Acute (5) Hypertension Status: Acute Comment Review of Relevant I have reviewed the following items peyton (where applicable) has been applied. Labs Laboratory Tests Test 11/26/18 10:30 11/26/18 14:33 11/26/18 15:45 11/26/18 16:44 White Blood Count 12.1 x10^3/uL (4.0-11.0) Red Blood Count 3.95 x10^6/uL (3.50-5.40) Hemoglobin 12.9 g/dL (12.0-15.5) Hematocrit 39.7 % (36.0-47.0) Mean Corpuscular Volume 101 fL (79-100) Mean Corpuscular Hemoglobin 33 pg (25-35) Mean Corpuscular Hemoglobin Concent 32 g/dL (31-37) Red Cell Distribution Width 14.3 % (11.5-14.5) Platelet Count 355 x10^3/uL (140-400) Neutrophils (%) (Auto) 56 % (31-73) Lymphocytes (%) (Auto) 30 % (24-48) Monocytes (%) (Auto) 10 % (0-9) Eosinophils (%) (Auto) 2 % (0-3) Basophils (%) (Auto) 1 % (0-3) Neutrophils # (Auto) 6.7 x10^3uL (1.8-7.7) Lymphocytes # (Auto) 3.7 x10^3/uL (1.0-4.8) Monocytes # (Auto) 1.3 x10^3/uL (0.0-1.1) Eosinophils # (Auto) 0.3 x10^3/uL (0.0-0.7) Basophils # (Auto) 0.1 x10^3/uL (0.0-0.2) Sodium Level 143 mmol/L (136-145) Potassium Level 4.4 mmol/L (3.5-5.1) Chloride Level 107 mmol/L (98-107) Carbon Dioxide Level 26 mmol/L (21-32) Anion Gap 10 (6-14) Blood Urea Nitrogen 35 mg/dL (7-20) Creatinine 1.6 mg/dL (0.6-1.0) Estimated GFR (Cockcroft-Gault) 39.4 BUN/Creatinine Ratio 22 (6-20) Glucose Level 177 mg/dL (70-99) Calcium Level 8.7 mg/dL (8.5-10.1) Total Bilirubin 0.2 mg/dL (0.2-1.0) Aspartate Amino Transf (AST/SGOT) 29 U/L (15-37) Alanine Aminotransferase (ALT/SGPT) 30 U/L (14-59) Alkaline Phosphatase 81 U/L (46-116) Total Protein 6.8 g/dL (6.4-8.2) Albumin 1.9 g/dL (3.4-5.0) Albumin/Globulin Ratio 0.4 (1.0-1.7) Glucose (Fingerstick) 146 mg/dL (70-99) 178 mg/dL (70-99) Anti-Streptolysin O Antibody 57.8 IU/mL (0.0-200.0) Test 11/26/18 21:06 11/27/18 04:15 11/27/18 07:44 11/27/18 11:22 Glucose (Fingerstick) 229 mg/dL (70-99) 87 mg/dL (70-99) 75 mg/dL (70-99) White Blood Count 9.8 x10^3/uL (4.0-11.0) Red Blood Count 3.78 x10^6/uL (3.50-5.40) Hemoglobin 12.2 g/dL (12.0-15.5) Hematocrit 38.2 % (36.0-47.0) Mean Corpuscular Volume 101 fL (79-100) Mean Corpuscular Hemoglobin 32 pg (25-35) Mean Corpuscular Hemoglobin Concent 32 g/dL (31-37) Red Cell Distribution Width 14.3 % (11.5-14.5) Platelet Count 366 x10^3/uL (140-400) Neutrophils (%) (Auto) 39 % (31-73) Lymphocytes (%) (Auto) 44 % (24-48) Monocytes (%) (Auto) 11 % (0-9) Eosinophils (%) (Auto) 4 % (0-3) Basophils (%) (Auto) 1 % (0-3) Neutrophils # (Auto) 3.8 x10^3uL (1.8-7.7) Lymphocytes # (Auto) 4.4 x10^3/uL (1.0-4.8) Monocytes # (Auto) 1.1 x10^3/uL (0.0-1.1) Eosinophils # (Auto) 0.4 x10^3/uL (0.0-0.7) Basophils # (Auto) 0.1 x10^3/uL (0.0-0.2) Sodium Level 142 mmol/L (136-145) Potassium Level 4.4 mmol/L (3.5-5.1) Chloride Level 107 mmol/L (98-107) Carbon Dioxide Level 28 mmol/L (21-32) Anion Gap 7 (6-14) Blood Urea Nitrogen 33 mg/dL (7-20) Creatinine 1.4 mg/dL (0.6-1.0) Estimated GFR (Cockcroft-Gault) 46.0 Glucose Level 76 mg/dL (70-99) Calcium Level 8.2 mg/dL (8.5-10.1) Test 11/27/18 16:49 11/27/18 20:52 11/28/18 07:32 Glucose (Fingerstick) 103 mg/dL (70-99) 110 mg/dL (70-99) 65 mg/dL (70-99) Laboratory Tests Test 11/27/18 11:22 11/27/18 16:49 11/27/18 20:52 11/28/18 07:32 Glucose (Fingerstick) 75 mg/dL (70-99) 103 mg/dL (70-99) 110 mg/dL (70-99) 65 mg/dL (70-99) Medications Current Medications Fentanyl Citrate (Fentanyl 2ml Vial) 50 mcg 1X ONCE IV Last administered on at 10:02; Start 11/26/18 at 09:30; Stop 11/26/18 at 09:31; Status DC Fentanyl Citrate (Fentanyl 2ml Vial) 50 mcg 1X ONCE IV Last administered on at 11:18; Start 11/26/18 at 11:15; Stop 11/26/18 at 11:16; Status DC Metoprolol Tartrate (Lopressor Vial) 5 mg 1X ONCE IVP ; Start 11/26/18 at 11:45 ; Stop 11/26/18 at 11:46; Status DC Ondansetron HCl (Zofran) 4 mg PRN Q8HRS PRN IV NAUSEA/VOMITING Last administered on 11/27/18at 12:04; Start 11/26/18 at 13:00; Stop 11/27/18 at 12:59 ; Status DC Fentanyl Citrate (Fentanyl 2ml Vial) 50 mcg PRN Q1HR PRN IV PAIN; Start at 13:00; Stop 11/27/18 at 12:59; Status DC Sodium Chloride 1,000 ml @ 125 mls/hr Q8H IV Last administered on 11/27/18at 05 :33; Start 11/26/18 at 12:53; Stop 11/27/18 at 12:52; Status DC Duloxetine HCl (Cymbalta) 30 mg DAILY PO Last administered on 11/28/18at 08:03; Start 11/26/18 at 14:00 Guaifenesin (Robitussin Dm) 10 ml PRN Q6HRS PRN PO COUGH; Start 11/26/18 at 14: 00 Insulin Glargine (Lantus) 20 units QHS SQ Last administered on 11/27/18at 21:02 ; Start 11/26/18 at 21:00; Stop 11/28/18 at 08:48; Status DC Insulin Human Lispro (HumaLOG) 7 units TIDAC SQ ; Start 11/26/18 at 16:30; Stop 11/28/18 at 08:48; Status DC Pregabalin (Lyrica) 75 mg TID PO Last administered on 11/28/18at 08:02; Start at 14:00 Tramadol HCl (Ultram) 50 mg PRN Q6HRS PRN PO PAIN; Start 11/26/18 at 14:00 Benzonatate (Tessalon Perle) 100 mg [id number] PO Last administered on 11/28/18 08 :02; Start 11/26/18 at 14:00 Montelukast Sodium (Singulair) 10 mg QHS PO Last administered on 11/27/18at 20: 54; Start 11/26/18 at 21:00 Quetiapine Fumarate (SEROquel XR) 100 mg QHS PO Last administered on 11/26/18at 20:22; Start 11/26/18 at 21:00; Stop 11/27/18 at 12:02; Status DC Labetalol HCl (Normodyne Iv Push) 10 mg PRN Q4HRS PRN IVP HYPERTENSION, SEE COMMENTS Last administered on 11/28/18at 07:53; Start 11/26/18 at 14:00 Piperacillin Sod/ Tazobactam Sod 3.375 gm/Sodium Chloride 50 ml @ 100 mls/hr Q6HRS IV Last administered on 11/28/18at 05:51; Start 11/26/18 at 18:00 Linezolid/Dextrose 300 ml @ 300 mls/hr Q12HR IV Last administered on 08:04; Start 11/26/18 at 21:00 Enoxaparin Sodium (Lovenox 30mg Syringe) 30 mg Q24H SQ Last administered on at 14:56; Start 11/26/18 at 14:15; Stop 11/27/18 at 16:44; Status DC Acetaminophen/ Hydrocodone Bitart (Lortab 5/325) 1 tab PRN Q4HRS PRN PO PAIN Last administered on 11/27/18at 14:56; Start 11/26/18 at 14:15 Insulin Human Lispro (HumaLOG) 0-5 UNITS TIDWMEALS SQ ; Start 11/27/18 at 08:30 Dextrose (Dextrose 50%-Water Syringe) 12.5 gm PRN Q15MIN PRN IV SEE COMMENTS; Start 11/27/18 at 08:15 Lisinopril (Prinivil) 20 mg DAILY PO Last administered on 11/28/18at 08:03; Start 11/27/18 at 09:00 Lactobacillus Rhamnosus (Culturelle) 1 cap BID PO Last administered on at 08:03; Start 11/27/18 at 21:00 Ziprasidone (Geodon) 20 mg QHS PO Last administered on 11/27/18at 21:07; Start 11/27/18 at 21:00 Enoxaparin Sodium (Lovenox 40mg Syringe) 40 mg Q24H SQ ; Start 11/28/18 at 14:00 Insulin Glargine (Lantus) 10 units QHS SQ ; Start 11/28/18 at 21:00 Hydrochlorothiazide (Hydrodiuril) 25 mg DAILY PO ; Start 11/28/18 at 09:00 Furosemide (Lasix) 40 mg [id number] PO ; Start 11/28/18 at 09:00 Ibuprofen (Motrin) 400 mg PRN Q6HRS PRN PO INFLAMMATION; Start 11/28/18 at 08: 45 Acetaminophen (Tylenol) 500 mg PRN Q6HRS PRN PO MILD PAIN / TEMP; Start at 08:45 Acetaminophen/ Codeine Phosphate (Tylenol #3) 1 tab PRN Q6HRS PRN PO PAIN; Start 11/28/18 at 08:45 Active Scripts Active Cymbalta (Duloxetine Hcl) 30 Mg Capsule.dr 1 Cap PO DAILY Tramadol Hcl 50 Mg Tablet 50 Mg PO Q6HRS PRN 6 Days Augmentin 875-125 Tablet (Amoxicillin/Potassium Clav) 1 Each Tablet 1 Tab PO BID 7 Days Quetiapine Fumarate 100 Mg Tablet 100 Mg PO QHS 30 Days Lasix (Furosemide) 40 Mg Tablet 40 Mg PO BID 30 Days Humalog (Insulin Lispro) 100 Unit/1 Ml Insuln.pen 7 Units SQ TIDAC 30 Days Lantus Solostar (Insulin Glargine,Hum.rec.anlog) 100 Unit/1 Ml Insuln.pen 20 Units SQ QHS 30 Days Guaifenesin Dm Syrup (Guaifenesin/Dextromethorphan) 5 Ml Syrup 10 Ml PO PRN Q6HRS PRN 30 Days Benzonatate 100 Mg Capsule 100 Mg PO [id number] 30 Days Montelukast Sodium Tablet (Montelukast Sodium) 10 Mg Tablet 10 Mg PO QHS 30 Days Lyrica (Pregabalin) 75 Mg Capsule 75 Mg PO TID 30 Days Lisinopril 40 Mg Tablet 20 Mg PO DAILY 30 Days Vitals/I & O Vital Sign - Last 24 Hours 11/27/18 11/27/18 11/27/18 11/27/18 11:00 12:04 14:56 15:00 Temp 98.2 98.2 98.2 98.2 Pulse 80 80 84 Resp 17 17 B/P (MAP) 173/106 (128) 173/106 106/87 (93) Pulse Ox 99 97 O2 Delivery Room Air Room Air Room Air 11/27/18 11/27/18 11/27/18 11/27/18 16:21 19:00 19:59 20:00 Temp 98.3 98.3 Pulse 74 73 Resp 18 B/P (MAP) 198/96 (130) 194/94 Pulse Ox 99 97 O2 Delivery Room Air Room Air Room Air 11/27/18 11/28/18 11/28/18 11/28/18 23:00 00:13 03:00 07:00 Temp 98.0 98.2 98.3 98.0 98.2 98.3 Pulse 69 68 64 72 Resp 18 18 18 B/P (MAP) 178/82 (114) 108/75 (86) 113/83 (93) 221/105 (143) Pulse Ox 97 96 97 O2 Delivery Room Air Room Air Room Air 11/28/18 11/28/18 07:53 08:03 Pulse 72 72 B/P (MAP) 225/105 225/105 PRATIMA ARANGO MD Nov 28, 2018 10:12
[2018-11-28] MEDS ORDERED: FUROSEMIDE 40 MG/4 ML VIAL. IVP ONE (10:15)
[2018-11-28] MEDS: FUROSEMIDE 40 MG TABLET. PO SCH ×2 (10:22→15:00)
[2018-11-28] MEDS: hydrALAZINE 25 MG TABLET PO SCH ×2 (10:25→21:02)
[2018-11-28] MEDS: ENOXAPARIN 40 MG/0.4 ML SYRINGE. SQ SCH (14:00)
[2018-11-28] MEDS: ZIPRASIDONE 20 MG CAPSULE PO SCH (21:01)
[2018-11-28] MEDS: HYDROcodone/APAP 5/325MG 1 TAB TABLET PO PRN (21:02)
[2018-11-28] MEDS: MONTELUKAST SODIUM 10 MG TABLET. PO SCH (21:02)
[2018-11-28] MEDS: INSULIN GLARGINE 300 UNITS/3 ML INSULN.PEN. SQ SCH (21:08)
[2018-11-29] MEDS: HYDROcodone/APAP 5/325MG 1 TAB TABLET PO PRN ×4 (01:05→21:27)
[2018-11-29 03:10] VITALS: BP 127/61
[2018-11-29] MEDS: PIPERACILLIN/TAZOBACTAM 3.375 GM in IV NORMAL SALINE 50ML 50 ML IV SCH ×3 (05:59→17:14)
[2018-11-29 07:00] VITALS: BP 187/94
[2018-11-29] MEDS: INSULIN LISPRO 300 UNITS/3 ML INSULN.PEN. SQ SCH ×3 (08:00→17:00)
[2018-11-29] MEDS: LACTOBACILLUS RHAMNOSUS GG 1 CAPSULE. PO SCH ×2 (08:04→21:27)
[2018-11-29] MEDS: BENZONATATE 100 MG CAPSULE. PO SCH ×3 (08:04→21:27)
[2018-11-29] MEDS: DULoxetine HCL 30 MG CAPSULE.DR PO SCH (08:04)
[2018-11-29] MEDS: LISINOPRIL 20 MG TABLET PO SCH (08:05)
[2018-11-29] MEDS: FUROSEMIDE 40 MG TABLET. PO SCH (08:05)
[2018-11-29] MEDS: hydrALAZINE 25 MG TABLET PO SCH ×2 (08:05→21:28)
[2018-11-29] MEDS: PREGABALIN 75 MG CAPSULE PO SCH ×3 (08:06→21:27)
[2018-11-29] MEDS ORDERED: FUROSEMIDE 40 MG/4 ML VIAL. IVP SCH (09:00)
[2018-11-29] MEDS ORDERED: LOPERAMIDE 2 MG CAPSULE PO PRN (09:00)
[2018-11-29] MEDS: CARVEDILOL 6.25 MG TABLET. PO SCH ×2 (10:25→17:15)
--- NOTE | 2018-11-29 10:27 | PDOC ---
PROGRESS NOTES Chief Complaint Chief Complaint Malignant HTN - SBP 2001, 180s systolic - symptomatic cellulitis left lower leg/ ankle - zyvox and zosyn. 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 chronic pain - tramadol, cymbalta, small dose lyrica History of Present Illness History of Present Illness Left ankle wound doesn't look bad at all No fevers, no white count She is willing to go back to [facility] and she likes that place Blood pressure is high, 225 systolic, still - does get headache She does smoke cigars Colleague started her on Zyvox and Zosyn which she was on not too long ago and shifted by ID to by mouth Augmentin for 5 days upon dc - but she did not fill that SHe feels tired Plan : cont labetolol when necessary Increase Lasix to 40 IV twice a day leg swelling-thighs are much better now since I started Lasix yesterday Start beta sindhu Coreg 6.25 twice a day for the hypertension Some loose stools or chalky stools, Imodium, check for C. difficile, DC Imodium if C. difficile negative Blood pressure is still high, not able to discharge Check renal Dopplers rule out LEONEL no unlikely Likely by mouth Augmentin on discharge to [facility] Friday if bP better check lites tomorrow since on IV Lasix twice a day for leg swelling Vitals Vitals Vital Signs Date Time Temp Pulse Resp B/P (MAP) Pulse Ox O2 Delivery O2 Flow Rate FiO2 11/29/18 09:07 Room Air 11/29/18 08:05 76 187/94 11/29/18 07:00 98.3 18 100 98.3 Physical Exam General: Alert, Oriented X3, Cooperative, No acute distress, mild distress Heart: Regular rate, Normal S1, Normal S2 Lungs: Clear Abdomen: Normal bowel sounds, Soft, No tenderness, No hepatosplenomegaly, No masses Extremities: No clubbing, No cyanosis, Normal pulses, No tenderness/swelling Skin: No rashes, No significant lesion, Other (small left ankle wound abrasion maybe 1 cm in greatest diameter, no foul-smelling discharge or drainage) Labs LABS Laboratory Tests Test 11/28/18 11:52 11/28/18 16:54 11/28/18 20:37 11/29/18 07:57 Glucose (Fingerstick) 120 mg/dL (70-99) 148 mg/dL (70-99) 175 mg/dL (70-99) 101 mg/dL (70-99) Review of Systems Review of Systems Headache, tired sometimes, otherwise rest of ROS 14 point negative Assessment and Plan Assessmemt and Plan Problems Medical Problems: (1) Bipolar 1 disorder, depressed Status: Acute (2) Bipolar 1 disorder, depressed, severe Status: Acute (3) Cellulitis of left lower extremity Status: Acute (4) Diabetes Status: Acute (5) Hypertension Status: Acute Comment Review of Relevant I have reviewed the following items peyton (where applicable) has been applied. Labs Laboratory Tests Test 11/27/18 11:22 11/27/18 16:49 11/27/18 20:52 11/28/18 07:32 Glucose (Fingerstick) 75 mg/dL (70-99) 103 mg/dL (70-99) 110 mg/dL (70-99) 65 mg/dL (70-99) Test 11/28/18 08:41 11/28/18 09:40 11/28/18 11:52 11/28/18 16:54 Glucose (Fingerstick) 98 mg/dL (70-99) 120 mg/dL (70-99) 148 mg/dL (70-99) Erythrocyte Sedimentation Rate 66 (0-25) Test 11/28/18 20:37 11/29/18 07:57 Glucose (Fingerstick) 175 mg/dL (70-99) 101 mg/dL (70-99) Laboratory Tests Test 11/28/18 11:52 11/28/18 16:54 11/28/18 20:37 11/29/18 07:57 Glucose (Fingerstick) 120 mg/dL (70-99) 148 mg/dL (70-99) 175 mg/dL (70-99) 101 mg/dL (70-99) Medications Current Medications Fentanyl Citrate (Fentanyl 2ml Vial) 50 mcg 1X ONCE IV Last administered on at 10:02; Start 11/26/18 at 09:30; Stop 11/26/18 at 09:31; Status DC Fentanyl Citrate (Fentanyl 2ml Vial) 50 mcg 1X ONCE IV Last administered on at 11:18; Start 11/26/18 at 11:15; Stop 11/26/18 at 11:16; Status DC Metoprolol Tartrate (Lopressor Vial) 5 mg 1X ONCE IVP ; Start 11/26/18 at 11:45 ; Stop 11/26/18 at 11:46; Status DC Ondansetron HCl (Zofran) 4 mg PRN Q8HRS PRN IV NAUSEA/VOMITING Last administered on 11/27/18at 12:04; Start 11/26/18 at 13:00; Stop 11/27/18 at 12:59 ; Status DC Fentanyl Citrate (Fentanyl 2ml Vial) 50 mcg PRN Q1HR PRN IV PAIN; Start at 13:00; Stop 11/27/18 at 12:59; Status DC Sodium Chloride 1,000 ml @ 125 mls/hr Q8H IV Last administered on 11/27/18at 05 :33; Start 11/26/18 at 12:53; Stop 11/27/18 at 12:52; Status DC Duloxetine HCl (Cymbalta) 30 mg DAILY PO Last administered on 11/29/18at 08:04; Start 11/26/18 at 14:00 Guaifenesin (Robitussin Dm) 10 ml PRN Q6HRS PRN PO COUGH; Start 11/26/18 at 14: 00 Insulin Glargine (Lantus) 20 units QHS SQ Last administered on 11/27/18at 21:02 ; Start 11/26/18 at 21:00; Stop 11/28/18 at 08:48; Status DC Insulin Human Lispro (HumaLOG) 7 units TIDAC SQ ; Start 11/26/18 at 16:30; Stop 11/28/18 at 08:48; Status DC Pregabalin (Lyrica) 75 mg TID PO Last administered on 11/29/18at 08:06; Start at 14:00 Tramadol HCl (Ultram) 50 mg PRN Q6HRS PRN PO MILD PAIN; Start 11/26/18 at 14:00 Benzonatate (Tessalon Perle) 100 mg [id number] PO Last administered on 11/29/18 08 :04; Start 11/26/18 at 14:00 Montelukast Sodium (Singulair) 10 mg QHS PO Last administered on 11/28/18 21: 02; Start 11/26/18 at 21:00 Quetiapine Fumarate (SEROquel XR) 100 mg QHS PO Last administered on 11/26/18 20:22; Start 11/26/18 at 21:00; Stop 11/27/18 at 12:02; Status DC Labetalol HCl (Normodyne Iv Push) 10 mg PRN Q4HRS PRN IVP HYPERTENSION, SEE COMMENTS Last administered on 11/28/18 07:53; Start 11/26/18 at 14:00 Piperacillin Sod/ Tazobactam Sod 3.375 gm/Sodium Chloride 50 ml @ 100 mls/hr Q6HRS IV Last administered on 11/29/18 05:59; Start 11/26/18 at 18:00 Linezolid/Dextrose 300 ml @ 300 mls/hr Q12HR IV Last administered on 08:06; Start 11/26/18 at 21:00 Enoxaparin Sodium (Lovenox 30mg Syringe) 30 mg Q24H SQ Last administered on at 14:56; Start 11/26/18 at 14:15; Stop 11/27/18 at 16:44; Status DC Acetaminophen/ Hydrocodone Bitart (Lortab 5/325) 1 tab PRN Q4HRS PRN PO MODERATE PAIN Last administered on 11/29/18 08:06; Start 11/26/18 at 14:15 Insulin Human Lispro (HumaLOG) 0-5 UNITS TIDWMEALS SQ ; Start 11/27/18 at 08:30 Dextrose (Dextrose 50%-Water Syringe) 12.5 gm PRN Q15MIN PRN IV SEE COMMENTS; Start 11/27/18 at 08:15 Lisinopril (Prinivil) 20 mg DAILY PO Last administered on 11/29/18 08:05; Start 11/27/18 at 09:00 Lactobacillus Rhamnosus (Culturelle) 1 cap BID PO Last administered on 08:04; Start 11/27/18 at 21:00 Ziprasidone (Geodon) 20 mg QHS PO Last administered on 11/28/18at 21:01; Start 11/27/18 at 21:00 Enoxaparin Sodium (Lovenox 40mg Syringe) 40 mg Q24H SQ ; Start 11/28/18 at 14:00 Insulin Glargine (Lantus) 10 units QHS SQ Last administered on 11/28/18at 21:08 ; Start 11/28/18 at 21:00 Hydrochlorothiazide (Hydrodiuril) 25 mg DAILY PO ; Start 11/28/18 at 09:00; Stop 11/28/18 at 10:14; Status DC Furosemide (Lasix) 40 mg [id number] PO Last administered on 11/29/18at 08:05; Start 11/28/18 at 09:00; Stop 11/29/18 at 08:57; Status DC Ibuprofen (Motrin) 400 mg PRN Q6HRS PRN PO INFLAMMATION Last administered on at 15:14; Start 11/28/18 at 08:45 Acetaminophen (Tylenol) 500 mg PRN Q6HRS PRN PO MILD PAIN / TEMP; Start at 08:45 Acetaminophen/ Codeine Phosphate (Tylenol #3) 1 tab PRN Q6HRS PRN PO PAIN; Start 11/28/18 at 08:45 Furosemide (Lasix) 40 mg DAILY IVP Last administered on 11/29/18at 08:07; Start 11/29/18 at 09:00 Furosemide (Lasix) 40 mg 1X ONCE IVP Last administered on 11/28/18at 10:23; Start 11/28/18 at 10:15; Stop 11/28/18 at 10:16; Status DC Hydralazine HCl (Apresoline) 25 mg BID PO Last administered on 11/29/18at 08:05 ; Start 11/28/18 at 10:15 Loperamide HCl (Imodium) 2 mg PRN Q15MIN PRN PO DIARRHEA; Start 11/29/18 at 09: 00 Carvedilol (Coreg) 6.25 mg BIDWMEALS PO ; Start 11/29/18 at 09:00 Active Scripts Active Cymbalta (Duloxetine Hcl) 30 Mg Capsule.dr 1 Cap PO DAILY Tramadol Hcl 50 Mg Tablet 50 Mg PO Q6HRS PRN 6 Days Augmentin 875-125 Tablet (Amoxicillin/Potassium Clav) 1 Each Tablet 1 Tab PO BID 7 Days Quetiapine Fumarate 100 Mg Tablet 100 Mg PO QHS 30 Days Lasix (Furosemide) 40 Mg Tablet 40 Mg PO BID 30 Days Humalog (Insulin Lispro) 100 Unit/1 Ml Insuln.pen 7 Units SQ TIDAC 30 Days Lantus Solostar (Insulin Glargine,Hum.rec.anlog) 100 Unit/1 Ml Insuln.pen 20 Units SQ QHS 30 Days Guaifenesin Dm Syrup (Guaifenesin/Dextromethorphan) 5 Ml Syrup 10 Ml PO PRN Q6HRS PRN 30 Days Benzonatate 100 Mg Capsule 100 Mg PO [id number] 30 Days Montelukast Sodium Tablet (Montelukast Sodium) 10 Mg Tablet 10 Mg PO QHS 30 Days Lyrica (Pregabalin) 75 Mg Capsule 75 Mg PO TID 30 Days Lisinopril 40 Mg Tablet 20 Mg PO DAILY 30 Days Vitals/I & O Vital Sign - Last 24 Hours 11/28/18 11/28/18 11/28/18 11/28/18 10:30 15:00 19:00 20:00 Temp 98.3 99.3 98.2 98.3 99.3 98.2 Pulse 72 88 88 Resp 18 20 B/P (MAP) 170/77 (108) 186/84 (118) 191/93 (125) Pulse Ox 97 100 98 O2 Delivery Room Air Room Air Room Air Room Air 11/28/18 11/28/18 11/28/18 11/29/18 21:02 21:02 23:00 01:05 Temp 98.3 98.3 Pulse 88 83 Resp 20 B/P (MAP) 191/93 150/74 (99) Pulse Ox 98 98 98 O2 Delivery Room Air Room Air Room Air 11/29/18 11/29/18 11/29/18 11/29/18 02:05 03:10 07:00 08:05 Temp 98.0 98.3 98.0 98.3 Pulse 72 76 76 Resp 20 18 B/P (MAP) 127/61 (83) 187/94 (125) 187/94 Pulse Ox 98 98 100 O2 Delivery Room Air Room Air 11/29/18 11/29/18 11/29/18 08:05 08:06 09:07 Pulse 76 B/P (MAP) 187/94 O2 Delivery Room Air Room Air Intake and Output 11/28/18 11/28/18 11/29/18 15:00 23:00 07:00 Intake Total 870 ml 350 ml Balance 870 ml 350 ml PRATIMA ARANGO MD Nov 29, 2018 10:27
[2018-11-29] MEDS: ENOXAPARIN 40 MG/0.4 ML SYRINGE. SQ SCH (13:50)
[2018-11-29 15:00] VITALS: BP 219/103
[2018-11-29] MEDS: LABETALOL 20 MG/4 ML DISP.SYRIN. IVP PRN (17:35)
[2018-11-29 18:13] VITALS: BP 143/66
[2018-11-29 19:00] VITALS: BP 154/80
[2018-11-29] MEDS: MONTELUKAST SODIUM 10 MG TABLET. PO SCH (21:27)
[2018-11-29] MEDS: FUROSEMIDE 40 MG/4 ML VIAL. IVP SCH (21:27)
[2018-11-29] MEDS: ZIPRASIDONE 20 MG CAPSULE PO SCH (21:27)
[2018-11-29] MEDS: INSULIN GLARGINE 300 UNITS/3 ML INSULN.PEN. SQ SCH (21:35)
[2018-11-29 23:00] VITALS: BP 188/87
[2018-11-30] MEDS: PIPERACILLIN/TAZOBACTAM 3.375 GM in IV NORMAL SALINE 50ML 50 ML IV SCH ×3 (00:10→13:59)
[2018-11-30 03:00] VITALS: BP 189/93
[2018-11-30 04:19] LABS: CALCIUM 8.6 mg/dL (8.5-10.1); CREATININE 1.3 mg/dL (0.6-1.0); GFR 50.1; POTASSIUM 3.8 mmol/L (3.5-5.1)
[2018-11-30 07:00] VITALS: BP 186/83
[2018-11-30] MEDS: INSULIN LISPRO 300 UNITS/3 ML INSULN.PEN. SQ SCH ×3 (08:00→17:00)
--- NOTE | 2018-11-30 08:12 | RAD ---
Deep Doppler renal ultrasound, 11/29/2018: HISTORY: Hypertension Duplex evaluation of the renal arteries was performed including grayscale, color-flow and spectral Doppler analysis. The right kidney measures 11.3 cm in length while left kidney measures 11.4 cm. The peak systolic velocity in the right main renal artery is 143 cm/s and in the left main renal artery is 132 cm/s. No parvus/tardus phenomena is evident. IMPRESSION: No duplex evidence of significant renal artery stenosis. Electronically signed by: Luis Haque MD (11/30/2018 8:09 AM) [facility]
--- NOTE | 2018-11-30 08:36 | NUR ---
SW following pt. PT/OT notes indicate pt is independent with ADL's and no skilled needs indicated at this time. Discharge disposition is home with niece or homeless senior living upon dc. Will continue to follow.
[2018-11-30] MEDS: FUROSEMIDE 40 MG/4 ML VIAL. IVP SCH (09:24)
[2018-11-30] MEDS: LACTOBACILLUS RHAMNOSUS GG 1 CAPSULE. PO SCH (09:24)
[2018-11-30] MEDS: PREGABALIN 75 MG CAPSULE PO SCH ×2 (09:24→13:58)
[2018-11-30] MEDS: HYDROcodone/APAP 5/325MG 1 TAB TABLET PO PRN (09:24)
[2018-11-30] MEDS: BENZONATATE 100 MG CAPSULE. PO SCH ×2 (09:25→13:58)
[2018-11-30] MEDS: LISINOPRIL 20 MG TABLET PO SCH (09:25)
[2018-11-30] MEDS: CARVEDILOL 6.25 MG TABLET. PO SCH ×2 (09:26→18:04)
[2018-11-30] MEDS: DULoxetine HCL 30 MG CAPSULE.DR PO SCH (09:26)
[2018-11-30] MEDS: hydrALAZINE 25 MG TABLET PO SCH ×2 (09:37→13:58)
[2018-11-30 11:00] VITALS: BP 151/84
[2018-11-30] MEDS ORDERED: LISI-130 PO (11:29)
[2018-11-30] MEDS ORDERED: HYDR-2868 PO (11:29)
[2018-11-30] MEDS ORDERED: FURO-68 PO (11:29)
[2018-11-30] MEDS ORDERED: CARV6.2511 PO (11:29)
--- NOTE | 2018-11-30 11:32 | PDOC3 ---
Discharge Summary Visit Information Date of Admission: Nov 26, 2018 Date of Discharge: Nov 30, 2018 Admitting Diagnosis Comment: Malignant HTN - SBP 2002, 180s systolic - symptomatic cellulitis left lower leg/ ankle - zyvox and zosyn. 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 chronic pain - tramadol, cymbalta, small dose lyrica Final Diagnosis Problems Medical Problems: (1) Bipolar 1 disorder, depressed Status: Acute (2) Bipolar 1 disorder, depressed, severe Status: Acute (3) Cellulitis of left lower extremity Status: Acute (4) Diabetes Status: Acute (5) Hypertension Status: Acute Brief Hospital Course Allergies Allergies Coded Allergies Type Severity Reaction Last Updated Verified aspirin Adverse Reaction Mild Nausea and Vomiting 01/05/18 Yes ketorolac Adverse Reaction Mild Nausea 01/05/18 Yes morphine Adverse Reaction Mild Nausea and Vomiting 01/05/18 Yes Vital Signs Vital Signs Date Time Temp Pulse Resp B/P (MAP) Pulse Ox O2 Delivery O2 Flow Rate FiO2 11/30/18 11:00 98.7 82 18 151/84 (106) 98 Room Air 98.7 Lab Results Laboratory Tests Test 11/28/18 11:52 11/28/18 16:54 11/28/18 20:37 11/29/18 07:57 Glucose (Fingerstick) 120 mg/dL (70-99) 148 mg/dL (70-99) 175 mg/dL (70-99) 101 mg/dL (70-99) Test 11/29/18 10:35 11/29/18 16:41 11/29/18 20:01 11/30/18 03:15 Glucose (Fingerstick) 127 mg/dL (70-99) 110 mg/dL (70-99) 198 mg/dL (70-99) Erythrocyte Sedimentation Rate 74 (0-25) Sodium Level 143 mmol/L (136-145) Potassium Level 3.8 mmol/L (3.5-5.1) Chloride Level 104 mmol/L (98-107) Carbon Dioxide Level 33 mmol/L (21-32) Anion Gap 6 (6-14) Blood Urea Nitrogen 23 mg/dL (7-20) Creatinine 1.3 mg/dL (0.6-1.0) Estimated GFR (Cockcroft-Gault) 50.1 Glucose Level 83 mg/dL (70-99) Calcium Level 8.6 mg/dL (8.5-10.1) Test 11/30/18 08:01 Glucose (Fingerstick) 113 mg/dL (70-99) Laboratory Tests Test 11/29/18 16:41 11/29/18 20:01 11/30/18 03:15 11/30/18 08:01 Glucose (Fingerstick) 110 mg/dL (70-99) 198 mg/dL (70-99) 113 mg/dL (70-99) Erythrocyte Sedimentation Rate 74 (0-25) Sodium Level 143 mmol/L (136-145) Potassium Level 3.8 mmol/L (3.5-5.1) Chloride Level 104 mmol/L (98-107) Carbon Dioxide Level 33 mmol/L (21-32) Anion Gap 6 (6-14) Blood Urea Nitrogen 23 mg/dL (7-20) Creatinine 1.3 mg/dL (0.6-1.0) Estimated GFR (Cockcroft-Gault) 50.1 Glucose Level 83 mg/dL (70-99) Calcium Level 8.6 mg/dL (8.5-10.1) Brief Hospital Course Ms. Luevano is a 63 old -[place] female who essentially is homeless and noncompliant comes in because of left ankle wound that actually seemed to be okay. But that was remarkable during her stay was blood pressure in the 200s or 180s that I had difficulty controlling. I needed to change some medications namely adding hydralazine 3 times a day now. Lisinopril 20 once a day which she was on lisinopril 40 once a day at home but I lowered down the dose because of too much side effects of high dose JESSICA inhibitor in this lady. Renal artery ultrasound was negative for any LEONEL. The left ankle wound actually looks great. She admitted that she did not fill the Augmentin prescribed by infectious disease last time she was here for the left ankle issue. In any case she was getting Zyvox and Zosyn by colleague. I am writing again all prescriptions Augmentin, and blood pressure meds. I did advise her to follow-up with the PCP and she does have insurance. She was teary-eyed on her discharge day because she thought about her noncompliance and home issues and she vows that she will follow-up with M.D. appointments. She initially was homeless but now is able to make arrangements with some friend and . No need for [place] [facility] as discussed with social work Consults performed none Procedures performed none Time spent discharging 35 minutes. And 60% DC education counseling Discharge Information Condition at Discharge: Improved, Stable Disposition/Orders: D/C to Home Scheduled Amoxicillin/Potassium Clav (Augmentin 875-125 Tablet) 1 Each Tablet, 1 TAB PO BID for Cellulitis for 7 Days, #14 Prescribed by: EBONIE COLE MD on 11/24/18 1041 Last Action: HELD on 11/27/18 0805 by EBONIE COLE MD Benzonatate (Benzonatate) 100 Mg Capsule, 100 MG PO [id number] for 30 Days, #90 Prescribed by: PRATIMA ARANGO on 01/12/18 1107 Last Action: Converted on 11/26/18 1356 by EBONIE COLE MD Carvedilol (Carvedilol ) 6.25 Mg Tablet, 6.25 MG PO BIDWMEALS for htn MDD 1, # 60 Prescribed by: PRATIMA ARANGO on 11/30/18 1129 Duloxetine Hcl (Cymbalta) 30 Mg Capsule.dr, 1 CAP PO DAILY for Mood, #30 Ref 0 Prescribed by: EBONIE COLE MD on 11/24/18 1041 Last Action: Continued on 11/26/18 1356 by EBONIE COLE MD Furosemide (Lasix) 40 Mg Tablet, 40 MG PO BID for leg swelling MDD 1 for 30 Days , #60 Prescribed by: PRATIMA ARANGO on 11/30/18 1129 Hydralazine Hcl (Hydralazine Hcl) 25 Mg Tablet, 50 MG PO TID for htn MDD 1, #90 Prescribed by: PRATIMA ARANGO on 11/30/18 1129 Insulin Glargine,Hum.rec.anlog (Lantus Solostar) 100 Unit/1 Ml Insuln.pen, 20 UNITS SQ QHS for 30 Days Prescribed by: PRATIMA ARANGO on 01/12/18 1107 Last Action: Continued on 11/26/181355 by EBONIE COLE MD Insulin Lispro (Humalog) 100 Unit/1 Ml Insuln.pen, 7 UNITS SQ TIDAC for 30 Days Prescribed by: PRATIMA ARANGO on 01/12/18 1107 Last Action: Continued on 11/26/181355 by EBONIE COLE MD Lisinopril (Lisinopril) 40 Mg Tablet, 20 MG PO DAILY for 30 Days, #30 Prescribed by: CHET CAZARES MD on 01/03/18 1121 Last Action: Continued on 11/27/18 08 by EBONIE COLE MD Lisinopril (Lisinopril) 40 Mg Tablet, 20 MG PO DAILY for htn MDD 1, #60 Prescribed by: PRATIMA ARANGO on 11/30/18 1129 Montelukast Sodium (Montelukast Sodium Tablet) 10 Mg Tablet, 10 MG PO QHS for 30 Days, #30 Prescribed by: PRATIMA ARANGO on 01/12/18 110 Last Action: Converted on 11/26/181355 by EBONIE COLE MD Pregabalin (Lyrica) 75 Mg Capsule, 75 MG PO TID for 30 Days, #90 Prescribed by: CHET CAZARES MD on 01/03/18 112 Last Action: Continued on 11/26/181355 by EBONIE COEL MD Quetiapine Fumarate (Quetiapine Fumarate) 100 Mg Tablet, 100 MG PO QHS for Mood for 30 Days, #30 Prescribed by: EBONIE COLE MD on 11/24/18 1041 Last Action: Converted on 11/26/181355 by EBONIE COLE MD Scheduled PRN Guaifenesin/Dextromethorphan (Guaifenesin Dm Syrup) 5 Ml Syrup, 10 ML PO PRN Q6HRS PRN for COUGH for 30 Days Prescribed by: PRATIMA ARANGO on 01/12/18 1107 Last Action: Continued on 11/26/181355 by EBONIE COLE MD Tramadol Hcl (Tramadol Hcl) 50 Mg Tablet, 50 MG PO Q6HRS PRN for PAIN for 6 Days , #24 Prescribed by: EBONIE COLE MD on 11/24/18 1041 Last Action: Continued on 11/26/18 1356 by MD CONCHITA PHELPS CHERRIE Y MD Nov 30, 2018 11:32
[2018-11-30] MEDS: ENOXAPARIN 40 MG/0.4 ML SYRINGE. SQ SCH (13:58)
[2018-11-30 15:00] VITALS: BP 156/76
[2018-11-30 18:04] VITALS: BP 156/76
--- NOTE | 2018-11-30 18:45 | NUR ---
Discharge Note: ANAND DEGROOT [address] Discharge instructions and discharge home medications reviewed with Patient and a copy given. All questions have been answered and understanding verbalized. The following instructions and handouts were given: ADA diet, meal planning, manic depressive disorder, medication data sheets. Discontinued lines and drains: R hand peripheral IV line discontinued, no bleeding or bruising, catheter tip intact. Patient discharged to home for self-care, outpatient follow up w/brother, taken out via WC by this travel writer after stopping at the [employer].
== END 2018-11-30 18:45 | disposition home or self-care (01) | DRG 871 ==
LOC: ER 08:39 → 5 SOUTH 11:19 → 5 NORTH 11-27 16:26
PROVIDERS: ADMIT Internal Medicine; ATTEND Internal Medicine
DX: A41.9 Sepsis, unspecified organism (principal); N17.0 Acute kidney failure with tubular necrosis; L03.116 Cellulitis of left lower limb; F23 Brief psychotic disorder; F11.20 Opioid dependence, uncomplicated; F31.4 Bipolar disorder, current episode depressed, severe, without psychotic features; I12.9 Hypertensive chronic kidney disease with stage 1 through stage 4 chronic kidney disease, or unspecified chronic kidney disease; E11.22 Type 2 diabetes mellitus with diabetic chronic kidney disease; N18.3 Chronic kidney disease, stage 3 (moderate); J44.9 Chronic obstructive pulmonary disease, unspecified; E78.00 Pure hypercholesterolemia, unspecified; E11.40 Type 2 diabetes mellitus with diabetic neuropathy, unspecified; G47.419 Narcolepsy without cataplexy; Z90.710 Acquired absence of both cervix and uterus; Z79.899 Other long term (current) drug therapy; Z90.81 Acquired absence of spleen; F17.210 Nicotine dependence, cigarettes, uncomplicated; Z59.0 Homelessness; Z88.6 Allergy status to analgesic agent; Z88.5 Allergy status to narcotic agent; I89.0 Lymphedema, not elsewhere classified; F41.9 Anxiety disorder, unspecified; F12.10 Cannabis abuse, uncomplicated; F14.10 Cocaine abuse, uncomplicated; D63.8 Anemia in other chronic diseases classified elsewhere; K59.00 Constipation, unspecified; G89.29 Other chronic pain; Z91.19 Patient's noncompliance with other medical treatment and regimen; Z79.4 Long term (current) use of insulin
CPT/HCPCS: 36415; 80048; 80053; 80307; 81001; 82962; 85025; 85651; 86060; 87493; 87641; 93975; 96374; 96376; J1650; J1815; J1940; J2020; J2405; J2543; J3010; J3490; J7030; 99285-25

== ENCOUNTER 2018-12-09 11:59 | Inpatient (IN) | payer OTHER ==
[~2018-12-09] VITALS: Ht 175.3 cm; Wt 90.8 kg
[~2018-12-09 11:59] MED LIST changes: +CARV6.2511 PO; +HYDR-2868 PO
[2018-12-09] MEDS ORDERED: ONDANSETRON PF 4 MG/2 ML VIAL. IV ONE (12:45)
[2018-12-09] MEDS ORDERED: LABETALOL 20 MG/4 ML DISP.SYRIN. IVP ONE (12:45)
[2018-12-09] MEDS ORDERED: cloNIDine HCL 0.1 MG TABLET PO ONE (12:45)
[2018-12-09 12:51] LABS: BILIRUBIN,URINE NEGATIVE (NEG); CLARITY,URINE CLEAR; COLOR,URINE YELLOW; NITRITE,URINE NEGATIVE (NEG); PROTEIN,URINE >=300 mg/dL (NEG-TRACE); UROBILINOGEN,URINE 0.2 mg/dL (0.2 mg/dL)
[2018-12-09 12:55] LABS: BASO # 0.2 x10^3/uL (0.0-0.2); BASO % 1 % (0-3); EOS # 0.1 x10^3/uL (0.0-0.7); EOS % 1 % (0-3); HEMATOCRIT 34.8 % (36.0-47.0); HEMOGLOBIN 11.4 g/dL (12.0-15.5); LYMPH # 2.6 x10^3/uL (1.0-4.8); LYMPH % 19 % (24-48); MEAN CORPUSCULAR HEMOGLOBIN 33 pg (25-35); MEAN CORPUSCULAR HGB CONC 33 g/dL (31-37); MEAN CORPUSCULAR VOLUME 100 fL (79-100); MONO # 1.4 x10^3/uL (0.0-1.1); MONO % 10 % (0-9); NEUT # 9.2 x10^3uL (1.8-7.7); NEUT % 69 % (31-73); PLATELET COUNT 444 x10^3/uL (140-400); RED BLOOD COUNT 3.48 x10^6/uL (3.50-5.40); RED CELL DISTRIBUTION WIDTH 13.9 % (11.5-14.5); WHITE BLOOD COUNT 13.5 x10^3/uL (4.0-11.0)
[2018-12-09 13:01] LABS: AMPHETAMINE/METHAMPHETAMINE NEG (NEG); BARBITURATES NEG (NEG); BENZODIAZEPINES NEG (NEG); CANNABINOIDS POS (NEG); COCAINE POS (NEG); METHADONE NEG (NEG); OPIATES NEG (NEG); PHENCYCLIDINE NEG (NEG)
--- NOTE | 2018-12-09 13:05 | PHYS DOC ---
Past Medical History Past Medical History: COPD, Depression, Diabetes-Type II, High Cholesterol, Hypertension, Other Additional Past Medical Histor: neuropathy, narcolepsy (AMY GARCIA APRN) Past Surgical History: Cholecystectomy, , Hysterectomy, Splenectomy (AMY GARCIA APRN) Alcohol Use: None Drug Use: Cocaine, Marijuana, Other (AMY GARCIA APRN) Adult General Chief Complaint Chief Complaint: ABDOMINAL PAIN HPI HPI Patient is a 63 year old female with history of hypertension, diabetes type 2, high cholesterol, depression, who presents to the ED crying right now. On asking patient the reason for her visit, she states she doesn't know but she still crying. I reminded patient she is with a C/O right lower quadrant abdominal pain, she states yes. She states she's had right lower quadrant abdominal pain for 3 days. Denies any nausea, vomiting. Unable to rate the pain right now. She appears depressed and is crying out loud. This patient is familiar to me, I saw her around November, she was homeless and didn't have a place to go and had cellulitis of the left lower extremity. She states the infection has improved though she has not been able to follow-up with anyone and never field if prescription she was given for antibiotics. Patient continues to states she has a lot going on in her life right now, she states she is currently staying with friends and does not have a stable home. (AMY GARCIA APRN) Review of Systems Review of Systems Constitutional: Denies fever or chills [] Eyes: Denies change in visual acuity, redness, or eye pain [] HENT: Denies nasal congestion or sore throat [] Respiratory: Denies cough or shortness of breath [] Cardiovascular: No additional information not addressed in HPI [] GI: Reports right lower quadrant abdominal pain, denies nausea, vomiting, bloody stools or diarrhea [] : Denies dysuria or hematuria [] Musculoskeletal: Denies back pain or joint pain [] Integument: Reports cellulitis to the right lower extremity Neurologic: Denies headache, focal weakness or sensory changes [] Psych: Depressed, tearful All other systems were reviewed and found to be within normal limits, except as documented in this note. (AMY GARCIA APRN) Current Medications Current Medications Current Medications Medications (Trade) Dose Ordered Sig/Lisa Start Time Stop Time Status Last Admin Dose Admin Clonidine HCl (Catapres) 0.1 mg 1X ONCE 12/09/18 12:45 12/09/18 12:46 DC 12/09/18 12:57 0.1 MG Iohexol (Omnipaque 240 Mg/ml) 30 ml 1X ONCE 12/09/18 13:30 12/09/18 13:31 DC Iohexol (Omnipaque 300 Mg/ml) 75 ml 1X ONCE 12/09/18 13:30 12/09/18 13:31 DC 12/09/18 13:40 75 ML Labetalol HCl (Normodyne Iv Push) 10 mg 1X ONCE 12/09/18 12:45 12/09/18 12:46 DC 12/09/18 12:57 10 MG Ondansetron HCl (Zofran) 4 mg 1X ONCE 12/09/18 12:45 12/09/18 12:46 DC 12/09/18 12:57 4 MG (AGATA SHEPPARD MD) Allergies Allergies Allergies Coded Allergies Type Severity Reaction Last Updated Verified aspirin Adverse Reaction Mild Nausea and Vomiting 01/05/18 Yes ketorolac Adverse Reaction Mild Nausea 01/05/18 Yes morphine Adverse Reaction Mild Nausea and Vomiting 01/05/18 Yes (AGATA SHEPPARD MD) Physical Exam Physical Exam Constitutional: Well developed, well nourished, no acute distress, non-toxic appearance. [] HENT: Normocephalic, atraumatic, bilateral external ears normal, oropharynx moist, no oral exudates, nose normal. [] Eyes: PERRLA, EOMI, conjunctiva normal, no discharge. [] Neck: Normal range of motion, no tenderness, supple, no stridor. [] Cardiovascular:Heart rate regular rhythm, no murmur [] Lungs & Thorax: Bilateral breath sounds clear to auscultation [] Abdomen: Bowel sounds normal, soft, diffuse tenderness to the right upper, lower quadrant, mid lower abdomen, negative Chacon sign, negative psoas sign, negative Rovsign, no guarding, no rebound tenderness no masses, no pulsatile masses. [] Skin: Warm, dry, no erythema, no rash. [] Back: No tenderness, no CVA tenderness. [] Extremities: No tenderness, no cyanosis, no clubbing, ROM intact, bilateral lower extremities with what appears to be chronic lymphedema. The left distal gray area of cellulitis that was present when I last saw patient but slightly improved. There is an open wound roughly 2 cm with on the area. There is a dressing over the wound that was changed in November when she was discharged. There is no obvious weeping drainage from the area. Negative Homans sign bilaterally. +2 bilateral pedal pulses. Neurologic: Alert and oriented X 3, normal motor function, normal sensory function, no focal deficits noted. [] Psychologic: Flat affect, appears depressed, crying out loud (YONATHANUNGAMY Decker APRN) Current Patient Data Vital Signs Vital Signs Date Time Temp Pulse Resp B/P (MAP) Pulse Ox O2 Delivery O2 Flow Rate FiO2 12/09/18 15:30 68 18 158/75 (102) 99 Room Air 12/09/18 12:00 98.8 98.8 (AGATA SHEPPARD MD) Lab Values Laboratory Tests Test 12/09/18 12:30 12/09/18 12:45 Urine Collection Type Unknown Urine Color Yellow Urine Clarity Clear Urine pH 7.0 Urine Specific [place] 1.015 Urine Protein >=300 mg/dL (NEG-TRACE) Urine Glucose (UA) 100 mg/dL (NEG) Urine Ketones (Stick) Negative mg/dL (NEG) Urine Blood Small (NEG) Urine Nitrite Negative (NEG) Urine Bilirubin Negative (NEG) Urine Urobilinogen Dipstick 0.2 mg/dL (0.2 mg/dL) Urine Leukocyte Esterase Small (NEG) Urine RBC 11-20 /HPF (0-2) Urine WBC 5-10 /HPF (0-4) Urine Squamous Epithelial Cells Many /LPF Urine Bacteria Many /HPF (0-FEW) Urine Hyaline Casts Few /HPF Urine Mucus Mod /LPF Urine Yeast Present /HPF Urine Opiates Screen Neg (NEG) Urine Methadone Screen Neg (NEG) Urine Barbiturates Neg (NEG) Urine Phencyclidine Screen Neg (NEG) Urine Amphetamine/Methamphetamine Neg (NEG) Urine Benzodiazepines Screen Neg (NEG) Urine Cocaine Screen Pos (NEG) Urine Cannabinoids Screen Pos (NEG) Urine Ethyl Alcohol Neg (NEG) White Blood Count 13.5 x10^3/uL (4.0-11.0) H Red Blood Count 3.48 x10^6/uL (3.50-5.40) L Hemoglobin 11.4 g/dL (12.0-15.5) L Hematocrit 34.8 % (36.0-47.0) L Mean Corpuscular Volume 100 fL (79-100) Mean Corpuscular Hemoglobin 33 pg (25-35) Mean Corpuscular Hemoglobin Concent 33 g/dL (31-37) Red Cell Distribution Width 13.9 % (11.5-14.5) Platelet Count 444 x10^3/uL (140-400) H Neutrophils (%) (Auto) 69 % (31-73) Lymphocytes (%) (Auto) 19 % (24-48) L Monocytes (%) (Auto) 10 % (0-9) H Eosinophils (%) (Auto) 1 % (0-3) Basophils (%) (Auto) 1 % (0-3) Neutrophils # (Auto) 9.2 x10^3uL (1.8-7.7) H Lymphocytes # (Auto) 2.6 x10^3/uL (1.0-4.8) Monocytes # (Auto) 1.4 x10^3/uL (0.0-1.1) H Eosinophils # (Auto) 0.1 x10^3/uL (0.0-0.7) Basophils # (Auto) 0.2 x10^3/uL (0.0-0.2) Sodium Level 144 mmol/L (136-145) Potassium Level 3.9 mmol/L (3.5-5.1) Chloride Level 105 mmol/L (98-107) Carbon Dioxide Level 26 mmol/L (21-32) Anion Gap 13 (6-14) Blood Urea Nitrogen 21 mg/dL (7-20) H Creatinine 1.4 mg/dL (0.6-1.0) H Estimated GFR (Cockcroft-Gault) 46.0 BUN/Creatinine Ratio 15 (6-20) Glucose Level 228 mg/dL (70-99) H Calcium Level 8.2 mg/dL (8.5-10.1) L Total Bilirubin 0.2 mg/dL (0.2-1.0) Aspartate Amino Transferase (AST) 23 U/L (15-37) Alanine Aminotransferase (ALT) 24 U/L (14-59) Alkaline Phosphatase 105 U/L (46-116) Total Protein 6.9 g/dL (6.4-8.2) Albumin 2.1 g/dL (3.4-5.0) L Albumin/Globulin Ratio 0.4 (1.0-1.7) L Lipase 332 U/L (73-393) Ethyl Alcohol Level < 10 mg/dL (0-10) Laboratory Tests 12/09/18 12:45 Laboratory Tests 12/09/18 12:45 Microbiology 12/09/18 Urine Culture - Preliminary, Resulted 12/09/18 Urine Culture Result 1 (GABRIELE) - Preliminary, Resulted (AGATA SHEPPARD MD) EKG EKG [] (AMY GARCIA APRN) Radiology/Procedures Radiology/Procedures []PROCEDURE: CT ABD PELV W/ IV CONTRST ONLY CT ABD PELV W/ IV CONTRST ONLY Indication: RLQ PAIN INJ 60ML OMNI 300 PREV SENT Exposure: One or more of the following individualized dose reduction techniques were utilized for this examination: 1. Automated exposure control 2. Adjustment of the mA and/or kV according to patient size 3. Use of iterative reconstruction technique. Technique: Intravenous contrast was given. No oral contrast per request. Comparison with December 31, 2017. Lung bases are clear. Liver is enlarged, measuring 23 cm longitudinal with the right lobe similar to prior study. Spleen not visualized. Pancreatic margins appear intact. No adrenal mass. Small hypodense lesions of both kidneys, largest on the left measures 12 mm and measures cystic density. Others are too small to characterize. Difficult to compare with prior study as that was noncontrast. Symmetric renal enhancement. No evidence of hydronephrosis. Gallbladder not visualized. Mild biliary ductal dilatation likely due to cholecystectomy. Aorta calcified, no evidence of aneurysm. No significant lymph node enlargement identified. Mild wall thickening of the distal esophagus. No significant small bowel distention. No evidence of acute colitis. Mild stool through the colon. The appendix is not clearly visualized. No localized inflammatory type changes are seen in the right lower quadrant. No evidence of pneumoperitoneum or ascites. No evidence of pelvic mass. Urinary bladder appears unremarkable. Apparent surgical clip in the pelvis. Degenerative spondylosis is again identified. Vertebral body height maintained. No destructive bone lesion. Mild degenerative changes at the skeletal pelvis. Small fat-containing umbilical hernia redemonstrated. IMPRESSION: 1. Hepatomegaly again seen. 2. No definite acute findings in the abdomen or pelvis. The appendix is not clearly visualized. 3. Small renal lesions bilaterally, most likely cysts. Electronically signed by: Rian Borjas MD (12/09/2018 2:02 PM) [facility] DICTATED and SIGNED BY: RIAN BORJAS MD DATE: 12/09/18 1402 (AMY GARCIA APRN) Course & Med Decision Making Course & Med Decision Making Pertinent Labs and Imaging studies reviewed. (See chart for details) This is a 63-year-old female patient presenting to the ED today complaining of right lower quadrant abdominal pain, symptoms for 3 days. Patient arrives in the ED crying out loud. She has history of depression she is currently homeless. She also has cellulitis on the right gray since November she was unable to buy her prescription. Tetanus is up to date. CBC with a WBC of 13.5 and a left shift, CMP with creatinine of 1.4 and BUN of 21. She has hx of renal insufficiency. vitals on arrival temp 98.8, HR 90 BP 228/120 hx of HTN has not way of buying BP medicines. Drug screen + cocaine and marijuana CT of the abdomen and pelvic no definite acute findings in the abdomen or pelvis. The appendix is not clearly visualized. Patient was given labetalol IV and clonidine for BP. BP down to 159/[address] Bonilla he requested we admit her for labs in AM Consulted with Dr. Castaneda who accepted patient for admission. (AMY GARCIA APRN) Course & Med Decision Making Staff Physician Addendum: I was working in the ER during the course of this patient's visit. I was available for consultation as needed, but I was not directly involved in the care of this patient. (AGATA SHEPPARD MD) Dragon Disclaimer Dragon Disclaimer This electronic medical record was generated, in whole or in part, using a voice recognition dictation system. (AMY GARCIA APRN) Departure Departure Impression: Primary Impression: Chronic acquired lymphedema Additional Impressions: Cellulitis of left lower extremity Drug abuse Accelerated hypertension Homeless Disposition: ADMITTED INPATIENT Condition: STABLE Referrals: NO PCP (PCP) Problem Qualifiers AMY GARCIA APRN Dec 09, 2018 13:05 AGATA SHEPPARD MD Dec 11, 2018 10:45
[2018-12-09 13:08] LABS: CALCIUM 8.2 mg/dL (8.5-10.1); CREATININE 1.4 mg/dL (0.6-1.0); POTASSIUM 3.9 mmol/L (3.5-5.1)
[2018-12-09 13:09] LABS: ALBUMIN 2.1 g/dL (3.4-5.0); ALBUMIN/GLOBULIN RATIO 0.4 (1.0-1.7); TOTAL BILIRUBIN 0.2 mg/dL (0.2-1.0); TOTAL PROTEIN 6.9 g/dL (6.4-8.2)
[2018-12-09 13:12] LABS: HYALINE CASTS, URINE FEW /HPF; SQUAMOUS EPITHELIAL CELL,UR MANY /LPF
[2018-12-09 13:13] LABS: BACTERIA,URINE MANY /HPF (0-FEW)
[2018-12-09 13:15] LABS: YEAST,URINE PRESENT /HPF
[2018-12-09] MEDS ORDERED: IOHEXOL 240 MG/ML 50ML VIAL. PO ONE (13:30)
[2018-12-09] MEDS ORDERED: IOHEXOL 300 MG/ML 100ML VIAL. IV ONE (13:30)
--- NOTE | 2018-12-09 14:05 | RAD ---
CT ABD PELV W/ IV CONTRST ONLY Indication: RLQ PAIN INJ 60ML OMNI 300 PREV SENT Exposure: One or more of the following individualized dose reduction techniques were utilized for this examination: 1. Automated exposure control 2. Adjustment of the mA and/or kV according to patient size 3. Use of iterative reconstruction technique. Technique: Intravenous contrast was given. No oral contrast per request. Comparison with December 31, 2017. Lung bases are clear. Liver is enlarged, measuring 23 cm longitudinal with the right lobe similar to prior study. Spleen not visualized. Pancreatic margins appear intact. No adrenal mass. Small hypodense lesions of both kidneys, largest on the left measures 12 mm and measures cystic density. Others are too small to characterize. Difficult to compare with prior study as that was noncontrast. Symmetric renal enhancement. No evidence of hydronephrosis. Gallbladder not visualized. Mild biliary ductal dilatation likely due to cholecystectomy. Aorta calcified, no evidence of aneurysm. No significant lymph node enlargement identified. Mild wall thickening of the distal esophagus. No significant small bowel distention. No evidence of acute colitis. Mild stool through the colon. The appendix is not clearly visualized. No localized inflammatory type changes are seen in the right lower quadrant. No evidence of pneumoperitoneum or ascites. No evidence of pelvic mass. Urinary bladder appears unremarkable. Apparent surgical clip in the pelvis. Degenerative spondylosis is again identified. Vertebral body height maintained. No destructive bone lesion. Mild degenerative changes at the skeletal pelvis. Small fat-containing umbilical hernia redemonstrated. IMPRESSION: 1. Hepatomegaly again seen. 2. No definite acute findings in the abdomen or pelvis. The appendix is not clearly visualized. 3. Small renal lesions bilaterally, most likely cysts. Electronically signed by: Rian Borjas MD (12/09/2018 2:02 PM) [facility]
[2018-12-09] MEDS ORDERED: ONDANSETRON PF 4 MG/2 ML VIAL. IV PRN (16:00)
[2018-12-09] MEDS ORDERED: ACETAMINOPHEN 325 MG TABLET. PO PRN (16:00)
[2018-12-09] MEDS ORDERED: PIPERACILLIN/TAZOBACTAM 3.375 GM in IV NORMAL SALINE 50ML 50 ML IV ONE (16:00)
[2018-12-09] MEDS ORDERED: VANCOMYCIN PER PHARMACY MC PRN (16:00)
[2018-12-09] MEDS ORDERED: VANCOMYCIN 2 GM in IV NORMAL SALINE 500ML BAG 500 ML IV ONE (16:15)
--- NOTE | 2018-12-09 17:45 | NUR ---
PATIENT ARRIVED ON THE UNIT PER W/C, ASSESSMENT COMPLETED, COMFORT MEASURES GIVEN, ADA/CARDIAC DIET ORDERED, PATIENTS BLOOD SUGAR PER FINGERSTICK IS 138 AT THIS TIME. DRESSING REMOVED FROM LEFT LOWER EXTREMITY, WOUND MEASURED, PICTURE OBTAINED AND PLACED IN THE CHART, WILL PLACE CONSULT FOR WOUND CARE.
[2018-12-09 19:00] VITALS: BP 184/85
[2018-12-09] MEDS ORDERED: guaiFENesin DM 200MG/20MG 10 ML SYRUP PO PRN (20:00)
[2018-12-09] MEDS ORDERED: AMOXICILLIN/K CLAV 875/125MG TABLET. PO SCH (21:00)
[2018-12-09] MEDS ORDERED: BENZONATATE 100 MG PO SCH (21:00)
[2018-12-09] MEDS: MONTELUKAST SODIUM 10 MG TABLET. PO SCH (21:07)
[2018-12-09] MEDS: LISINOPRIL 20 MG TABLET PO SCH (21:07)
[2018-12-09] MEDS: DULoxetine HCL 30 MG CAPSULE.DR PO SCH (21:07)
[2018-12-09] MEDS: QUEtiapine 100 MG TABLET. PO SCH (21:08)
[2018-12-09] MEDS: FUROSEMIDE 40 MG TABLET. PO SCH (21:08)
[2018-12-09] MEDS: fentaNYL PF VIAL 100 MCG/2 ML VIAL IV PRN (21:08)
[2018-12-09] MEDS: PREGABALIN 75 MG CAPSULE PO SCH (21:08)
--- NOTE | 2018-12-09 21:13 | HP ---
ADMIT DATE: 12/09/2018 CHIEF COMPLAINT: Abdominal pain. HISTORY OF PRESENT ILLNESS: The patient is a pleasant 63-year-old female who presented to the ER with abdominal pain. She keeps crying. She states she is having a difficult problem in her life right now, I think she might be homeless, I am not quite sure on that. We did a CAT scan of her abdomen that actually does not show any abnormalities, but her left leg is quite erythematous, she has acute on chronic cellulitis, the right leg is swollen. She has a leukocytosis of 13 and a hemoglobin of 11. She also has chronic kidney failure with creatinine of 1.4 and a glucose of 220. I have discussed the case with the ER physician. We are going to admit the patient and consult Dr. Bonilla regarding the abdominal pain. I am also going to her some IV antibiotics regarding the cellulitis. She would know that she rates her symptoms 7/10, she tried increasing her home medications, but that did not work, describes as irritating. PAST MEDICAL HISTORY: Depression, anxiety, COPD, diabetes, hypertension, hyperlipidemia, neuropathy, narcolepsy, cholecystectomy, , hysterectomy, splenectomy, cocaine abuse, marijuana abuse. ALLERGIES: ASPIRIN, TORADOL AND MORPHINE. FAMILY HISTORY: Coronary artery disease. SOCIAL HISTORY: She apparently does cocaine. Her drug screen is positive and she admits to that. She also smokes marijuana. I think she might be homeless. MEDICATIONS: Reviewed, please refer to the MRAD. She is on Augmentin, hydralazine, carvedilol, lisinopril, Ultram, Lyrica, Cymbalta, Lasix, benzonatate, guaifenesin, Singulair and insulin. REVIEW OF SYSTEMS: GENERAL: No history of weight change, weakness or fevers. SKIN: No bruising, hair changes or rashes. EYES: No blurred, double or loss of vision. NOSE AND THROAT: No history of nosebleeds, hoarseness or sore throat. HEART: No history of palpitations, chest pain or shortness of breath on exertion. LUNGS: Denies cough, hemoptysis, wheezing or shortness of breath. GASTROINTESTINAL: She complains of abdominal pain. GENITOURINARY: No history of frequency, urgency, hesitancy or nocturia. NEUROLOGIC: Denies history of numbness, tingling, tremor or weakness. PSYCHIATRIC: No history of panic, anxiety or depression. ENDOCRINE: No history of heat or cold intolerance, polyuria or polydipsia. EXTREMITIES: Denies muscle weakness, joint pain, pain on walking or stiffness. PHYSICAL EXAMINATION: VITAL SIGNS: Temperature 97, pulse 74, respirations 18, blood pressure 180/90. GENERAL: She is alert, cooperative, complaining of pain, crying at times. HEART: Normal S1, S2. LUNGS: Clear. ABDOMEN: Soft and tender, a little distended. EXTREMITIES: The left leg has chronic cellulitis. The right leg is swollen, but she states that is chronic for her. She has been told she has lymphedema. ENDOCRINE: No thyromegaly. LYMPHATICS: No cervical nodes. HEMATOPOIETIC: No bruising. PSYCHIATRIC: She is a little tearful. LABORATORY DATA: Drug screen is positive for marijuana and cocaine. White count is 13, hemoglobin 11. Glucose 228, creatinine 1.4. CT of the abdomen did not show any acute disease. ASSESSMENT AND PLAN: Abdominal pain, polysubstance abuse, acute on chronic cellulitis, leukocytosis, anemia, hyperglycemia, acute on chronic renal failure, urinary tract infection. The patient patient will be admitted. We will consult Dr. Bonilla. Frequent labs, IV antibiotics, IV fluids. Full code. Deep venous thrombosis prophylaxis. I resumed her home medications. PROGNOSIS: Guarded. Total time 34 minutes. JASON HOUSE DO DR: SULEIMAN/lionel JOB#: [id number] / [id number]
[2018-12-09] MEDS: INSULIN GLARGINE 300 UNITS/3 ML INSULN.PEN. SQ SCH (21:51)
[2018-12-10] VITALS (7 sets, daily range): BP systolic 124–182; BP diastolic 54–87
[2018-12-10 05:09] LABS: BASO # 0.1 x10^3/uL (0.0-0.2); BASO % 1 % (0-3); CALCIUM 7.9 mg/dL (8.5-10.1); CREATININE 1.7 mg/dL (0.6-1.0); EOS # 0.3 x10^3/uL (0.0-0.7); EOS % 2 % (0-3); GFR 36.7; HEMATOCRIT 30.9 % (36.0-47.0); HEMOGLOBIN 10.3 g/dL (12.0-15.5); LYMPH # 2.3 x10^3/uL (1.0-4.8); LYMPH % 22 % (24-48); MEAN CORPUSCULAR HEMOGLOBIN 33 pg (25-35); MEAN CORPUSCULAR HGB CONC 33 g/dL (31-37); MEAN CORPUSCULAR VOLUME 101 fL (79-100); MONO # 1.1 x10^3/uL (0.0-1.1); MONO % 10 % (0-9); NEUT # 6.8 x10^3uL (1.8-7.7); NEUT % 65 % (31-73); PLATELET COUNT 429 x10^3/uL (140-400); POTASSIUM 3.6 mmol/L (3.5-5.1); RED BLOOD COUNT 3.07 x10^6/uL (3.50-5.40); RED CELL DISTRIBUTION WIDTH 13.9 % (11.5-14.5); WHITE BLOOD COUNT 10.5 x10^3/uL (4.0-11.0)
[2018-12-10] MEDS: INSULIN LISPRO 300 UNITS/3 ML INSULN.PEN. SQ SCH ×3 (07:30→16:30)
[2018-12-10] MEDS: fentaNYL PF VIAL 100 MCG/2 ML VIAL IV PRN (08:03)
[2018-12-10] MEDS: FUROSEMIDE 40 MG TABLET. PO SCH ×2 (08:04→20:48)
[2018-12-10] MEDS: DULoxetine HCL 30 MG CAPSULE.DR PO SCH (08:04)
[2018-12-10] MEDS: PREGABALIN 75 MG CAPSULE PO SCH ×3 (08:05→20:47)
[2018-12-10] MEDS: CARVEDILOL 6.25 MG TABLET. PO SCH ×2 (08:08→17:00)
[2018-12-10] MEDS: LISINOPRIL 20 MG TABLET PO SCH (08:09)
--- NOTE | 2018-12-10 08:49 | PDOC2 ---
CONSULT Date of Consult Date of Consult DATE: 12/10/18 TIME: 08:44 Reason for Consult Reason for Consult: Right-sided abdominal pain Referring Physician Referring Physician: Leonel Identification/Chief Complaint Chief Complaint Right-sided abdominal pain and headache Source Source: Patient History of Present Illness Reason for Visit: Patient is a 63-year-old female was admitted to the hospital after coming to the emergency department with complaints of right lower quadrant abdominal pain she describes she's had for 4-5 days it is intermittent but sometimes is 10 out of 10 pain has had some nausea no vomiting denies any fevers or chills. She had recently been hospitalized at [facility] about 3 weeks ago with left lower extremity cellulitis was on antibiotics at that time. She is currently sitting up in bed eating breakfast she does describe epigastric to right upper quadrant abdominal pain now and headache. She states her bowel movements have been numerous but would not describe them as loose her last colonoscopy was proximally 3 years ago was normal. Past Medical History Psych: Anxiety, Addictions Dermatology: Cellulitis Past Surgical History Past Surgical History: Cholecystectomy, Other (splenectomy) Family History Family History: No Significant Social History ALCOHOL: none Drugs: Marijuana Current Problem List Problem List Problems Medical Problems: (1) Cellulitis of left lower extremity Status: Acute (2) Chronic acquired lymphedema Status: Acute (3) Drug abuse Status: Acute (4) Homeless Status: Acute Current Medications Current Medications Current Medications Labetalol HCl (Normodyne Iv Push) 10 mg 1X ONCE IVP Last administered on at 12:57; Start 12/09/18 at 12:45; Stop 12/09/18 at 12:46; Status DC Clonidine HCl (Catapres) 0.1 mg 1X ONCE PO Last administered on 12/09/18at 12:57 ; Start 12/09/18 at 12:45; Stop 12/09/18 at 12:46; Status DC Ondansetron HCl (Zofran) 4 mg 1X ONCE IV Last administered on 12/09/18at 12:57; Start 12/09/18 at 12:45; Stop 12/09/18 at 12:46; Status DC Iohexol (Omnipaque 240 Mg/ml) 30 ml 1X ONCE PO ; Start 12/09/18 at 13:30; Stop 12/09/18 at 13:31; Status DC Iohexol (Omnipaque 300 Mg/ml) 75 ml 1X ONCE IV Last administered on 12/09/18at 13:40; Start 12/09/18 at 13:30; Stop 12/09/18 at 13:31; Status DC Ondansetron HCl (Zofran) 4 mg PRN Q8HRS PRN IV NAUSEA/VOMITING; Start 12/09/18 at 16:00; Stop 12/10/18 at 15:59 Fentanyl Citrate (Fentanyl 2ml Vial) 50 mcg PRN Q1HR PRN IV PAIN Last administered on 12/10/18at 08:03; Start 12/09/18 at 16:00; Stop 12/10/18 at 15:59 Acetaminophen (Tylenol) 650 mg PRN Q4HRS PRN PO FEVER; Start 12/09/18 at 16:00; Stop 12/10/18 at 15:59 Piperacillin Sod/ Tazobactam Sod 3.375 gm/Sodium Chloride 50 ml @ 100 mls/hr 1X ONCE IV Last administered on 12/09/18at 22:46; Start 12/09/18 at 16:00; Stop 12/09/18 at 16:29; Status DC Vancomycin HCl (Vanco Per Pharmacy) 1 each PRN DAILY PRN MC SEE COMMENTS; Start 12/09/18 at 16:00 Vancomycin HCl 2 gm/Sodium Chloride 500 ml @ 250 mls/hr 1X ONCE IV Last administered on 12/09/18at 23:35; Start 12/09/18 at 16:15; Stop 12/09/18 at 18:14; Status DC Amoxicillin/ Clavulanate Potassium (Augmentin 875/ 125mg) 1 tab BID PO ; Start 12/09/18 at 21:00; Status UNV Carvedilol (Coreg) 6.25 mg BIDWMEALS PO Last administered on 12/10/18at 08:08; Start 12/10/18 at 08:00 Duloxetine HCl (Cymbalta) 30 mg DAILY PO Last administered on 12/10/18at 08:04; Start 12/09/18 at 20:30 Furosemide (Lasix) 40 mg BID PO Last administered on 12/10/18at 08:04; Start 12/09 at 21:00 Guaifenesin (Robitussin Dm) 10 ml PRN Q6HRS PRN PO COUGH; Start 12/09/18 at 20: 00 Insulin Glargine (Lantus) 20 units QHS SQ Last administered on 12/09/18at 21:51; Start 12/09/18 at 21:00 Insulin Human Lispro (HumaLOG) 7 units TIDAC SQ ; Start 12/10/18 at 07:30 Lisinopril (Prinivil) 20 mg DAILY PO Last administered on 12/10/18at 08:09; Start 12/09/18 at 20:30 Pregabalin (Lyrica) 75 mg TID PO Last administered on 12/10/18at 08:05; Start 12/09/18 at 21:00 Tramadol HCl (Ultram) 50 mg PRN Q6HRS PRN PO PAIN MILD; Start 12/09/18 at 20:00 Non-Formulary Medication (Benzonatate ) 100 mg [id number] PO ; Start 12/09/18 at 21: 00; Status UNV Hydralazine HCl (Apresoline) 50 mg TID PO Last administered on 12/10/18at 08:07; Start 12/09/18 at 21:00 Montelukast Sodium (Singulair) 10 mg QHS PO Last administered on 12/09/18at 21:07 ; Start 12/09/18 at 21:00 Quetiapine Fumarate (SEROquel) 100 mg QHS PO Last administered on 12/09/18at 21: 08; Start 12/09/18 at 21:00 Active Scripts Active Lisinopril 40 Mg Tablet 20 Mg PO DAILY MDD 1 Carvedilol (Carvedilol) 6.25 Mg Tablet 6.25 Mg PO BIDWMEALS MDD 1 Hydralazine Hcl 25 Mg Tablet 50 Mg PO TID MDD 1 Lasix (Furosemide) 40 Mg Tablet 40 Mg PO BID MDD 1 30 Days Cymbalta (Duloxetine Hcl) 30 Mg Capsule.dr 1 Cap PO DAILY Tramadol Hcl 50 Mg Tablet 50 Mg PO Q6HRS PRN 6 Days Augmentin 875-125 Tablet (Amoxicillin/Potassium Clav) 1 Each Tablet 1 Tab PO BID 7 Days Quetiapine Fumarate 100 Mg Tablet 100 Mg PO QHS 30 Days Humalog (Insulin Lispro) 100 Unit/1 Ml Insuln.pen 7 Units SQ TIDAC 30 Days Lantus Solostar (Insulin Glargine,Hum.rec.anlog) 100 Unit/1 Ml Insuln.pen 20 Units SQ QHS 30 Days Guaifenesin Dm Syrup (Guaifenesin/Dextromethorphan) 5 Ml Syrup 10 Ml PO PRN Q6HRS PRN 30 Days Benzonatate 100 Mg Capsule 100 Mg PO [id number] 30 Days Montelukast Sodium Tablet (Montelukast Sodium) 10 Mg Tablet 10 Mg PO QHS 30 Days Lyrica (Pregabalin) 75 Mg Capsule 75 Mg PO TID 30 Days Allergies Allergies: Coded Allergies: aspirin (Verified Adverse Reaction, Mild, Nausea and Vomiting, 01/05/18) ketorolac (Verified Adverse Reaction, Mild, Nausea, 01/05/18) morphine (Verified Adverse Reaction, Mild, Nausea and Vomiting, 01/05/18) ROS HEENT: YES: Heacaches Gastrointestinal: Yes Nausea, Yes Abdominal Pain Physical Exam General: Alert, Oriented X3, Cooperative, mild distress HEENT: Atraumatic, PERRLA, EOMI Lungs: Clear to auscultation, Normal air movement Heart: Regular rate, No murmurs Abdomen: Normal bowel sounds, Soft, Other (tender to palpation right upper quadrant epigastrium) Extremities: Other (she does have swelling both lower extremities with some erythema left lower extremity around the ankle) Neuro: Normal speech Psych/Mental Status: Mental status NL Vitals VITALS Vital Signs Date Time Temp Pulse Resp B/P (MAP) Pulse Ox O2 Delivery O2 Flow Rate FiO2 12/10/18 08:09 72 162/81 12/10/18 08:03 100 Room Air 12/10/18 07:00 99.3 20 99.3 Labs Labs Laboratory Tests Test 12/09/18 12:30 12/09/18 12:45 12/09/18 15:50 12/09/18 17:15 Urine Collection Type Unknown Urine Color Yellow Urine Clarity Clear Urine pH 7.0 Urine Specific [place] 1.015 Urine Protein >=300 mg/dL (NEG-TRACE) Urine Glucose (UA) 100 mg/dL (NEG) Urine Ketones (Stick) Negative mg/dL (NEG) Urine Blood Small (NEG) Urine Nitrite Negative (NEG) Urine Bilirubin Negative (NEG) Urine Urobilinogen Dipstick 0.2 mg/dL (0.2 mg/dL) Urine Leukocyte Esterase Small (NEG) Urine RBC 11-20 /HPF (0-2) Urine WBC 5-10 /HPF (0-4) Urine Squamous Epithelial Cells Many /LPF Urine Bacteria Many /HPF (0-FEW) Urine Hyaline Casts Few /HPF Urine Mucus Mod /LPF Urine Yeast Present /HPF Urine Opiates Screen Neg (NEG) Urine Methadone Screen Neg (NEG) Urine Barbiturates Neg (NEG) Urine Phencyclidine Screen Neg (NEG) Urine Amphetamine/Methamphetamine Neg (NEG) Urine Benzodiazepines Screen Neg (NEG) Urine Cocaine Screen Pos (NEG) Urine Cannabinoids Screen Pos (NEG) Urine Ethyl Alcohol Neg (NEG) White Blood Count 13.5 x10^3/uL (4.0-11.0) Red Blood Count 3.48 x10^6/uL (3.50-5.40) Hemoglobin 11.4 g/dL (12.0-15.5) Hematocrit 34.8 % (36.0-47.0) Mean Corpuscular Volume 100 fL (79-100) Mean Corpuscular Hemoglobin 33 pg (25-35) Mean Corpuscular Hemoglobin Concent 33 g/dL (31-37) Red Cell Distribution Width 13.9 % (11.5-14.5) Platelet Count 444 x10^3/uL (140-400) Neutrophils (%) (Auto) 69 % (31-73) Lymphocytes (%) (Auto) 19 % (24-48) Monocytes (%) (Auto) 10 % (0-9) Eosinophils (%) (Auto) 1 % (0-3) Basophils (%) (Auto) 1 % (0-3) Neutrophils # (Auto) 9.2 x10^3uL (1.8-7.7) Lymphocytes # (Auto) 2.6 x10^3/uL (1.0-4.8) Monocytes # (Auto) 1.4 x10^3/uL (0.0-1.1) Eosinophils # (Auto) 0.1 x10^3/uL (0.0-0.7) Basophils # (Auto) 0.2 x10^3/uL (0.0-0.2) Sodium Level 144 mmol/L (136-145) Potassium Level 3.9 mmol/L (3.5-5.1) Chloride Level 105 mmol/L (98-107) Carbon Dioxide Level 26 mmol/L (21-32) Anion Gap 13 (6-14) Blood Urea Nitrogen 21 mg/dL (7-20) Creatinine 1.4 mg/dL (0.6-1.0) Estimated GFR (Cockcroft-Gault) 46.0 BUN/Creatinine Ratio 15 (6-20) Glucose Level 228 mg/dL (70-99) Calcium Level 8.2 mg/dL (8.5-10.1) Total Bilirubin 0.2 mg/dL (0.2-1.0) Aspartate Amino Transf (AST/SGOT) 23 U/L (15-37) Alanine Aminotransferase (ALT/SGPT) 24 U/L (14-59) Alkaline Phosphatase 105 U/L (46-116) Total Protein 6.9 g/dL (6.4-8.2) Albumin 2.1 g/dL (3.4-5.0) Albumin/Globulin Ratio 0.4 (1.0-1.7) Lipase 332 U/L (73-393) Ethyl Alcohol Level < 10 mg/dL (0-10) Lactic Acid Level 1.6 mmol/L (0.4-2.0) Glucose (Fingerstick) 138 mg/dL (70-99) Test 12/09/18 21:05 12/10/18 03:45 12/10/18 07:52 Glucose (Fingerstick) 202 mg/dL (70-99) 92 mg/dL (70-99) White Blood Count 10.5 x10^3/uL (4.0-11.0) Red Blood Count 3.07 x10^6/uL (3.50-5.40) Hemoglobin 10.3 g/dL (12.0-15.5) Hematocrit 30.9 % (36.0-47.0) Mean Corpuscular Volume 101 fL (79-100) Mean Corpuscular Hemoglobin 33 pg (25-35) Mean Corpuscular Hemoglobin Concent 33 g/dL (31-37) Red Cell Distribution Width 13.9 % (11.5-14.5) Platelet Count 429 x10^3/uL (140-400) Neutrophils (%) (Auto) 65 % (31-73) Lymphocytes (%) (Auto) 22 % (24-48) Monocytes (%) (Auto) 10 % (0-9) Eosinophils (%) (Auto) 2 % (0-3) Basophils (%) (Auto) 1 % (0-3) Neutrophils # (Auto) 6.8 x10^3uL (1.8-7.7) Lymphocytes # (Auto) 2.3 x10^3/uL (1.0-4.8) Monocytes # (Auto) 1.1 x10^3/uL (0.0-1.1) Eosinophils # (Auto) 0.3 x10^3/uL (0.0-0.7) Basophils # (Auto) 0.1 x10^3/uL (0.0-0.2) Sodium Level 144 mmol/L (136-145) Potassium Level 3.6 mmol/L (3.5-5.1) Chloride Level 108 mmol/L (98-107) Carbon Dioxide Level 27 mmol/L (21-32) Anion Gap 9 (6-14) Blood Urea Nitrogen 22 mg/dL (7-20) Creatinine 1.7 mg/dL (0.6-1.0) Estimated GFR (Cockcroft-Gault) 36.7 Glucose Level 71 mg/dL (70-99) Calcium Level 7.9 mg/dL (8.5-10.1) Laboratory Tests Test 12/09/18 12:30 12/09/18 12:45 12/09/18 15:50 12/09/18 17:15 Urine Collection Type Unknown Urine Color Yellow Urine Clarity Clear Urine pH 7.0 Urine Specific [place] 1.015 Urine Protein >=300 mg/dL (NEG-TRACE) Urine Glucose (UA) 100 mg/dL (NEG) Urine Ketones (Stick) Negative mg/dL (NEG) Urine Blood Small (NEG) Urine Nitrite Negative (NEG) Urine Bilirubin Negative (NEG) Urine Urobilinogen Dipstick 0.2 mg/dL (0.2 mg/dL) Urine Leukocyte Esterase Small (NEG) Urine RBC 11-20 /HPF (0-2) Urine WBC 5-10 /HPF (0-4) Urine Squamous Epithelial Cells Many /LPF Urine Bacteria Many /HPF (0-FEW) Urine Hyaline Casts Few /HPF Urine Mucus Mod /LPF Urine Yeast Present /HPF Urine Opiates Screen Neg (NEG) Urine Methadone Screen Neg (NEG) Urine Barbiturates Neg (NEG) Urine Phencyclidine Screen Neg (NEG) Urine Amphetamine/Methamphetamine Neg (NEG) Urine Benzodiazepines Screen Neg (NEG) Urine Cocaine Screen Pos (NEG) Urine Cannabinoids Screen Pos (NEG) Urine Ethyl Alcohol Neg (NEG) White Blood Count 13.5 x10^3/uL (4.0-11.0) Red Blood Count 3.48 x10^6/uL (3.50-5.40) Hemoglobin 11.4 g/dL (12.0-15.5) Hematocrit 34.8 % (36.0-47.0) Mean Corpuscular Volume 100 fL (79-100) Mean Corpuscular Hemoglobin 33 pg (25-35) Mean Corpuscular Hemoglobin Concent 33 g/dL (31-37) Red Cell Distribution Width 13.9 % (11.5-14.5) Platelet Count 444 x10^3/uL (140-400) Neutrophils (%) (Auto) 69 % (31-73) Lymphocytes (%) (Auto) 19 % (24-48) Monocytes (%) (Auto) 10 % (0-9) Eosinophils (%) (Auto) 1 % (0-3) Basophils (%) (Auto) 1 % (0-3) Neutrophils # (Auto) 9.2 x10^3uL (1.8-7.7) Lymphocytes # (Auto) 2.6 x10^3/uL (1.0-4.8) Monocytes # (Auto) 1.4 x10^3/uL (0.0-1.1) Eosinophils # (Auto) 0.1 x10^3/uL (0.0-0.7) Basophils # (Auto) 0.2 x10^3/uL (0.0-0.2) Sodium Level 144 mmol/L (136-145) Potassium Level 3.9 mmol/L (3.5-5.1) Chloride Level 105 mmol/L (98-107) Carbon Dioxide Level 26 mmol/L (21-32) Anion Gap 13 (6-14) Blood Urea Nitrogen 21 mg/dL (7-20) Creatinine 1.4 mg/dL (0.6-1.0) Estimated GFR (Cockcroft-Gault) 46.0 BUN/Creatinine Ratio 15 (6-20) Glucose Level 228 mg/dL (70-99) Calcium Level 8.2 mg/dL (8.5-10.1) Total Bilirubin 0.2 mg/dL (0.2-1.0) Aspartate Amino Transf (AST/SGOT) 23 U/L (15-37) Alanine Aminotransferase (ALT/SGPT) 24 U/L (14-59) Alkaline Phosphatase 105 U/L (46-116) Total Protein 6.9 g/dL (6.4-8.2) Albumin 2.1 g/dL (3.4-5.0) Albumin/Globulin Ratio 0.4 (1.0-1.7) Lipase 332 U/L (73-393) Ethyl Alcohol Level < 10 mg/dL (0-10) Lactic Acid Level 1.6 mmol/L (0.4-2.0) Glucose (Fingerstick) 138 mg/dL (70-99) Test 12/09/18 21:05 12/10/18 03:45 12/10/18 07:52 Glucose (Fingerstick) 202 mg/dL (70-99) 92 mg/dL (70-99) White Blood Count 10.5 x10^3/uL (4.0-11.0) Red Blood Count 3.07 x10^6/uL (3.50-5.40) Hemoglobin 10.3 g/dL (12.0-15.5) Hematocrit 30.9 % (36.0-47.0) Mean Corpuscular Volume 101 fL (79-100) Mean Corpuscular Hemoglobin 33 pg (25-35) Mean Corpuscular Hemoglobin Concent 33 g/dL (31-37) Red Cell Distribution Width 13.9 % (11.5-14.5) Platelet Count 429 x10^3/uL (140-400) Neutrophils (%) (Auto) 65 % (31-73) Lymphocytes (%) (Auto) 22 % (24-48) Monocytes (%) (Auto) 10 % (0-9) Eosinophils (%) (Auto) 2 % (0-3) Basophils (%) (Auto) 1 % (0-3) Neutrophils # (Auto) 6.8 x10^3uL (1.8-7.7) Lymphocytes # (Auto) 2.3 x10^3/uL (1.0-4.8) Monocytes # (Auto) 1.1 x10^3/uL (0.0-1.1) Eosinophils # (Auto) 0.3 x10^3/uL (0.0-0.7) Basophils # (Auto) 0.1 x10^3/uL (0.0-0.2) Sodium Level 144 mmol/L (136-145) Potassium Level 3.6 mmol/L (3.5-5.1) Chloride Level 108 mmol/L (98-107) Carbon Dioxide Level 27 mmol/L (21-32) Anion Gap 9 (6-14) Blood Urea Nitrogen 22 mg/dL (7-20) Creatinine 1.7 mg/dL (0.6-1.0) Estimated GFR (Cockcroft-Gault) 36.7 Glucose Level 71 mg/dL (70-99) Calcium Level 7.9 mg/dL (8.5-10.1) Images Images CT scan of the abdomen and pelvis did not show appendix or inflammatory changes in the right lower quadrant did show an enlarged liver Assessment/Plan Assessment/Plan No CT scan findings of acute appendicitis white count normal this morning afebrile pain most likely from her enlarged liver No surgical recommendations consider GI consult for evaluation liver disease SEBAS GUTIERREZ MD Dec 10, 2018 08:49
--- NOTE | 2018-12-10 08:51 | NUR ---
Pharmacy Vancomycin Dosing Note S:Consulted to monitor and dose vancomycin started 12/10/18. O:ANAND DEGROOT V is a 63 year old F with Cellulitis Height: 5 feet, 9 inches Weight: 87.6 kg [place] Body Weight: 66.20 Adjusted Body Weight: 74.76 Dosing Weight: Actual Other Antibiotics: LABS: Last BUN: 22 Last Creatinine: 1.7 Creatinine Clearance: 40 mL/min Last WBC: 10.5 Last Procalcitonin: Tmax (past 24 hours): 99.3 Microbiology: - I/O: 2089/ Last dose given 12/09/18 at 2335 Vancomycin Dosing: Loading Dose: 2000 mg x1 Dosing Weight: Actual Target Trough: 10-20 A: Based on: weight and renal function P: 1. Begin Vancomycin 1250 mg IV q24h 2. Follow up Trough level on 12/11/18 at 2230 3. Pharmacy will continue to monitor, follow and adjust therapy as needed. Hermila Kramer [facility], 12/10/18 0129
--- NOTE | 2018-12-10 10:15 | PDOC ---
Infectious Disease Note Vital Sign Vital Signs Vital Signs Date Time Temp Pulse Resp B/P (MAP) Pulse Ox O2 Delivery O2 Flow Rate FiO2 12/10/18 08:33 100 Room Air 12/10/18 08:09 72 162/81 12/10/18 07:00 99.3 20 99.3 Labs Lab Laboratory Tests Test 12/09/18 12:30 12/09/18 12:45 12/09/18 15:50 12/09/18 17:15 Urine Collection Type Unknown Urine Color Yellow Urine Clarity Clear Urine pH 7.0 Urine Specific [place] 1.015 Urine Protein >=300 mg/dL (NEG-TRACE) Urine Glucose (UA) 100 mg/dL (NEG) Urine Ketones (Stick) Negative mg/dL (NEG) Urine Blood Small (NEG) Urine Nitrite Negative (NEG) Urine Bilirubin Negative (NEG) Urine Urobilinogen Dipstick 0.2 mg/dL (0.2 mg/dL) Urine Leukocyte Esterase Small (NEG) Urine RBC 11-20 /HPF (0-2) Urine WBC 5-10 /HPF (0-4) Urine Squamous Epithelial Cells Many /LPF Urine Bacteria Many /HPF (0-FEW) Urine Hyaline Casts Few /HPF Urine Mucus Mod /LPF Urine Yeast Present /HPF Urine Opiates Screen Neg (NEG) Urine Methadone Screen Neg (NEG) Urine Barbiturates Neg (NEG) Urine Phencyclidine Screen Neg (NEG) Urine Amphetamine/Methamphetamine Neg (NEG) Urine Benzodiazepines Screen Neg (NEG) Urine Cocaine Screen Pos (NEG) Urine Cannabinoids Screen Pos (NEG) Urine Ethyl Alcohol Neg (NEG) White Blood Count 13.5 x10^3/uL (4.0-11.0) Red Blood Count 3.48 x10^6/uL (3.50-5.40) Hemoglobin 11.4 g/dL (12.0-15.5) Hematocrit 34.8 % (36.0-47.0) Mean Corpuscular Volume 100 fL (79-100) Mean Corpuscular Hemoglobin 33 pg (25-35) Mean Corpuscular Hemoglobin Concent 33 g/dL (31-37) Red Cell Distribution Width 13.9 % (11.5-14.5) Platelet Count 444 x10^3/uL (140-400) Neutrophils (%) (Auto) 69 % (31-73) Lymphocytes (%) (Auto) 19 % (24-48) Monocytes (%) (Auto) 10 % (0-9) Eosinophils (%) (Auto) 1 % (0-3) Basophils (%) (Auto) 1 % (0-3) Neutrophils # (Auto) 9.2 x10^3uL (1.8-7.7) Lymphocytes # (Auto) 2.6 x10^3/uL (1.0-4.8) Monocytes # (Auto) 1.4 x10^3/uL (0.0-1.1) Eosinophils # (Auto) 0.1 x10^3/uL (0.0-0.7) Basophils # (Auto) 0.2 x10^3/uL (0.0-0.2) Sodium Level 144 mmol/L (136-145) Potassium Level 3.9 mmol/L (3.5-5.1) Chloride Level 105 mmol/L (98-107) Carbon Dioxide Level 26 mmol/L (21-32) Anion Gap 13 (6-14) Blood Urea Nitrogen 21 mg/dL (7-20) Creatinine 1.4 mg/dL (0.6-1.0) Estimated GFR (Cockcroft-Gault) 46.0 BUN/Creatinine Ratio 15 (6-20) Glucose Level 228 mg/dL (70-99) Calcium Level 8.2 mg/dL (8.5-10.1) Total Bilirubin 0.2 mg/dL (0.2-1.0) Aspartate Amino Transf (AST/SGOT) 23 U/L (15-37) Alanine Aminotransferase (ALT/SGPT) 24 U/L (14-59) Alkaline Phosphatase 105 U/L (46-116) Total Protein 6.9 g/dL (6.4-8.2) Albumin 2.1 g/dL (3.4-5.0) Albumin/Globulin Ratio 0.4 (1.0-1.7) Lipase 332 U/L (73-393) Ethyl Alcohol Level < 10 mg/dL (0-10) Lactic Acid Level 1.6 mmol/L (0.4-2.0) Glucose (Fingerstick) 138 mg/dL (70-99) Test 12/09/18 21:05 12/10/18 03:45 12/10/18 07:52 Glucose (Fingerstick) 202 mg/dL (70-99) 92 mg/dL (70-99) White Blood Count 10.5 x10^3/uL (4.0-11.0) Red Blood Count 3.07 x10^6/uL (3.50-5.40) Hemoglobin 10.3 g/dL (12.0-15.5) Hematocrit 30.9 % (36.0-47.0) Mean Corpuscular Volume 101 fL (79-100) Mean Corpuscular Hemoglobin 33 pg (25-35) Mean Corpuscular Hemoglobin Concent 33 g/dL (31-37) Red Cell Distribution Width 13.9 % (11.5-14.5) Platelet Count 429 x10^3/uL (140-400) Neutrophils (%) (Auto) 65 % (31-73) Lymphocytes (%) (Auto) 22 % (24-48) Monocytes (%) (Auto) 10 % (0-9) Eosinophils (%) (Auto) 2 % (0-3) Basophils (%) (Auto) 1 % (0-3) Neutrophils # (Auto) 6.8 x10^3uL (1.8-7.7) Lymphocytes # (Auto) 2.3 x10^3/uL (1.0-4.8) Monocytes # (Auto) 1.1 x10^3/uL (0.0-1.1) Eosinophils # (Auto) 0.3 x10^3/uL (0.0-0.7) Basophils # (Auto) 0.1 x10^3/uL (0.0-0.2) Sodium Level 144 mmol/L (136-145) Potassium Level 3.6 mmol/L (3.5-5.1) Chloride Level 108 mmol/L (98-107) Carbon Dioxide Level 27 mmol/L (21-32) Anion Gap 9 (6-14) Blood Urea Nitrogen 22 mg/dL (7-20) Creatinine 1.7 mg/dL (0.6-1.0) Estimated GFR (Cockcroft-Gault) 36.7 Glucose Level 71 mg/dL (70-99) Calcium Level 7.9 mg/dL (8.5-10.1) Micro Lung bases are clear. Liver is enlarged, measuring 23 cm longitudinal with the right lobe similar to prior study. Spleen not visualized. Pancreatic margins appear intact. No adrenal mass. Small hypodense lesions of both kidneys, largest on the left measures 12 mm and measures cystic density. Others are too small to characterize. Difficult to compare with prior study as that was noncontrast. Symmetric renal enhancement. No evidence of hydronephrosis. Gallbladder not visualized. Mild biliary ductal dilatation likely due to cholecystectomy. Aorta calcified, no evidence of aneurysm. No significant lymph node enlargement identified. Mild wall thickening of the distal esophagus. No significant small bowel distention. No evidence of acute colitis. Mild stool through the colon. The appendix is not clearly visualized. No localized inflammatory type changes are seen in the right lower quadrant. No evidence of pneumoperitoneum or ascites. No evidence of pelvic mass. Urinary bladder appears unremarkable. Apparent surgical clip in the pelvis. Degenerative spondylosis is again identified. Vertebral body height maintained. No destructive bone lesion. Mild degenerative changes at the skeletal pelvis. Small fat-containing umbilical hernia redemonstrated. IMPRESSION: 1. Hepatomegaly again seen. 2. No definite acute findings in the abdomen or pelvis. The appendix is not clearly visualized. 3. Small renal lesions bilaterally, most likely cysts. Objective Assessment Abd pain Constipation - no Bm for close to a week - CT with mild stool Leukocytosis - resolved ? dehydration with abd pain and decreased intact Previous LLE cellulitis - resolved - h/o MSSA TE - worse today H/o Splenectomy Urine is a poor specimen Plan Plan of Care D/c Vanc po Augmentin F/u labs and cults May need Gi eval Thank you # [id number] TWYLA SOLIS MD Dec 10, 2018 10:15
--- NOTE | 2018-12-10 10:23 | PDOC ---
PROGRESS NOTES Chief Complaint Chief Complaint Bilateral lower abdominal pain, Bilateral lower extremity edema History of Present Illness History of Present Illness Patient was seen resting comfortably in bed. She states she still has severe abdominal pain. She is a recreational drug user but denies any IV drug use. Vitals Vitals Vital Signs Date Time Temp Pulse Resp B/P (MAP) Pulse Ox O2 Delivery O2 Flow Rate FiO2 12/10/18 08:33 100 Room Air 12/10/18 08:09 72 162/81 12/10/18 07:00 99.3 20 99.3 Physical Exam General: Alert, Oriented X3, Cooperative, mild distress Heart: Regular rate, Normal S1, Normal S2, No murmurs Lungs: Other (Minor wheezing) Abdomen: Soft, Other (tender to palpation right lower quadrant, hepatomegaly ) Extremities: Other (she does have swelling both lower extremities with some erythema left lower extremity around the ankle, wheeping left 2nd toe) Labs LABS Laboratory Tests Test 12/09/18 12:30 12/09/18 12:45 12/09/18 15:50 12/09/18 17:15 Urine Collection Type Unknown Urine Color Yellow Urine Clarity Clear Urine pH 7.0 Urine Specific [place] 1.015 Urine Protein >=300 mg/dL (NEG-TRACE) Urine Glucose (UA) 100 mg/dL (NEG) Urine Ketones (Stick) Negative mg/dL (NEG) Urine Blood Small (NEG) Urine Nitrite Negative (NEG) Urine Bilirubin Negative (NEG) Urine Urobilinogen Dipstick 0.2 mg/dL (0.2 mg/dL) Urine Leukocyte Esterase Small (NEG) Urine RBC 11-20 /HPF (0-2) Urine WBC 5-10 /HPF (0-4) Urine Squamous Epithelial Cells Many /LPF Urine Bacteria Many /HPF (0-FEW) Urine Hyaline Casts Few /HPF Urine Mucus Mod /LPF Urine Yeast Present /HPF Urine Opiates Screen Neg (NEG) Urine Methadone Screen Neg (NEG) Urine Barbiturates Neg (NEG) Urine Phencyclidine Screen Neg (NEG) Urine Amphetamine/Methamphetamine Neg (NEG) Urine Benzodiazepines Screen Neg (NEG) Urine Cocaine Screen Pos (NEG) Urine Cannabinoids Screen Pos (NEG) Urine Ethyl Alcohol Neg (NEG) White Blood Count 13.5 x10^3/uL (4.0-11.0) Red Blood Count 3.48 x10^6/uL (3.50-5.40) Hemoglobin 11.4 g/dL (12.0-15.5) Hematocrit 34.8 % (36.0-47.0) Mean Corpuscular Volume 100 fL (79-100) Mean Corpuscular Hemoglobin 33 pg (25-35) Mean Corpuscular Hemoglobin Concent 33 g/dL (31-37) Red Cell Distribution Width 13.9 % (11.5-14.5) Platelet Count 444 x10^3/uL (140-400) Neutrophils (%) (Auto) 69 % (31-73) Lymphocytes (%) (Auto) 19 % (24-48) Monocytes (%) (Auto) 10 % (0-9) Eosinophils (%) (Auto) 1 % (0-3) Basophils (%) (Auto) 1 % (0-3) Neutrophils # (Auto) 9.2 x10^3uL (1.8-7.7) Lymphocytes # (Auto) 2.6 x10^3/uL (1.0-4.8) Monocytes # (Auto) 1.4 x10^3/uL (0.0-1.1) Eosinophils # (Auto) 0.1 x10^3/uL (0.0-0.7) Basophils # (Auto) 0.2 x10^3/uL (0.0-0.2) Sodium Level 144 mmol/L (136-145) Potassium Level 3.9 mmol/L (3.5-5.1) Chloride Level 105 mmol/L (98-107) Carbon Dioxide Level 26 mmol/L (21-32) Anion Gap 13 (6-14) Blood Urea Nitrogen 21 mg/dL (7-20) Creatinine 1.4 mg/dL (0.6-1.0) Estimated GFR (Cockcroft-Gault) 46.0 BUN/Creatinine Ratio 15 (6-20) Glucose Level 228 mg/dL (70-99) Calcium Level 8.2 mg/dL (8.5-10.1) Total Bilirubin 0.2 mg/dL (0.2-1.0) Aspartate Amino Transf (AST/SGOT) 23 U/L (15-37) Alanine Aminotransferase (ALT/SGPT) 24 U/L (14-59) Alkaline Phosphatase 105 U/L (46-116) Total Protein 6.9 g/dL (6.4-8.2) Albumin 2.1 g/dL (3.4-5.0) Albumin/Globulin Ratio 0.4 (1.0-1.7) Lipase 332 U/L (73-393) Ethyl Alcohol Level < 10 mg/dL (0-10) Lactic Acid Level 1.6 mmol/L (0.4-2.0) Glucose (Fingerstick) 138 mg/dL (70-99) Test 12/09/18 21:05 12/10/18 03:45 12/10/18 07:52 Glucose (Fingerstick) 202 mg/dL (70-99) 92 mg/dL (70-99) White Blood Count 10.5 x10^3/uL (4.0-11.0) Red Blood Count 3.07 x10^6/uL (3.50-5.40) Hemoglobin 10.3 g/dL (12.0-15.5) Hematocrit 30.9 % (36.0-47.0) Mean Corpuscular Volume 101 fL (79-100) Mean Corpuscular Hemoglobin 33 pg (25-35) Mean Corpuscular Hemoglobin Concent 33 g/dL (31-37) Red Cell Distribution Width 13.9 % (11.5-14.5) Platelet Count 429 x10^3/uL (140-400) Neutrophils (%) (Auto) 65 % (31-73) Lymphocytes (%) (Auto) 22 % (24-48) Monocytes (%) (Auto) 10 % (0-9) Eosinophils (%) (Auto) 2 % (0-3) Basophils (%) (Auto) 1 % (0-3) Neutrophils # (Auto) 6.8 x10^3uL (1.8-7.7) Lymphocytes # (Auto) 2.3 x10^3/uL (1.0-4.8) Monocytes # (Auto) 1.1 x10^3/uL (0.0-1.1) Eosinophils # (Auto) 0.3 x10^3/uL (0.0-0.7) Basophils # (Auto) 0.1 x10^3/uL (0.0-0.2) Sodium Level 144 mmol/L (136-145) Potassium Level 3.6 mmol/L (3.5-5.1) Chloride Level 108 mmol/L (98-107) Carbon Dioxide Level 27 mmol/L (21-32) Anion Gap 9 (6-14) Blood Urea Nitrogen 22 mg/dL (7-20) Creatinine 1.7 mg/dL (0.6-1.0) Estimated GFR (Cockcroft-Gault) 36.7 Glucose Level 71 mg/dL (70-99) Calcium Level 7.9 mg/dL (8.5-10.1) Review of Systems Review of Systems Patient complains of abdominal pain and some SOB due to asthma Denies nausea, vomiting, fevers, chills, CP, diarrhea Assessment and Plan Assessmemt and Plan Problems Medical Problems: (1) Cellulitis of left lower extremity Status: Acute (2) Chronic acquired lymphedema Status: Acute (3) Drug abuse Status: Acute (4) Homeless Status: Acute Assessment: Abdominal pain polysubstance abuse acute on chronic cellulitis leukocytosis- resolved anemia acute on chronic renal failure urinary tract infection Smoker Plan: Vancomycin Wound care GI, ID, and nephro consults media services specialist consult Pain management F/u labs Continue home meds PT/OT DVT prophylaxis Comment Review of Relevant I have reviewed the following items peyton (where applicable) has been applied. Labs Laboratory Tests Test 12/09/18 12:30 12/09/18 12:45 12/09/18 15:50 12/09/18 17:15 Urine Collection Type Unknown Urine Color Yellow Urine Clarity Clear Urine pH 7.0 Urine Specific [place] 1.015 Urine Protein >=300 mg/dL (NEG-TRACE) Urine Glucose (UA) 100 mg/dL (NEG) Urine Ketones (Stick) Negative mg/dL (NEG) Urine Blood Small (NEG) Urine Nitrite Negative (NEG) Urine Bilirubin Negative (NEG) Urine Urobilinogen Dipstick 0.2 mg/dL (0.2 mg/dL) Urine Leukocyte Esterase Small (NEG) Urine RBC 11-20 /HPF (0-2) Urine WBC 5-10 /HPF (0-4) Urine Squamous Epithelial Cells Many /LPF Urine Bacteria Many /HPF (0-FEW) Urine Hyaline Casts Few /HPF Urine Mucus Mod /LPF Urine Yeast Present /HPF Urine Opiates Screen Neg (NEG) Urine Methadone Screen Neg (NEG) Urine Barbiturates Neg (NEG) Urine Phencyclidine Screen Neg (NEG) Urine Amphetamine/Methamphetamine Neg (NEG) Urine Benzodiazepines Screen Neg (NEG) Urine Cocaine Screen Pos (NEG) Urine Cannabinoids Screen Pos (NEG) Urine Ethyl Alcohol Neg (NEG) White Blood Count 13.5 x10^3/uL (4.0-11.0) Red Blood Count 3.48 x10^6/uL (3.50-5.40) Hemoglobin 11.4 g/dL (12.0-15.5) Hematocrit 34.8 % (36.0-47.0) Mean Corpuscular Volume 100 fL (79-100) Mean Corpuscular Hemoglobin 33 pg (25-35) Mean Corpuscular Hemoglobin Concent 33 g/dL (31-37) Red Cell Distribution Width 13.9 % (11.5-14.5) Platelet Count 444 x10^3/uL (140-400) Neutrophils (%) (Auto) 69 % (31-73) Lymphocytes (%) (Auto) 19 % (24-48) Monocytes (%) (Auto) 10 % (0-9) Eosinophils (%) (Auto) 1 % (0-3) Basophils (%) (Auto) 1 % (0-3) Neutrophils # (Auto) 9.2 x10^3uL (1.8-7.7) Lymphocytes # (Auto) 2.6 x10^3/uL (1.0-4.8) Monocytes # (Auto) 1.4 x10^3/uL (0.0-1.1) Eosinophils # (Auto) 0.1 x10^3/uL (0.0-0.7) Basophils # (Auto) 0.2 x10^3/uL (0.0-0.2) Sodium Level 144 mmol/L (136-145) Potassium Level 3.9 mmol/L (3.5-5.1) Chloride Level 105 mmol/L (98-107) Carbon Dioxide Level 26 mmol/L (21-32) Anion Gap 13 (6-14) Blood Urea Nitrogen 21 mg/dL (7-20) Creatinine 1.4 mg/dL (0.6-1.0) Estimated GFR (Cockcroft-Gault) 46.0 BUN/Creatinine Ratio 15 (6-20) Glucose Level 228 mg/dL (70-99) Calcium Level 8.2 mg/dL (8.5-10.1) Total Bilirubin 0.2 mg/dL (0.2-1.0) Aspartate Amino Transf (AST/SGOT) 23 U/L (15-37) Alanine Aminotransferase (ALT/SGPT) 24 U/L (14-59) Alkaline Phosphatase 105 U/L (46-116) Total Protein 6.9 g/dL (6.4-8.2) Albumin 2.1 g/dL (3.4-5.0) Albumin/Globulin Ratio 0.4 (1.0-1.7) Lipase 332 U/L (73-393) Ethyl Alcohol Level < 10 mg/dL (0-10) Lactic Acid Level 1.6 mmol/L (0.4-2.0) Glucose (Fingerstick) 138 mg/dL (70-99) Test 12/09/18 21:05 12/10/18 03:45 12/10/18 07:52 Glucose (Fingerstick) 202 mg/dL (70-99) 92 mg/dL (70-99) White Blood Count 10.5 x10^3/uL (4.0-11.0) Red Blood Count 3.07 x10^6/uL (3.50-5.40) Hemoglobin 10.3 g/dL (12.0-15.5) Hematocrit 30.9 % (36.0-47.0) Mean Corpuscular Volume 101 fL (79-100) Mean Corpuscular Hemoglobin 33 pg (25-35) Mean Corpuscular Hemoglobin Concent 33 g/dL (31-37) Red Cell Distribution Width 13.9 % (11.5-14.5) Platelet Count 429 x10^3/uL (140-400) Neutrophils (%) (Auto) 65 % (31-73) Lymphocytes (%) (Auto) 22 % (24-48) Monocytes (%) (Auto) 10 % (0-9) Eosinophils (%) (Auto) 2 % (0-3) Basophils (%) (Auto) 1 % (0-3) Neutrophils # (Auto) 6.8 x10^3uL (1.8-7.7) Lymphocytes # (Auto) 2.3 x10^3/uL (1.0-4.8) Monocytes # (Auto) 1.1 x10^3/uL (0.0-1.1) Eosinophils # (Auto) 0.3 x10^3/uL (0.0-0.7) Basophils # (Auto) 0.1 x10^3/uL (0.0-0.2) Sodium Level 144 mmol/L (136-145) Potassium Level 3.6 mmol/L (3.5-5.1) Chloride Level 108 mmol/L (98-107) Carbon Dioxide Level 27 mmol/L (21-32) Anion Gap 9 (6-14) Blood Urea Nitrogen 22 mg/dL (7-20) Creatinine 1.7 mg/dL (0.6-1.0) Estimated GFR (Cockcroft-Gault) 36.7 Glucose Level 71 mg/dL (70-99) Calcium Level 7.9 mg/dL (8.5-10.1) Laboratory Tests Test 12/09/18 12:30 12/09/18 12:45 12/09/18 15:50 12/09/18 17:15 Urine Collection Type Unknown Urine Color Yellow Urine Clarity Clear Urine pH 7.0 Urine Specific [place] 1.015 Urine Protein >=300 mg/dL (NEG-TRACE) Urine Glucose (UA) 100 mg/dL (NEG) Urine Ketones (Stick) Negative mg/dL (NEG) Urine Blood Small (NEG) Urine Nitrite Negative (NEG) Urine Bilirubin Negative (NEG) Urine Urobilinogen Dipstick 0.2 mg/dL (0.2 mg/dL) Urine Leukocyte Esterase Small (NEG) Urine RBC 11-20 /HPF (0-2) Urine WBC 5-10 /HPF (0-4) Urine Squamous Epithelial Cells Many /LPF Urine Bacteria Many /HPF (0-FEW) Urine Hyaline Casts Few /HPF Urine Mucus Mod /LPF Urine Yeast Present /HPF Urine Opiates Screen Neg (NEG) Urine Methadone Screen Neg (NEG) Urine Barbiturates Neg (NEG) Urine Phencyclidine Screen Neg (NEG) Urine Amphetamine/Methamphetamine Neg (NEG) Urine Benzodiazepines Screen Neg (NEG) Urine Cocaine Screen Pos (NEG) Urine Cannabinoids Screen Pos (NEG) Urine Ethyl Alcohol Neg (NEG) White Blood Count 13.5 x10^3/uL (4.0-11.0) Red Blood Count 3.48 x10^6/uL (3.50-5.40) Hemoglobin 11.4 g/dL (12.0-15.5) Hematocrit 34.8 % (36.0-47.0) Mean Corpuscular Volume 100 fL (79-100) Mean Corpuscular Hemoglobin 33 pg (25-35) Mean Corpuscular Hemoglobin Concent 33 g/dL (31-37) Red Cell Distribution Width 13.9 % (11.5-14.5) Platelet Count 444 x10^3/uL (140-400) Neutrophils (%) (Auto) 69 % (31-73) Lymphocytes (%) (Auto) 19 % (24-48) Monocytes (%) (Auto) 10 % (0-9) Eosinophils (%) (Auto) 1 % (0-3) Basophils (%) (Auto) 1 % (0-3) Neutrophils # (Auto) 9.2 x10^3uL (1.8-7.7) Lymphocytes # (Auto) 2.6 x10^3/uL (1.0-4.8) Monocytes # (Auto) 1.4 x10^3/uL (0.0-1.1) Eosinophils # (Auto) 0.1 x10^3/uL (0.0-0.7) Basophils # (Auto) 0.2 x10^3/uL (0.0-0.2) Sodium Level 144 mmol/L (136-145) Potassium Level 3.9 mmol/L (3.5-5.1) Chloride Level 105 mmol/L (98-107) Carbon Dioxide Level 26 mmol/L (21-32) Anion Gap 13 (6-14) Blood Urea Nitrogen 21 mg/dL (7-20) Creatinine 1.4 mg/dL (0.6-1.0) Estimated GFR (Cockcroft-Gault) 46.0 BUN/Creatinine Ratio 15 (6-20) Glucose Level 228 mg/dL (70-99) Calcium Level 8.2 mg/dL (8.5-10.1) Total Bilirubin 0.2 mg/dL (0.2-1.0) Aspartate Amino Transf (AST/SGOT) 23 U/L (15-37) Alanine Aminotransferase (ALT/SGPT) 24 U/L (14-59) Alkaline Phosphatase 105 U/L (46-116) Total Protein 6.9 g/dL (6.4-8.2) Albumin 2.1 g/dL (3.4-5.0) Albumin/Globulin Ratio 0.4 (1.0-1.7) Lipase 332 U/L (73-393) Ethyl Alcohol Level < 10 mg/dL (0-10) Lactic Acid Level 1.6 mmol/L (0.4-2.0) Glucose (Fingerstick) 138 mg/dL (70-99) Test 12/09/18 21:05 12/10/18 03:45 12/10/18 07:52 Glucose (Fingerstick) 202 mg/dL (70-99) 92 mg/dL (70-99) White Blood Count 10.5 x10^3/uL (4.0-11.0) Red Blood Count 3.07 x10^6/uL (3.50-5.40) Hemoglobin 10.3 g/dL (12.0-15.5) Hematocrit 30.9 % (36.0-47.0) Mean Corpuscular Volume 101 fL (79-100) Mean Corpuscular Hemoglobin 33 pg (25-35) Mean Corpuscular Hemoglobin Concent 33 g/dL (31-37) Red Cell Distribution Width 13.9 % (11.5-14.5) Platelet Count 429 x10^3/uL (140-400) Neutrophils (%) (Auto) 65 % (31-73) Lymphocytes (%) (Auto) 22 % (24-48) Monocytes (%) (Auto) 10 % (0-9) Eosinophils (%) (Auto) 2 % (0-3) Basophils (%) (Auto) 1 % (0-3) Neutrophils # (Auto) 6.8 x10^3uL (1.8-7.7) Lymphocytes # (Auto) 2.3 x10^3/uL (1.0-4.8) Monocytes # (Auto) 1.1 x10^3/uL (0.0-1.1) Eosinophils # (Auto) 0.3 x10^3/uL (0.0-0.7) Basophils # (Auto) 0.1 x10^3/uL (0.0-0.2) Sodium Level 144 mmol/L (136-145) Potassium Level 3.6 mmol/L (3.5-5.1) Chloride Level 108 mmol/L (98-107) Carbon Dioxide Level 27 mmol/L (21-32) Anion Gap 9 (6-14) Blood Urea Nitrogen 22 mg/dL (7-20) Creatinine 1.7 mg/dL (0.6-1.0) Estimated GFR (Cockcroft-Gault) 36.7 Glucose Level 71 mg/dL (70-99) Calcium Level 7.9 mg/dL (8.5-10.1) Medications Current Medications Labetalol HCl (Normodyne Iv Push) 10 mg 1X ONCE IVP Last administered on 12:57; Start 12/09/18 at 12:45; Stop 12/09/18 at 12:46; Status DC Clonidine HCl (Catapres) 0.1 mg 1X ONCE PO Last administered on 12/09/18 12:57 ; Start 12/09/18 at 12:45; Stop 12/09/18 at 12:46; Status DC Ondansetron HCl (Zofran) 4 mg 1X ONCE IV Last administered on 12/09/18 12:57; Start 12/09/18 at 12:45; Stop 12/09/18 at 12:46; Status DC Iohexol (Omnipaque 240 Mg/ml) 30 ml 1X ONCE PO ; Start 12/09/18 at 13:30; Stop 12/09/18 at 13:31; Status DC Iohexol (Omnipaque 300 Mg/ml) 75 ml 1X ONCE IV Last administered on 12/09/18at 13:40; Start 12/09/18 at 13:30; Stop 12/09/18 at 13:31; Status DC Ondansetron HCl (Zofran) 4 mg PRN Q8HRS PRN IV NAUSEA/VOMITING; Start 12/09/18 at 16:00; Stop 12/10/18 at 15:59 Fentanyl Citrate (Fentanyl 2ml Vial) 50 mcg PRN Q1HR PRN IV PAIN Last administered on 12/10/18at 08:03; Start 12/09/18 at 16:00; Stop 12/10/18 at 15:59 Acetaminophen (Tylenol) 650 mg PRN Q4HRS PRN PO FEVER; Start 12/09/18 at 16:00; Stop 12/10/18 at 15:59 Piperacillin Sod/ Tazobactam Sod 3.375 gm/Sodium Chloride 50 ml @ 100 mls/hr 1X ONCE IV Last administered on 12/09/18 22:46; Start 12/09/18 at 16:00; Stop 12/09/18 at 16:29; Status DC Vancomycin HCl (Vanco Per Pharmacy) 1 each PRN DAILY PRN MC SEE COMMENTS Last administered on 12/10/18 08:49; Start 12/09/18 at 16:00 Vancomycin HCl 2 gm/Sodium Chloride 500 ml @ 250 mls/hr 1X ONCE IV Last administered on 12/09/18 23:35; Start 12/09/18 at 16:15; Stop 12/09/18 at 18:14; Status DC Amoxicillin/ Clavulanate Potassium (Augmentin 875/ 125mg) 1 tab BID PO ; Start 12/09/18 at 21:00; Status UNV Carvedilol (Coreg) 6.25 mg BIDWMEALS PO Last administered on 12/10/18 08:08; Start 12/10/18 at 08:00 Duloxetine HCl (Cymbalta) 30 mg DAILY PO Last administered on 12/10/18 08:04; Start 12/09/18 at 20:30 Furosemide (Lasix) 40 mg BID PO Last administered on 12/10/18 08:04; Start 12/09 at 21:00 Guaifenesin (Robitussin Dm) 10 ml PRN Q6HRS PRN PO COUGH; Start 12/09/18 at 20: 00 Insulin Glargine (Lantus) 20 units QHS SQ Last administered on 12/09/18 21:51; Start 12/09/18 at 21:00 Insulin Human Lispro (HumaLOG) 7 units TIDAC SQ ; Start 12/10/18 at 07:30 Lisinopril (Prinivil) 20 mg DAILY PO Last administered on 12/10/18 08:09; Start 12/09/18 at 20:30 Pregabalin (Lyrica) 75 mg TID PO Last administered on 12/10/18 08:05; Start 12/09/18 at 21:00 Tramadol HCl (Ultram) 50 mg PRN Q6HRS PRN PO PAIN MILD; Start 12/09/18 at 20:00 Non-Formulary Medication (Benzonatate ) 100 mg [id number] PO ; Start 12/09/18 at 21: 00; Status UNV Hydralazine HCl (Apresoline) 50 mg TID PO Last administered on 12/10/18at 08:07; Start 12/09/18 at 21:00 Montelukast Sodium (Singulair) 10 mg QHS PO Last administered on 12/09/18at 21:07 ; Start 12/09/18 at 21:00 Quetiapine Fumarate (SEROquel) 100 mg QHS PO Last administered on 12/09/18at 21: 08; Start 12/09/18 at 21:00 Vancomycin HCl 1.25 gm/Sodium Chloride 250 ml @ 167 mls/hr Q24H IV ; Start 12/10 at 23:00 Vancomycin HCl (Vancomycin Trough Level) 1 each 1X ONCE MC ; Start 12/11/18 at 22:30; Stop 12/11/18 at 22:31 Active Scripts Active Lisinopril 40 Mg Tablet 20 Mg PO DAILY MDD 1 Carvedilol (Carvedilol) 6.25 Mg Tablet 6.25 Mg PO BIDWMEALS MDD 1 Hydralazine Hcl 25 Mg Tablet 50 Mg PO TID MDD 1 Lasix (Furosemide) 40 Mg Tablet 40 Mg PO BID MDD 1 30 Days Cymbalta (Duloxetine Hcl) 30 Mg Capsule.dr 1 Cap PO DAILY Tramadol Hcl 50 Mg Tablet 50 Mg PO Q6HRS PRN 6 Days Augmentin 875-125 Tablet (Amoxicillin/Potassium Clav) 1 Each Tablet 1 Tab PO BID 7 Days Quetiapine Fumarate 100 Mg Tablet 100 Mg PO QHS 30 Days Humalog (Insulin Lispro) 100 Unit/1 Ml Insuln.pen 7 Units SQ TIDAC 30 Days Lantus Solostar (Insulin Glargine,Hum.rec.anlog) 100 Unit/1 Ml Insuln.pen 20 Units SQ QHS 30 Days Guaifenesin Dm Syrup (Guaifenesin/Dextromethorphan) 5 Ml Syrup 10 Ml PO PRN Q6HRS PRN 30 Days Benzonatate 100 Mg Capsule 100 Mg PO [id number] 30 Days Montelukast Sodium Tablet (Montelukast Sodium) 10 Mg Tablet 10 Mg PO QHS 30 Days Lyrica (Pregabalin) 75 Mg Capsule 75 Mg PO TID 30 Days Vitals/I & O Vital Sign - Last 24 Hours 12/09/18 12/09/18 12/09/18 12/09/18 12:00 12:00 12:30 12:57 Temp 98.8 98.8 Pulse 92 90 88 90 Resp 19 19 B/P (MAP) 228/102 (144) 228/102 (144) 214/98 (136) 200/86 Pulse Ox 98 99 99 O2 Delivery Room Air Room Air Room Air 12/09/18 12/09/18 12/09/18 12/09/18 12:57 13:00 14:30 15:00 Pulse 90 93 73 77 Resp 17 17 18 B/P (MAP) 200/86 200/86 (124) 159/74 (102) 190/88 (122) Pulse Ox 99 98 99 O2 Delivery Room Air Room Air Room Air 12/09/18 12/09/18 12/09/18 12/09/18 15:30 16:00 18:00 19:00 Temp 97.9 97.9 Pulse 68 66 77 Resp 18 18 18 B/P (MAP) 158/75 (102) 171/80 (110) 184/85 (118) Pulse Ox 99 97 98 O2 Delivery Room Air Room Air Room Air Room Air 12/09/18 12/09/18 12/09/18 12/09/18 20:00 21:07 21:07 21:08 Pulse 77 77 B/P (MAP) 184/85 184/85 O2 Delivery Room Air Room Air 12/10/18 12/10/18 12/10/18 12/10/18 00:11 03:00 07:00 08:00 Temp 98.2 99.2 99.3 98.2 99.2 99.3 Pulse 69 70 78 Resp 14 18 20 B/P (MAP) 124/54 (77) 140/87 (104) 162/81 (108) Pulse Ox 98 100 99 O2 Delivery Room Air Room Air Room Air Room Air 12/10/18 12/10/18 12/10/18 12/10/18 08:03 08:07 08:08 08:09 Pulse 72 72 72 B/P (MAP) 162/81 162/81 162/81 Pulse Ox 100 O2 Delivery Room Air 12/10/18 08:33 Pulse Ox 100 O2 Delivery Room Air Intake and Output 12/09/18 12/09/18 12/10/18 15:00 23:00 07:00 Intake Total 2090 ml Output Total 250 ml Balance 1840 ml JASON HOUSE III DO Dec 10, 2018 10:23
--- NOTE | 2018-12-10 10:45 | PDOC2 ---
GI CONSULT Reason For Consult: Hepatomegaly w/ abd pain HPI: HPI: 63 y/o female admitted through ER yesterday. When I saw her this morning, staff reported she was "feeling a little loopy" from Fentanyl. She was in and out of sleep during interview making history difficult. Tells me right-sided pain x 6-7 days, started while "I was just sitting." Might be worse w/ movement. No n/v but "my taste buds are messed up." Thinks last stooled 1 week ago but denies chronic constipation. No bleeding. EGD 12/2017: grade 1 reflux esophagitis, bumpy antrum w/ some erythema (? biopsied - no path I can see), normal duodenum. GES 12/2017: mildly delayed T1/2 146 min. Reports normal colonoscopy in [place] ~5-6 years ago. S/p cholecystectomy ( unclear details). Hepatomegaly 3 CTs here. This time, CT also noted mild wall thickening of distal esophagus and mild stool throughout colon. No reported pancreas history. Doesn't take any GI-type meds at home (including PPI). Takes Lortab and ? ( fell asleep) for some sort of chronic pain. PMH: PMH: HTN, COPD/asthma, DM, CKD, UTI, cellulitis/MSSA, anxiety/depression, ?narcolepsy cholecystectomy, hysterectomy, splenectomy Social History: Smoke: <1 pack per day Drugs: Cocaine, Marijuana ROS: Difficult to obtain - see HPI. Vitals: Vitals: Vital Signs Date Time Temp Pulse Resp B/P (MAP) Pulse Ox O2 Delivery O2 Flow Rate FiO2 12/10/18 08:33 100 Room Air 12/10/18 08:09 72 162/81 12/10/18 07:00 99.3 20 99.3 Labs: Labs: Laboratory Tests Test 12/09/18 12:30 12/09/18 12:45 12/09/18 15:50 12/09/18 17:15 Urine Collection Type Unknown Urine Color Yellow Urine Clarity Clear Urine pH 7.0 Urine Specific [place] 1.015 Urine Protein >=300 mg/dL (NEG-TRACE) Urine Glucose (UA) 100 mg/dL (NEG) Urine Ketones (Stick) Negative mg/dL (NEG) Urine Blood Small (NEG) Urine Nitrite Negative (NEG) Urine Bilirubin Negative (NEG) Urine Urobilinogen Dipstick 0.2 mg/dL (0.2 mg/dL) Urine Leukocyte Esterase Small (NEG) Urine RBC 11-20 /HPF (0-2) Urine WBC 5-10 /HPF (0-4) Urine Squamous Epithelial Cells Many /LPF Urine Bacteria Many /HPF (0-FEW) Urine Hyaline Casts Few /HPF Urine Mucus Mod /LPF Urine Yeast Present /HPF Urine Opiates Screen Neg (NEG) Urine Methadone Screen Neg (NEG) Urine Barbiturates Neg (NEG) Urine Phencyclidine Screen Neg (NEG) Urine Amphetamine/Methamphetamine Neg (NEG) Urine Benzodiazepines Screen Neg (NEG) Urine Cocaine Screen Pos (NEG) Urine Cannabinoids Screen Pos (NEG) Urine Ethyl Alcohol Neg (NEG) White Blood Count 13.5 x10^3/uL (4.0-11.0) Red Blood Count 3.48 x10^6/uL (3.50-5.40) Hemoglobin 11.4 g/dL (12.0-15.5) Hematocrit 34.8 % (36.0-47.0) Mean Corpuscular Volume 100 fL (79-100) Mean Corpuscular Hemoglobin 33 pg (25-35) Mean Corpuscular Hemoglobin Concent 33 g/dL (31-37) Red Cell Distribution Width 13.9 % (11.5-14.5) Platelet Count 444 x10^3/uL (140-400) Neutrophils (%) (Auto) 69 % (31-73) Lymphocytes (%) (Auto) 19 % (24-48) Monocytes (%) (Auto) 10 % (0-9) Eosinophils (%) (Auto) 1 % (0-3) Basophils (%) (Auto) 1 % (0-3) Neutrophils # (Auto) 9.2 x10^3uL (1.8-7.7) Lymphocytes # (Auto) 2.6 x10^3/uL (1.0-4.8) Monocytes # (Auto) 1.4 x10^3/uL (0.0-1.1) Eosinophils # (Auto) 0.1 x10^3/uL (0.0-0.7) Basophils # (Auto) 0.2 x10^3/uL (0.0-0.2) Sodium Level 144 mmol/L (136-145) Potassium Level 3.9 mmol/L (3.5-5.1) Chloride Level 105 mmol/L (98-107) Carbon Dioxide Level 26 mmol/L (21-32) Anion Gap 13 (6-14) Blood Urea Nitrogen 21 mg/dL (7-20) Creatinine 1.4 mg/dL (0.6-1.0) Estimated GFR (Cockcroft-Gault) 46.0 BUN/Creatinine Ratio 15 (6-20) Glucose Level 228 mg/dL (70-99) Calcium Level 8.2 mg/dL (8.5-10.1) Total Bilirubin 0.2 mg/dL (0.2-1.0) Aspartate Amino Transf (AST/SGOT) 23 U/L (15-37) Alanine Aminotransferase (ALT/SGPT) 24 U/L (14-59) Alkaline Phosphatase 105 U/L (46-116) Total Protein 6.9 g/dL (6.4-8.2) Albumin 2.1 g/dL (3.4-5.0) Albumin/Globulin Ratio 0.4 (1.0-1.7) Lipase 332 U/L (73-393) Ethyl Alcohol Level < 10 mg/dL (0-10) Lactic Acid Level 1.6 mmol/L (0.4-2.0) Glucose (Fingerstick) 138 mg/dL (70-99) Test 12/09/18 21:05 12/10/18 03:45 12/10/18 07:52 Glucose (Fingerstick) 202 mg/dL (70-99) 92 mg/dL (70-99) White Blood Count 10.5 x10^3/uL (4.0-11.0) Red Blood Count 3.07 x10^6/uL (3.50-5.40) Hemoglobin 10.3 g/dL (12.0-15.5) Hematocrit 30.9 % (36.0-47.0) Mean Corpuscular Volume 101 fL (79-100) Mean Corpuscular Hemoglobin 33 pg (25-35) Mean Corpuscular Hemoglobin Concent 33 g/dL (31-37) Red Cell Distribution Width 13.9 % (11.5-14.5) Platelet Count 429 x10^3/uL (140-400) Neutrophils (%) (Auto) 65 % (31-73) Lymphocytes (%) (Auto) 22 % (24-48) Monocytes (%) (Auto) 10 % (0-9) Eosinophils (%) (Auto) 2 % (0-3) Basophils (%) (Auto) 1 % (0-3) Neutrophils # (Auto) 6.8 x10^3uL (1.8-7.7) Lymphocytes # (Auto) 2.3 x10^3/uL (1.0-4.8) Monocytes # (Auto) 1.1 x10^3/uL (0.0-1.1) Eosinophils # (Auto) 0.3 x10^3/uL (0.0-0.7) Basophils # (Auto) 0.1 x10^3/uL (0.0-0.2) Sodium Level 144 mmol/L (136-145) Potassium Level 3.6 mmol/L (3.5-5.1) Chloride Level 108 mmol/L (98-107) Carbon Dioxide Level 27 mmol/L (21-32) Anion Gap 9 (6-14) Blood Urea Nitrogen 22 mg/dL (7-20) Creatinine 1.7 mg/dL (0.6-1.0) Estimated GFR (Cockcroft-Gault) 36.7 Glucose Level 71 mg/dL (70-99) Calcium Level 7.9 mg/dL (8.5-10.1) Allergies: Coded Allergies: aspirin (Verified Adverse Reaction, Mild, Nausea and Vomiting, 01/05/18) ketorolac (Verified Adverse Reaction, Mild, Nausea, 01/05/18) morphine (Verified Adverse Reaction, Mild, Nausea and Vomiting, 01/05/18) Medications: Current Medications Medications (Trade) Dose Ordered Sig/Lisa Route PRN Reason Start Time Stop Time Status Last Admin Dose Admin Labetalol HCl (Normodyne Iv Push) 10 mg 1X ONCE IVP 12/09/18 12:45 12/09/18 12:46 DC 12/09/18 12:57 Clonidine HCl (Catapres) 0.1 mg 1X ONCE PO 12/09/18 12:45 12/09/18 12:46 DC 12/09/18 12:57 Ondansetron HCl (Zofran) 4 mg 1X ONCE IV 12/09/18 12:45 12/09/18 12:46 DC 12/09/18 12:57 Iohexol (Omnipaque 300 Mg/ml) 75 ml 1X ONCE IV 12/09/18 13:30 12/09/18 13:31 DC 12/09/18 13:40 Fentanyl Citrate (Fentanyl 2ml Vial) 50 mcg PRN Q1HR PRN IV PAIN 12/09/18 16:00 12/10/18 15:59 12/10/18 08:03 Piperacillin Sod/ Tazobactam Sod 3.375 gm/Sodium Chloride 50 ml @ 100 mls/hr 1X ONCE IV 12/09/18 16:00 12/09/18 16:29 DC 12/09/18 22:46 Vancomycin HCl (Vanco Per Pharmacy) 1 each PRN DAILY PRN MC SEE COMMENTS 12/09/18 16:00 12/10/18 10:05 DC 12/10/18 08:49 Vancomycin HCl 2 gm/Sodium Chloride 500 ml @ 250 mls/hr 1X ONCE IV 12/09/18 16:15 12/09/18 18:14 DC 12/09/18 23:35 Carvedilol (Coreg) 6.25 mg BIDWMEALS PO 12/10/18 08:00 12/10/18 08:08 Duloxetine HCl (Cymbalta) 30 mg DAILY PO 12/09/18 20:30 12/10/18 08:04 Furosemide (Lasix) 40 mg BID PO 12/09/18 21:00 12/10/18 08:04 Insulin Glargine (Lantus) 20 units QHS SQ 12/09/18 21:00 12/09/18 21:51 Lisinopril (Prinivil) 20 mg DAILY PO 12/09/18 20:30 12/10/18 08:09 Pregabalin (Lyrica) 75 mg TID PO 12/09/18 21:00 12/10/18 08:05 Hydralazine HCl (Apresoline) 50 mg TID PO 12/09/18 21:00 12/10/18 08:07 Montelukast Sodium (Singulair) 10 mg QHS PO 12/09/18 21:00 12/09/18 21:07 Quetiapine Fumarate (SEROquel) 100 mg QHS PO 12/09/18 21:00 12/09/18 21:08 Imaging: Imaging: CT A/P w/ IV contrast Lung bases are clear. Liver is enlarged, measuring 23 cm longitudinal with the right lobe similar to prior study. Spleen not visualized. Pancreatic margins appear intact. No adrenal mass. Small hypodense lesions of both kidneys, largest on the left measures 12 mm and measures cystic density. Others are too small to characterize. Difficult to compare with prior study as that was noncontrast. Symmetric renal enhancement. No evidence of hydronephrosis. Gallbladder not visualized. Mild biliary ductal dilatation likely due to cholecystectomy. Aorta calcified, no evidence of aneurysm. No significant lymph node enlargement identified. Mild wall thickening of the distal esophagus. No significant small bowel distention. No evidence of acute colitis. Mild stool through the colon. The appendix is not clearly visualized. No localized inflammatory type changes are seen in the right lower quadrant. No evidence of pneumoperitoneum or ascites. No evidence of pelvic mass. Urinary bladder appears unremarkable. Apparent surgical clip in the pelvis. Degenerative spondylosis is again identified. Vertebral body height maintained. No destructive bone lesion. Mild degenerative changes at the skeletal pelvis. Small fat-containing umbilical hernia redemonstrated. IMPRESSION: 1. Hepatomegaly again seen. 2. No definite acute findings in the abdomen or pelvis. The appendix is not clearly visualized. 3. Small renal lesions bilaterally, most likely cysts. PE: GEN: NAD HEENT: Atraumatic, PERRL LUNGS: CTAB HEART: RRR ABD: BS+, RLQ, right periumbilical, RUQ tenderness - winces with palpation EXTREMITY: BLE edema SKIN: LE wounds NEURO/PSYCH: drowsy A/P: A/P: Abd pain - right-sided GERD - EGD last year w/ reflux and ?gastritis, mild wall thickening of distal esophagus on CT Constipation - last stooled ~1 week ago, mild stool throughout colon on CT Mildly delayed gastric emptying S/p cholecystectomy Hepatomegaly - noted on present and past imaging Leukocytosis (resolved), HTN, DM, TE/CKD, chronic pain, substance abuse ( cocaine, marijuana) Macrocytic anemia -- Hopefully able to obtain better history later - Dr. Beach to see. Add PPI and Miralax, Dulcolax. DEONDRE MEYERS Dec 10, 2018 10:45
--- NOTE | 2018-12-10 11:27 | PDOC2 ---
CONSULT Date of Consult Date of Consult DATE: 12/10/18 TIME: 11:11 Reason for Consult Reason for Consult: CRI Identification/Chief Complaint Chief Complaint Rt side Upper abdominal pain Source Source: Chart review, Patient History of Present Illness Reason for Visit: Pt is a 63-year-old AA female who presented to the ER with Rt abdominal pain. Unable to obtain detailed Hx as Pt falling asleep during the conversation She keeps crying intermittently and states she just recd pain meds. She reports pain started acutely approx 5 days back . She denies any N/V/D. No F/C Denies any Hx of Kidney stones . No Urinary complaints. States maybe took 2 Ibuprofen, denies chronic use CAT scan of her abdomen does not show any abnormalities Left leg is erythematous, she has acute on chronic cellulitis,has mild leukocytosis Baseline Cr 1-1.3, with up to 1.6 in past- appears to be acute . Pt reports in the past she had work up for kidney abnormality but she has never seen Nephrology as OP . Past Medical History Psych: Anxiety, Addictions Dermatology: Cellulitis Past Surgical History Past Surgical History: Cholecystectomy, Other (splenectomy) Family History Family History: No Significant Social History Drugs: Cocaine, Marijuana Current Problem List Problem List Problems Medical Problems: (1) Cellulitis of left lower extremity Status: Acute (2) Chronic acquired lymphedema Status: Acute (3) Drug abuse Status: Acute (4) Homeless Status: Acute Current Medications Current Medications Current Medications Labetalol HCl (Normodyne Iv Push) 10 mg 1X ONCE IVP Last administered on at 12:57; Start 12/09/18 at 12:45; Stop 12/09/18 at 12:46; Status DC Clonidine HCl (Catapres) 0.1 mg 1X ONCE PO Last administered on 12/09/18at 12:57 ; Start 12/09/18 at 12:45; Stop 12/09/18 at 12:46; Status DC Ondansetron HCl (Zofran) 4 mg 1X ONCE IV Last administered on 12/09/18at 12:57; Start 12/09/18 at 12:45; Stop 12/09/18 at 12:46; Status DC Iohexol (Omnipaque 240 Mg/ml) 30 ml 1X ONCE PO ; Start 12/09/18 at 13:30; Stop 12/09/18 at 13:31; Status DC Iohexol (Omnipaque 300 Mg/ml) 75 ml 1X ONCE IV Last administered on 12/09/18 13:40; Start 12/09/18 at 13:30; Stop 12/09/18 at 13:31; Status DC Ondansetron HCl (Zofran) 4 mg PRN Q8HRS PRN IV NAUSEA/VOMITING; Start 12/09/18 at 16:00; Stop 12/10/18 at 15:59 Fentanyl Citrate (Fentanyl 2ml Vial) 50 mcg PRN Q1HR PRN IV PAIN Last administered on 12/10/18 08:03; Start 12/09/18 at 16:00; Stop 12/10/18 at 15:59 Acetaminophen (Tylenol) 650 mg PRN Q4HRS PRN PO FEVER; Start 12/09/18 at 16:00; Stop 12/10/18 at 15:59 Piperacillin Sod/ Tazobactam Sod 3.375 gm/Sodium Chloride 50 ml @ 100 mls/hr 1X ONCE IV Last administered on 12/09/18 22:46; Start 12/09/18 at 16:00; Stop 12/09/18 at 16:29; Status DC Vancomycin HCl (Vanco Per Pharmacy) 1 each PRN DAILY PRN MC SEE COMMENTS Last administered on 12/10/18 08:49; Start 12/09/18 at 16:00; Stop 12/10/18 at 10:05; Status DC Vancomycin HCl 2 gm/Sodium Chloride 500 ml @ 250 mls/hr 1X ONCE IV Last administered on 12/09/18 23:35; Start 12/09/18 at 16:15; Stop 12/09/18 at 18:14; Status DC Amoxicillin/ Clavulanate Potassium (Augmentin 875/ 125mg) 1 tab BID PO ; Start 12/09/18 at 21:00; Status UNV Carvedilol (Coreg) 6.25 mg BIDWMEALS PO Last administered on 12/10/18 08:08; Start 12/10/18 at 08:00 Duloxetine HCl (Cymbalta) 30 mg DAILY PO Last administered on 12/10/18 08:04; Start 12/09/18 at 20:30 Furosemide (Lasix) 40 mg BID PO Last administered on 4/4/19at 08:04; Start 12/09 at 21:00 Guaifenesin (Robitussin Dm) 10 ml PRN Q6HRS PRN PO COUGH; Start 12/09/18 at 20: 00 Insulin Glargine (Lantus) 20 units QHS SQ Last administered on 12/09/18at 21:51; Start 12/09/18 at 21:00 Insulin Human Lispro (HumaLOG) 7 units TIDAC SQ ; Start 12/10/18 at 07:30 Lisinopril (Prinivil) 20 mg DAILY PO Last administered on 12/10/18at 08:09; Start 12/09/18 at 20:30 Pregabalin (Lyrica) 75 mg TID PO Last administered on 12/10/18 08:05; Start 12/09/18 at 21:00 Tramadol HCl (Ultram) 50 mg PRN Q6HRS PRN PO PAIN MILD; Start 12/09/18 at 20:00 Non-Formulary Medication (Benzonatate ) 100 mg [id number] PO ; Start 12/09/18 at 21: 00; Status UNV Hydralazine HCl (Apresoline) 50 mg TID PO Last administered on 12/10/18at 08:07; Start 12/09/18 at 21:00 Montelukast Sodium (Singulair) 10 mg QHS PO Last administered on 12/09/18at 21:07 ; Start 12/09/18 at 21:00 Quetiapine Fumarate (SEROquel) 100 mg QHS PO Last administered on 12/09/18at 21: 08; Start 12/09/18 at 21:00 Vancomycin HCl 1.25 gm/Sodium Chloride 250 ml @ 167 mls/hr Q24H IV ; Start 12/10 at 23:00; Stop 12/10/18 at 23:00; Status DC Vancomycin HCl (Vancomycin Trough Level) 1 each 1X ONCE MC ; Start 12/11/18 at 22:30; Stop 12/11/18 at 22:31 Amoxicillin/ Clavulanate Potassium (Augmentin 875/ 125mg) 1 tab BID PO ; Start 12/10/18 at 11:00 Active Scripts Active Lisinopril 40 Mg Tablet 20 Mg PO DAILY MDD 1 Carvedilol (Carvedilol) 6.25 Mg Tablet 6.25 Mg PO BIDWMEALS MDD 1 Hydralazine Hcl 25 Mg Tablet 50 Mg PO TID MDD 1 Lasix (Furosemide) 40 Mg Tablet 40 Mg PO BID MDD 1 30 Days Cymbalta (Duloxetine Hcl) 30 Mg Capsule.dr 1 Cap PO DAILY Tramadol Hcl 50 Mg Tablet 50 Mg PO Q6HRS PRN 6 Days Augmentin 875-125 Tablet (Amoxicillin/Potassium Clav) 1 Each Tablet 1 Tab PO BID 7 Days Quetiapine Fumarate 100 Mg Tablet 100 Mg PO QHS 30 Days Humalog (Insulin Lispro) 100 Unit/1 Ml Insuln.pen 7 Units SQ TIDAC 30 Days Lantus Solostar (Insulin Glargine,Hum.rec.anlog) 100 Unit/1 Ml Insuln.pen 20 Units SQ QHS 30 Days Guaifenesin Dm Syrup (Guaifenesin/Dextromethorphan) 5 Ml Syrup 10 Ml PO PRN Q6HRS PRN 30 Days Benzonatate 100 Mg Capsule 100 Mg PO [id number] 30 Days Montelukast Sodium Tablet (Montelukast Sodium) 10 Mg Tablet 10 Mg PO QHS 30 Days Lyrica (Pregabalin) 75 Mg Capsule 75 Mg PO TID 30 Days Allergies Allergies: Coded Allergies: aspirin (Verified Adverse Reaction, Mild, Nausea and Vomiting, 01/05/18) ketorolac (Verified Adverse Reaction, Mild, Nausea, 01/05/18) morphine (Verified Adverse Reaction, Mild, Nausea and Vomiting, 01/05/18) ROS Review of System As per HPI Physical Exam Physical Exam GEN: Mild distress, falling asleep HEEN: om Moist, non icteric NECK: No JVD CVS: RRR RESP: CTA, No acc muscle use GI: rT upper abdomen tenderness+, Soft : No CVA tenderness, No Suprapubic Tenderness, No Caraballo Ext - Bilat LE edema +, Lt LE- Eryhrmatous Neuro- Oriented, but falling asleep Vital Signs Vital Signs Date Time Temp Pulse Resp B/P (MAP) Pulse Ox O2 Delivery O2 Flow Rate FiO2 12/10/18 08:33 100 Room Air 12/10/18 08:09 72 162/81 12/10/18 07:00 99.3 20 99.3 Assessment & Plan TE - On baseline CKD Likely sec to dehydration Continue IVF Recd IV contrast, monitor renal function for KAREN Strict I/O Bilat renal cysts Microscopic Hematuria -? Cyst rupture ? DM Proteinuria +, will quantify , CT Normal (no RBC 11/2018) If no e/o UTI consult urology Abd pain-Constipation - no Bm for close to a week Leukocytosis - resolved Previous LLE cellulitis - resolved - h/o MSSA H/o Splenectomy Labs Labs Laboratory Tests Test 12/09/18 12:30 12/09/18 12:45 12/09/18 15:50 12/09/18 17:15 Urine Collection Type Unknown Urine Color Yellow Urine Clarity Clear Urine pH 7.0 Urine Specific [place] 1.015 Urine Protein >=300 mg/dL (NEG-TRACE) Urine Glucose (UA) 100 mg/dL (NEG) Urine Ketones (Stick) Negative mg/dL (NEG) Urine Blood Small (NEG) Urine Nitrite Negative (NEG) Urine Bilirubin Negative (NEG) Urine Urobilinogen Dipstick 0.2 mg/dL (0.2 mg/dL) Urine Leukocyte Esterase Small (NEG) Urine RBC 11-20 /HPF (0-2) Urine WBC 5-10 /HPF (0-4) Urine Squamous Epithelial Cells Many /LPF Urine Bacteria Many /HPF (0-FEW) Urine Hyaline Casts Few /HPF Urine Mucus Mod /LPF Urine Yeast Present /HPF Urine Opiates Screen Neg (NEG) Urine Methadone Screen Neg (NEG) Urine Barbiturates Neg (NEG) Urine Phencyclidine Screen Neg (NEG) Urine Amphetamine/Methamphetamine Neg (NEG) Urine Benzodiazepines Screen Neg (NEG) Urine Cocaine Screen Pos (NEG) Urine Cannabinoids Screen Pos (NEG) Urine Ethyl Alcohol Neg (NEG) White Blood Count 13.5 x10^3/uL (4.0-11.0) Red Blood Count 3.48 x10^6/uL (3.50-5.40) Hemoglobin 11.4 g/dL (12.0-15.5) Hematocrit 34.8 % (36.0-47.0) Mean Corpuscular Volume 100 fL (79-100) Mean Corpuscular Hemoglobin 33 pg (25-35) Mean Corpuscular Hemoglobin Concent 33 g/dL (31-37) Red Cell Distribution Width 13.9 % (11.5-14.5) Platelet Count 444 x10^3/uL (140-400) Neutrophils (%) (Auto) 69 % (31-73) Lymphocytes (%) (Auto) 19 % (24-48) Monocytes (%) (Auto) 10 % (0-9) Eosinophils (%) (Auto) 1 % (0-3) Basophils (%) (Auto) 1 % (0-3) Neutrophils # (Auto) 9.2 x10^3uL (1.8-7.7) Lymphocytes # (Auto) 2.6 x10^3/uL (1.0-4.8) Monocytes # (Auto) 1.4 x10^3/uL (0.0-1.1) Eosinophils # (Auto) 0.1 x10^3/uL (0.0-0.7) Basophils # (Auto) 0.2 x10^3/uL (0.0-0.2) Sodium Level 144 mmol/L (136-145) Potassium Level 3.9 mmol/L (3.5-5.1) Chloride Level 105 mmol/L (98-107) Carbon Dioxide Level 26 mmol/L (21-32) Anion Gap 13 (6-14) Blood Urea Nitrogen 21 mg/dL (7-20) Creatinine 1.4 mg/dL (0.6-1.0) Estimated GFR (Cockcroft-Gault) 46.0 BUN/Creatinine Ratio 15 (6-20) Glucose Level 228 mg/dL (70-99) Calcium Level 8.2 mg/dL (8.5-10.1) Total Bilirubin 0.2 mg/dL (0.2-1.0) Aspartate Amino Transf (AST/SGOT) 23 U/L (15-37) Alanine Aminotransferase (ALT/SGPT) 24 U/L (14-59) Alkaline Phosphatase 105 U/L (46-116) Total Protein 6.9 g/dL (6.4-8.2) Albumin 2.1 g/dL (3.4-5.0) Albumin/Globulin Ratio 0.4 (1.0-1.7) Lipase 332 U/L (73-393) Ethyl Alcohol Level < 10 mg/dL (0-10) Lactic Acid Level 1.6 mmol/L (0.4-2.0) Glucose (Fingerstick) 138 mg/dL (70-99) Test 12/09/18 21:05 12/10/18 03:45 12/10/18 07:52 12/10/18 10:58 Glucose (Fingerstick) 202 mg/dL (70-99) 92 mg/dL (70-99) 238 mg/dL (70-99) White Blood Count 10.5 x10^3/uL (4.0-11.0) Red Blood Count 3.07 x10^6/uL (3.50-5.40) Hemoglobin 10.3 g/dL (12.0-15.5) Hematocrit 30.9 % (36.0-47.0) Mean Corpuscular Volume 101 fL (79-100) Mean Corpuscular Hemoglobin 33 pg (25-35) Mean Corpuscular Hemoglobin Concent 33 g/dL (31-37) Red Cell Distribution Width 13.9 % (11.5-14.5) Platelet Count 429 x10^3/uL (140-400) Neutrophils (%) (Auto) 65 % (31-73) Lymphocytes (%) (Auto) 22 % (24-48) Monocytes (%) (Auto) 10 % (0-9) Eosinophils (%) (Auto) 2 % (0-3) Basophils (%) (Auto) 1 % (0-3) Neutrophils # (Auto) 6.8 x10^3uL (1.8-7.7) Lymphocytes # (Auto) 2.3 x10^3/uL (1.0-4.8) Monocytes # (Auto) 1.1 x10^3/uL (0.0-1.1) Eosinophils # (Auto) 0.3 x10^3/uL (0.0-0.7) Basophils # (Auto) 0.1 x10^3/uL (0.0-0.2) Sodium Level 144 mmol/L (136-145) Potassium Level 3.6 mmol/L (3.5-5.1) Chloride Level 108 mmol/L (98-107) Carbon Dioxide Level 27 mmol/L (21-32) Anion Gap 9 (6-14) Blood Urea Nitrogen 22 mg/dL (7-20) Creatinine 1.7 mg/dL (0.6-1.0) Estimated GFR (Cockcroft-Gault) 36.7 Glucose Level 71 mg/dL (70-99) Calcium Level 7.9 mg/dL (8.5-10.1) Laboratory Tests Test 12/09/18 12:30 12/09/18 12:45 12/09/18 15:50 12/09/18 17:15 Urine Collection Type Unknown Urine Color Yellow Urine Clarity Clear Urine pH 7.0 Urine Specific [place] 1.015 Urine Protein >=300 mg/dL (NEG-TRACE) Urine Glucose (UA) 100 mg/dL (NEG) Urine Ketones (Stick) Negative mg/dL (NEG) Urine Blood Small (NEG) Urine Nitrite Negative (NEG) Urine Bilirubin Negative (NEG) Urine Urobilinogen Dipstick 0.2 mg/dL (0.2 mg/dL) Urine Leukocyte Esterase Small (NEG) Urine RBC 11-20 /HPF (0-2) Urine WBC 5-10 /HPF (0-4) Urine Squamous Epithelial Cells Many /LPF Urine Bacteria Many /HPF (0-FEW) Urine Hyaline Casts Few /HPF Urine Mucus Mod /LPF Urine Yeast Present /HPF Urine Opiates Screen Neg (NEG) Urine Methadone Screen Neg (NEG) Urine Barbiturates Neg (NEG) Urine Phencyclidine Screen Neg (NEG) Urine Amphetamine/Methamphetamine Neg (NEG) Urine Benzodiazepines Screen Neg (NEG) Urine Cocaine Screen Pos (NEG) Urine Cannabinoids Screen Pos (NEG) Urine Ethyl Alcohol Neg (NEG) White Blood Count 13.5 x10^3/uL (4.0-11.0) Red Blood Count 3.48 x10^6/uL (3.50-5.40) Hemoglobin 11.4 g/dL (12.0-15.5) Hematocrit 34.8 % (36.0-47.0) Mean Corpuscular Volume 100 fL (79-100) Mean Corpuscular Hemoglobin 33 pg (25-35) Mean Corpuscular Hemoglobin Concent 33 g/dL (31-37) Red Cell Distribution Width 13.9 % (11.5-14.5) Platelet Count 444 x10^3/uL (140-400) Neutrophils (%) (Auto) 69 % (31-73) Lymphocytes (%) (Auto) 19 % (24-48) Monocytes (%) (Auto) 10 % (0-9) Eosinophils (%) (Auto) 1 % (0-3) Basophils (%) (Auto) 1 % (0-3) Neutrophils # (Auto) 9.2 x10^3uL (1.8-7.7) Lymphocytes # (Auto) 2.6 x10^3/uL (1.0-4.8) Monocytes # (Auto) 1.4 x10^3/uL (0.0-1.1) Eosinophils # (Auto) 0.1 x10^3/uL (0.0-0.7) Basophils # (Auto) 0.2 x10^3/uL (0.0-0.2) Sodium Level 144 mmol/L (136-145) Potassium Level 3.9 mmol/L (3.5-5.1) Chloride Level 105 mmol/L (98-107) Carbon Dioxide Level 26 mmol/L (21-32) Anion Gap 13 (6-14) Blood Urea Nitrogen 21 mg/dL (7-20) Creatinine 1.4 mg/dL (0.6-1.0) Estimated GFR (Cockcroft-Gault) 46.0 BUN/Creatinine Ratio 15 (6-20) Glucose Level 228 mg/dL (70-99) Calcium Level 8.2 mg/dL (8.5-10.1) Total Bilirubin 0.2 mg/dL (0.2-1.0) Aspartate Amino Transf (AST/SGOT) 23 U/L (15-37) Alanine Aminotransferase (ALT/SGPT) 24 U/L (14-59) Alkaline Phosphatase 105 U/L (46-116) Total Protein 6.9 g/dL (6.4-8.2) Albumin 2.1 g/dL (3.4-5.0) Albumin/Globulin Ratio 0.4 (1.0-1.7) Lipase 332 U/L (73-393) Ethyl Alcohol Level < 10 mg/dL (0-10) Lactic Acid Level 1.6 mmol/L (0.4-2.0) Glucose (Fingerstick) 138 mg/dL (70-99) Test 12/09/18 21:05 12/10/18 03:45 12/10/18 07:52 12/10/18 10:58 Glucose (Fingerstick) 202 mg/dL (70-99) 92 mg/dL (70-99) 238 mg/dL (70-99) White Blood Count 10.5 x10^3/uL (4.0-11.0) Red Blood Count 3.07 x10^6/uL (3.50-5.40) Hemoglobin 10.3 g/dL (12.0-15.5) Hematocrit 30.9 % (36.0-47.0) Mean Corpuscular Volume 101 fL (79-100) Mean Corpuscular Hemoglobin 33 pg (25-35) Mean Corpuscular Hemoglobin Concent 33 g/dL (31-37) Red Cell Distribution Width 13.9 % (11.5-14.5) Platelet Count 429 x10^3/uL (140-400) Neutrophils (%) (Auto) 65 % (31-73) Lymphocytes (%) (Auto) 22 % (24-48) Monocytes (%) (Auto) 10 % (0-9) Eosinophils (%) (Auto) 2 % (0-3) Basophils (%) (Auto) 1 % (0-3) Neutrophils # (Auto) 6.8 x10^3uL (1.8-7.7) Lymphocytes # (Auto) 2.3 x10^3/uL (1.0-4.8) Monocytes # (Auto) 1.1 x10^3/uL (0.0-1.1) Eosinophils # (Auto) 0.3 x10^3/uL (0.0-0.7) Basophils # (Auto) 0.1 x10^3/uL (0.0-0.2) Sodium Level 144 mmol/L (136-145) Potassium Level 3.6 mmol/L (3.5-5.1) Chloride Level 108 mmol/L (98-107) Carbon Dioxide Level 27 mmol/L (21-32) Anion Gap 9 (6-14) Blood Urea Nitrogen 22 mg/dL (7-20) Creatinine 1.7 mg/dL (0.6-1.0) Estimated GFR (Cockcroft-Gault) 36.7 Glucose Level 71 mg/dL (70-99) Calcium Level 7.9 mg/dL (8.5-10.1) Review All relevant outside records, renal labs, imaging studies, telemetry/EKG's were reviewed. Images Images CT scan--with IV Lung bases are clear. Liver is enlarged, measuring 23 cm longitudinal with the right lobe similar to prior study. Spleen not visualized. Pancreatic margins appear intact. No adrenal mass. Small hypodense lesions of both kidneys, largest on the left measures 12 mm and measures cystic density. Others are too small to characterize. Difficult to compare with prior study as that was noncontrast. Symmetric renal enhancement. No evidence of hydronephrosis. Gallbladder not visualized. Mild biliary ductal dilatation likely due to cholecystectomy. Aorta calcified, no evidence of aneurysm. No significant lymph node enlargement identified. Mild wall thickening of the distal esophagus. No significant small bowel distention. No evidence of acute colitis. Mild stool through the colon. The appendix is not clearly visualized. No localized inflammatory type changes are seen in the right lower quadrant. No evidence of pneumoperitoneum or ascites. No evidence of pelvic mass. Urinary bladder appears unremarkable. Apparent surgical clip in the pelvis. Degenerative spondylosis is again identified. Vertebral body height maintained. No destructive bone lesion. Mild degenerative changes at the skeletal pelvis. Small fat-containing umbilical hernia redemonstrated. IMPRESSION: 1. Hepatomegaly again seen. 2. No definite acute findings in the abdomen or pelvis. The appendix is not clearly visualized. 3. Small renal lesions bilaterally, most likely cysts. STEVEN HESTER MD Dec 10, 2018 11:27
[2018-12-10] MEDS ORDERED: IV NORMAL SALINE 1000ML BAG 1,000 ML IV SCH (11:30)
[2018-12-10] MEDS ORDERED: BISACODYL 5 MG TABLET.DR. PO ONE (11:45)
[2018-12-10] MEDS ORDERED: POLYETHYLENE GLYCOL 3350 17 GM PACKET. PO PRN (11:45)
[2018-12-10] MEDS: AMOXICILLIN/K CLAV 875/125MG TABLET. PO SCH ×2 (11:48→20:47)
[2018-12-10] MEDS: POLYETHYLENE GLYCOL 3350 17 GM PACKET. PO SCH (12:00)
--- NOTE | 2018-12-10 15:22 | NUR ---
Wound Care: Wound care consult for L lower leg venous ulcer, see wound intervention. Wound cleanse with wound wash, skin prep applied, contact layer and foam to cover wound. No other wounds noted upon skin inspection. Pt in bed, call light within reach, side rails up x2. Wound care will f/u on 12/16/18.
[2018-12-10] MEDS ORDERED: AMOXICILLIN/K CLAV 875/125MG TABLET. PO SCH ×3 (16:30→21:00)
[2018-12-10] MEDS: traMADol 50 MG TABLET PO PRN (19:21)
[2018-12-10] MEDS: MONTELUKAST SODIUM 10 MG TABLET. PO SCH (20:47)
[2018-12-10] MEDS: QUEtiapine 100 MG TABLET. PO SCH (20:48)
[2018-12-10] MEDS: INSULIN GLARGINE 300 UNITS/3 ML INSULN.PEN. SQ SCH (20:56)
[2018-12-10] MEDS ORDERED: VANCOMYCIN 1.25 GM in IV NORMAL SALINE 250ML 250 ML IV SCH (23:00)
--- NOTE | 2018-12-11 01:52 | CONS ---
DATE OF CONSULTATION: 12/10/2018 LOCATION: The patient is in room 532. REQUESTING PHYSICIAN: Patricia Castaneda D.O. REASON FOR CONSULTATION: Abdominal pain and leukocytosis. HISTORY OF PRESENT ILLNESS: The patient is a 63-year-old -[place] male with history of diabetes, obesity and history of splenectomy; who was recently admitted for left lower extremity cellulitis. Cultures were obtained. She had MSSA, was discharged on Augmentin; however, apparently she did not have the prescription filled. She returned to the Emergency Room yesterday with complaints of abdominal pain. She states the pain has been going on for several days. She denies having any nausea or vomiting. She has been having issues with some constipation. No diarrhea. No bloody stools. No dysuria, frequency or urgency. Denies any fevers but does feel cold at times, but this is nothing new for her. Since admission, she has been afebrile. Her white blood cell count on arrival was 13.5. She received Zosyn x 1 and has been placed on vancomycin. Urinalysis is questionable. Specimen given the many squamous cells. Creatinine was 1.4 and it is now increased to 1.7. She underwent a CT scan of the abdomen and pelvis, which showed some mild wall thickening of the distal esophagus, mild stool throughout the colon, hepatomegaly, but no definitive acute findings in the abdomen. She was given IV contrast only. Currently, the patient is sitting in the bed. She states she is feeling somewhat better but continues to have some abdominal discomfort. PAST MEDICAL HISTORY: Positive for the left lower extremity cellulitis, history of MSSA, diabetes, hypertension, obesity, COPD and hyperlipidemia. PAST SURGICAL HISTORY: Positive for hysterectomy, splenectomy, cholecystectomy and . REVIEW OF SYSTEMS: Otherwise, negative except as mentioned above. ALLERGIES: ASPIRIN, KETOROLAC and MORPHINE. SOCIAL HISTORY: Positive for smoking, occasional alcohol and drug use on and off. FAMILY HISTORY: Noncontributory. CURRENT MEDICATIONS: Include one dose of Zosyn and IV vancomycin. She is on Coreg, Catapres, Cymbalta, fentanyl, Lasix, guaifenesin, hydralazine, Lantus, Humalog, Prinivil, Singulair, Zofran, Seroquel and Ultram. Other meds are available and have been reviewed in the chart. PHYSICAL EXAMINATION: VITAL SIGNS: She is afebrile, temperature 99.3, pulse 72, blood pressure 162/81 and satting 100% on room air. CONSTITUTIONAL: She is alert. She is cooperative, in no acute distress. HEENT: Pupils are reactive. Oral cavity, pharynx is clear. She has dentures. NECK: Supple. LUNGS: Clear to auscultation. HEART: S1 and S2. ABDOMEN: Soft and obese. Some mild tenderness but no guarding. EXTREMITIES: Without clubbing or cyanosis. She has chronic lower extremity edema. She has a wound in her left leg without signs of complication. It is scabbed over. There is no redness. There is no warmth. It is nontender. SKIN: Without signs of rash. NEUROLOGICAL: She is alert and answers questions. Moves all extremities. PSYCHIATRIC: Affect is somewhat flat. LABORATORY DATA: White count 10.5 and was 35 on arrival, hemoglobin 10.3, platelets 429, neutrophils 65 and lymphs 22. Creatinine 1.7 and glucose of 71. Normal liver function study test on arrival, glucose was 228. Urinalysis reviewed in the history of present illness. Toxicology screen was negative. Previous MRSA screen is negative. RADIOLOGY: Reviewed in history of present illness. IMPRESSION: 1. Abdominal pain. 2. Constipation. No bowel movements for close to a week. CT with mild stool. 3. Leukocytosis, resolved, questionable dehydration with abdominal pain and decreased intake. 4. Previous left lower extremity cellulitis that is resolved. Does have a history of methicillin-resistant Staphylococcus aureus. 5. Acute kidney injury, worse today. 6. History of splenectomy. 7. Urine has a poor specimen. RECOMMENDATIONS: We will discontinue the vancomycin, begin p.o. Augmentin and follow up labs and cultures. May need GI eval. Thanks for the opportunity to participate in the patient's care. Should you have further questions, please do not hesitate to contact me. TWYLA SOLIS MD DR: RUPAL/lionel JOB#: [id number] / [id number]
[2018-12-11 03:00] VITALS: BP 154/77
[2018-12-11] MEDS: traMADol 50 MG TABLET PO PRN (04:11)
[2018-12-11 06:32] LABS: BASO # 0.1 x10^3/uL (0.0-0.2); BASO % 1 % (0-3); EOS # 0.2 x10^3/uL (0.0-0.7); EOS % 2 % (0-3); HEMATOCRIT 34.2 % (36.0-47.0); HEMOGLOBIN 11.5 g/dL (12.0-15.5); LYMPH % 20 % (24-48); MEAN CORPUSCULAR HEMOGLOBIN 34 pg (25-35); MEAN CORPUSCULAR HGB CONC 34 g/dL (31-37); MEAN CORPUSCULAR VOLUME 100 fL (79-100); MONO # 1.1 x10^3/uL (0.0-1.1); MONO % 11 % (0-9); NEUT # 6.8 x10^3uL (1.8-7.7); NEUT % 66 % (31-73); PLATELET COUNT 511 x10^3/uL (140-400); RED BLOOD COUNT 3.41 x10^6/uL (3.50-5.40); WHITE BLOOD COUNT 10.3 x10^3/uL (4.0-11.0)
[2018-12-11 07:00] VITALS: BP 191/94
[2018-12-11 07:02] LABS: ALBUMIN 1.9 g/dL (3.4-5.0); ALBUMIN/GLOBULIN RATIO 0.3 (1.0-1.7); CALCIUM 8.3 mg/dL (8.5-10.1); CREATININE 1.8 mg/dL (0.6-1.0); GFR 34.4; POTASSIUM 4.2 mmol/L (3.5-5.1); TOTAL BILIRUBIN 0.3 mg/dL (0.2-1.0); TOTAL PROTEIN 7.4 g/dL (6.4-8.2)
--- NOTE | 2018-12-11 08:32 | PDOC ---
Infectious Disease Note Subjective Subjective Still has some discomfort. No BM yet Not feeling right. No F/C/S/N/V/SOA/Rash ROS ROS o/w neg Vital Sign Vital Signs Vital Signs Date Time Temp Pulse Resp B/P (MAP) Pulse Ox O2 Delivery O2 Flow Rate FiO2 12/11/18 05:15 Room Air 12/11/18 03:00 98.4 72 18 154/77 (102) 96 98.4 Physical Exam PHYSICAL EXAM CONSTITUTIONAL: She is alert. She is cooperative, in no acute distress. She stood without complications and ambulated to restroom HEENT: Pupils are reactive. Oral cavity, pharynx is clear. She has dentures. NECK: Supple. LUNGS: Clear to auscultation. HEART: S1 and S2. ABDOMEN: Soft and obese. Some mild tenderness but no guarding. EXTREMITIES: Without clubbing or cyanosis. She has chronic lower extremity edema. She has a wound in her left leg without signs of complication. It is scabbed over. There is no redness. There is no warmth. It is nontender. SKIN: Without signs of rash. NEUROLOGICAL: She is alert and answers questions. Moves all extremities. PSYCHIATRIC: Affect is somewhat flat. Labs Lab Laboratory Tests Test 12/10/18 10:58 12/10/18 17:00 12/10/18 20:42 12/11/18 05:40 Glucose (Fingerstick) 238 mg/dL (70-99) 119 mg/dL (70-99) 127 mg/dL (70-99) White Blood Count 10.3 x10^3/uL (4.0-11.0) Red Blood Count 3.41 x10^6/uL (3.50-5.40) Hemoglobin 11.5 g/dL (12.0-15.5) Hematocrit 34.2 % (36.0-47.0) Mean Corpuscular Volume 100 fL (79-100) Mean Corpuscular Hemoglobin 34 pg (25-35) Mean Corpuscular Hemoglobin Concent 34 g/dL (31-37) Red Cell Distribution Width 14.0 % (11.5-14.5) Platelet Count 511 x10^3/uL (140-400) Neutrophils (%) (Auto) 66 % (31-73) Lymphocytes (%) (Auto) 20 % (24-48) Monocytes (%) (Auto) 11 % (0-9) Eosinophils (%) (Auto) 2 % (0-3) Basophils (%) (Auto) 1 % (0-3) Neutrophils # (Auto) 6.8 x10^3uL (1.8-7.7) Lymphocytes # (Auto) 2.0 x10^3/uL (1.0-4.8) Monocytes # (Auto) 1.1 x10^3/uL (0.0-1.1) Eosinophils # (Auto) 0.2 x10^3/uL (0.0-0.7) Basophils # (Auto) 0.1 x10^3/uL (0.0-0.2) Sodium Level 139 mmol/L (136-145) Potassium Level 4.2 mmol/L (3.5-5.1) Chloride Level 102 mmol/L (98-107) Carbon Dioxide Level 27 mmol/L (21-32) Anion Gap 10 (6-14) Blood Urea Nitrogen 26 mg/dL (7-20) Creatinine 1.8 mg/dL (0.6-1.0) Estimated GFR (Cockcroft-Gault) 34.4 BUN/Creatinine Ratio 14 (6-20) Glucose Level 148 mg/dL (70-99) Calcium Level 8.3 mg/dL (8.5-10.1) Total Bilirubin 0.3 mg/dL (0.2-1.0) Aspartate Amino Transf (AST/SGOT) 35 U/L (15-37) Alanine Aminotransferase (ALT/SGPT) 29 U/L (14-59) Alkaline Phosphatase 116 U/L (46-116) Total Protein 7.4 g/dL (6.4-8.2) Albumin 1.9 g/dL (3.4-5.0) Albumin/Globulin Ratio 0.3 (1.0-1.7) Test 12/11/18 08:03 Glucose (Fingerstick) 110 mg/dL (70-99) Micro Lung bases are clear. Liver is enlarged, measuring 23 cm longitudinal with the right lobe similar to prior study. Spleen not visualized. Pancreatic margins appear intact. No adrenal mass. Small hypodense lesions of both kidneys, largest on the left measures 12 mm and measures cystic density. Others are too small to characterize. Difficult to compare with prior study as that was noncontrast. Symmetric renal enhancement. No evidence of hydronephrosis. Gallbladder not visualized. Mild biliary ductal dilatation likely due to cholecystectomy. Aorta calcified, no evidence of aneurysm. No significant lymph node enlargement identified. Mild wall thickening of the distal esophagus. No significant small bowel distention. No evidence of acute colitis. Mild stool through the colon. The appendix is not clearly visualized. No localized inflammatory type changes are seen in the right lower quadrant. No evidence of pneumoperitoneum or ascites. No evidence of pelvic mass. Urinary bladder appears unremarkable. Apparent surgical clip in the pelvis. Degenerative spondylosis is again identified. Vertebral body height maintained. No destructive bone lesion. Mild degenerative changes at the skeletal pelvis. Small fat-containing umbilical hernia redemonstrated. IMPRESSION: 1. Hepatomegaly again seen. 2. No definite acute findings in the abdomen or pelvis. The appendix is not clearly visualized. 3. Small renal lesions bilaterally, most likely cysts. Objective Assessment Abd pain Constipation - no Bm for close to a week - CT with mild stool Leukocytosis - resolved ? dehydration with abd pain and decreased intact Previous LLE cellulitis - resolved - h/o MSSA TE - worse today H/o Splenectomy Urine is a poor specimen but has Ecoli Plan Plan of Care po Augmentin urine may be contaminated given amount of squamous cells and yeast also F/u labs and cults TWYLA SOLIS MD Dec 11, 2018 08:32
[2018-12-11] MEDS: AMOXICILLIN/K CLAV 875/125MG TABLET. PO SCH ×2 (08:47→21:22)
[2018-12-11] MEDS: POLYETHYLENE GLYCOL 3350 17 GM PACKET. PO SCH ×2 (08:47→21:21)
[2018-12-11] MEDS: LISINOPRIL 20 MG TABLET PO SCH (08:47)
[2018-12-11] MEDS: PREGABALIN 75 MG CAPSULE PO SCH ×3 (08:48→21:22)
[2018-12-11] MEDS: DULoxetine HCL 30 MG CAPSULE.DR PO SCH (08:48)
[2018-12-11] MEDS: CARVEDILOL 6.25 MG TABLET. PO SCH ×2 (08:49→17:00)
[2018-12-11] MEDS: INSULIN LISPRO 300 UNITS/3 ML INSULN.PEN. SQ SCH ×3 (09:01→16:30)
[2018-12-11 11:00] VITALS: BP 129/70
--- NOTE | 2018-12-11 11:23 | PDOC ---
Subjective: Subjective: "I feel like hell." Ongoing pain, hasn't stooled - says took Dulcolax yesterday and Miralax today. Tolerating PO. Wants to ask Dr. Castaneda about pain meds. Objective: Vital Signs: Vital Signs Date Time Temp Pulse Resp B/P (MAP) Pulse Ox O2 Delivery O2 Flow Rate FiO2 12/11/18 08:49 72 154/77 12/11/18 07:00 98.3 18 100 Room Air 98.3 Labs: Laboratory Tests Test 12/10/18 17:00 12/10/18 20:42 12/11/18 05:40 12/11/18 08:03 Glucose (Fingerstick) 119 mg/dL 127 mg/dL 110 mg/dL White Blood Count 10.3 x10^3/uL Red Blood Count 3.41 x10^6/uL Hemoglobin 11.5 g/dL Hematocrit 34.2 % Mean Corpuscular Volume 100 fL Mean Corpuscular Hemoglobin 34 pg Mean Corpuscular Hemoglobin Concent 34 g/dL Red Cell Distribution Width 14.0 % Platelet Count 511 x10^3/uL Neutrophils (%) (Auto) 66 % Lymphocytes (%) (Auto) 20 % Monocytes (%) (Auto) 11 % Eosinophils (%) (Auto) 2 % Basophils (%) (Auto) 1 % Neutrophils # (Auto) 6.8 x10^3uL Lymphocytes # (Auto) 2.0 x10^3/uL Monocytes # (Auto) 1.1 x10^3/uL Eosinophils # (Auto) 0.2 x10^3/uL Basophils # (Auto) 0.1 x10^3/uL Sodium Level 139 mmol/L Potassium Level 4.2 mmol/L Chloride Level 102 mmol/L Carbon Dioxide Level 27 mmol/L Anion Gap 10 Blood Urea Nitrogen 26 mg/dL Creatinine 1.8 mg/dL Estimated GFR (Cockcroft-Gault) 34.4 BUN/Creatinine Ratio 14 Glucose Level 148 mg/dL Calcium Level 8.3 mg/dL Total Bilirubin 0.3 mg/dL Aspartate Amino Transf (AST/SGOT) 35 U/L Alanine Aminotransferase (ALT/SGPT) 29 U/L Alkaline Phosphatase 116 U/L Total Protein 7.4 g/dL Albumin 1.9 g/dL Albumin/Globulin Ratio 0.3 PE: GEN: NAD - standing in restroom on towels, Dr. Castaneda and students present LUNGS: room air NEURO/PSYCH: A & O 3 A/P: Right-sided abd pain - seems MSK GERD, +H. pylori gastritis, mildly delayed gastric emptying Constipation Macrocytic anemia - B12 normal CKD Chronic pain, substance abuse -- She wants more for constipation, will add. Continue PPI. ?H. pylori treatment on discharge - will check w/ Dr. Beach - on Augmentin now per DEONDRE JOHNSON Dec 11, 2018 11:23
[2018-12-11] MEDS ORDERED: BISACODYL 5 MG TABLET.DR. PO ONE (11:30)
--- NOTE | 2018-12-11 11:36 | PDOC ---
PROGRESS NOTES Chief Complaint Chief Complaint Bilateral lower abdominal pain, Bilateral lower extremity edema History of Present Illness History of Present Illness Patient was seen up and walking to the restroom today. She states she still has severe abdominal pain. She has not had a BM in 1 week but is working with GI. Vitals Vitals Vital Signs Date Time Temp Pulse Resp B/P (MAP) Pulse Ox O2 Delivery O2 Flow Rate FiO2 12/11/18 08:49 72 154/77 12/11/18 07:00 98.3 18 100 Room Air 98.3 Physical Exam General: Alert, Oriented X3, Cooperative, mild distress Heart: Regular rate, Normal S1, Normal S2, No murmurs Lungs: Clear, Other Abdomen: Soft, Other (tender to palpation right lower quadrant, hepatomegaly ) Extremities: Other (she does have swelling in both lower extremities with some erythema left lower extremity around the ankle, wheeping left 2nd toe) Skin: No breakdown, No significant lesion, Other (Cellulitis present) Labs LABS Laboratory Tests Test 12/10/18 17:00 12/10/18 20:42 12/11/18 05:40 12/11/18 08:03 Glucose (Fingerstick) 119 mg/dL (70-99) 127 mg/dL (70-99) 110 mg/dL (70-99) White Blood Count 10.3 x10^3/uL (4.0-11.0) Red Blood Count 3.41 x10^6/uL (3.50-5.40) Hemoglobin 11.5 g/dL (12.0-15.5) Hematocrit 34.2 % (36.0-47.0) Mean Corpuscular Volume 100 fL (79-100) Mean Corpuscular Hemoglobin 34 pg (25-35) Mean Corpuscular Hemoglobin Concent 34 g/dL (31-37) Red Cell Distribution Width 14.0 % (11.5-14.5) Platelet Count 511 x10^3/uL (140-400) Neutrophils (%) (Auto) 66 % (31-73) Lymphocytes (%) (Auto) 20 % (24-48) Monocytes (%) (Auto) 11 % (0-9) Eosinophils (%) (Auto) 2 % (0-3) Basophils (%) (Auto) 1 % (0-3) Neutrophils # (Auto) 6.8 x10^3uL (1.8-7.7) Lymphocytes # (Auto) 2.0 x10^3/uL (1.0-4.8) Monocytes # (Auto) 1.1 x10^3/uL (0.0-1.1) Eosinophils # (Auto) 0.2 x10^3/uL (0.0-0.7) Basophils # (Auto) 0.1 x10^3/uL (0.0-0.2) Sodium Level 139 mmol/L (136-145) Potassium Level 4.2 mmol/L (3.5-5.1) Chloride Level 102 mmol/L (98-107) Carbon Dioxide Level 27 mmol/L (21-32) Anion Gap 10 (6-14) Blood Urea Nitrogen 26 mg/dL (7-20) Creatinine 1.8 mg/dL (0.6-1.0) Estimated GFR (Cockcroft-Gault) 34.4 BUN/Creatinine Ratio 14 (6-20) Glucose Level 148 mg/dL (70-99) Calcium Level 8.3 mg/dL (8.5-10.1) Total Bilirubin 0.3 mg/dL (0.2-1.0) Aspartate Amino Transf (AST/SGOT) 35 U/L (15-37) Alanine Aminotransferase (ALT/SGPT) 29 U/L (14-59) Alkaline Phosphatase 116 U/L (46-116) Total Protein 7.4 g/dL (6.4-8.2) Albumin 1.9 g/dL (3.4-5.0) Albumin/Globulin Ratio 0.3 (1.0-1.7) Review of Systems Review of Systems Patient complains of severe abdominal pain and constipation. Patient denies fevers, chills, N/V, CP, SOB, or diarrhea. Assessment and Plan Assessmemt and Plan Problems Medical Problems: (1) Cellulitis of left lower extremity Status: Acute (2) Chronic acquired lymphedema Status: Acute (3) Drug abuse Status: Acute (4) Homeless Status: Acute Assessment: Abdominal pain Constipation polysubstance abuse acute on chronic cellulitis leukocytosis- resolved anemia acute on chronic renal failure urinary tract infection Smoker Plan: Augmentin Wound care GI, ID, and nephro consults- discussed with GI IV fluids Miralax SNU eval Pain management F/u labs Continue home meds PT/OT DVT prophylaxis Comment Review of Relevant I have reviewed the following items [place] (where applicable) has been applied. Labs Laboratory Tests Test 12/09/18 12:30 12/09/18 12:45 12/09/18 15:50 12/09/18 17:15 Urine Collection Type Unknown Urine Color Yellow Urine Clarity Clear Urine pH 7.0 Urine Specific [place] 1.015 Urine Protein >=300 mg/dL (NEG-TRACE) Urine Glucose (UA) 100 mg/dL (NEG) Urine Ketones (Stick) Negative mg/dL (NEG) Urine Blood Small (NEG) Urine Nitrite Negative (NEG) Urine Bilirubin Negative (NEG) Urine Urobilinogen Dipstick 0.2 mg/dL (0.2 mg/dL) Urine Leukocyte Esterase Small (NEG) Urine RBC 11-20 /HPF (0-2) Urine WBC 5-10 /HPF (0-4) Urine Squamous Epithelial Cells Many /LPF Urine Bacteria Many /HPF (0-FEW) Urine Hyaline Casts Few /HPF Urine Mucus Mod /LPF Urine Yeast Present /HPF Urine Opiates Screen Neg (NEG) Urine Methadone Screen Neg (NEG) Urine Barbiturates Neg (NEG) Urine Phencyclidine Screen Neg (NEG) Urine Amphetamine/Methamphetamine Neg (NEG) Urine Benzodiazepines Screen Neg (NEG) Urine Cocaine Screen Pos (NEG) Urine Cannabinoids Screen Pos (NEG) Urine Ethyl Alcohol Neg (NEG) White Blood Count 13.5 x10^3/uL (4.0-11.0) Red Blood Count 3.48 x10^6/uL (3.50-5.40) Hemoglobin 11.4 g/dL (12.0-15.5) Hematocrit 34.8 % (36.0-47.0) Mean Corpuscular Volume 100 fL (79-100) Mean Corpuscular Hemoglobin 33 pg (25-35) Mean Corpuscular Hemoglobin Concent 33 g/dL (31-37) Red Cell Distribution Width 13.9 % (11.5-14.5) Platelet Count 444 x10^3/uL (140-400) Neutrophils (%) (Auto) 69 % (31-73) Lymphocytes (%) (Auto) 19 % (24-48) Monocytes (%) (Auto) 10 % (0-9) Eosinophils (%) (Auto) 1 % (0-3) Basophils (%) (Auto) 1 % (0-3) Neutrophils # (Auto) 9.2 x10^3uL (1.8-7.7) Lymphocytes # (Auto) 2.6 x10^3/uL (1.0-4.8) Monocytes # (Auto) 1.4 x10^3/uL (0.0-1.1) Eosinophils # (Auto) 0.1 x10^3/uL (0.0-0.7) Basophils # (Auto) 0.2 x10^3/uL (0.0-0.2) Sodium Level 144 mmol/L (136-145) Potassium Level 3.9 mmol/L (3.5-5.1) Chloride Level 105 mmol/L (98-107) Carbon Dioxide Level 26 mmol/L (21-32) Anion Gap 13 (6-14) Blood Urea Nitrogen 21 mg/dL (7-20) Creatinine 1.4 mg/dL (0.6-1.0) Estimated GFR (Cockcroft-Gault) 46.0 BUN/Creatinine Ratio 15 (6-20) Glucose Level 228 mg/dL (70-99) Calcium Level 8.2 mg/dL (8.5-10.1) Total Bilirubin 0.2 mg/dL (0.2-1.0) Aspartate Amino Transf (AST/SGOT) 23 U/L (15-37) Alanine Aminotransferase (ALT/SGPT) 24 U/L (14-59) Alkaline Phosphatase 105 U/L (46-116) Total Protein 6.9 g/dL (6.4-8.2) Albumin 2.1 g/dL (3.4-5.0) Albumin/Globulin Ratio 0.4 (1.0-1.7) Lipase 332 U/L (73-393) Ethyl Alcohol Level < 10 mg/dL (0-10) Lactic Acid Level 1.6 mmol/L (0.4-2.0) Glucose (Fingerstick) 138 mg/dL (70-99) Test 12/09/18 21:05 12/10/18 03:45 12/10/18 07:52 12/10/18 10:58 Glucose (Fingerstick) 202 mg/dL (70-99) 92 mg/dL (70-99) 238 mg/dL (70-99) White Blood Count 10.5 x10^3/uL (4.0-11.0) Red Blood Count 3.07 x10^6/uL (3.50-5.40) Hemoglobin 10.3 g/dL (12.0-15.5) Hematocrit 30.9 % (36.0-47.0) Mean Corpuscular Volume 101 fL (79-100) Mean Corpuscular Hemoglobin 33 pg (25-35) Mean Corpuscular Hemoglobin Concent 33 g/dL (31-37) Red Cell Distribution Width 13.9 % (11.5-14.5) Platelet Count 429 x10^3/uL (140-400) Neutrophils (%) (Auto) 65 % (31-73) Lymphocytes (%) (Auto) 22 % (24-48) Monocytes (%) (Auto) 10 % (0-9) Eosinophils (%) (Auto) 2 % (0-3) Basophils (%) (Auto) 1 % (0-3) Neutrophils # (Auto) 6.8 x10^3uL (1.8-7.7) Lymphocytes # (Auto) 2.3 x10^3/uL (1.0-4.8) Monocytes # (Auto) 1.1 x10^3/uL (0.0-1.1) Eosinophils # (Auto) 0.3 x10^3/uL (0.0-0.7) Basophils # (Auto) 0.1 x10^3/uL (0.0-0.2) Sodium Level 144 mmol/L (136-145) Potassium Level 3.6 mmol/L (3.5-5.1) Chloride Level 108 mmol/L (98-107) Carbon Dioxide Level 27 mmol/L (21-32) Anion Gap 9 (6-14) Blood Urea Nitrogen 22 mg/dL (7-20) Creatinine 1.7 mg/dL (0.6-1.0) Estimated GFR (Cockcroft-Gault) 36.7 Glucose Level 71 mg/dL (70-99) Calcium Level 7.9 mg/dL (8.5-10.1) Test 12/10/18 17:00 12/10/18 20:42 12/11/18 05:40 12/11/18 08:03 Glucose (Fingerstick) 119 mg/dL (70-99) 127 mg/dL (70-99) 110 mg/dL (70-99) White Blood Count 10.3 x10^3/uL (4.0-11.0) Red Blood Count 3.41 x10^6/uL (3.50-5.40) Hemoglobin 11.5 g/dL (12.0-15.5) Hematocrit 34.2 % (36.0-47.0) Mean Corpuscular Volume 100 fL (79-100) Mean Corpuscular Hemoglobin 34 pg (25-35) Mean Corpuscular Hemoglobin Concent 34 g/dL (31-37) Red Cell Distribution Width 14.0 % (11.5-14.5) Platelet Count 511 x10^3/uL (140-400) Neutrophils (%) (Auto) 66 % (31-73) Lymphocytes (%) (Auto) 20 % (24-48) Monocytes (%) (Auto) 11 % (0-9) Eosinophils (%) (Auto) 2 % (0-3) Basophils (%) (Auto) 1 % (0-3) Neutrophils # (Auto) 6.8 x10^3uL (1.8-7.7) Lymphocytes # (Auto) 2.0 x10^3/uL (1.0-4.8) Monocytes # (Auto) 1.1 x10^3/uL (0.0-1.1) Eosinophils # (Auto) 0.2 x10^3/uL (0.0-0.7) Basophils # (Auto) 0.1 x10^3/uL (0.0-0.2) Sodium Level 139 mmol/L (136-145) Potassium Level 4.2 mmol/L (3.5-5.1) Chloride Level 102 mmol/L (98-107) Carbon Dioxide Level 27 mmol/L (21-32) Anion Gap 10 (6-14) Blood Urea Nitrogen 26 mg/dL (7-20) Creatinine 1.8 mg/dL (0.6-1.0) Estimated GFR (Cockcroft-Gault) 34.4 BUN/Creatinine Ratio 14 (6-20) Glucose Level 148 mg/dL (70-99) Calcium Level 8.3 mg/dL (8.5-10.1) Total Bilirubin 0.3 mg/dL (0.2-1.0) Aspartate Amino Transf (AST/SGOT) 35 U/L (15-37) Alanine Aminotransferase (ALT/SGPT) 29 U/L (14-59) Alkaline Phosphatase 116 U/L (46-116) Total Protein 7.4 g/dL (6.4-8.2) Albumin 1.9 g/dL (3.4-5.0) Albumin/Globulin Ratio 0.3 (1.0-1.7) Laboratory Tests Test 12/10/18 17:00 12/10/18 20:42 12/11/18 05:40 12/11/18 08:03 Glucose (Fingerstick) 119 mg/dL (70-99) 127 mg/dL (70-99) 110 mg/dL (70-99) White Blood Count 10.3 x10^3/uL (4.0-11.0) Red Blood Count 3.41 x10^6/uL (3.50-5.40) Hemoglobin 11.5 g/dL (12.0-15.5) Hematocrit 34.2 % (36.0-47.0) Mean Corpuscular Volume 100 fL (79-100) Mean Corpuscular Hemoglobin 34 pg (25-35) Mean Corpuscular Hemoglobin Concent 34 g/dL (31-37) Red Cell Distribution Width 14.0 % (11.5-14.5) Platelet Count 511 x10^3/uL (140-400) Neutrophils (%) (Auto) 66 % (31-73) Lymphocytes (%) (Auto) 20 % (24-48) Monocytes (%) (Auto) 11 % (0-9) Eosinophils (%) (Auto) 2 % (0-3) Basophils (%) (Auto) 1 % (0-3) Neutrophils # (Auto) 6.8 x10^3uL (1.8-7.7) Lymphocytes # (Auto) 2.0 x10^3/uL (1.0-4.8) Monocytes # (Auto) 1.1 x10^3/uL (0.0-1.1) Eosinophils # (Auto) 0.2 x10^3/uL (0.0-0.7) Basophils # (Auto) 0.1 x10^3/uL (0.0-0.2) Sodium Level 139 mmol/L (136-145) Potassium Level 4.2 mmol/L (3.5-5.1) Chloride Level 102 mmol/L (98-107) Carbon Dioxide Level 27 mmol/L (21-32) Anion Gap 10 (6-14) Blood Urea Nitrogen 26 mg/dL (7-20) Creatinine 1.8 mg/dL (0.6-1.0) Estimated GFR (Cockcroft-Gault) 34.4 BUN/Creatinine Ratio 14 (6-20) Glucose Level 148 mg/dL (70-99) Calcium Level 8.3 mg/dL (8.5-10.1) Total Bilirubin 0.3 mg/dL (0.2-1.0) Aspartate Amino Transf (AST/SGOT) 35 U/L (15-37) Alanine Aminotransferase (ALT/SGPT) 29 U/L (14-59) Alkaline Phosphatase 116 U/L (46-116) Total Protein 7.4 g/dL (6.4-8.2) Albumin 1.9 g/dL (3.4-5.0) Albumin/Globulin Ratio 0.3 (1.0-1.7) Microbiology 12/09/18 Blood Culture - Preliminary, Resulted NO GROWTH AFTER 1 DAY 12/09/18 Urine Culture - Preliminary, Resulted 12/09/18 Urine Culture Result 1 (GABRIELE) - Preliminary, Resulted Medications Current Medications Labetalol HCl (Normodyne Iv Push) 10 mg 1X ONCE IVP Last administered on at 12:57; Start 12/09/18 at 12:45; Stop 12/09/18 at 12:46; Status DC Clonidine HCl (Catapres) 0.1 mg 1X ONCE PO Last administered on 12/09/18at 12:57 ; Start 12/09/18 at 12:45; Stop 12/09/18 at 12:46; Status DC Ondansetron HCl (Zofran) 4 mg 1X ONCE IV Last administered on 12/09/18at 12:57; Start 12/09/18 at 12:45; Stop 12/09/18 at 12:46; Status DC Iohexol (Omnipaque 240 Mg/ml) 30 ml 1X ONCE PO ; Start 12/09/18 at 13:30; Stop 12/09/18 at 13:31; Status DC Iohexol (Omnipaque 300 Mg/ml) 75 ml 1X ONCE IV Last administered on 12/09/18 13:40; Start 12/09/18 at 13:30; Stop 12/09/18 at 13:31; Status DC Ondansetron HCl (Zofran) 4 mg PRN Q8HRS PRN IV NAUSEA/VOMITING; Start 12/09/18 at 16:00; Stop 12/10/18 at 15:59; Status DC Fentanyl Citrate (Fentanyl 2ml Vial) 50 mcg PRN Q1HR PRN IV PAIN Last administered on 12/10/18 08:03; Start 12/09/18 at 16:00; Stop 12/10/18 at 15:59; Status DC Acetaminophen (Tylenol) 650 mg PRN Q4HRS PRN PO FEVER; Start 12/09/18 at 16:00; Stop 12/10/18 at 15:59; Status DC Piperacillin Sod/ Tazobactam Sod 3.375 gm/Sodium Chloride 50 ml @ 100 mls/hr 1X ONCE IV Last administered on 12/09/18 22:46; Start 12/09/18 at 16:00; Stop 12/09/18 at 16:29; Status DC Vancomycin HCl (Vanco Per Pharmacy) 1 each PRN DAILY PRN MC SEE COMMENTS Last administered on 12/10/18 08:49; Start 12/09/18 at 16:00; Stop 12/10/18 at 10:05; Status DC Vancomycin HCl 2 gm/Sodium Chloride 500 ml @ 250 mls/hr 1X ONCE IV Last administered on 12/09/18 23:35; Start 12/09/18 at 16:15; Stop 12/09/18 at 18:14; Status DC Amoxicillin/ Clavulanate Potassium (Augmentin 875/ 125mg) 1 tab BID PO ; Start 12/09/18 at 21:00; Status UNV Carvedilol (Coreg) 6.25 mg BIDWMEALS PO Last administered on 12/11/18 08:49; Start 12/10/18 at 08:00 Duloxetine HCl (Cymbalta) 30 mg DAILY PO Last administered on 12/11/18 08:48; Start 12/09/18 at 20:30 Furosemide (Lasix) 40 mg BID PO Last administered on 12/10/18 20:48; Start 12/09 at 21:00 Guaifenesin (Robitussin Dm) 10 ml PRN Q6HRS PRN PO COUGH; Start 12/09/18 at 20: 00 Insulin Glargine (Lantus) 20 units QHS SQ Last administered on 12/10/18 20:56; Start 12/09/18 at 21:00 Insulin Human Lispro (HumaLOG) 7 units TIDAC SQ Last administered on 12/11/18 09:01; Start 12/10/18 at 07:30 Lisinopril (Prinivil) 20 mg DAILY PO Last administered on 12/11/18 08:47; Start 12/09/18 at 20:30 Pregabalin (Lyrica) 75 mg TID PO Last administered on 12/11/18 08:48; Start 12/09/18 at 21:00 Tramadol HCl (Ultram) 50 mg PRN Q6HRS PRN PO PAIN MILD Last administered on 12/11 04:11; Start 12/09/18 at 20:00 Non-Formulary Medication (Benzonatate ) 100 mg [id number] PO ; Start 12/09/18 at 21: 00; Status UNV Hydralazine HCl (Apresoline) 50 mg TID PO Last administered on 12/11/18 08:49; Start 12/09/18 at 21:00 Montelukast Sodium (Singulair) 10 mg QHS PO Last administered on 12/10/18 20:47 ; Start 12/09/18 at 21:00 Quetiapine Fumarate (SEROquel) 100 mg QHS PO Last administered on 12/09/18 21: 08; Start 12/09/18 at 21:00 Vancomycin HCl 1.25 gm/Sodium Chloride 250 ml @ 167 mls/hr Q24H IV ; Start 12/10 at 23:00; Stop 12/10/18 at 23:00; Status DC Vancomycin HCl (Vancomycin Trough Level) 1 each 1X ONCE MC ; Start 12/11/18 at 22:30; Stop 12/11/18 at 22:31; Status Cancel Amoxicillin/ Clavulanate Potassium (Augmentin 875/ 125mg) 1 tab BID PO Last administered on 12/11/18at 08:47; Start 12/10/18 at 11:00 Sodium Chloride 1,000 ml @ 100 mls/hr Q10H IV Last administered on 12/10/18at 12 :01; Start 12/10/18 at 11:30; Stop 12/10/18 at 15:50; Status DC Polyethylene Glycol (miraLAX PACKET) 17 gm DAILY PO Last administered on at 08:47; Start 12/10/18 at 12:00 Polyethylene Glycol (miraLAX PACKET) 17 gm PRN DAILY PRN PO CONSTIPATION 1ST CHOICE; Start 12/10/18 at 11:45 Bisacodyl (Dulcolax Tab) 10 mg 1X ONCE PO Last administered on 12/10/18at 11:45 ; Start 12/10/18 at 11:45; Stop 12/10/18 at 11:46; Status DC Amoxicillin/ Clavulanate Potassium (Augmentin 875/ 125mg) 1 tab BID PO ; Start 12/10/18 at 16:30; Status Cancel Amoxicillin/ Clavulanate Potassium (Augmentin 875/ 125mg) 1 tab BID PO ; Start 12/10/18 at 21:00; Status UNV Amoxicillin/ Clavulanate Potassium (Augmentin 875/ 125mg) 1 tab BID PO ; Start 12/10/18 at 21:00; Status UNV Acetaminophen/ Hydrocodone Bitart (Lortab 5/325) 1 tab PRN Q4HRS PRN PO PAIN; Start 12/11/18 at 11:30; Status UNV Sodium Chloride 1,000 ml @ 75 mls/hr [id number] IV ; Start 12/11/18 at 11:30; Status UNV Active Scripts Active Lisinopril 40 Mg Tablet 20 Mg PO DAILY MDD 1 Carvedilol (Carvedilol) 6.25 Mg Tablet 6.25 Mg PO BIDWMEALS MDD 1 Hydralazine Hcl 25 Mg Tablet 50 Mg PO TID MDD 1 Lasix (Furosemide) 40 Mg Tablet 40 Mg PO BID MDD 1 30 Days Cymbalta (Duloxetine Hcl) 30 Mg Capsule.dr 1 Cap PO DAILY Tramadol Hcl 50 Mg Tablet 50 Mg PO Q6HRS PRN 6 Days Augmentin 875-125 Tablet (Amoxicillin/Potassium Clav) 1 Each Tablet 1 Tab PO BID 7 Days Quetiapine Fumarate 100 Mg Tablet 100 Mg PO QHS 30 Days Humalog (Insulin Lispro) 100 Unit/1 Ml Insuln.pen 7 Units SQ TIDAC 30 Days Lantus Solostar (Insulin Glargine,Hum.rec.anlog) 100 Unit/1 Ml Insuln.pen 20 Units SQ QHS 30 Days Guaifenesin Dm Syrup (Guaifenesin/Dextromethorphan) 5 Ml Syrup 10 Ml PO PRN Q6HRS PRN 30 Days Benzonatate 100 Mg Capsule 100 Mg PO [id number] 30 Days Montelukast Sodium Tablet (Montelukast Sodium) 10 Mg Tablet 10 Mg PO QHS 30 Days Lyrica (Pregabalin) 75 Mg Capsule 75 Mg PO TID 30 Days Vitals/I & O Vital Sign - Last 24 Hours 12/10/18 12/10/18 12/10/18 12/10/18 14:47 15:00 17:00 19:00 Temp 99.4 99.9 99.4 99.9 Pulse 75 77 77 73 Resp 20 18 B/P (MAP) 170/77 182/85 (117) 182/85 156/78 (104) Pulse Ox 99 96 O2 Delivery Room Air Room Air 12/10/18 12/10/18 12/10/18 12/10/18 19:21 20:00 20:48 23:00 Temp 100.1 100.1 Pulse 73 77 Resp 18 B/P (MAP) 156/78 149/74 (99) Pulse Ox 95 O2 Delivery Room Air Room Air Room Air 12/11/18 12/11/18 12/11/18 12/11/18 03:00 04:11 05:15 07:00 Temp 98.4 98.3 98.4 98.3 Pulse 72 69 Resp 18 18 B/P (MAP) 154/77 (102) 191/94 (126) Pulse Ox 96 100 O2 Delivery Room Air Room Air Room Air Room Air 12/11/18 12/11/18 12/11/18 08:47 08:49 08:49 Pulse 72 72 72 B/P (MAP) 154/77 154/77 154/77 Intake and Output 12/10/18 12/10/18 12/11/18 15:00 23:00 07:00 Intake Total 930 ml 100 ml Balance 930 ml 100 ml JASON HOUSE III DO Dec 11, 2018 11:36
[2018-12-11] MEDS: FUROSEMIDE 40 MG TABLET. PO SCH ×2 (11:37→21:22)
[2018-12-11] MEDS: IV NORMAL SALINE 1000ML BAG 1,000 ML IV SCH ×2 (12:03→21:24)
--- NOTE | 2018-12-11 12:41 | NUR ---
SW consulted for drug rehab and SNU. Pt is well known to SW from previous visit. Pt is currently staying with a friend and still plans on moving to [place] to be close to family. SW discussed pt might have to ask her family to come and give her a ride to [place] as she claims that is the main barrier. Discussed about drug rehab and pt wants to look to options when she moves to [place]. PT/OT recommends SNU/acute rehab at this time. Discussed with pt about rehab and insurance coverage. Pt was up and walking in room and making her own bed when SW visited. Pt agreeable with being screened at [facility], phone: [phone], fax: [phone] and [facility], phone: , fax: [phone]. Pt aware insurance approval is also needed if rehab if facilities accept. Discussed with RN and PT. Will continue to follow. Addendum: 12/11/18 at 1251 by CHRISTINA GARCIA Referral faxed to above facilities. Pt acceptance and admission pending. Will continue to follow. Addendum: 12/11/18 at 1519 by CHRISTINA GARCIA JOSE also faxed referral to [facility] in [place]. Acceptance and admission pending.
--- NOTE | 2018-12-11 14:11 | RAD ---
Renal ultrasound, 12/11/2018: HISTORY: Hematuria, acute renal insufficiency The right kidney measures 13.3 cm in length while the left kidney measures 11.4 cm. There is no evidence of hydronephrosis. The renal parenchymal echogenicity is mildly increased. A 1.5 cm cyst is seen in the lower pole of the left kidney. A 2.2 cm septated cyst or cyst cluster is seen anteriorly in the right kidney. Limited views of urinary bladder show no abnormality. IMPRESSION: 1. Small bilateral renal cysts. 2. Mildly increased renal parenchymal echogenicity compatible with nonspecific medical renal disease. 3. No evidence of renal obstruction. Electronically signed by: Luis Haque MD (12/11/2018 2:08 PM) [facility]
[2018-12-11 15:00] VITALS: BP 182/89
--- NOTE | 2018-12-11 15:10 | PDOC ---
SUBJECTIVE ROS states feeling better, sitting by the side of bed, eating lunch OBJECTIVE Vital Signs Vital Signs Date Time Temp Pulse Resp B/P (MAP) Pulse Ox O2 Delivery O2 Flow Rate FiO2 12/11/18 11:00 98.3 70 16 129/70 (89) 98 Room Air 98.3 I & 0 Intake and Output 12/11/18 07:00 Intake Total 1030 ml Balance 1030 ml Intake Oral 930 ml IV Total 100 ml # Voids 5 PHYSICAL EXAM Physical Exam GEN: Mild distress, falling asleep HEEN: om Moist, non icteric NECK: No JVD CVS: RRR RESP: CTA, No acc muscle use GI: Soft : No CVA tenderness, No Suprapubic Tenderness, No Caraballo Ext - Bilat LE edema +, Lt LE- Eryhrmatous Neuro- Oriented, but falling asleep DIAGNOSIS/ASSESSMENT Assessment & Plan TE - On baseline CKD Likely sec to dehydration , Recd IV contrast as well Ordered IVF yesterday, not started yet, getting IV access now for IVF Continue IVF , monitor renal function - KAREN Renal US c/w Chr med disease Strict I/O Bilat renal cysts Microscopic Hematuria -? Cyst rupture ? DM Proteinuria +, will quantify , CT Normal (no RBC 11/2018) If no e/o UTI consult urology Abd pain-Constipation - no Bm for close to a week Leukocytosis - resolved Previous LLE cellulitis - resolved - h/o MSSA H/o Splenectomy COMMENT/RELEVANT DATA Meds Current Medications Medications (Trade) Dose Ordered Sig/Lisa Start Time Stop Time Status Last Admin Dose Admin Acetaminophen (Tylenol) 650 mg PRN Q4HRS PRN 12/09/18 16:00 12/10/18 15:59 DC Acetaminophen/ Hydrocodone Bitart (Lortab 5/325) 1 tab PRN Q4HRS PRN 12/11/18 11:30 Amoxicillin/ Clavulanate Potassium (Augmentin 875/ 125mg) 1 tab BID 12/10/18 21:00 UNV Bisacodyl (Dulcolax Tab) 10 mg 1X ONCE 12/11/18 11:30 12/11/18 11:31 DC 12/11/18 12:10 10 MG Carvedilol (Coreg) 6.25 mg BIDWMEALS 12/10/18 08:00 12/11/18 08:49 6.25 MG Clonidine HCl (Catapres) 0.1 mg 1X ONCE 12/09/18 12:45 12/09/18 12:46 DC 12/09/18 12:57 0.1 MG Duloxetine HCl (Cymbalta) 30 mg DAILY 12/09/18 20:30 12/11/18 08:48 30 MG Fentanyl Citrate (Fentanyl 2ml Vial) 50 mcg PRN Q1HR PRN 12/09/18 16:00 12/10/18 15:59 DC 12/10/18 08:03 50 MCG Furosemide (Lasix) 40 mg BID 12/09/18 21:00 12/11/18 11:37 40 MG Guaifenesin (Robitussin Dm) 10 ml PRN Q6HRS PRN 12/09/18 20:00 Hydralazine HCl (Apresoline) 50 mg TID 12/09/18 21:00 12/11/18 08:49 50 MG Insulin Glargine (Lantus) 20 units QHS 12/09/18 21:00 12/10/18 20:56 20 UNITS Insulin Human Lispro (HumaLOG) 7 units TIDAC 12/10/18 07:30 12/11/18 13:30 7 UNITS Iohexol (Omnipaque 240 Mg/ml) 30 ml 1X ONCE 12/09/18 13:30 12/09/18 13:31 DC Iohexol (Omnipaque 300 Mg/ml) 75 ml 1X ONCE 12/09/18 13:30 12/09/18 13:31 DC 12/09/18 13:40 75 ML Labetalol HCl (Normodyne Iv Push) 10 mg 1X ONCE 12/09/18 12:45 12/09/18 12:46 DC 12/09/18 12:57 10 MG Lactobacillus Rhamnosus (Culturelle) 1 cap BID 12/11/18 21:00 Lisinopril (Prinivil) 20 mg DAILY 12/09/18 20:30 12/11/18 08:47 20 MG Lubiprostone (Amitiza) 8 mcg BIDWMEALS 12/11/18 17:00 Montelukast Sodium (Singulair) 10 mg QHS 12/09/18 21:00 12/10/18 20:47 10 MG Non-Formulary Medication (Benzonatate ) 100 mg [id number] 12/09/18 21:00 UNV Ondansetron HCl (Zofran) 4 mg PRN Q8HRS PRN 12/09/18 16:00 12/10/18 15:59 DC Piperacillin Sod/ Tazobactam Sod 3.375 gm/Sodium Chloride 50 ml @ 100 mls/hr 1X ONCE 12/09/18 16:00 12/09/18 16:29 DC 12/09/18 22:46 100 MLS/HR Polyethylene Glycol (miraLAX PACKET) 17 gm BID 12/11/18 21:00 Pregabalin (Lyrica) 75 mg TID 12/09/18 21:00 12/11/18 08:48 75 MG Quetiapine Fumarate (SEROquel) 100 mg QHS 12/09/18 21:00 12/09/18 21:08 100 MG Sodium Chloride 1,000 ml @ 75 mls/hr [id number] 12/11/18 11:30 12/11/18 12:03 75 MLS/HR Tramadol HCl (Ultram) 50 mg PRN Q6HRS PRN 12/09/18 20:00 12/11/18 11:38 DC 12/11/18 04:11 50 MG Vancomycin HCl (Vanco Per Pharmacy) 1 each PRN DAILY PRN 12/09/18 16:00 12/10/18 10:05 DC 12/10/18 08:49 1 EACH Vancomycin HCl (Vancomycin Trough Level) 1 each 1X ONCE 12/11/18 22:30 12/11/18 22:31 Cancel Vancomycin HCl 1.25 gm/Sodium Chloride 250 ml @ 167 mls/hr Q24H 12/10/18 23:00 12/10/18 23:00 DC Vancomycin HCl 2 gm/Sodium Chloride 500 ml @ 250 mls/hr 1X ONCE 12/09/18 16:15 12/09/18 18:14 DC 12/09/18 23:35 250 MLS/HR Lab Laboratory Tests Test 12/10/18 17:00 12/10/18 20:42 12/11/18 05:40 12/11/18 08:03 Glucose (Fingerstick) 119 mg/dL (70-99) 127 mg/dL (70-99) 110 mg/dL (70-99) White Blood Count 10.3 x10^3/uL (4.0-11.0) Red Blood Count 3.41 x10^6/uL (3.50-5.40) Hemoglobin 11.5 g/dL (12.0-15.5) Hematocrit 34.2 % (36.0-47.0) Mean Corpuscular Volume 100 fL (79-100) Mean Corpuscular Hemoglobin 34 pg (25-35) Mean Corpuscular Hemoglobin Concent 34 g/dL (31-37) Red Cell Distribution Width 14.0 % (11.5-14.5) Platelet Count 511 x10^3/uL (140-400) Neutrophils (%) (Auto) 66 % (31-73) Lymphocytes (%) (Auto) 20 % (24-48) Monocytes (%) (Auto) 11 % (0-9) Eosinophils (%) (Auto) 2 % (0-3) Basophils (%) (Auto) 1 % (0-3) Neutrophils # (Auto) 6.8 x10^3uL (1.8-7.7) Lymphocytes # (Auto) 2.0 x10^3/uL (1.0-4.8) Monocytes # (Auto) 1.1 x10^3/uL (0.0-1.1) Eosinophils # (Auto) 0.2 x10^3/uL (0.0-0.7) Basophils # (Auto) 0.1 x10^3/uL (0.0-0.2) Sodium Level 139 mmol/L (136-145) Potassium Level 4.2 mmol/L (3.5-5.1) Chloride Level 102 mmol/L (98-107) Carbon Dioxide Level 27 mmol/L (21-32) Anion Gap 10 (6-14) Blood Urea Nitrogen 26 mg/dL (7-20) Creatinine 1.8 mg/dL (0.6-1.0) Estimated GFR (Cockcroft-Gault) 34.4 BUN/Creatinine Ratio 14 (6-20) Glucose Level 148 mg/dL (70-99) Calcium Level 8.3 mg/dL (8.5-10.1) Total Bilirubin 0.3 mg/dL (0.2-1.0) Aspartate Amino Transf (AST/SGOT) 35 U/L (15-37) Alanine Aminotransferase (ALT/SGPT) 29 U/L (14-59) Alkaline Phosphatase 116 U/L (46-116) Total Protein 7.4 g/dL (6.4-8.2) Albumin 1.9 g/dL (3.4-5.0) Albumin/Globulin Ratio 0.3 (1.0-1.7) Test 12/11/18 12:33 Glucose (Fingerstick) 176 mg/dL (70-99) Results All relevant outside records, renal labs, imaging studies, telemetry/EKG's were reviewed. STEVEN HESTER MD Dec 11, 2018 15:10
[2018-12-11] MEDS ORDERED: METHYLNALTREXONE 12 MG/0.6 ML VIAL. SQ ONE (16:00)
[2018-12-11] MEDS: HYDROcodone/APAP 5/325MG 1 TAB TABLET PO PRN ×2 (16:01→21:23)
[2018-12-11] MEDS ORDERED: LUBIPROSTONE 8 MCG CAPSULE PO SCH (17:00)
[2018-12-11 19:00] VITALS: BP 160/81
[2018-12-11] MEDS: QUEtiapine 100 MG TABLET. PO SCH (21:00)
[2018-12-11] MEDS: LACTOBACILLUS RHAMNOSUS GG 1 CAPSULE. PO SCH (21:22)
[2018-12-11] MEDS: MONTELUKAST SODIUM 10 MG TABLET. PO SCH (21:22)
[2018-12-11] MEDS: INSULIN GLARGINE 300 UNITS/3 ML INSULN.PEN. SQ SCH (21:28)
[2018-12-11 23:03] VITALS: BP 178/81
[2018-12-12 03:03] VITALS: BP 167/81
[2018-12-12] MEDS: HYDROcodone/APAP 5/325MG 1 TAB TABLET PO PRN ×2 (03:15→16:40)
[2018-12-12 07:00] VITALS: BP 167/85
--- NOTE | 2018-12-12 07:29 | PDOC ---
PROGRESS NOTES Chief Complaint Chief Complaint Bilateral lower abdominal pain Bilateral lower extremity edema TE Cocaine intoxication LLE cellulitis UTI Sepsis - uti HTN urgency Severe protein calorie malnutrition H/o Splenectomy Homelessness History of Present Illness History of Present Illness Admitted for bilateral abdominal pain, cocaine intoxication, LLE cellulitis, sepsis. Patient was seen up and walking to the restroom today. She states she still has severe abdominal pain. She has not had a BM in 1 week but is working with GI. Received relistor and amitiza yesterday with no effect. Plan: Lactulose today, mineral oil Vitals Vitals Vital Signs Date Time Temp Pulse Resp B/P (MAP) Pulse Ox O2 Delivery O2 Flow Rate FiO2 12/12/18 04:22 18 99 Room Air 12/12/18 03:03 98.5 68 167/81 (109) 98.5 Physical Exam General: Alert, Oriented X3, Cooperative, mild distress Heart: Regular rate, Normal S1, Normal S2, No murmurs Lungs: Clear, Other Abdomen: Soft, Other (tender to palpation right lower quadrant, hepatomegaly ) Extremities: Other (she does have swelling in both lower extremities with some erythema left lower extremity around the ankle, wheeping left 2nd toe) Skin: No breakdown, No significant lesion, Other (Cellulitis present) Labs LABS Laboratory Tests Test 12/11/18 08:03 12/11/18 12:33 12/11/18 16:51 12/11/18 20:30 Glucose (Fingerstick) 110 mg/dL (70-99) 176 mg/dL (70-99) 149 mg/dL (70-99) 178 mg/dL (70-99) Assessment and Plan Assessmemt and Plan Problems Medical Problems: (1) Cellulitis of left lower extremity Status: Acute (2) Chronic acquired lymphedema Status: Acute (3) Drug abuse Status: Acute (4) Homeless Status: Acute Comment Review of Relevant I have reviewed the following items peyton (where applicable) has been applied. Labs Laboratory Tests Test 12/10/18 07:52 12/10/18 10:58 12/10/18 17:00 12/10/18 20:42 Glucose (Fingerstick) 92 mg/dL (70-99) 238 mg/dL (70-99) 119 mg/dL (70-99) 127 mg/dL (70-99) Test 12/11/18 05:40 12/11/18 08:03 12/11/18 12:33 12/11/18 16:51 White Blood Count 10.3 x10^3/uL (4.0-11.0) Red Blood Count 3.41 x10^6/uL (3.50-5.40) Hemoglobin 11.5 g/dL (12.0-15.5) Hematocrit 34.2 % (36.0-47.0) Mean Corpuscular Volume 100 fL (79-100) Mean Corpuscular Hemoglobin 34 pg (25-35) Mean Corpuscular Hemoglobin Concent 34 g/dL (31-37) Red Cell Distribution Width 14.0 % (11.5-14.5) Platelet Count 511 x10^3/uL (140-400) Neutrophils (%) (Auto) 66 % (31-73) Lymphocytes (%) (Auto) 20 % (24-48) Monocytes (%) (Auto) 11 % (0-9) Eosinophils (%) (Auto) 2 % (0-3) Basophils (%) (Auto) 1 % (0-3) Neutrophils # (Auto) 6.8 x10^3uL (1.8-7.7) Lymphocytes # (Auto) 2.0 x10^3/uL (1.0-4.8) Monocytes # (Auto) 1.1 x10^3/uL (0.0-1.1) Eosinophils # (Auto) 0.2 x10^3/uL (0.0-0.7) Basophils # (Auto) 0.1 x10^3/uL (0.0-0.2) Sodium Level 139 mmol/L (136-145) Potassium Level 4.2 mmol/L (3.5-5.1) Chloride Level 102 mmol/L (98-107) Carbon Dioxide Level 27 mmol/L (21-32) Anion Gap 10 (6-14) Blood Urea Nitrogen 26 mg/dL (7-20) Creatinine 1.8 mg/dL (0.6-1.0) Estimated GFR (Cockcroft-Gault) 34.4 BUN/Creatinine Ratio 14 (6-20) Glucose Level 148 mg/dL (70-99) Calcium Level 8.3 mg/dL (8.5-10.1) Total Bilirubin 0.3 mg/dL (0.2-1.0) Aspartate Amino Transf (AST/SGOT) 35 U/L (15-37) Alanine Aminotransferase (ALT/SGPT) 29 U/L (14-59) Alkaline Phosphatase 116 U/L (46-116) Total Protein 7.4 g/dL (6.4-8.2) Albumin 1.9 g/dL (3.4-5.0) Albumin/Globulin Ratio 0.3 (1.0-1.7) Glucose (Fingerstick) 110 mg/dL (70-99) 176 mg/dL (70-99) 149 mg/dL (70-99) Test 12/11/18 20:30 Glucose (Fingerstick) 178 mg/dL (70-99) Laboratory Tests Test 12/11/18 08:03 12/11/18 12:33 12/11/18 16:51 12/11/18 20:30 Glucose (Fingerstick) 110 mg/dL (70-99) 176 mg/dL (70-99) 149 mg/dL (70-99) 178 mg/dL (70-99) Microbiology 12/09/18 Blood Culture - Preliminary, Resulted NO GROWTH AFTER 2 DAYS 12/09/18 Urine Culture - Final, Complete 12/09/18 Urine Culture Result 1 (GABRIELE) - Final, Complete 12/09/18 Antimicrobic Susceptibility - Final, Complete Medications Current Medications Labetalol HCl (Normodyne Iv Push) 10 mg 1X ONCE IVP Last administered on at 12:57; Start 12/09/18 at 12:45; Stop 12/09/18 at 12:46; Status DC Clonidine HCl (Catapres) 0.1 mg 1X ONCE PO Last administered on 12/09/18at 12:57 ; Start 12/09/18 at 12:45; Stop 12/09/18 at 12:46; Status DC Ondansetron HCl (Zofran) 4 mg 1X ONCE IV Last administered on 12/09/18at 12:57; Start 12/09/18 at 12:45; Stop 12/09/18 at 12:46; Status DC Iohexol (Omnipaque 240 Mg/ml) 30 ml 1X ONCE PO ; Start 12/09/18 at 13:30; Stop 12/09/18 at 13:31; Status DC Iohexol (Omnipaque 300 Mg/ml) 75 ml 1X ONCE IV Last administered on 12/09/18 13:40; Start 12/09/18 at 13:30; Stop 12/09/18 at 13:31; Status DC Ondansetron HCl (Zofran) 4 mg PRN Q8HRS PRN IV NAUSEA/VOMITING; Start 12/09/18 at 16:00; Stop 12/10/18 at 15:59; Status DC Fentanyl Citrate (Fentanyl 2ml Vial) 50 mcg PRN Q1HR PRN IV PAIN Last administered on 12/10/18 08:03; Start 12/09/18 at 16:00; Stop 12/10/18 at 15:59; Status DC Acetaminophen (Tylenol) 650 mg PRN Q4HRS PRN PO FEVER; Start 12/09/18 at 16:00; Stop 12/10/18 at 15:59; Status DC Piperacillin Sod/ Tazobactam Sod 3.375 gm/Sodium Chloride 50 ml @ 100 mls/hr 1X ONCE IV Last administered on 12/09/18 22:46; Start 12/09/18 at 16:00; Stop 12/09/18 at 16:29; Status DC Vancomycin HCl (Vanco Per Pharmacy) 1 each PRN DAILY PRN MC SEE COMMENTS Last administered on 12/10/18 08:49; Start 12/09/18 at 16:00; Stop 12/10/18 at 10:05; Status DC Vancomycin HCl 2 gm/Sodium Chloride 500 ml @ 250 mls/hr 1X ONCE IV Last administered on 12/09/18 23:35; Start 12/09/18 at 16:15; Stop 12/09/18 at 18:14; Status DC Amoxicillin/ Clavulanate Potassium (Augmentin 875/ 125mg) 1 tab BID PO ; Start 12/09/18 at 21:00; Status UNV Carvedilol (Coreg) 6.25 mg BIDWMEALS PO Last administered on 12/11/18 17:00; Start 12/10/18 at 08:00 Duloxetine HCl (Cymbalta) 30 mg DAILY PO Last administered on 12/11/18 08:48; Start 12/09/18 at 20:30 Furosemide (Lasix) 40 mg BID PO Last administered on 12/11/18 21:22; Start 12/09 at 21:00 Guaifenesin (Robitussin Dm) 10 ml PRN Q6HRS PRN PO COUGH; Start 12/09/18 at 20: 00 Insulin Glargine (Lantus) 20 units QHS SQ Last administered on 12/11/18 21:28; Start 12/09/18 at 21:00 Insulin Human Lispro (HumaLOG) 7 units TIDAC SQ Last administered on 12/11/18 13:30; Start 12/10/18 at 07:30 Lisinopril (Prinivil) 20 mg DAILY PO Last administered on 12/11/18 08:47; Start 12/09/18 at 20:30 Pregabalin (Lyrica) 75 mg TID PO Last administered on 12/11/18 21:22; Start 12/09/18 at 21:00 Tramadol HCl (Ultram) 50 mg PRN Q6HRS PRN PO PAIN MILD Last administered on 12/11 04:11; Start 12/09/18 at 20:00; Stop 12/11/18 at 11:38; Status DC Non-Formulary Medication (Benzonatate ) 100 mg [id number] PO ; Start 12/09/18 at 21: 00; Status UNV Hydralazine HCl (Apresoline) 50 mg TID PO Last administered on 12/11/18 21:22; Start 12/09/18 at 21:00 Montelukast Sodium (Singulair) 10 mg QHS PO Last administered on 12/11/18 21:22 ; Start 12/09/18 at 21:00 Quetiapine Fumarate (SEROquel) 100 mg QHS PO Last administered on 12/09/18 21: 08; Start 12/09/18 at 21:00 Vancomycin HCl 1.25 gm/Sodium Chloride 250 ml @ 167 mls/hr Q24H IV ; Start 12/10 at 23:00; Stop 12/10/18 at 23:00; Status DC Vancomycin HCl (Vancomycin Trough Level) 1 each 1X ONCE MC ; Start 12/11/18 at 22:30; Stop 12/11/18 at 22:31; Status Cancel Amoxicillin/ Clavulanate Potassium (Augmentin 875/ 125mg) 1 tab BID PO Last administered on 12/11/18 21:22; Start 12/10/18 at 11:00 Sodium Chloride 1,000 ml @ 100 mls/hr Q10H IV Last administered on 12/10/18 12 :01; Start 12/10/18 at 11:30; Stop 12/10/18 at 15:50; Status DC Polyethylene Glycol (miraLAX PACKET) 17 gm DAILY PO Last administered on 08:47; Start 12/10/18 at 12:00; Stop 12/11/18 at 11:28; Status DC Polyethylene Glycol (miraLAX PACKET) 17 gm PRN DAILY PRN PO CONSTIPATION 1ST CHOICE; Start 12/10/18 at 11:45 Bisacodyl (Dulcolax Tab) 10 mg 1X ONCE PO Last administered on 12/10/18 11:45 ; Start 12/10/18 at 11:45; Stop 12/10/18 at 11:46; Status DC Amoxicillin/ Clavulanate Potassium (Augmentin 875/ 125mg) 1 tab BID PO ; Start 12/10/18 at 16:30; Status Cancel Amoxicillin/ Clavulanate Potassium (Augmentin 875/ 125mg) 1 tab BID PO ; Start 12/10/18 at 21:00; Status UNV Amoxicillin/ Clavulanate Potassium (Augmentin 875/ 125mg) 1 tab BID PO ; Start 12/10/18 at 21:00; Status UNV Acetaminophen/ Hydrocodone Bitart (Lortab 5/325) 1 tab PRN Q4HRS PRN PO MODERATE PAIN Last administered on 12/12/18 03:15; Start 12/11/18 at 11:30 Sodium Chloride 1,000 ml @ 75 mls/hr [id number] Last administered on 12/11/18 21:24; Start 12/11/18 at 11:30 Polyethylene Glycol (miraLAX PACKET) 17 gm BID PO Last administered on 21:21; Start 12/11/18 at 21:00 Bisacodyl (Dulcolax Tab) 10 mg 1X ONCE PO Last administered on 12/11/18 12:10 ; Start 12/11/18 at 11:30; Stop 12/11/18 at 11:31; Status DC Lubiprostone (Amitiza) 8 mcg BIDWMEALS PO ; Start 12/11/18 at 17:00; Stop at 17:00; Status DC Lactobacillus Rhamnosus (Culturelle) 1 cap BID PO Last administered on at 21:22; Start 12/11/18 at 21:00 Methylnaltrexone [place] (Relistor) 12 mg 1X ONCE SQ Last administered on at 16:14; Start 12/11/18 at 16:00; Stop 12/11/18 at 16:01; Status DC Active Scripts Active Lisinopril 40 Mg Tablet 20 Mg PO DAILY MDD 1 Carvedilol (Carvedilol) 6.25 Mg Tablet 6.25 Mg PO BIDWMEALS MDD 1 Hydralazine Hcl 25 Mg Tablet 50 Mg PO TID MDD 1 Lasix (Furosemide) 40 Mg Tablet 40 Mg PO BID MDD 1 30 Days Cymbalta (Duloxetine Hcl) 30 Mg Capsule.dr 1 Cap PO DAILY Tramadol Hcl 50 Mg Tablet 50 Mg PO Q6HRS PRN 6 Days Augmentin 875-125 Tablet (Amoxicillin/Potassium Clav) 1 Each Tablet 1 Tab PO BID 7 Days Quetiapine Fumarate 100 Mg Tablet 100 Mg PO QHS 30 Days Humalog (Insulin Lispro) 100 Unit/1 Ml Insuln.pen 7 Units SQ TIDAC 30 Days Lantus Solostar (Insulin Glargine,Hum.rec.anlog) 100 Unit/1 Ml Insuln.pen 20 Units SQ QHS 30 Days Guaifenesin Dm Syrup (Guaifenesin/Dextromethorphan) 5 Ml Syrup 10 Ml PO PRN Q6HRS PRN 30 Days Benzonatate 100 Mg Capsule 100 Mg PO [id number] 30 Days Montelukast Sodium Tablet (Montelukast Sodium) 10 Mg Tablet 10 Mg PO QHS 30 Days Lyrica (Pregabalin) 75 Mg Capsule 75 Mg PO TID 30 Days Vitals/I & O Vital Sign - Last 24 Hours 12/11/18 12/11/18 12/11/18 12/11/18 08:00 08:47 08:49 08:49 Pulse 72 72 72 B/P (MAP) 154/77 154/77 154/77 O2 Delivery Room Air 12/11/18 12/11/18 12/11/1812/11/19 11:00 15:00 16:01 16:04 Temp 98.3 98.3 98.3 98.3 Pulse 70 78 84 Resp 16 16 20 B/P (MAP) 129/70 (89) 182/89 (120) 182/89 Pulse Ox 98 98 98 O2 Delivery Room Air Room Air Room Air 12/11/18 12/11/18 12/11/18 12/11/18 17:00 19:00 20:05 21:22 Temp 97.9 97.9 Pulse 84 77 77 Resp 20 B/P (MAP) 182/89 160/81 (107) 160/81 Pulse Ox 98 O2 Delivery Room Air Room Air 12/11/18 12/11/18 12/12/18 12/12/18 21:23 23:03 03:03 03:15 Temp 98.1 98.5 98.1 98.5 Pulse 69 68 Resp 18 20 20 18 B/P (MAP) 178/81 (113) 167/81 (109) Pulse Ox 98 97 99 99 O2 Delivery Room Air Room Air Room Air Room Air 12/12/18 04:22 Resp 18 Pulse Ox 99 O2 Delivery Room Air Intake and Output 12/11/18 12/11/18 12/12/18 15:00 23:00 07:00 Intake Total 950 ml Balance 950 ml EBONIE COLE MD Dec 12, 2018 07:29
[2018-12-12 08:29] LABS: ALBUMIN 2.1 g/dL (3.4-5.0); ALBUMIN/GLOBULIN RATIO 0.4 (1.0-1.7); CALCIUM 8.2 mg/dL (8.5-10.1); CREATININE 1.8 mg/dL (0.6-1.0); GFR 34.4; POTASSIUM 4.5 mmol/L (3.5-5.1); TOTAL BILIRUBIN 0.2 mg/dL (0.2-1.0); TOTAL PROTEIN 7.6 g/dL (6.4-8.2)
[2018-12-12] MEDS: INSULIN LISPRO 300 UNITS/3 ML INSULN.PEN. SQ SCH ×3 (08:41→16:45)
[2018-12-12] MEDS: CARVEDILOL 6.25 MG TABLET. PO SCH ×2 (08:42→16:40)
[2018-12-12] MEDS: POLYETHYLENE GLYCOL 3350 17 GM PACKET. PO SCH ×2 (08:43→20:57)
[2018-12-12] MEDS: LACTOBACILLUS RHAMNOSUS GG 1 CAPSULE. PO SCH ×2 (08:43→20:58)
[2018-12-12] MEDS: AMOXICILLIN/K CLAV 875/125MG TABLET. PO SCH ×2 (08:43→20:57)
[2018-12-12] MEDS: DULoxetine HCL 30 MG CAPSULE.DR PO SCH (08:43)
[2018-12-12] MEDS: FUROSEMIDE 40 MG TABLET. PO SCH ×2 (08:43→20:57)
[2018-12-12] MEDS: LISINOPRIL 20 MG TABLET PO SCH (08:44)
[2018-12-12] MEDS: PREGABALIN 75 MG CAPSULE PO SCH ×3 (08:54→20:57)
[2018-12-12] MEDS ORDERED: MINERAL OIL 30 ML for ORAL USE. PO ONE (09:30)
[2018-12-12 11:00] VITALS: BP 115/73
--- NOTE | 2018-12-12 11:12 | PDOC ---
Infectious Disease Note Subjective Subjective Abdominal discomfort No BM Denies N/V/F/C/S ROS ROS per HPI Vital Sign Vital Signs Vital Signs Date Time Temp Pulse Resp B/P (MAP) Pulse Ox O2 Delivery O2 Flow Rate FiO2 12/12/18 08:44 65 167/85 12/12/18 07:00 98.1 16 99 Room Air 98.1 Physical Exam PHYSICAL EXAM GENERA: Propped up in bed, alert, NAD HEENT: Pupils are reactive. Oral cavity, pharynx is clear. + dentures. NECK: Supple. LUNGS: Clear to auscultation. HEART: S1 and S2. ABDOMEN: Soft and obese. Some mild tenderness but no guarding. EXTREMITIES: Without clubbing or cyanosis. Chronic lower extremity edema. LLE wound - bandaged [employer]: Alert, responds appropriately PIV Labs Lab Laboratory Tests Test 12/11/18 12:33 12/11/18 16:51 12/11/18 20:30 12/12/18 07:40 Glucose (Fingerstick) 176 mg/dL (70-99) 149 mg/dL (70-99) 178 mg/dL (70-99) Sodium Level 140 mmol/L (136-145) Potassium Level 4.5 mmol/L (3.5-5.1) Chloride Level 104 mmol/L (98-107) Carbon Dioxide Level 29 mmol/L (21-32) Anion Gap 7 (6-14) Blood Urea Nitrogen 32 mg/dL (7-20) Creatinine 1.8 mg/dL (0.6-1.0) Estimated GFR (Cockcroft-Gault) 34.4 BUN/Creatinine Ratio 18 (6-20) Glucose Level 97 mg/dL (70-99) Calcium Level 8.2 mg/dL (8.5-10.1) Total Bilirubin 0.2 mg/dL (0.2-1.0) Aspartate Amino Transf (AST/SGOT) 32 U/L (15-37) Alanine Aminotransferase (ALT/SGPT) 30 U/L (14-59) Alkaline Phosphatase 135 U/L (46-116) Total Protein 7.6 g/dL (6.4-8.2) Albumin 2.1 g/dL (3.4-5.0) Albumin/Globulin Ratio 0.4 (1.0-1.7) Micro 12/09/18 Blood Culture - Preliminary, Resulted NO GROWTH AFTER 2 DAYS Objective Assessment Abd pain Constipation - no BM for close to a week - CT with mild stool Leukocytosis - resolved ? dehydration with abd pain and decreased intact Previous LLE cellulitis - resolved - h/o MSSA TE H/o Splenectomy Urine is a poor specimen but has E. coli ( R amp) Polysubstance abuse, UR tox + Plan Plan of Care po Augmentin urine may be contaminated given amount of squamous cells and yeast also F/u labs and cults Attending Co-Sign The patient was seen and interviewed as well as examined at the bedside. The chart was reviewed. The case was discussed. Agree with the plan of care. BRITTANY BRANHAM APRN Dec 12, 2018 11:12 ZENIA LU MD Dec 12, 2018 12:21
[2018-12-12 15:00] VITALS: BP 170/80
--- NOTE | 2018-12-12 16:36 | PDOC ---
SUBJECTIVE ROS Stable OBJECTIVE Vital Signs Vital Signs Date Time Temp Pulse Resp B/P (MAP) Pulse Ox O2 Delivery O2 Flow Rate FiO2 12/12/18 15:00 77 16 170/80 (110) 97 Room Air 12/12/18 11:00 98.1 98.1 I & 0 Intake and Output 12/12/18 07:00 Intake Total 950 ml Balance 950 ml Intake Oral 950 ml # Voids 9 PHYSICAL EXAM Physical Exam GEN: Mild distress, falling asleep HEEN: om Moist, non icteric NECK: No JVD CVS: RRR RESP: CTA, No acc muscle use GI: Soft : No CVA tenderness, No Suprapubic Tenderness, No Caraballo Ext - Bilat LE edema +, Lt LE- Eryhrmatous Neuro- Oriented, but falling asleep DIAGNOSIS/ASSESSMENT Assessment & Plan TE - On baseline CKD Likely sec to dehydration , Recd IV contrast as well Continue IVF , monitor renal function - KAREN Renal US c/w Chr med disease Strict I/O , Monitor, Bilat renal cysts Microscopic Hematuria -? Cyst rupture ? DM Proteinuria +, will quantify , CT Normal (no RBC 11/2018) If no e/o UTI consult urology Abd pain-Constipation - no Bm for close to a week Leukocytosis - resolved Previous LLE cellulitis - resolved - h/o MSSA H/o Splenectomy Cocaine Intoxication- drug screen positive COMMENT/RELEVANT DATA Meds Current Medications Medications (Trade) Dose Ordered Sig/Lisa Start Time Stop Time Status Last Admin Dose Admin Acetaminophen (Tylenol) 650 mg PRN Q4HRS PRN 12/09/18 16:00 12/10/18 15:59 DC Acetaminophen/ Hydrocodone Bitart (Lortab 5/325) 1 tab PRN Q4HRS PRN 12/11/18 11:30 12/12/18 03:15 1 TAB Amoxicillin/ Clavulanate Potassium (Augmentin 875/ 125mg) 1 tab BID 12/10/18 21:00 UNV Bisacodyl (Dulcolax Tab) 10 mg 1X ONCE 12/11/18 11:30 12/11/18 11:31 DC 12/11/18 12:10 10 MG Carvedilol (Coreg) 6.25 mg BIDWMEALS 12/10/18 08:00 12/12/18 08:42 6.25 MG Clonidine HCl (Catapres) 0.1 mg 1X ONCE 12/09/18 12:45 12/09/18 12:46 DC 12/09/18 12:57 0.1 MG Duloxetine HCl (Cymbalta) 30 mg DAILY 12/09/18 20:30 12/12/18 08:43 30 MG Fentanyl Citrate (Fentanyl 2ml Vial) 50 mcg PRN Q1HR PRN 12/09/18 16:00 12/10/18 15:59 DC 12/10/18 08:03 50 MCG Furosemide (Lasix) 40 mg BID 12/09/18 21:00 12/12/18 08:43 40 MG Guaifenesin (Robitussin Dm) 10 ml PRN Q6HRS PRN 12/09/18 20:00 Hydralazine HCl (Apresoline) 50 mg TID 12/09/18 21:00 12/12/18 14:45 50 MG Insulin Glargine (Lantus) 20 units QHS 12/09/18 21:00 12/11/18 21:28 20 UNITS Insulin Human Lispro (HumaLOG) 7 units TIDAC 12/10/18 07:30 12/12/18 12:29 7 UNITS Iohexol (Omnipaque 240 Mg/ml) 30 ml 1X ONCE 12/09/18 13:30 12/09/18 13:31 DC Iohexol (Omnipaque 300 Mg/ml) 75 ml 1X ONCE 12/09/18 13:30 12/09/18 13:31 DC 12/09/18 13:40 75 ML Labetalol HCl (Normodyne Iv Push) 10 mg 1X ONCE 12/09/18 12:45 12/09/18 12:46 DC 12/09/18 12:57 10 MG Lactobacillus Rhamnosus (Culturelle) 1 cap BID 12/11/18 21:00 12/12/18 08:43 1 CAP Lactulose (Lactulose) 20 gm PRN TID PRN 12/12/18 09:15 Lisinopril (Prinivil) 20 mg DAILY 12/09/18 20:30 12/12/18 08:44 20 MG Lubiprostone (Amitiza) 8 mcg BIDWMEALS 12/11/18 17:00 12/11/18 17:00 DC Methylnaltrexone [place] (Relistor) 12 mg 1X ONCE 12/11/18 16:00 12/11/18 16:01 DC 12/11/18 16:14 12 MG Mineral Oil (Mineral Oil) 30 ml 1X ONCE 12/12/18 09:30 12/12/18 09:31 DC 12/12/18 10:20 30 ML Montelukast Sodium (Singulair) 10 mg QHS 12/09/18 21:00 12/11/18 21:22 10 MG Non-Formulary Medication (Benzonatate ) 100 mg [id number] 12/09/18 21:00 UNV Ondansetron HCl (Zofran) 4 mg PRN Q8HRS PRN 12/09/18 16:00 12/10/18 15:59 DC Piperacillin Sod/ Tazobactam Sod 3.375 gm/Sodium Chloride 50 ml @ 100 mls/hr 1X ONCE 12/09/18 16:00 12/09/18 16:29 DC 12/09/18 22:46 100 MLS/HR Polyethylene Glycol (miraLAX PACKET) 17 gm BID 12/11/18 21:00 12/12/18 08:43 17 GM Pregabalin (Lyrica) 75 mg TID 12/09/18 21:00 12/12/18 14:43 75 MG Quetiapine Fumarate (SEROquel) 100 mg QHS 12/09/18 21:00 12/09/18 21:08 100 MG Sodium Chloride 1,000 ml @ 75 mls/hr [id number] 12/11/18 11:30 12/11/18 21:24 75 MLS/HR Tramadol HCl (Ultram) 50 mg PRN Q6HRS PRN 12/09/18 20:00 12/11/18 11:38 DC 12/11/18 04:11 50 MG Vancomycin HCl (Vanco Per Pharmacy) 1 each PRN DAILY PRN 12/09/18 16:00 12/10/18 10:05 DC 12/10/18 08:49 1 EACH Vancomycin HCl (Vancomycin Trough Level) 1 each 1X ONCE 12/11/18 22:30 12/11/18 22:31 Cancel Vancomycin HCl 1.25 gm/Sodium Chloride 250 ml @ 167 mls/hr Q24H 12/10/18 23:00 12/10/18 23:00 DC Vancomycin HCl 2 gm/Sodium Chloride 500 ml @ 250 mls/hr 1X ONCE 12/09/18 16:15 12/09/18 18:14 DC 12/09/18 23:35 250 MLS/HR Lab Laboratory Tests Test 12/11/18 16:51 12/11/18 20:30 12/12/18 07:40 12/12/18 07:44 Glucose (Fingerstick) 149 mg/dL (70-99) 178 mg/dL (70-99) 87 mg/dL (70-99) Sodium Level 140 mmol/L (136-145) Potassium Level 4.5 mmol/L (3.5-5.1) Chloride Level 104 mmol/L (98-107) Carbon Dioxide Level 29 mmol/L (21-32) Anion Gap 7 (6-14) Blood Urea Nitrogen 32 mg/dL (7-20) Creatinine 1.8 mg/dL (0.6-1.0) Estimated GFR (Cockcroft-Gault) 34.4 BUN/Creatinine Ratio 18 (6-20) Glucose Level 97 mg/dL (70-99) Calcium Level 8.2 mg/dL (8.5-10.1) Total Bilirubin 0.2 mg/dL (0.2-1.0) Aspartate Amino Transf (AST/SGOT) 32 U/L (15-37) Alanine Aminotransferase (ALT/SGPT) 30 U/L (14-59) Alkaline Phosphatase 135 U/L (46-116) Total Protein 7.6 g/dL (6.4-8.2) Albumin 2.1 g/dL (3.4-5.0) Albumin/Globulin Ratio 0.4 (1.0-1.7) Test 12/12/18 11:23 Glucose (Fingerstick) 129 mg/dL (70-99) Results All relevant outside records, renal labs, imaging studies, telemetry/EKG's were reviewed. STEVEN HESTER MD Dec 12, 2018 16:36
[2018-12-12 19:00] VITALS: BP 122/63
[2018-12-12] MEDS: IV NORMAL SALINE 1000ML BAG 1,000 ML IV SCH (20:56)
[2018-12-12] MEDS: LACTULOSE 20 GM/30 ML SOLUTION. PO PRN (20:57)
[2018-12-12] MEDS: QUEtiapine 100 MG TABLET. PO SCH ×2 (20:58→21:00)
[2018-12-12] MEDS: MONTELUKAST SODIUM 10 MG TABLET. PO SCH (20:58)
[2018-12-12] MEDS: INSULIN GLARGINE 300 UNITS/3 ML INSULN.PEN. SQ SCH (21:01)
[2018-12-12 23:00] VITALS: BP 139/69
--- NOTE | 2018-12-12 23:30 | NUR ---
While COMPLAINTS COORDINATOR was doing vitals she noticed what appeared to be an opened box of cigarettes on the floor. She brought them out of the room and upon further inspection box appears to have drug paraphernalia inside. Nursing furniture assembly supervisor notified as well as security. Security came up and told RN and COMPLAINTS COORDINATOR to just dispose of it and if the pt wants to ask questions as to where the paraphernalia went to call security and they will return.
[2018-12-13 03:00] VITALS: BP 124/65
[2018-12-13] MEDS: HYDROcodone/APAP 5/325MG 1 TAB TABLET PO PRN ×4 (03:23→20:56)
[2018-12-13 05:33] LABS: ALBUMIN 1.9 g/dL (3.4-5.0); ALBUMIN/GLOBULIN RATIO 0.3 (1.0-1.7); CALCIUM 8.4 mg/dL (8.5-10.1); CREATININE 1.7 mg/dL (0.6-1.0); GFR 36.7; POTASSIUM 4.9 mmol/L (3.5-5.1); TOTAL BILIRUBIN 0.2 mg/dL (0.2-1.0); TOTAL PROTEIN 7.4 g/dL (6.4-8.2)
[2018-12-13 07:00] VITALS: BP 146/80
--- NOTE | 2018-12-13 07:39 | PDOC ---
PROGRESS NOTES Chief Complaint Chief Complaint Bilateral lower abdominal pain Bilateral lower extremity edema TE Cocaine intoxication LLE cellulitis UTI Sepsis - uti HTN urgency Severe protein calorie malnutrition H/o Splenectomy Homelessness History of Present Illness History of Present Illness Admitted for bilateral abdominal pain, cocaine intoxication, LLE cellulitis, sepsis. Patient was seen up and walking to the restroom today. She states she still has severe abdominal pain. She has not had a BM in 1 week but is working with GI. Received relistor and amitiza yesterday with no effect. Plan: Lactulose today, mineral oil Vitals Vitals Vital Signs Date Time Temp Pulse Resp B/P (MAP) Pulse Ox O2 Delivery O2 Flow Rate FiO2 12/13/18 04:20 17 96 Room Air 12/13/18 03:00 98.8 79 124/65 (84) 98.8 Physical Exam Physical Exam GENERA: Propped up in bed, alert, NAD HEENT: Pupils are reactive. Oral cavity, pharynx is clear. + dentures. NECK: Supple. LUNGS: Clear to auscultation. HEART: S1 and S2. ABDOMEN: Soft and obese. Some mild tenderness but no guarding. EXTREMITIES: Without clubbing or cyanosis. Chronic lower extremity edema. LLE wound - bandaged PHYSICAL OPTICS TEACHER: Alert, responds appropriately PIV General: Alert, Oriented X3, Cooperative, mild distress Heart: Regular rate, Normal S1, Normal S2, No murmurs Lungs: Clear, Other Abdomen: Soft, Other (tender to palpation right lower quadrant, hepatomegaly ) Extremities: Other (she does have swelling in both lower extremities with some erythema left lower extremity around the ankle, wheeping left 2nd toe) Skin: No breakdown, No significant lesion, Other (Cellulitis present) Labs LABS Laboratory Tests Test 12/12/18 07:40 12/12/18 07:44 12/12/18 11:23 12/12/18 16:37 Sodium Level 140 mmol/L (136-145) Potassium Level 4.5 mmol/L (3.5-5.1) Chloride Level 104 mmol/L (98-107) Carbon Dioxide Level 29 mmol/L (21-32) Anion Gap 7 (6-14) Blood Urea Nitrogen 32 mg/dL (7-20) Creatinine 1.8 mg/dL (0.6-1.0) Estimated GFR (Cockcroft-Gault) 34.4 BUN/Creatinine Ratio 18 (6-20) Glucose Level 97 mg/dL (70-99) Calcium Level 8.2 mg/dL (8.5-10.1) Total Bilirubin 0.2 mg/dL (0.2-1.0) Aspartate Amino Transf (AST/SGOT) 32 U/L (15-37) Alanine Aminotransferase (ALT/SGPT) 30 U/L (14-59) Alkaline Phosphatase 135 U/L (46-116) Total Protein 7.6 g/dL (6.4-8.2) Albumin 2.1 g/dL (3.4-5.0) Albumin/Globulin Ratio 0.4 (1.0-1.7) Glucose (Fingerstick) 87 mg/dL (70-99) 129 mg/dL (70-99) 86 mg/dL (70-99) Test 12/12/18 20:57 12/13/18 04:25 Glucose (Fingerstick) 112 mg/dL (70-99) Sodium Level 141 mmol/L (136-145) Potassium Level 4.9 mmol/L (3.5-5.1) Chloride Level 107 mmol/L (98-107) Carbon Dioxide Level 27 mmol/L (21-32) Anion Gap 7 (6-14) Blood Urea Nitrogen 34 mg/dL (7-20) Creatinine 1.7 mg/dL (0.6-1.0) Estimated GFR (Cockcroft-Gault) 36.7 BUN/Creatinine Ratio 20 (6-20) Glucose Level 114 mg/dL (70-99) Calcium Level 8.4 mg/dL (8.5-10.1) Total Bilirubin 0.2 mg/dL (0.2-1.0) Aspartate Amino Transf (AST/SGOT) 31 U/L (15-37) Alanine Aminotransferase (ALT/SGPT) 26 U/L (14-59) Alkaline Phosphatase 138 U/L (46-116) Total Protein 7.4 g/dL (6.4-8.2) Albumin 1.9 g/dL (3.4-5.0) Albumin/Globulin Ratio 0.3 (1.0-1.7) Assessment and Plan Assessmemt and Plan Problems Medical Problems: (1) Cellulitis of left lower extremity Status: Acute (2) Chronic acquired lymphedema Status: Acute (3) Drug abuse Status: Acute (4) Homeless Status: Acute Comment Review of Relevant I have reviewed the following items peyton (where applicable) has been applied. Labs Laboratory Tests Test 12/11/18 08:03 12/11/18 12:33 12/11/18 16:51 12/11/18 20:30 Glucose (Fingerstick) 110 mg/dL (70-99) 176 mg/dL (70-99) 149 mg/dL (70-99) 178 mg/dL (70-99) Test 12/12/18 07:40 12/12/18 07:44 12/12/18 11:23 12/12/18 16:37 Sodium Level 140 mmol/L (136-145) Potassium Level 4.5 mmol/L (3.5-5.1) Chloride Level 104 mmol/L (98-107) Carbon Dioxide Level 29 mmol/L (21-32) Anion Gap 7 (6-14) Blood Urea Nitrogen 32 mg/dL (7-20) Creatinine 1.8 mg/dL (0.6-1.0) Estimated GFR (Cockcroft-Gault) 34.4 BUN/Creatinine Ratio 18 (6-20) Glucose Level 97 mg/dL (70-99) Calcium Level 8.2 mg/dL (8.5-10.1) Total Bilirubin 0.2 mg/dL (0.2-1.0) Aspartate Amino Transf (AST/SGOT) 32 U/L (15-37) Alanine Aminotransferase (ALT/SGPT) 30 U/L (14-59) Alkaline Phosphatase 135 U/L (46-116) Total Protein 7.6 g/dL (6.4-8.2) Albumin 2.1 g/dL (3.4-5.0) Albumin/Globulin Ratio 0.4 (1.0-1.7) Glucose (Fingerstick) 87 mg/dL (70-99) 129 mg/dL (70-99) 86 mg/dL (70-99) Test 12/12/18 20:57 12/13/18 04:25 Glucose (Fingerstick) 112 mg/dL (70-99) Sodium Level 141 mmol/L (136-145) Potassium Level 4.9 mmol/L (3.5-5.1) Chloride Level 107 mmol/L (98-107) Carbon Dioxide Level 27 mmol/L (21-32) Anion Gap 7 (6-14) Blood Urea Nitrogen 34 mg/dL (7-20) Creatinine 1.7 mg/dL (0.6-1.0) Estimated GFR (Cockcroft-Gault) 36.7 BUN/Creatinine Ratio 20 (6-20) Glucose Level 114 mg/dL (70-99) Calcium Level 8.4 mg/dL (8.5-10.1) Total Bilirubin 0.2 mg/dL (0.2-1.0) Aspartate Amino Transf (AST/SGOT) 31 U/L (15-37) Alanine Aminotransferase (ALT/SGPT) 26 U/L (14-59) Alkaline Phosphatase 138 U/L (46-116) Total Protein 7.4 g/dL (6.4-8.2) Albumin 1.9 g/dL (3.4-5.0) Albumin/Globulin Ratio 0.3 (1.0-1.7) Laboratory Tests Test 12/12/18 07:40 12/12/18 07:44 12/12/18 11:23 12/12/18 16:37 Sodium Level 140 mmol/L (136-145) Potassium Level 4.5 mmol/L (3.5-5.1) Chloride Level 104 mmol/L (98-107) Carbon Dioxide Level 29 mmol/L (21-32) Anion Gap 7 (6-14) Blood Urea Nitrogen 32 mg/dL (7-20) Creatinine 1.8 mg/dL (0.6-1.0) Estimated GFR (Cockcroft-Gault) 34.4 BUN/Creatinine Ratio 18 (6-20) Glucose Level 97 mg/dL (70-99) Calcium Level 8.2 mg/dL (8.5-10.1) Total Bilirubin 0.2 mg/dL (0.2-1.0) Aspartate Amino Transf (AST/SGOT) 32 U/L (15-37) Alanine Aminotransferase (ALT/SGPT) 30 U/L (14-59) Alkaline Phosphatase 135 U/L (46-116) Total Protein 7.6 g/dL (6.4-8.2) Albumin 2.1 g/dL (3.4-5.0) Albumin/Globulin Ratio 0.4 (1.0-1.7) Glucose (Fingerstick) 87 mg/dL (70-99) 129 mg/dL (70-99) 86 mg/dL (70-99) Test 12/12/18 20:57 12/13/18 04:25 Glucose (Fingerstick) 112 mg/dL (70-99) Sodium Level 141 mmol/L (136-145) Potassium Level 4.9 mmol/L (3.5-5.1) Chloride Level 107 mmol/L (98-107) Carbon Dioxide Level 27 mmol/L (21-32) Anion Gap 7 (6-14) Blood Urea Nitrogen 34 mg/dL (7-20) Creatinine 1.7 mg/dL (0.6-1.0) Estimated GFR (Cockcroft-Gault) 36.7 BUN/Creatinine Ratio 20 (6-20) Glucose Level 114 mg/dL (70-99) Calcium Level 8.4 mg/dL (8.5-10.1) Total Bilirubin 0.2 mg/dL (0.2-1.0) Aspartate Amino Transf (AST/SGOT) 31 U/L (15-37) Alanine Aminotransferase (ALT/SGPT) 26 U/L (14-59) Alkaline Phosphatase 138 U/L (46-116) Total Protein 7.4 g/dL (6.4-8.2) Albumin 1.9 g/dL (3.4-5.0) Albumin/Globulin Ratio 0.3 (1.0-1.7) Microbiology 12/09/18 Blood Culture - Preliminary, Resulted NO GROWTH AFTER 3 DAYS 12/09/18 Urine Culture - Final, Complete 12/09/18 Urine Culture Result 1 (GABRIELE) - Final, Complete 12/09/18 Antimicrobic Susceptibility - Final, Complete Medications Current Medications Labetalol HCl (Normodyne Iv Push) 10 mg 1X ONCE IVP Last administered on at 12:57; Start 12/09/18 at 12:45; Stop 12/09/18 at 12:46; Status DC Clonidine HCl (Catapres) 0.1 mg 1X ONCE PO Last administered on 12/09/18at 12:57 ; Start 12/09/18 at 12:45; Stop 12/09/18 at 12:46; Status DC Ondansetron HCl (Zofran) 4 mg 1X ONCE IV Last administered on 12/09/18at 12:57; Start 12/09/18 at 12:45; Stop 12/09/18 at 12:46; Status DC Iohexol (Omnipaque 240 Mg/ml) 30 ml 1X ONCE PO ; Start 12/09/18 at 13:30; Stop 12/09/18 at 13:31; Status DC Iohexol (Omnipaque 300 Mg/ml) 75 ml 1X ONCE IV Last administered on 12/09/18at 13:40; Start 12/09/18 at 13:30; Stop 12/09/18 at 13:31; Status DC Ondansetron HCl (Zofran) 4 mg PRN Q8HRS PRN IV NAUSEA/VOMITING; Start 12/09/18 at 16:00; Stop 12/10/18 at 15:59; Status DC Fentanyl Citrate (Fentanyl 2ml Vial) 50 mcg PRN Q1HR PRN IV PAIN Last administered on 12/10/18at 08:03; Start 12/09/18 at 16:00; Stop 12/10/18 at 15:59; Status DC Acetaminophen (Tylenol) 650 mg PRN Q4HRS PRN PO FEVER; Start 12/09/18 at 16:00; Stop 12/10/18 at 15:59; Status DC Piperacillin Sod/ Tazobactam Sod 3.375 gm/Sodium Chloride 50 ml @ 100 mls/hr 1X ONCE IV Last administered on 12/09/18at 22:46; Start 12/09/18 at 16:00; Stop 12/09/18 at 16:29; Status DC Vancomycin HCl (Vanco Per Pharmacy) 1 each PRN DAILY PRN MC SEE COMMENTS Last administered on 12/10/18at 08:49; Start 12/09/18 at 16:00; Stop 12/10/18 at 10:05; Status DC Vancomycin HCl 2 gm/Sodium Chloride 500 ml @ 250 mls/hr 1X ONCE IV Last administered on 12/09/18at 23:35; Start 12/09/18 at 16:15; Stop 12/09/18 at 18:14; Status DC Amoxicillin/ Clavulanate Potassium (Augmentin 875/ 125mg) 1 tab BID PO ; Start 12/09/18 at 21:00; Status UNV Carvedilol (Coreg) 6.25 mg BIDWMEALS PO Last administered on 12/12/18 16:40; Start 12/10/18 at 08:00 Duloxetine HCl (Cymbalta) 30 mg DAILY PO Last administered on 12/12/18 08:43; Start 12/09/18 at 20:30 Furosemide (Lasix) 40 mg BID PO Last administered on 12/12/18 20:57; Start 12/09 at 21:00 Guaifenesin (Robitussin Dm) 10 ml PRN Q6HRS PRN PO COUGH; Start 12/09/18 at 20: 00 Insulin Glargine (Lantus) 20 units QHS SQ Last administered on 12/12/18 21:01; Start 12/09/18 at 21:00 Insulin Human Lispro (HumaLOG) 7 units TIDAC SQ Last administered on 12/12/18 16:45; Start 12/10/18 at 07:30 Lisinopril (Prinivil) 20 mg DAILY PO Last administered on 12/12/18 08:44; Start 12/09/18 at 20:30 Pregabalin (Lyrica) 75 mg TID PO Last administered on 12/12/18 20:57; Start 12/09/18 at 21:00 Tramadol HCl (Ultram) 50 mg PRN Q6HRS PRN PO PAIN MILD Last administered on 12/11 04:11; Start 12/09/18 at 20:00; Stop 12/11/18 at 11:38; Status DC Non-Formulary Medication (Benzonatate ) 100 mg [id number] PO ; Start 12/09/18 at 21: 00; Status UNV Hydralazine HCl (Apresoline) 50 mg TID PO Last administered on 12/12/18 20:57; Start 12/09/18 at 21:00 Montelukast Sodium (Singulair) 10 mg QHS PO Last administered on 12/12/18 20:58 ; Start 12/09/18 at 21:00 Quetiapine Fumarate (SEROquel) 100 mg QHS PO Last administered on 12/09/18 21: 08; Start 12/09/18 at 21:00 Vancomycin HCl 1.25 gm/Sodium Chloride 250 ml @ 167 mls/hr Q24H IV ; Start 12/10 at 23:00; Stop 12/10/18 at 23:00; Status DC Vancomycin HCl (Vancomycin Trough Level) 1 each 1X ONCE MC ; Start 12/11/18 at 22:30; Stop 12/11/18 at 22:31; Status Cancel Amoxicillin/ Clavulanate Potassium (Augmentin 875/ 125mg) 1 tab BID PO Last administered on 12/12/18 20:57; Start 12/10/18 at 11:00 Sodium Chloride 1,000 ml @ 100 mls/hr Q10H IV Last administered on 12/10/18at 12 :01; Start 12/10/18 at 11:30; Stop 12/10/18 at 15:50; Status DC Polyethylene Glycol (miraLAX PACKET) 17 gm DAILY PO Last administered on 08:47; Start 12/10/18 at 12:00; Stop 12/11/18 at 11:28; Status DC Polyethylene Glycol (miraLAX PACKET) 17 gm PRN DAILY PRN PO CONSTIPATION 1ST CHOICE; Start 12/10/18 at 11:45 Bisacodyl (Dulcolax Tab) 10 mg 1X ONCE PO Last administered on 12/10/18 11:45 ; Start 12/10/18 at 11:45; Stop 12/10/18 at 11:46; Status DC Amoxicillin/ Clavulanate Potassium (Augmentin 875/ 125mg) 1 tab BID PO ; Start 12/10/18 at 16:30; Status Cancel Amoxicillin/ Clavulanate Potassium (Augmentin 875/ 125mg) 1 tab BID PO ; Start 12/10/18 at 21:00; Status UNV Amoxicillin/ Clavulanate Potassium (Augmentin 875/ 125mg) 1 tab BID PO ; Start 12/10/18 at 21:00; Status UNV Acetaminophen/ Hydrocodone Bitart (Lortab 5/325) 1 tab PRN Q4HRS PRN PO MODERATE PAIN Last administered on 12/13/18 03:23; Start 12/11/18 at 11:30 Sodium Chloride 1,000 ml @ 75 mls/hr [id number] IV Last administered on 12/12/18 20:56; Start 12/11/18 at 11:30 Polyethylene Glycol (miraLAX PACKET) 17 gm BID PO Last administered on 4/6/ 19at 20:57; Start 12/11/18 at 21:00 Bisacodyl (Dulcolax Tab) 10 mg 1X ONCE PO Last administered on 12/11/18at 12:10 ; Start 12/11/18 at 11:30; Stop 12/11/18 at 11:31; Status DC Lubiprostone (Amitiza) 8 mcg BIDWMEALS PO ; Start 12/11/18 at 17:00; Stop at 17:00; Status DC Lactobacillus Rhamnosus (Culturelle) 1 cap BID PO Last administered on at 20:58; Start 12/11/18 at 21:00 Methylnaltrexone [place] (Relistor) 12 mg 1X ONCE SQ Last administered on at 16:14; Start 12/11/18 at 16:00; Stop 12/11/18 at 16:01; Status DC Lactulose (Lactulose) 20 gm PRN TID PRN PO CONSTIPATION Last administered on 12/12/18at 20:57; Start 12/12/18 at 09:15 Mineral Oil (Mineral Oil) 30 ml 1X ONCE PO Last administered on 12/12/18at 10:20 ; Start 12/12/18 at 09:30; Stop 12/12/18 at 09:31; Status DC Active Scripts Active Lisinopril 40 Mg Tablet 20 Mg PO DAILY MDD 1 Carvedilol (Carvedilol) 6.25 Mg Tablet 6.25 Mg PO BIDWMEALS MDD 1 Hydralazine Hcl 25 Mg Tablet 50 Mg PO TID MDD 1 Lasix (Furosemide) 40 Mg Tablet 40 Mg PO BID MDD 1 30 Days Cymbalta (Duloxetine Hcl) 30 Mg Capsule.dr 1 Cap PO DAILY Tramadol Hcl 50 Mg Tablet 50 Mg PO Q6HRS PRN 6 Days Augmentin 875-125 Tablet (Amoxicillin/Potassium Clav) 1 Each Tablet 1 Tab PO BID 7 Days Quetiapine Fumarate 100 Mg Tablet 100 Mg PO QHS 30 Days Humalog (Insulin Lispro) 100 Unit/1 Ml Insuln.pen 7 Units SQ TIDAC 30 Days Lantus Solostar (Insulin Glargine,Hum.rec.anlog) 100 Unit/1 Ml Insuln.pen 20 Units SQ QHS 30 Days Guaifenesin Dm Syrup (Guaifenesin/Dextromethorphan) 5 Ml Syrup 10 Ml PO PRN Q6HRS PRN 30 Days Benzonatate 100 Mg Capsule 100 Mg PO [id number] 30 Days Montelukast Sodium Tablet (Montelukast Sodium) 10 Mg Tablet 10 Mg PO QHS 30 Days Lyrica (Pregabalin) 75 Mg Capsule 75 Mg PO TID 30 Days Vitals/I & O Vital Sign - Last 24 Hours 12/12/18 12/12/18 12/12/18 12/12/18 08:00 08:42 08:42 08:44 Pulse 65 65 65 B/P (MAP) 167/85 167/85 167/85 O2 Delivery Room Air 12/12/18 12/12/18 12/12/18 12/12/18 11:00 14:45 15:00 16:40 Temp 98.1 98.1 Pulse 72 76 77 77 Resp 16 16 B/P (MAP) 115/73 (87) 170/80 170/80 (110) 170/80 Pulse Ox 98 97 O2 Delivery Room Air Room Air 12/12/18 12/12/18 12/12/18 12/12/18 16:40 19:00 19:05 20:57 Temp 98.7 98.7 Pulse 61 61 Resp 18 B/P (MAP) 122/63 (82) 122/63 Pulse Ox 98 O2 Delivery Room Air Room Air Room Air 12/12/18 12/13/18 12/13/18 12/13/18 23:00 03:00 03:23 04:20 Temp 98.1 98.8 98.1 98.8 Pulse 78 79 Resp 18 18 18 17 B/P (MAP) 139/69 (92) 124/65 (84) Pulse Ox 96 95 96 96 O2 Delivery Room Air Room Air Room Air Room Air Intake and Output 12/12/18 12/12/18 12/13/18 15:00 23:00 07:00 Intake Total 2000 ml 1000 ml 480 ml Balance 2000 ml 1000 ml 480 ml EBONIE COLE MD Dec 13, 2018 07:39
[2018-12-13] MEDS: CARVEDILOL 6.25 MG TABLET. PO SCH ×2 (08:12→16:30)
[2018-12-13] MEDS: LACTOBACILLUS RHAMNOSUS GG 1 CAPSULE. PO SCH ×2 (08:13→20:43)
[2018-12-13] MEDS: FUROSEMIDE 40 MG TABLET. PO SCH ×2 (08:13→20:42)
[2018-12-13] MEDS: DULoxetine HCL 30 MG CAPSULE.DR PO SCH (08:13)
[2018-12-13] MEDS: AMOXICILLIN/K CLAV 875/125MG TABLET. PO SCH ×2 (08:13→20:42)
[2018-12-13] MEDS: LISINOPRIL 20 MG TABLET PO SCH (08:14)
[2018-12-13] MEDS: PREGABALIN 75 MG CAPSULE PO SCH ×3 (08:14→20:43)
[2018-12-13] MEDS: POLYETHYLENE GLYCOL 3350 17 GM PACKET. PO SCH ×2 (08:15→20:42)
[2018-12-13] MEDS: INSULIN LISPRO 300 UNITS/3 ML INSULN.PEN. SQ SCH ×3 (08:25→16:35)
--- NOTE | 2018-12-13 10:10 | PDOC ---
Infectious Disease Note Subjective Subjective Feeling better but tired this morning Took a shower very appreciative of all the care and support Small BM Good appetite Denies N/V/F/C/S ROS ROS per HPI Vital Sign Vital Signs Vital Signs Date Time Temp Pulse Resp B/P (MAP) Pulse Ox O2 Delivery O2 Flow Rate FiO2 12/13/18 09:15 Room Air 12/13/18 08:14 60 146/80 12/13/18 07:00 98.3 18 98 98.3 Physical Exam PHYSICAL EXAM GENERAL: Sitting on the side of the bed, alert, NAD HEENT: Pupils are reactive. Oral cavity, pharynx is clear. + dentures. NECK: Supple. LUNGS: Clear to auscultation. HEART: S1 and S2. ABDOMEN: Soft, obese EXTREMITIES: Without clubbing or cyanosis. Chronic lower extremity edema. LLE wound - bandaged CLINIC PHYSICIAN DIRECTOR: Alert, responds appropriately PIV Labs Lab Laboratory Tests Test 12/12/18 11:23 12/12/18 16:37 12/12/18 20:57 12/13/18 04:25 Glucose (Fingerstick) 129 mg/dL (70-99) 86 mg/dL (70-99) 112 mg/dL (70-99) Sodium Level 141 mmol/L (136-145) Potassium Level 4.9 mmol/L (3.5-5.1) Chloride Level 107 mmol/L (98-107) Carbon Dioxide Level 27 mmol/L (21-32) Anion Gap 7 (6-14) Blood Urea Nitrogen 34 mg/dL (7-20) Creatinine 1.7 mg/dL (0.6-1.0) Estimated GFR (Cockcroft-Gault) 36.7 BUN/Creatinine Ratio 20 (6-20) Glucose Level 114 mg/dL (70-99) Calcium Level 8.4 mg/dL (8.5-10.1) Total Bilirubin 0.2 mg/dL (0.2-1.0) Aspartate Amino Transf (AST/SGOT) 31 U/L (15-37) Alanine Aminotransferase (ALT/SGPT) 26 U/L (14-59) Alkaline Phosphatase 138 U/L (46-116) Total Protein 7.4 g/dL (6.4-8.2) Albumin 1.9 g/dL (3.4-5.0) Albumin/Globulin Ratio 0.3 (1.0-1.7) Test 12/13/18 07:48 Glucose (Fingerstick) 127 mg/dL (70-99) Micro 12/09/18 Blood Culture - Preliminary, Resulted NO GROWTH AFTER 3 DAYS Objective Assessment Abd pain - better Constipation - small BM Leukocytosis - resolved Previous LLE cellulitis - resolved - h/o MSSA TE on CKD H/o Splenectomy Urine is a poor specimen but has E. coli ( R amp) Polysubstance abuse, UR tox + Plan Plan of Care po Augmentin x 7 days Leg elevation PT/OT director patient financial services following Attending Co-Sign The patient was seen and interviewed as well as examined at the bedside. The chart was reviewed. The case was discussed. Agree with the plan of care. BRITTANY BRANHAM RV REPAIRER Dec 13, 2018 10:10 ZENIA LU MD Dec 13, 2018 10:18
--- NOTE | 2018-12-13 10:31 | PDOC ---
PROGRESS NOTES Chief Complaint Chief Complaint Bilateral lower abdominal pain Bilateral lower extremity edema TE Cocaine intoxication LLE cellulitis UTI Sepsis - uti HTN urgency Severe protein calorie malnutrition H/o Splenectomy Homelessness History of Present Illness History of Present Illness Admitted for bilateral abdominal pain, cocaine intoxication, LLE cellulitis, sepsis. Pt seen and examined this morning, BMx1 per nursing Drug paraphernalia found in pt room by nursing 12/12, given to security. Vitals Vitals Vital Signs Date Time Temp Pulse Resp B/P (MAP) Pulse Ox O2 Delivery O2 Flow Rate FiO2 12/13/18 09:15 Room Air 12/13/18 08:14 60 146/80 12/13/18 07:00 98.3 18 98 98.3 Physical Exam Physical Exam GENERAL: Sitting on the side of the bed, alert, NAD HEENT: Pupils are reactive. Oral cavity, pharynx is clear. + dentures. NECK: Supple. LUNGS: Clear to auscultation. HEART: S1 and S2. ABDOMEN: Soft, obese EXTREMITIES: Without clubbing or cyanosis. Chronic lower extremity edema. LLE wound - bandaged [employer]: Alert, responds appropriately PIV General: Alert, Oriented X3, Cooperative, mild distress Heart: Regular rate, Normal S1, Normal S2, No murmurs Lungs: Clear, Other Abdomen: Soft, Other (tender to palpation right lower quadrant, hepatomegaly ) Extremities: Other (she does have swelling in both lower extremities with some erythema left lower extremity around the ankle, wheeping left 2nd toe) Skin: No breakdown, No significant lesion, Other (Cellulitis present) Labs LABS Laboratory Tests Test 12/12/18 11:23 12/12/18 16:37 12/12/18 20:57 12/13/18 04:25 Glucose (Fingerstick) 129 mg/dL (70-99) 86 mg/dL (70-99) 112 mg/dL (70-99) Sodium Level 141 mmol/L (136-145) Potassium Level 4.9 mmol/L (3.5-5.1) Chloride Level 107 mmol/L (98-107) Carbon Dioxide Level 27 mmol/L (21-32) Anion Gap 7 (6-14) Blood Urea Nitrogen 34 mg/dL (7-20) Creatinine 1.7 mg/dL (0.6-1.0) Estimated GFR (Cockcroft-Gault) 36.7 BUN/Creatinine Ratio 20 (6-20) Glucose Level 114 mg/dL (70-99) Calcium Level 8.4 mg/dL (8.5-10.1) Total Bilirubin 0.2 mg/dL (0.2-1.0) Aspartate Amino Transf (AST/SGOT) 31 U/L (15-37) Alanine Aminotransferase (ALT/SGPT) 26 U/L (14-59) Alkaline Phosphatase 138 U/L (46-116) Total Protein 7.4 g/dL (6.4-8.2) Albumin 1.9 g/dL (3.4-5.0) Albumin/Globulin Ratio 0.3 (1.0-1.7) Test 12/13/18 07:48 Glucose (Fingerstick) 127 mg/dL (70-99) Assessment and Plan Assessmemt and Plan Assessment: Bilateral lower abdominal pain Bilateral lower extremity edema TE, monitor Cocaine intoxication LLE cellulitis UTI Sepsis - uti Constipation HTN urgency Severe protein calorie malnutrition H/o Splenectomy Homelessness Plan: Lactulose and mineral oil for constipation PO augmentin x7 days, appreciate ID recommendations NS @75/hr Strict I&O's, Leg elevation for B.l LE edema PT/OT orders Home Rx Recheck labs in am Problems Medical Problems: (1) Cellulitis of left lower extremity Status: Acute (2) Chronic acquired lymphedema Status: Acute (3) Drug abuse Status: Acute (4) Homeless Status: Acute Comment Review of Relevant I have reviewed the following items [place] (where applicable) has been applied. Labs Laboratory Tests Test 12/11/18 12:33 12/11/18 16:51 12/11/18 20:30 12/12/18 07:40 Glucose (Fingerstick) 176 mg/dL (70-99) 149 mg/dL (70-99) 178 mg/dL (70-99) Sodium Level 140 mmol/L (136-145) Potassium Level 4.5 mmol/L (3.5-5.1) Chloride Level 104 mmol/L (98-107) Carbon Dioxide Level 29 mmol/L (21-32) Anion Gap 7 (6-14) Blood Urea Nitrogen 32 mg/dL (7-20) Creatinine 1.8 mg/dL (0.6-1.0) Estimated GFR (Cockcroft-Gault) 34.4 BUN/Creatinine Ratio 18 (6-20) Glucose Level 97 mg/dL (70-99) Calcium Level 8.2 mg/dL (8.5-10.1) Total Bilirubin 0.2 mg/dL (0.2-1.0) Aspartate Amino Transf (AST/SGOT) 32 U/L (15-37) Alanine Aminotransferase (ALT/SGPT) 30 U/L (14-59) Alkaline Phosphatase 135 U/L (46-116) Total Protein 7.6 g/dL (6.4-8.2) Albumin 2.1 g/dL (3.4-5.0) Albumin/Globulin Ratio 0.4 (1.0-1.7) Test 12/12/18 07:44 12/12/18 11:23 12/12/18 16:37 12/12/18 20:57 Glucose (Fingerstick) 87 mg/dL (70-99) 129 mg/dL (70-99) 86 mg/dL (70-99) 112 mg/dL (70-99) Test 12/13/18 04:25 12/13/18 07:48 Sodium Level 141 mmol/L (136-145) Potassium Level 4.9 mmol/L (3.5-5.1) Chloride Level 107 mmol/L (98-107) Carbon Dioxide Level 27 mmol/L (21-32) Anion Gap 7 (6-14) Blood Urea Nitrogen 34 mg/dL (7-20) Creatinine 1.7 mg/dL (0.6-1.0) Estimated GFR (Cockcroft-Gault) 36.7 BUN/Creatinine Ratio 20 (6-20) Glucose Level 114 mg/dL (70-99) Calcium Level 8.4 mg/dL (8.5-10.1) Total Bilirubin 0.2 mg/dL (0.2-1.0) Aspartate Amino Transf (AST/SGOT) 31 U/L (15-37) Alanine Aminotransferase (ALT/SGPT) 26 U/L (14-59) Alkaline Phosphatase 138 U/L (46-116) Total Protein 7.4 g/dL (6.4-8.2) Albumin 1.9 g/dL (3.4-5.0) Albumin/Globulin Ratio 0.3 (1.0-1.7) Glucose (Fingerstick) 127 mg/dL (70-99) Laboratory Tests Test 12/12/18 11:23 12/12/18 16:37 12/12/18 20:57 12/13/18 04:25 Glucose (Fingerstick) 129 mg/dL (70-99) 86 mg/dL (70-99) 112 mg/dL (70-99) Sodium Level 141 mmol/L (136-145) Potassium Level 4.9 mmol/L (3.5-5.1) Chloride Level 107 mmol/L (98-107) Carbon Dioxide Level 27 mmol/L (21-32) Anion Gap 7 (6-14) Blood Urea Nitrogen 34 mg/dL (7-20) Creatinine 1.7 mg/dL (0.6-1.0) Estimated GFR (Cockcroft-Gault) 36.7 BUN/Creatinine Ratio 20 (6-20) Glucose Level 114 mg/dL (70-99) Calcium Level 8.4 mg/dL (8.5-10.1) Total Bilirubin 0.2 mg/dL (0.2-1.0) Aspartate Amino Transf (AST/SGOT) 31 U/L (15-37) Alanine Aminotransferase (ALT/SGPT) 26 U/L (14-59) Alkaline Phosphatase 138 U/L (46-116) Total Protein 7.4 g/dL (6.4-8.2) Albumin 1.9 g/dL (3.4-5.0) Albumin/Globulin Ratio 0.3 (1.0-1.7) Test 12/13/18 07:48 Glucose (Fingerstick) 127 mg/dL (70-99) Microbiology 12/09/18 Blood Culture - Preliminary, Resulted NO GROWTH AFTER 3 DAYS 12/09/18 Urine Culture - Final, Complete 12/09/18 Urine Culture Result 1 (GABRIELE) - Final, Complete 12/09/18 Antimicrobic Susceptibility - Final, Complete Medications Current Medications Labetalol HCl (Normodyne Iv Push) 10 mg 1X ONCE IVP Last administered on at 12:57; Start 12/09/18 at 12:45; Stop 12/09/18 at 12:46; Status DC Clonidine HCl (Catapres) 0.1 mg 1X ONCE PO Last administered on 12/09/18at 12:57 ; Start 12/09/18 at 12:45; Stop 12/09/18 at 12:46; Status DC Ondansetron HCl (Zofran) 4 mg 1X ONCE IV Last administered on 12/09/18at 12:57; Start 12/09/18 at 12:45; Stop 12/09/18 at 12:46; Status DC Iohexol (Omnipaque 240 Mg/ml) 30 ml 1X ONCE PO ; Start 12/09/18 at 13:30; Stop 12/09/18 at 13:31; Status DC Iohexol (Omnipaque 300 Mg/ml) 75 ml 1X ONCE IV Last administered on 12/09/18at 13:40; Start 12/09/18 at 13:30; Stop 12/09/18 at 13:31; Status DC Ondansetron HCl (Zofran) 4 mg PRN Q8HRS PRN IV NAUSEA/VOMITING; Start 12/09/18 at 16:00; Stop 12/10/18 at 15:59; Status DC Fentanyl Citrate (Fentanyl 2ml Vial) 50 mcg PRN Q1HR PRN IV PAIN Last administered on 12/10/18 08:03; Start 12/09/18 at 16:00; Stop 12/10/18 at 15:59; Status DC Acetaminophen (Tylenol) 650 mg PRN Q4HRS PRN PO FEVER; Start 12/09/18 at 16:00; Stop 12/10/18 at 15:59; Status DC Piperacillin Sod/ Tazobactam Sod 3.375 gm/Sodium Chloride 50 ml @ 100 mls/hr 1X ONCE IV Last administered on 12/09/18 22:46; Start 12/09/18 at 16:00; Stop 12/09/18 at 16:29; Status DC Vancomycin HCl (Vanco Per Pharmacy) 1 each PRN DAILY PRN MC SEE COMMENTS Last administered on 12/10/18at 08:49; Start 12/09/18 at 16:00; Stop 12/10/18 at 10:05; Status DC Vancomycin HCl 2 gm/Sodium Chloride 500 ml @ 250 mls/hr 1X ONCE IV Last administered on 12/09/18 23:35; Start 12/09/18 at 16:15; Stop 12/09/18 at 18:14; Status DC Amoxicillin/ Clavulanate Potassium (Augmentin 875/ 125mg) 1 tab BID PO ; Start 12/09/18 at 21:00; Status UNV Carvedilol (Coreg) 6.25 mg BIDWMEALS PO Last administered on 12/13/18 08:12; Start 12/10/18 at 08:00 Duloxetine HCl (Cymbalta) 30 mg DAILY PO Last administered on 12/13/18 08:13; Start 12/09/18 at 20:30 Furosemide (Lasix) 40 mg BID PO Last administered on 12/13/18 08:13; Start 12/09 at 21:00 Guaifenesin (Robitussin Dm) 10 ml PRN Q6HRS PRN PO COUGH; Start 12/09/18 at 20: 00 Insulin Glargine (Lantus) 20 units QHS SQ Last administered on 12/12/18 21:01; Start 12/09/18 at 21:00 Insulin Human Lispro (HumaLOG) 7 units TIDAC SQ Last administered on 12/13/18 08:25; Start 12/10/18 at 07:30 Lisinopril (Prinivil) 20 mg DAILY PO Last administered on 12/13/18 08:14; Start 12/09/18 at 20:30 Pregabalin (Lyrica) 75 mg TID PO Last administered on 12/13/18 08:14; Start 12/09/18 at 21:00 Tramadol HCl (Ultram) 50 mg PRN Q6HRS PRN PO PAIN MILD Last administered on 12/11 04:11; Start 12/09/18 at 20:00; Stop 12/11/18 at 11:38; Status DC Non-Formulary Medication (Benzonatate ) 100 mg [id number] PO ; Start 12/09/18 at 21: 00; Status UNV Hydralazine HCl (Apresoline) 50 mg TID PO Last administered on 12/13/18 08:13; Start 12/09/18 at 21:00 Montelukast Sodium (Singulair) 10 mg QHS PO Last administered on 12/12/18 20:58 ; Start 12/09/18 at 21:00 Quetiapine Fumarate (SEROquel) 100 mg QHS PO Last administered on 12/09/18 21: 08; Start 12/09/18 at 21:00 Vancomycin HCl 1.25 gm/Sodium Chloride 250 ml @ 167 mls/hr Q24H IV ; Start 12/10 at 23:00; Stop 12/10/18 at 23:00; Status DC Vancomycin HCl (Vancomycin Trough Level) 1 each 1X ONCE MC ; Start 12/11/18 at 22:30; Stop 12/11/18 at 22:31; Status Cancel Amoxicillin/ Clavulanate Potassium (Augmentin 875/ 125mg) 1 tab BID PO Last administered on 12/13/18at 08:13; Start 12/10/18 at 11:00 Sodium Chloride 1,000 ml @ 100 mls/hr Q10H IV Last administered on 12/10/18at 12 :01; Start 12/10/18 at 11:30; Stop 12/10/18 at 15:50; Status DC Polyethylene Glycol (miraLAX PACKET) 17 gm DAILY PO Last administered on at 08:47; Start 12/10/18 at 12:00; Stop 12/11/18 at 11:28; Status DC Polyethylene Glycol (miraLAX PACKET) 17 gm PRN DAILY PRN PO CONSTIPATION 1ST CHOICE; Start 12/10/18 at 11:45 Bisacodyl (Dulcolax Tab) 10 mg 1X ONCE PO Last administered on 12/10/18at 11:45 ; Start 12/10/18 at 11:45; Stop 12/10/18 at 11:46; Status DC Amoxicillin/ Clavulanate Potassium (Augmentin 875/ 125mg) 1 tab BID PO ; Start 12/10/18 at 16:30; Status Cancel Amoxicillin/ Clavulanate Potassium (Augmentin 875/ 125mg) 1 tab BID PO ; Start 12/10/18 at 21:00; Status UNV Amoxicillin/ Clavulanate Potassium (Augmentin 875/ 125mg) 1 tab BID PO ; Start 12/10/18 at 21:00; Status UNV Acetaminophen/ Hydrocodone Bitart (Lortab 5/325) 1 tab PRN Q4HRS PRN PO MODERATE PAIN Last administered on 12/13/18at 08:15; Start 12/11/18 at 11:30 Sodium Chloride 1,000 ml @ 75 mls/hr [id number] IV Last administered on 4/6/19at 20:56; Start 12/11/18 at 11:30 Polyethylene Glycol (miraLAX PACKET) 17 gm BID PO Last administered on 08:15; Start 12/11/18 at 21:00 Bisacodyl (Dulcolax Tab) 10 mg 1X ONCE PO Last administered on 12/11/18 12:10 ; Start 12/11/18 at 11:30; Stop 12/11/18 at 11:31; Status DC Lubiprostone (Amitiza) 8 mcg BIDWMEALS PO ; Start 12/11/18 at 17:00; Stop at 17:00; Status DC Lactobacillus Rhamnosus (Culturelle) 1 cap BID PO Last administered on at 08:13; Start 12/11/18 at 21:00 Methylnaltrexone [place] (Relistor) 12 mg 1X ONCE SQ Last administered on at 16:14; Start 12/11/18 at 16:00; Stop 12/11/18 at 16:01; Status DC Lactulose (Lactulose) 20 gm PRN TID PRN PO CONSTIPATION Last administered on 20:57; Start 12/12/18 at 09:15 Mineral Oil (Mineral Oil) 30 ml 1X ONCE PO Last administered on 12/12/18at 10:20 ; Start 12/12/18 at 09:30; Stop 12/12/18 at 09:31; Status DC Active Scripts Active Lisinopril 40 Mg Tablet 20 Mg PO DAILY MDD 1 Carvedilol (Carvedilol) 6.25 Mg Tablet 6.25 Mg PO BIDWMEALS MDD 1 Hydralazine Hcl 25 Mg Tablet 50 Mg PO TID MDD 1 Lasix (Furosemide) 40 Mg Tablet 40 Mg PO BID MDD 1 30 Days Cymbalta (Duloxetine Hcl) 30 Mg Capsule.dr 1 Cap PO DAILY Tramadol Hcl 50 Mg Tablet 50 Mg PO Q6HRS PRN 6 Days Augmentin 875-125 Tablet (Amoxicillin/Potassium Clav) 1 Each Tablet 1 Tab PO BID 7 Days Quetiapine Fumarate 100 Mg Tablet 100 Mg PO QHS 30 Days Humalog (Insulin Lispro) 100 Unit/1 Ml Insuln.pen 7 Units SQ TIDAC 30 Days Lantus Solostar (Insulin Glargine,Hum.rec.anlog) 100 Unit/1 Ml Insuln.pen 20 Units SQ QHS 30 Days Guaifenesin Dm Syrup (Guaifenesin/Dextromethorphan) 5 Ml Syrup 10 Ml PO PRN Q6HRS PRN 30 Days Benzonatate 100 Mg Capsule 100 Mg PO [id number] 30 Days Montelukast Sodium Tablet (Montelukast Sodium) 10 Mg Tablet 10 Mg PO QHS 30 Days Lyrica (Pregabalin) 75 Mg Capsule 75 Mg PO TID 30 Days Vitals/I & O Vital Sign - Last 24 Hours 12/12/18 12/12/18 12/12/18 12/12/18 11:00 14:45 15:00 16:40 Temp 98.1 98.1 Pulse 72 76 77 77 Resp 16 16 B/P (MAP) 115/73 (87) 170/80 170/80 (110) 170/80 Pulse Ox 98 97 O2 Delivery Room Air Room Air 12/12/18 12/12/18 12/12/18 12/12/18 16:40 19:00 19:05 20:57 Temp 98.7 98.7 Pulse 61 61 Resp 18 B/P (MAP) 122/63 (82) 122/63 Pulse Ox 98 O2 Delivery Room Air Room Air Room Air 12/12/18 12/13/18 12/13/18 12/13/18 23:00 03:00 03:23 04:20 Temp 98.1 98.8 98.1 98.8 Pulse 78 79 Resp 18 18 18 17 B/P (MAP) 139/69 (92) 124/65 (84) Pulse Ox 96 95 96 96 O2 Delivery Room Air Room Air Room Air 12/13/18 12/13/18 12/13/18 12/13/18 07:00 08:12 08:13 08:14 Temp 98.3 98.3 Pulse 69 79 60 60 Resp 18 B/P (MAP) 146/80 (102) 124/65 146/80 146/80 Pulse Ox 98 O2 Delivery Room Air 12/13/18 12/13/18 08:15 09:15 O2 Delivery Room Air Room Air Intake and Output 12/12/18 12/12/18 12/13/18 15:00 23:00 07:00 Intake Total 2000 ml 1000 ml 480 ml Balance 2000 ml 1000 ml 480 ml JASON HOUSE III DO Dec 13, 2018 10:31
[2018-12-13 11:00] VITALS: BP 140/64
[2018-12-13] MEDS: IV NORMAL SALINE 1000ML BAG 1,000 ML IV SCH (12:12)
--- NOTE | 2018-12-13 14:14 | PDOC ---
SUBJECTIVE ROS C/O Abdominal pain. OBJECTIVE Vital Signs Vital Signs Date Time Temp Pulse Resp B/P (MAP) Pulse Ox O2 Delivery O2 Flow Rate FiO2 12/13/18 11:00 98.2 76 18 140/64 (89) 99 Room Air 98.2 I & 0 Intake and Output 12/13/18 07:00 Intake Total 3480 ml Balance 3480 ml Intake Oral 480 ml IV Total 3000 ml # Voids 8 # Bowel Movements 1 PHYSICAL EXAM Physical Exam GEN: NAD HEEN: om Moist, non icteric NECK: No JVD CVS: RRR RESP: CTA, No acc muscle use GI: Soft ,mild tenderness, Rt Upper quad : No CVA tenderness, No Suprapubic Tenderness, No Caraballo Ext - Bilat LE edema +, Lt LE- Eryhrmatous Neuro- AXOX 3 DIAGNOSIS/ASSESSMENT Assessment & Plan TE - On baseline CKD Likely sec to dehydration , KAREN Renal US c/w Chr med disease Stable renal function Bilat renal cysts Microscopic Hematuria -? Cyst rupture ? DM Proteinuria +, will quantify , CT Normal (no RBC 11/2018) If no e/o UTI consult urology Abd pain-Constipation - no Bm for close to a week Leukocytosis - resolved Previous LLE cellulitis - resolved - h/o MSSA H/o Splenectomy Cocaine Intoxication- drug screen positive Follow up with nephrology 2-3 months post dc Follow with PCP sooner COMMENT/RELEVANT DATA Meds Current Medications Medications (Trade) Dose Ordered Sig/Lisa Start Time Stop Time Status Last Admin Dose Admin Acetaminophen (Tylenol) 650 mg PRN Q4HRS PRN 12/09/18 16:00 12/10/18 15:59 DC Acetaminophen/ Hydrocodone Bitart (Lortab 5/325) 1 tab PRN Q4HRS PRN 12/11/18 11:30 12/13/18 08:15 1 TAB Amoxicillin/ Clavulanate Potassium (Augmentin 875/ 125mg) 1 tab BID 12/10/18 21:00 UNV Bisacodyl (Dulcolax Tab) 10 mg 1X ONCE 12/11/18 11:30 12/11/18 11:31 DC 12/11/18 12:10 10 MG Carvedilol (Coreg) 6.25 mg BIDWMEALS 12/10/18 08:00 12/13/18 08:12 6.25 MG Clonidine HCl (Catapres) 0.1 mg 1X ONCE 12/09/18 12:45 12/09/18 12:46 DC 12/09/18 12:57 0.1 MG Duloxetine HCl (Cymbalta) 30 mg DAILY 12/09/18 20:30 12/13/18 08:13 30 MG Fentanyl Citrate (Fentanyl 2ml Vial) 50 mcg PRN Q1HR PRN 12/09/18 16:00 12/10/18 15:59 DC 12/10/18 08:03 50 MCG Furosemide (Lasix) 40 mg BID 12/09/18 21:00 12/13/18 08:13 40 MG Guaifenesin (Robitussin Dm) 10 ml PRN Q6HRS PRN 12/09/18 20:00 Hydralazine HCl (Apresoline) 50 mg TID 12/09/18 21:00 12/13/18 08:13 50 MG Insulin Glargine (Lantus) 20 units QHS 12/09/18 21:00 12/12/18 21:01 20 UNITS Insulin Human Lispro (HumaLOG) 7 units TIDAC 12/10/18 07:30 12/13/18 12:14 7 UNITS Iohexol (Omnipaque 240 Mg/ml) 30 ml 1X ONCE 12/09/18 13:30 12/09/18 13:31 DC Iohexol (Omnipaque 300 Mg/ml) 75 ml 1X ONCE 12/09/18 13:30 12/09/18 13:31 DC 12/09/18 13:40 75 ML Labetalol HCl (Normodyne Iv Push) 10 mg 1X ONCE 12/09/18 12:45 12/09/18 12:46 DC 12/09/18 12:57 10 MG Lactobacillus Rhamnosus (Culturelle) 1 cap BID 12/11/18 21:00 12/13/18 08:13 1 CAP Lactulose (Lactulose) 20 gm PRN TID PRN 12/12/18 09:15 12/12/18 20:57 20 GM Lisinopril (Prinivil) 20 mg DAILY 12/09/18 20:30 12/13/18 08:14 20 MG Lubiprostone (Amitiza) 8 mcg BIDWMEALS 12/11/18 17:00 12/11/18 17:00 DC Methylnaltrexone [place] (Relistor) 12 mg 1X ONCE 12/11/18 16:00 12/11/18 16:01 DC 12/11/18 16:14 12 MG Mineral Oil (Mineral Oil) 30 ml 1X ONCE 12/12/18 09:30 12/12/18 09:31 DC 12/12/18 10:20 30 ML Montelukast Sodium (Singulair) 10 mg QHS 12/09/18 21:00 12/12/18 20:58 10 MG Non-Formulary Medication (Benzonatate ) 100 mg [id number] 12/09/18 21:00 UNV Ondansetron HCl (Zofran) 4 mg PRN Q8HRS PRN 12/09/18 16:00 12/10/18 15:59 DC Piperacillin Sod/ Tazobactam Sod 3.375 gm/Sodium Chloride 50 ml @ 100 mls/hr 1X ONCE 12/09/18 16:00 12/09/18 16:29 DC 12/09/18 22:46 100 MLS/HR Polyethylene Glycol (miraLAX PACKET) 17 gm BID 12/11/18 21:00 12/13/18 08:15 17 GM Pregabalin (Lyrica) 75 mg TID 12/09/18 21:00 12/13/18 08:14 75 MG Quetiapine Fumarate (SEROquel) 100 mg QHS 12/09/18 21:00 12/09/18 21:08 100 MG Sodium Chloride 1,000 ml @ 75 mls/hr [id number] 12/11/18 11:30 12/13/18 12:12 75 MLS/HR Tramadol HCl (Ultram) 50 mg PRN Q6HRS PRN 12/09/18 20:00 12/11/18 11:38 DC 12/11/18 04:11 50 MG Vancomycin HCl (Vanco Per Pharmacy) 1 each PRN DAILY PRN 12/09/18 16:00 12/10/18 10:05 DC 12/10/18 08:49 1 EACH Vancomycin HCl (Vancomycin Trough Level) 1 each 1X ONCE 12/11/18 22:30 12/11/18 22:31 Cancel Vancomycin HCl 1.25 gm/Sodium Chloride 250 ml @ 167 mls/hr Q24H 12/10/18 23:00 12/10/18 23:00 DC Vancomycin HCl 2 gm/Sodium Chloride 500 ml @ 250 mls/hr 1X ONCE 12/09/18 16:15 12/09/18 18:14 DC 12/09/18 23:35 250 MLS/HR Lab Laboratory Tests Test 12/12/18 16:37 12/12/18 20:57 12/13/18 04:25 12/13/18 07:48 Glucose (Fingerstick) 86 mg/dL (70-99) 112 mg/dL (70-99) 127 mg/dL (70-99) Sodium Level 141 mmol/L (136-145) Potassium Level 4.9 mmol/L (3.5-5.1) Chloride Level 107 mmol/L (98-107) Carbon Dioxide Level 27 mmol/L (21-32) Anion Gap 7 (6-14) Blood Urea Nitrogen 34 mg/dL (7-20) Creatinine 1.7 mg/dL (0.6-1.0) Estimated GFR (Cockcroft-Gault) 36.7 BUN/Creatinine Ratio 20 (6-20) Glucose Level 114 mg/dL (70-99) Calcium Level 8.4 mg/dL (8.5-10.1) Total Bilirubin 0.2 mg/dL (0.2-1.0) Aspartate Amino Transf (AST/SGOT) 31 U/L (15-37) Alanine Aminotransferase (ALT/SGPT) 26 U/L (14-59) Alkaline Phosphatase 138 U/L (46-116) Total Protein 7.4 g/dL (6.4-8.2) Albumin 1.9 g/dL (3.4-5.0) Albumin/Globulin Ratio 0.3 (1.0-1.7) Test 12/13/18 11:39 Glucose (Fingerstick) 183 mg/dL (70-99) Results All relevant outside records, renal labs, imaging studies, telemetry/EKG's were reviewed. STEVEN HESTER MD Dec 13, 2018 14:14
--- NOTE | 2018-12-13 14:45 | NUR ---
For SW: Pt states she does not want to go back to the environment she was living in while [facility], other than to pickle solution maker her belongings as that is all she owns. She wants to try to get a place of her own in [place], but is not sure of what resources are available to help her find affordable housing. Pt states her brother is able to pick her up and take her to [place]. This nurse let her know I would relay the info to SW so they were aware of her plan when they follow up with her. Pt was visibly upset and crying while talking about her situation.
[2018-12-13 15:00] VITALS: BP 168/92
[2018-12-13 19:00] VITALS: BP 98/45
[2018-12-13] MEDS: QUEtiapine 100 MG TABLET. PO SCH (20:06)
[2018-12-13] MEDS: LACTULOSE 20 GM/30 ML SOLUTION. PO PRN (20:43)
[2018-12-13] MEDS: MONTELUKAST SODIUM 10 MG TABLET. PO SCH (20:43)
[2018-12-13] MEDS: INSULIN GLARGINE 300 UNITS/3 ML INSULN.PEN. SQ SCH (20:55)
[2018-12-13 23:00] VITALS: BP 132/64
[2018-12-14] MEDS: HYDROcodone/APAP 5/325MG 1 TAB TABLET PO PRN (01:31)
[2018-12-14] MEDS: IV NORMAL SALINE 1000ML BAG 1,000 ML IV SCH ×2 (01:32→06:10)
[2018-12-14] MEDS: LACTULOSE 20 GM/30 ML SOLUTION. PO PRN (01:59)
[2018-12-14 03:00] VITALS: BP 113/47
--- NOTE | 2018-12-14 06:13 | NUR ---
Pt. awake most of night complaining of abdominal pain, some nausea, and needing to have a bowel movement. After 2nd dose of lactulose tonight, pt. finally had several BM's. Now pt. requesting imodium. Will continue to monitor.
[2018-12-14 07:00] VITALS: BP 140/66
[2018-12-14 07:32] LABS: ALBUMIN/GLOBULIN RATIO 0.4 (1.0-1.7); CALCIUM 8.3 mg/dL (8.5-10.1); CREATININE 1.6 mg/dL (0.6-1.0); GFR 39.4; POTASSIUM 5.2 mmol/L (3.5-5.1); TOTAL BILIRUBIN 0.2 mg/dL (0.2-1.0); TOTAL PROTEIN 7.6 g/dL (6.4-8.2)
[2018-12-14] MEDS: POLYETHYLENE GLYCOL 3350 17 GM PACKET. PO SCH (07:58)
[2018-12-14] MEDS: LACTOBACILLUS RHAMNOSUS GG 1 CAPSULE. PO SCH (08:01)
[2018-12-14] MEDS: LISINOPRIL 20 MG TABLET PO SCH (08:01)
[2018-12-14] MEDS: PREGABALIN 75 MG CAPSULE PO SCH ×2 (08:01→15:25)
[2018-12-14] MEDS: AMOXICILLIN/K CLAV 875/125MG TABLET. PO SCH (08:02)
[2018-12-14] MEDS: FUROSEMIDE 40 MG TABLET. PO SCH (08:02)
[2018-12-14] MEDS: DULoxetine HCL 30 MG CAPSULE.DR PO SCH (08:03)
[2018-12-14] MEDS: CARVEDILOL 6.25 MG TABLET. PO SCH (08:03)
[2018-12-14] MEDS: INSULIN LISPRO 300 UNITS/3 ML INSULN.PEN. SQ SCH ×3 (08:08→16:30)
--- NOTE | 2018-12-14 09:44 | PDOC ---
Objective: Objective: Stools charted. Reviewed other notes - stooled overnight after lactulose, then requested Imodium. Vital Signs: Vital Signs Date Time Temp Pulse Resp B/P (MAP) Pulse Ox O2 Delivery O2 Flow Rate FiO2 12/14/18 08:03 80 140/66 12/14/18 08:00 Room Air 12/14/18 07:00 98.8 18 97 98.8 Labs: Laboratory Tests Test 12/13/18 11:39 12/13/18 16:30 12/13/18 20:49 12/14/18 07:01 Glucose (Fingerstick) 183 mg/dL 105 mg/dL 233 mg/dL Sodium Level 141 mmol/L Potassium Level 5.2 mmol/L Chloride Level 106 mmol/L Carbon Dioxide Level 26 mmol/L Anion Gap 9 Blood Urea Nitrogen 33 mg/dL Creatinine 1.6 mg/dL Estimated GFR (Cockcroft-Gault) 39.4 BUN/Creatinine Ratio 21 Glucose Level 156 mg/dL Calcium Level 8.3 mg/dL Total Bilirubin 0.2 mg/dL Aspartate Amino Transf (AST/SGOT) 37 U/L Alanine Aminotransferase (ALT/SGPT) 30 U/L Alkaline Phosphatase 156 U/L Total Protein 7.6 g/dL Albumin 2.0 g/dL Albumin/Globulin Ratio 0.4 Test 12/14/18 07:18 Glucose (Fingerstick) 148 mg/dL URINE CULTURE Final Final report URINE CULTURE RES 1 Final Escherichia coli BLOOD CULTURE Preliminary NO GROWTH AFTER 4 DAYS PE: in the shower when I came by breakfast tray nearly empty A/P: Right-sided abd pain - seems MSK GERD, mildly delayed gastric emptying Constipation - resolved Chronic pain, substance abuse -- Will follow-up later today. Okay to adjust bowel regimen as now stooling - probably would benefit from taking something regularly long-term, particularly if to continue narcotics. DEONDRE MEYERS Dec 14, 2018 09:44
[2018-12-14] MEDS ORDERED: POLYETHYLENE GLYCOL 3350 17 GM PACKET. PO SCH (10:00)
--- NOTE | 2018-12-14 10:10 | NUR ---
JOSE following pt. Pt has been accepted at [facility] pending insurance approval. Insurance auth pending. JOSE also left a voice mail to Suzanne at [facility] in [place] requesting a call back. Discussed with Physician. Will continue to follow.
--- NOTE | 2018-12-14 10:15 | PDOC ---
SUBJECTIVE ROS States she had a good BM last night , feeling better OBJECTIVE Vital Signs Vital Signs Date Time Temp Pulse Resp B/P (MAP) Pulse Ox O2 Delivery O2 Flow Rate FiO2 12/14/18 08:03 80 140/66 12/14/18 08:00 Room Air 12/14/18 07:00 98.8 18 97 98.8 I & 0 Intake and Output 12/14/18 07:00 Intake Total 2880 ml Balance 2880 ml Intake Oral 1880 ml IV Total 1000 ml # Voids 7 # Bowel Movements 1 PHYSICAL EXAM Physical Exam GEN: NAD HEEN: om Moist, non icteric NECK: No JVD CVS: RRR RESP: CTA, No acc muscle use GI: Soft ,mild tenderness, Rt Upper quad : No CVA tenderness, No Suprapubic Tenderness, No Caraballo Ext - Bilat LE edema +, Lt LE- Eryhrmatous Neuro- AXOX 3 DIAGNOSIS/ASSESSMENT Assessment & Plan TE - On baseline CKD Likely sec to dehydration , KAREN Renal US c/w Chr med disease renal function improving Hyperkalemia- mild Bilat renal cysts Microscopic Hematuria -? Cyst rupture ? DM Proteinuria +, will quantify , CT Normal (no RBC 11/2018) If no e/o UTI consult urology Abd pain-Constipation- improved Leukocytosis - resolved Previous LLE cellulitis - resolved - h/o MSSA H/o Splenectomy Cocaine Intoxication- drug screen positive Follow up with nephrology 2-3 months post dc Follow with PCP sooner COMMENT/RELEVANT DATA Meds Current Medications Medications (Trade) Dose Ordered Sig/Lisa Start Time Stop Time Status Last Admin Dose Admin Acetaminophen (Tylenol) 650 mg PRN Q4HRS PRN 12/09/18 16:00 12/10/18 15:59 DC Acetaminophen/ Hydrocodone Bitart (Lortab 5/325) 1 tab PRN Q4HRS PRN 12/11/18 11:30 12/14/18 01:31 1 TAB Amoxicillin/ Clavulanate Potassium (Augmentin 875/ 125mg) 1 tab BID 12/10/18 21:00 UNV Bisacodyl (Dulcolax Tab) 10 mg 1X ONCE 12/11/18 11:30 12/11/18 11:31 DC 12/11/18 12:10 10 MG Carvedilol (Coreg) 6.25 mg BIDWMEALS 12/10/18 08:00 12/14/18 08:03 6.25 MG Clonidine HCl (Catapres) 0.1 mg 1X ONCE 12/09/18 12:45 12/09/18 12:46 DC 12/09/18 12:57 0.1 MG Duloxetine HCl (Cymbalta) 30 mg DAILY 12/09/18 20:30 12/14/18 08:03 30 MG Fentanyl Citrate (Fentanyl 2ml Vial) 50 mcg PRN Q1HR PRN 12/09/18 16:00 12/10/18 15:59 DC 12/10/18 08:03 50 MCG Furosemide (Lasix) 40 mg BID 12/09/18 21:00 12/14/18 08:02 40 MG Guaifenesin (Robitussin Dm) 10 ml PRN Q6HRS PRN 12/09/18 20:00 Hydralazine HCl (Apresoline) 50 mg TID 12/09/18 21:00 12/14/18 08:02 50 MG Insulin Glargine (Lantus) 20 units QHS 12/09/18 21:00 12/13/18 20:55 20 UNITS Insulin Human Lispro (HumaLOG) 7 units TIDAC 12/10/18 07:30 12/14/18 08:08 7 UNITS Iohexol (Omnipaque 240 Mg/ml) 30 ml 1X ONCE 12/09/18 13:30 12/09/18 13:31 DC Iohexol (Omnipaque 300 Mg/ml) 75 ml 1X ONCE 12/09/18 13:30 12/09/18 13:31 DC 12/09/18 13:40 75 ML Labetalol HCl (Normodyne Iv Push) 10 mg 1X ONCE 12/09/18 12:45 12/09/18 12:46 DC 12/09/18 12:57 10 MG Lactobacillus Rhamnosus (Culturelle) 1 cap BID 12/11/18 21:00 12/14/18 08:01 1 CAP Lactulose (Lactulose) 20 gm PRN TID PRN 12/12/18 09:15 12/14/18 01:59 20 GM Lisinopril (Prinivil) 20 mg DAILY 12/09/18 20:30 12/14/18 08:01 20 MG Lubiprostone (Amitiza) 8 mcg BIDWMEALS 12/11/18 17:00 12/11/18 17:00 DC Methylnaltrexone [place] (Relistor) 12 mg 1X ONCE 12/11/18 16:00 12/11/18 16:01 DC 12/11/18 16:14 12 MG Mineral Oil (Mineral Oil) 30 ml 1X ONCE 12/12/18 09:30 12/12/18 09:31 DC 12/12/18 10:20 30 ML Montelukast Sodium (Singulair) 10 mg QHS 12/09/18 21:00 12/13/18 20:43 10 MG Non-Formulary Medication (Benzonatate ) 100 mg [id number] 12/09/18 21:00 UNV Ondansetron HCl (Zofran) 4 mg PRN Q8HRS PRN 12/09/18 16:00 12/10/18 15:59 DC Piperacillin Sod/ Tazobactam Sod 3.375 gm/Sodium Chloride 50 ml @ 100 mls/hr 1X ONCE 12/09/18 16:00 12/09/18 16:29 DC 12/09/18 22:46 100 MLS/HR Polyethylene Glycol (miraLAX PACKET) 17 gm DAILY 12/14/18 10:00 Pregabalin (Lyrica) 75 mg TID 12/09/18 21:00 12/14/18 08:01 75 MG Quetiapine Fumarate (SEROquel) 100 mg QHS 12/09/18 21:00 12/09/18 21:08 100 MG Sodium Chloride 1,000 ml @ 75 mls/hr [id number] 12/11/18 11:30 12/14/18 01:32 75 MLS/HR Tramadol HCl (Ultram) 50 mg PRN Q6HRS PRN 12/09/18 20:00 12/11/18 11:38 DC 12/11/18 04:11 50 MG Vancomycin HCl (Vanco Per Pharmacy) 1 each PRN DAILY PRN 12/09/18 16:00 12/10/18 10:05 DC 12/10/18 08:49 1 EACH Vancomycin HCl (Vancomycin Trough Level) 1 each 1X ONCE 12/11/18 22:30 12/11/18 22:31 Cancel Vancomycin HCl 1.25 gm/Sodium Chloride 250 ml @ 167 mls/hr Q24H 12/10/18 23:00 12/10/18 23:00 DC Vancomycin HCl 2 gm/Sodium Chloride 500 ml @ 250 mls/hr 1X ONCE 12/09/18 16:15 12/09/18 18:14 DC 12/09/18 23:35 250 MLS/HR Lab Laboratory Tests Test 12/13/18 11:39 12/13/18 16:30 12/13/18 20:49 12/14/18 07:01 Glucose (Fingerstick) 183 mg/dL (70-99) 105 mg/dL (70-99) 233 mg/dL (70-99) Sodium Level 141 mmol/L (136-145) Potassium Level 5.2 mmol/L (3.5-5.1) Chloride Level 106 mmol/L (98-107) Carbon Dioxide Level 26 mmol/L (21-32) Anion Gap 9 (6-14) Blood Urea Nitrogen 33 mg/dL (7-20) Creatinine 1.6 mg/dL (0.6-1.0) Estimated GFR (Cockcroft-Gault) 39.4 BUN/Creatinine Ratio 21 (6-20) Glucose Level 156 mg/dL (70-99) Calcium Level 8.3 mg/dL (8.5-10.1) Total Bilirubin 0.2 mg/dL (0.2-1.0) Aspartate Amino Transf (AST/SGOT) 37 U/L (15-37) Alanine Aminotransferase (ALT/SGPT) 30 U/L (14-59) Alkaline Phosphatase 156 U/L (46-116) Total Protein 7.6 g/dL (6.4-8.2) Albumin 2.0 g/dL (3.4-5.0) Albumin/Globulin Ratio 0.4 (1.0-1.7) Test 12/14/18 07:18 Glucose (Fingerstick) 148 mg/dL (70-99) Results All relevant outside records, renal labs, imaging studies, telemetry/EKG's were reviewed. STEVEN HESTER MD Dec 14, 2018 10:15
--- NOTE | 2018-12-14 10:32 | SNU/HH DC ---
DISCHARGE ORDERS DISCHARGE INFORMATION: FINAL DIAGNOSIS Problems Medical Problems: (1) Cellulitis of left lower extremity Status: Acute (2) Chronic acquired lymphedema Status: Acute (3) Drug abuse Status: Acute (4) Homeless Status: Acute CONDITION ON DISCHARGE: Stable CODE STATUS: Code Status: Full MCFP: SNF STAY <30 DAYS: No HOSPICE: HOSPICE: No HOSPICE EVAL & TREAT: No LTAC: ADMIT TO LTAC: Yes POST DISCHARGE ORDERS: ACTIVITY ORDERS: Activity as tolerated WEIGHT BEARING STATUS: Full weight bearing DIET AFTER DISCHARGE: Cardiac WOUND/INCISION CARE: Keep wound/cast CDI, Other, see below (social services manager eval and treat) CHECKS AFTER DISCHARGE: CHECKS AFTER DISCHARGE: Check blood press - daily, Check blood sugar, ac/hs, Check your Temp as needed TREATMENT/EQUIPMENT ORDERS: ADAPTIVE EQUIPMENT NEEDED: None Physical Therapy For: Evalulation/Treatment Occupational Therapy For: Evaluation/Treatment DISCHARGE MEDICATIONS: Home Meds Active Scripts Lisinopril (LISINOPRIL) 40 Mg Tablet, 20 MG PO DAILY for htn MDD 1, #60 TAB Prov:PRATIMA ARANGO MD 11/30/18 Carvedilol (CARVEDILOL ) 6.25 Mg Tablet, 6.25 MG PO BIDWMEALS for htn MDD 1, # 60 TAB Prov:PRATIMA ARANGO MD 11/30/18 Hydralazine Hcl (HYDRALAZINE HCL) 25 Mg Tablet, 50 MG PO TID for htn MDD 1, #90 TAB Prov:PRATIMA ARANGO MD 11/30/18 Furosemide (LASIX) 40 Mg Tablet, 40 MG PO BID for leg swelling MDD 1 for 30 Days , #60 TAB Prov:PRATIMA ARANGO MD 11/30/18 Duloxetine Hcl (CYMBALTA) 30 Mg Capsule.dr, 1 CAP PO DAILY for Mood, #30 CAP 0 Refills Prov:EBONIE COLE MD 11/24/18 Tramadol Hcl (TRAMADOL HCL) 50 Mg Tablet, 50 MG PO Q6HRS PRN for PAIN for 6 Days , #24 TAB Prov:EBONIE COLE MD 11/24/18 Amoxicillin/Potassium Clav (AUGMENTIN 875-125 TABLET) 1 Each Tablet, 1 TAB PO BID for Cellulitis for 7 Days, #14 TAB Prov:EBONIE COLE MD 11/24/18 Quetiapine Fumarate (QUETIAPINE FUMARATE) 100 Mg Tablet, 100 MG PO QHS for Mood for 30 Days, #30 TAB Prov:EBONIE COLE MD 11/24/18 Insulin Lispro (HUMALOG) 100 Unit/1 Ml Insuln.pen, 7 UNITS SQ TIDAC for 30 Days , EACH Prov:PRATIMA ARANGO MD 01/12/18 Insulin Glargine,Hum.rec.anlog (LANTUS SOLOSTAR) 100 Unit/1 Ml Insuln.pen, 20 UNITS SQ QHS for 30 Days, EACH Prov:PRATIMA ARANGO MD 01/12/18 Guaifenesin/Dextromethorphan (GUAIFENESIN DM SYRUP) 5 Ml Syrup, 10 ML PO PRN Q6HRS PRN for COUGH for 30 Days, MISC Prov:PRATIMA ARANGO MD 01/12/18 Benzonatate (BENZONATATE) 100 Mg Capsule, 100 MG PO [id number] for 30 Days, #90 CAP Prov:PRATIMA ARANGO MD 01/12/18 Montelukast Sodium (MONTELUKAST SODIUM TABLET) 10 Mg Tablet, 10 MG PO QHS for 30 Days, #30 TAB Prov:PRATIMA ARANGO MD 01/12/18 Pregabalin (LYRICA) 75 Mg Capsule, 75 MG PO TID for 30 Days, #90 CAP Prov:CHET CAZARES MD 01/03/18 JASON HOUSE III DO Dec 14, 2018 10:32
--- NOTE | 2018-12-14 10:54 | PDOC ---
PROGRESS NOTES Chief Complaint Chief Complaint Bilateral lower quadrant abdominal pain Bilateral lower extremity edema TE on CKD Cocaine intoxication LLE cellulitis UTI GERD w/ mild gastric emptying Sepsis - UTI HTN urgency Severe protein calorie malnutrition H/o Splenectomy Homelessness History of Present Illness History of Present Illness Admitted for bilateral abdominal pain, cocaine intoxication, LLE cellulitis, and sepsis with UTI. Pt reports she had BM and her abdominal pain is better following second dose of lactulose last night. Subsequently requested Imodium. Reports strong appetite Pt appreciative and tearful this morning when discussing acceptance at [facility] pending insurance approval. Vitals Vitals Vital Signs Date Time Temp Pulse Resp B/P (MAP) Pulse Ox O2 Delivery O2 Flow Rate FiO2 12/14/18 08:03 80 140/66 12/14/18 08:00 Room Air 12/14/18 07:00 98.8 18 97 98.8 Physical Exam General: Alert, Oriented X3, Cooperative, No acute distress Heart: Regular rate, Normal S1, Normal S2, No murmurs Lungs: Clear, Other (No ronchi, crackles or wheezes ) Abdomen: Normal bowel sounds, Soft, No tenderness, Other (hepatomegaly ) Extremities: No clubbing, No cyanosis, Other (swelling in both lower extremities with some erythema left lower extremity around the ankle, wheeping left 2nd toe, Dressing inplace C/D/I) Skin: No rashes, No significant lesion, Other (Dressing to RLE, weeping toe wound, cellulits continues to improve) Labs LABS Laboratory Tests Test 12/13/18 11:39 12/13/18 16:30 12/13/18 20:49 12/14/18 07:01 Glucose (Fingerstick) 183 mg/dL (70-99) 105 mg/dL (70-99) 233 mg/dL (70-99) Sodium Level 141 mmol/L (136-145) Potassium Level 5.2 mmol/L (3.5-5.1) Chloride Level 106 mmol/L (98-107) Carbon Dioxide Level 26 mmol/L (21-32) Anion Gap 9 (6-14) Blood Urea Nitrogen 33 mg/dL (7-20) Creatinine 1.6 mg/dL (0.6-1.0) Estimated GFR (Cockcroft-Gault) 39.4 BUN/Creatinine Ratio 21 (6-20) Glucose Level 156 mg/dL (70-99) Calcium Level 8.3 mg/dL (8.5-10.1) Total Bilirubin 0.2 mg/dL (0.2-1.0) Aspartate Amino Transf (AST/SGOT) 37 U/L (15-37) Alanine Aminotransferase (ALT/SGPT) 30 U/L (14-59) Alkaline Phosphatase 156 U/L (46-116) Total Protein 7.6 g/dL (6.4-8.2) Albumin 2.0 g/dL (3.4-5.0) Albumin/Globulin Ratio 0.4 (1.0-1.7) Test 12/14/18 07:18 Glucose (Fingerstick) 148 mg/dL (70-99) Review of Systems Review of Systems Denies CP and SOB Denies N/V Denies any changes in urinary habits Admits to BM Assessment and Plan Assessmemt and Plan Assessment: Bilateral lower quadrant abdominal pain Bilateral lower extremity edema TE on CKD Cocaine intoxication LLE cellulitis, resolved h/o mssa HyperKalemia, mild UTI GERD w/ mild gastric emptying b/l renal cyst on u/s Sepsis - UTI HTN urgency Severe protein calorie malnutrition H/o Splenectomy Homelessness Plan: D/c to [facility] pending insurance approval Hold BR as pt has begun stooling, may benefit from fpc BR TE resolving, IVF NS @75/hr PO augmentin x7 days, appreciate ID recommendations Monitor I&O's Leg elevation for B/l LE edema PT/OT orders Home Rx Problems Medical Problems: (1) Cellulitis of left lower extremity Status: Acute (2) Chronic acquired lymphedema Status: Acute (3) Drug abuse Status: Acute (4) Homeless Status: Acute Comment Review of Relevant I have reviewed the following items [place] (where applicable) has been applied. Labs Laboratory Tests Test 12/12/18 11:23 12/12/18 16:37 12/12/18 20:57 12/13/18 04:25 Glucose (Fingerstick) 129 mg/dL (70-99) 86 mg/dL (70-99) 112 mg/dL (70-99) Sodium Level 141 mmol/L (136-145) Potassium Level 4.9 mmol/L (3.5-5.1) Chloride Level 107 mmol/L (98-107) Carbon Dioxide Level 27 mmol/L (21-32) Anion Gap 7 (6-14) Blood Urea Nitrogen 34 mg/dL (7-20) Creatinine 1.7 mg/dL (0.6-1.0) Estimated GFR (Cockcroft-Gault) 36.7 BUN/Creatinine Ratio 20 (6-20) Glucose Level 114 mg/dL (70-99) Calcium Level 8.4 mg/dL (8.5-10.1) Total Bilirubin 0.2 mg/dL (0.2-1.0) Aspartate Amino Transf (AST/SGOT) 31 U/L (15-37) Alanine Aminotransferase (ALT/SGPT) 26 U/L (14-59) Alkaline Phosphatase 138 U/L (46-116) Total Protein 7.4 g/dL (6.4-8.2) Albumin 1.9 g/dL (3.4-5.0) Albumin/Globulin Ratio 0.3 (1.0-1.7) Test 12/13/18 07:48 12/13/18 11:39 12/13/18 16:30 12/13/18 20:49 Glucose (Fingerstick) 127 mg/dL (70-99) 183 mg/dL (70-99) 105 mg/dL (70-99) 233 mg/dL (70-99) Test 12/14/18 07:01 12/14/18 07:18 Sodium Level 141 mmol/L (136-145) Potassium Level 5.2 mmol/L (3.5-5.1) Chloride Level 106 mmol/L (98-107) Carbon Dioxide Level 26 mmol/L (21-32) Anion Gap 9 (6-14) Blood Urea Nitrogen 33 mg/dL (7-20) Creatinine 1.6 mg/dL (0.6-1.0) Estimated GFR (Cockcroft-Gault) 39.4 BUN/Creatinine Ratio 21 (6-20) Glucose Level 156 mg/dL (70-99) Calcium Level 8.3 mg/dL (8.5-10.1) Total Bilirubin 0.2 mg/dL (0.2-1.0) Aspartate Amino Transf (AST/SGOT) 37 U/L (15-37) Alanine Aminotransferase (ALT/SGPT) 30 U/L (14-59) Alkaline Phosphatase 156 U/L (46-116) Total Protein 7.6 g/dL (6.4-8.2) Albumin 2.0 g/dL (3.4-5.0) Albumin/Globulin Ratio 0.4 (1.0-1.7) Glucose (Fingerstick) 148 mg/dL (70-99) Laboratory Tests Test 12/13/18 11:39 12/13/18 16:30 12/13/18 20:49 12/14/18 07:01 Glucose (Fingerstick) 183 mg/dL (70-99) 105 mg/dL (70-99) 233 mg/dL (70-99) Sodium Level 141 mmol/L (136-145) Potassium Level 5.2 mmol/L (3.5-5.1) Chloride Level 106 mmol/L (98-107) Carbon Dioxide Level 26 mmol/L (21-32) Anion Gap 9 (6-14) Blood Urea Nitrogen 33 mg/dL (7-20) Creatinine 1.6 mg/dL (0.6-1.0) Estimated GFR (Cockcroft-Gault) 39.4 BUN/Creatinine Ratio 21 (6-20) Glucose Level 156 mg/dL (70-99) Calcium Level 8.3 mg/dL (8.5-10.1) Total Bilirubin 0.2 mg/dL (0.2-1.0) Aspartate Amino Transf (AST/SGOT) 37 U/L (15-37) Alanine Aminotransferase (ALT/SGPT) 30 U/L (14-59) Alkaline Phosphatase 156 U/L (46-116) Total Protein 7.6 g/dL (6.4-8.2) Albumin 2.0 g/dL (3.4-5.0) Albumin/Globulin Ratio 0.4 (1.0-1.7) Test 12/14/18 07:18 Glucose (Fingerstick) 148 mg/dL (70-99) Microbiology 12/09/18 Blood Culture - Preliminary, Resulted NO GROWTH AFTER 4 DAYS 12/09/18 Urine Culture - Final, Complete 12/09/18 Urine Culture Result 1 (GABRIELE) - Final, Complete 12/09/18 Antimicrobic Susceptibility - Final, Complete Medications Current Medications Labetalol HCl (Normodyne Iv Push) 10 mg 1X ONCE IVP Last administered on at 12:57; Start 12/09/18 at 12:45; Stop 12/09/18 at 12:46; Status DC Clonidine HCl (Catapres) 0.1 mg 1X ONCE PO Last administered on 12/09/18at 12:57 ; Start 12/09/18 at 12:45; Stop 12/09/18 at 12:46; Status DC Ondansetron HCl (Zofran) 4 mg 1X ONCE IV Last administered on 12/09/18at 12:57; Start 12/09/18 at 12:45; Stop 12/09/18 at 12:46; Status DC Iohexol (Omnipaque 240 Mg/ml) 30 ml 1X ONCE PO ; Start 12/09/18 at 13:30; Stop 12/09/18 at 13:31; Status DC Iohexol (Omnipaque 300 Mg/ml) 75 ml 1X ONCE IV Last administered on 12/09/18at 13:40; Start 12/09/18 at 13:30; Stop 12/09/18 at 13:31; Status DC Ondansetron HCl (Zofran) 4 mg PRN Q8HRS PRN IV NAUSEA/VOMITING; Start 12/09/18 at 16:00; Stop 12/10/18 at 15:59; Status DC Fentanyl Citrate (Fentanyl 2ml Vial) 50 mcg PRN Q1HR PRN IV PAIN Last administered on 12/10/18at 08:03; Start 12/09/18 at 16:00; Stop 12/10/18 at 15:59; Status DC Acetaminophen (Tylenol) 650 mg PRN Q4HRS PRN PO FEVER; Start 12/09/18 at 16:00; Stop 12/10/18 at 15:59; Status DC Piperacillin Sod/ Tazobactam Sod 3.375 gm/Sodium Chloride 50 ml @ 100 mls/hr 1X ONCE IV Last administered on 12/09/18at 22:46; Start 12/09/18 at 16:00; Stop 12/09/18 at 16:29; Status DC Vancomycin HCl (Vanco Per Pharmacy) 1 each PRN DAILY PRN MC SEE COMMENTS Last administered on 12/10/18at 08:49; Start 12/09/18 at 16:00; Stop 12/10/18 at 10:05; Status DC Vancomycin HCl 2 gm/Sodium Chloride 500 ml @ 250 mls/hr 1X ONCE IV Last administered on 12/09/18 23:35; Start 12/09/18 at 16:15; Stop 12/09/18 at 18:14; Status DC Amoxicillin/ Clavulanate Potassium (Augmentin 875/ 125mg) 1 tab BID PO ; Start 12/09/18 at 21:00; Status UNV Carvedilol (Coreg) 6.25 mg BIDWMEALS PO Last administered on 12/14/18 08:03; Start 12/10/18 at 08:00 Duloxetine HCl (Cymbalta) 30 mg DAILY PO Last administered on 12/14/18 08:03; Start 12/09/18 at 20:30 Furosemide (Lasix) 40 mg BID PO Last administered on 12/14/18 08:02; Start 12/09 at 21:00 Guaifenesin (Robitussin Dm) 10 ml PRN Q6HRS PRN PO COUGH; Start 12/09/18 at 20: 00 Insulin Glargine (Lantus) 20 units QHS SQ Last administered on 12/13/18 20:55; Start 12/09/18 at 21:00 Insulin Human Lispro (HumaLOG) 7 units TIDAC SQ Last administered on 12/14/18 08:08; Start 12/10/18 at 07:30 Lisinopril (Prinivil) 20 mg DAILY PO Last administered on 12/14/18 08:01; Start 12/09/18 at 20:30 Pregabalin (Lyrica) 75 mg TID PO Last administered on 12/14/18 08:01; Start 12/09/18 at 21:00 Tramadol HCl (Ultram) 50 mg PRN Q6HRS PRN PO PAIN MILD Last administered on 12/11 04:11; Start 12/09/18 at 20:00; Stop 12/11/18 at 11:38; Status DC Non-Formulary Medication (Benzonatate ) 100 mg [id number] PO ; Start 12/09/18 at 21: 00; Status UNV Hydralazine HCl (Apresoline) 50 mg TID PO Last administered on 12/14/18 08:02; Start 12/09/18 at 21:00 Montelukast Sodium (Singulair) 10 mg QHS PO Last administered on 12/13/18at 20:43 ; Start 12/09/18 at 21:00 Quetiapine Fumarate (SEROquel) 100 mg QHS PO Last administered on 12/09/18at 21: 08; Start 12/09/18 at 21:00 Vancomycin HCl 1.25 gm/Sodium Chloride 250 ml @ 167 mls/hr Q24H IV ; Start 12/10 at 23:00; Stop 12/10/18 at 23:00; Status DC Vancomycin HCl (Vancomycin Trough Level) 1 each 1X ONCE MC ; Start 12/11/18 at 22:30; Stop 12/11/18 at 22:31; Status Cancel Amoxicillin/ Clavulanate Potassium (Augmentin 875/ 125mg) 1 tab BID PO Last administered on 12/14/18at 08:02; Start 12/10/18 at 11:00 Sodium Chloride 1,000 ml @ 100 mls/hr Q10H IV Last administered on 12/10/18at 12 :01; Start 12/10/18 at 11:30; Stop 12/10/18 at 15:50; Status DC Polyethylene Glycol (miraLAX PACKET) 17 gm DAILY PO Last administered on at 08:47; Start 12/10/18 at 12:00; Stop 12/11/18 at 11:28; Status DC Polyethylene Glycol (miraLAX PACKET) 17 gm PRN DAILY PRN PO CONSTIPATION 1ST CHOICE; Start 12/10/18 at 11:45 Bisacodyl (Dulcolax Tab) 10 mg 1X ONCE PO Last administered on 12/10/18at 11:45 ; Start 12/10/18 at 11:45; Stop 12/10/18 at 11:46; Status DC Amoxicillin/ Clavulanate Potassium (Augmentin 875/ 125mg) 1 tab BID PO ; Start 12/10/18 at 16:30; Status Cancel Amoxicillin/ Clavulanate Potassium (Augmentin 875/ 125mg) 1 tab BID PO ; Start 12/10/18 at 21:00; Status UNV Amoxicillin/ Clavulanate Potassium (Augmentin 875/ 125mg) 1 tab BID PO ; Start 12/10/18 at 21:00; Status UNV Acetaminophen/ Hydrocodone Bitart (Lortab 5/325) 1 tab PRN Q4HRS PRN PO MODERATE PAIN Last administered on 12/14/18 01:31; Start 12/11/18 at 11:30 Sodium Chloride 1,000 ml @ 75 mls/hr [id number] IV Last administered on 12/14/18 01:32; Start 12/11/18 at 11:30 Polyethylene Glycol (miraLAX PACKET) 17 gm BID PO Last administered on at 20:42; Start 12/11/18 at 21:00; Stop 12/14/18 at 09:44; Status DC Bisacodyl (Dulcolax Tab) 10 mg 1X ONCE PO Last administered on 12/11/18 12:10 ; Start 12/11/18 at 11:30; Stop 12/11/18 at 11:31; Status DC Lubiprostone (Amitiza) 8 mcg BIDWMEALS PO ; Start 12/11/18 at 17:00; Stop at 17:00; Status DC Lactobacillus Rhamnosus (Culturelle) 1 cap BID PO Last administered on at 08:01; Start 12/11/18 at 21:00 Methylnaltrexone [place] (Relistor) 12 mg 1X ONCE SQ Last administered on 16:14; Start 12/11/18 at 16:00; Stop 12/11/18 at 16:01; Status DC Lactulose (Lactulose) 20 gm PRN TID PRN PO CONSTIPATION Last administered on 12/14/18at 01:59; Start 12/12/18 at 09:15 Mineral Oil (Mineral Oil) 30 ml 1X ONCE PO Last administered on 12/12/18at 10:20 ; Start 12/12/18 at 09:30; Stop 12/12/18 at 09:31; Status DC Polyethylene Glycol (miraLAX PACKET) 17 gm DAILY PO ; Start 12/14/18 at 10:00 Active Scripts Active Lisinopril 40 Mg Tablet 20 Mg PO DAILY MDD 1 Carvedilol (Carvedilol) 6.25 Mg Tablet 6.25 Mg PO BIDWMEALS MDD 1 Hydralazine Hcl 25 Mg Tablet 50 Mg PO TID MDD 1 Lasix (Furosemide) 40 Mg Tablet 40 Mg PO BID MDD 1 30 Days Cymbalta (Duloxetine Hcl) 30 Mg Capsule.dr 1 Cap PO DAILY Tramadol Hcl 50 Mg Tablet 50 Mg PO Q6HRS PRN 6 Days Augmentin 875-125 Tablet (Amoxicillin/Potassium Clav) 1 Each Tablet 1 Tab PO BID 7 Days Quetiapine Fumarate 100 Mg Tablet 100 Mg PO QHS 30 Days Humalog (Insulin Lispro) 100 Unit/1 Ml Insuln.pen 7 Units SQ TIDAC 30 Days Lantus Solostar (Insulin Glargine,Hum.rec.anlog) 100 Unit/1 Ml Insuln.pen 20 Units SQ QHS 30 Days Guaifenesin Dm Syrup (Guaifenesin/Dextromethorphan) 5 Ml Syrup 10 Ml PO PRN Q6HRS PRN 30 Days Benzonatate 100 Mg Capsule 100 Mg PO [id number] 30 Days Montelukast Sodium Tablet (Montelukast Sodium) 10 Mg Tablet 10 Mg PO QHS 30 Days Lyrica (Pregabalin) 75 Mg Capsule 75 Mg PO TID 30 Days Vitals/I & O Vital Sign - Last 24 Hours 12/13/18 12/13/18 12/13/18 12/13/18 11:00 14:32 15:00 16:30 Temp 98.2 98.8 98.2 98.8 Pulse 76 78 78 78 Resp 18 16 B/P (MAP) 140/64 (89) 168/92 168/92 (117) 168/92 Pulse Ox 99 100 O2 Delivery Room Air Room Air 12/13/18 12/13/18 12/13/18 12/13/18 16:30 19:00 19:10 20:42 Temp 98.5 98.5 Pulse 76 83 Resp 17 B/P (MAP) 98/45 (62) 116/52 Pulse Ox 95 O2 Delivery Room Air Room Air Room Air 12/13/18 12/13/18 12/14/18 12/14/18 20:56 23:00 01:31 02:19 Temp 98.5 98.5 Pulse 81 Resp 18 16 16 16 B/P (MAP) 132/64 (86) Pulse Ox 95 94 94 94 O2 Delivery Room Air Room Air Room Air Room Air 12/14/18 12/14/18 12/14/18 12/14/18 03:00 07:00 08:00 08:01 Temp 97.4 98.8 97.4 98.8 Pulse 62 80 80 Resp 18 18 B/P (MAP) 113/47 (69) 140/66 (90) 140/66 Pulse Ox 96 97 O2 Delivery Room Air Room Air Room Air 12/14/18 12/14/18 08:02 08:03 Pulse 80 80 B/P (MAP) 140/66 140/66 Intake and Output 12/13/18 12/13/18 12/14/18 14:59 22:59 06:59 Intake Total 710 ml 570 ml 1600 ml Balance 710 ml 570 ml 1600 ml JASON HOUSE III DO Dec 14, 2018 10:53
[2018-12-14 11:00] VITALS: BP 145/80
--- NOTE | 2018-12-14 13:51 | NUR ---
SW following pt. Spoke with Oumar at [facility] who reported clinicals are being reviewed by MD at their facility and they have not yet submitted for auth. Discussed that pt had walked 500 ft with a walker today and likely insurance will decline acute rehab placement. Spoke with pt at bedside and informed her options. SW discussed pt has shown improvement with PT since last Friday. SW discussed about substance use cessation and informed her that might help with her medical conditions as well. Pt declined PCP list stating she had already made an appointment with a PCP. Pt stated she will call her brother to come pick her up. Discussed with RN.
[2018-12-14 14:46] VITALS: BP 167/81
[2018-12-14 15:26] VITALS: BP 167/81
--- NOTE | 2018-12-14 17:32 | NUR ---
Discharge Note: ANAND DEGROOT [address] Discharge instructions and discharge home medications reviewed with Patient and a copy given. All questions have been answered and understanding verbalized. The following instructions and handouts were given: discharge instructions, education and follow up recommendations. Discontinued lines and drains: Peripheral IV discontinued intact. Patient discharged to Home or Self Care with Self by CAB off unit via Wheelchair by RN.
--- NOTE | 2018-12-14 19:26 | DS ---
DATE OF DISCHARGE: 12/14/2018 ADMISSION DIAGNOSES: 1. Right lower quadrant pain. 2. Left lower extremity cellulitis. 3. Hypertension. 4. Homeless. 5. Cocaine abuse (she has been using cocaine since she was 15). DISCHARGE DIAGNOSES: 1. Resolving cellulitis. 2. Chronic cocaine abuse. CONSULTS: Infectious Disease, Nephrology, GI and General Surgery. PROCEDURES: None. HOSPITAL COURSE: The patient is a pleasant middle-aged female who has been using cocaine since she was 15. She presented with abdominal pain. She was crying. She states she was in a bad situation in her life. Indeed she did have lower extremity cellulitis. We were able to admit her and give her some IV antibiotics and wound care. She did test positive for cocaine. In fact, we found some drug paraphernalia in her room, but I am not aware if she actually smoked any here in the hospital. The above consults were obtained. She did not require any surgical intervention for the abdominal pain, but rather we felt like it was probably musculoskeletal and/or constipation. Her renal failure seems to be chronic. Her creatinine has been ranging from 1.4-1.8 here. We have been giving her IV fluids. Infectious Disease had her treated with vancomycin at first, but they have changed her to p.o. Augmentin and basically, the patient is at her baseline. I examined her this morning. Heart tones were normal. Her lungs were clear. Her legs were still swollen, but this is chronic. We plan to discharge to [facility] if she has been accepted. I discussed the case with the nurse and the bilingual case manager with the hope that she will get accepted today. DISPOSITION: [facility]. ACTIVITY: As tolerated. DIET: Low sodium. MEDICATIONS: Please see the MRAD. TOTAL TIME: 34 minutes. JASON HOUSE DO DR: SULEIMAN/lionel JOB#: [id number] / [id number]
== END 2018-12-14 17:00 | disposition home or self-care (01) | DRG 871 ==
LOC: ER 11:59 → 5 SOUTH 15:40 → 5 NORTH 16:16
PROVIDERS: ADMIT Internal Medicine; ATTEND Internal Medicine
DX: A41.9 Sepsis, unspecified organism (principal); E43 Unspecified severe protein-calorie malnutrition; L03.116 Cellulitis of left lower limb; N39.0 Urinary tract infection, site not specified; I12.9 Hypertensive chronic kidney disease with stage 1 through stage 4 chronic kidney disease, or unspecified chronic kidney disease; N18.9 Chronic kidney disease, unspecified; Z68.29 Body mass index [BMI] 29.0-29.9, adult; D53.9 Nutritional anemia, unspecified; E11.22 Type 2 diabetes mellitus with diabetic chronic kidney disease; E11.40 Type 2 diabetes mellitus with diabetic neuropathy, unspecified; E11.65 Type 2 diabetes mellitus with hyperglycemia; E78.00 Pure hypercholesterolemia, unspecified; E78.5 Hyperlipidemia, unspecified; E86.0 Dehydration; E87.5 Hyperkalemia; F14.129 Cocaine abuse with intoxication, unspecified; F17.210 Nicotine dependence, cigarettes, uncomplicated; F32.9 Major depressive disorder, single episode, unspecified; F41.9 Anxiety disorder, unspecified; G89.29 Other chronic pain; I16.0 Hypertensive urgency; J44.9 Chronic obstructive pulmonary disease, unspecified; K21.9 Gastro-esophageal reflux disease without esophagitis; K29.70 Gastritis, unspecified, without bleeding; K59.00 Constipation, unspecified; Z59.0 Homelessness; Z82.49 Family history of ischemic heart disease and other diseases of the circulatory system; I89.0 Lymphedema, not elsewhere classified; F12.10 Cannabis abuse, uncomplicated; F19.10 Other psychoactive substance abuse, uncomplicated; R16.0 Hepatomegaly, not elsewhere classified; E66.9 Obesity, unspecified; R31.29 Other microscopic hematuria; Z86.14 Personal history of Methicillin resistant Staphylococcus aureus infection; Z86.19 Personal history of other infectious and parasitic diseases; Z90.49 Acquired absence of other specified parts of digestive tract; Z90.710 Acquired absence of both cervix and uterus; Z90.81 Acquired absence of spleen; K21.0 Gastro-esophageal reflux disease with esophagitis; Z88.6 Allergy status to analgesic agent; Z88.5 Allergy status to narcotic agent; Z88.8 Allergy status to other drugs, medicaments and biological substances
CPT/HCPCS: 36415; 74177; 76770; 80048; 80053; 80307; 81001; 82962; 83605; 83690; 85025; 87040; 87086; 87186; 96374; 96375; G0480; J1815; J2212; J2405; J2543; J3010; J3370; J3490; J7030; J7040; Q9967; 97116; 97530; 97535; 99285-25

== ENCOUNTER 2019-11-30 19:13 | Emergency (ER) | payer OTHER ==
[~2019-11-30] VITALS: Ht 177.8 cm; Wt 81.8 kg
[~2019-11-30 19:13] MED LIST changes: +MONT10TA49 PO; -MONT10TA9 PO
[2019-11-30] MEDS ORDERED: fentaNYL PF VIAL 100 MCG/2 ML VIAL IVP ONE (19:45)
[2019-11-30] MEDS ORDERED: ONDANSETRON PF 4 MG/2 ML VIAL. IVP ONE (19:45)
[2019-11-30 19:51] LABS: BASO # 0.1 x10^3/uL (0.0-0.2); BASO % 1 % (0-3); EOS # 0.2 x10^3/uL (0.0-0.7); EOS % 2 % (0-3); HEMATOCRIT 34.7 % (36.0-47.0); HEMOGLOBIN 11.5 g/dL (12.0-15.5); LYMPH # 4.2 x10^3/uL (1.0-4.8); LYMPH % 35 % (24-48); MEAN CORPUSCULAR HEMOGLOBIN 32 pg (25-35); MEAN CORPUSCULAR HGB CONC 33 g/dL (31-37); MEAN CORPUSCULAR VOLUME 96 fL (79-100); MONO % 8 % (0-9); NEUT # 6.6 x10^3/uL (1.8-7.7); NEUT % 55 % (31-73); PLATELET COUNT 381 x10^3/uL (140-400); RED BLOOD COUNT 3.63 x10^6/uL (3.50-5.40); RED CELL DISTRIBUTION WIDTH 13.7 % (11.5-14.5); WHITE BLOOD COUNT 12.1 x10^3/uL (4.0-11.0)
[2019-11-30 20:04] LABS: CALCIUM 8.6 mg/dL (8.5-10.1); CREATININE 4.9 mg/dL (0.6-1.0); GFR 10.8; POTASSIUM 3.7 mmol/L (3.5-5.1)
--- NOTE | 2019-11-30 20:05 | PHYS DOC ---
Past Medical History Past Medical History: COPD, Depression, Diabetes-Type II, High Cholesterol, Hypertension, Renal Disease, Other Additional Past Medical Histor: neuropathy, narcolepsy Past Surgical History: Cholecystectomy, , Hysterectomy, Splenectomy Additional Past Surgical Histo: RIGHT CHEST PERMACATH Smoking Status: Current Every Day Smoker Alcohol Use: None Drug Use: Cocaine, Marijuana, Other Adult General Chief Complaint Chief Complaint: LOWER EXTREMITY SWELLING [facility] HPI Patient is a 64 year old female who presents with complaint of cramping all over, primarily in her legs and in her back. Patient was at dialysis when the muscle cramps started. Patient had undergone approximately 1 hour of her dialysis. She denies any chest pain or shortness of breath. She does indicate that she has had a productive cough but states that that is normal for her. Patient rates the cramps at a 9 out of 10.[] Review of Systems Review of Systems Constitutional: Denies fever or chills [] Respiratory: cough without shortness of breath [] Cardiovascular: No additional information not addressed in HPI [] GI: Denies abdominal pain, nausea, vomiting or diarrhea [] Musculoskeletal: Complains of leg cramps/pain [] Integument: Denies rash or skin lesions [] Neurologic: Denies headache, focal weakness or sensory changes [] All other systems were reviewed and found to be within normal limits, except as documented in this note. Current Medications Current Medications Current Medications Medications (Trade) Dose Ordered Sig/[facility] Start Time Stop Time Status Last Admin Dose Admin Fentanyl Citrate (Fentanyl 2ml Vial) 50 mcg 1X ONCE 11/30/19 19:45 11/30/19 19:46 DC 11/30/19 19:47 50 MCG Ondansetron HCl (Zofran) 4 mg 1X ONCE 11/30/19 19:45 11/30/19 19:46 DC 11/30/19 19:47 4 MG Allergies Allergies Allergies Coded Allergies Type Severity Reaction Last Updated Verified aspirin Adverse Reaction Mild Nausea and Vomiting 01/05/18 Yes ketorolac Adverse Reaction Mild Nausea 01/05/18 Yes morphine Adverse Reaction Mild Nausea and Vomiting 01/05/18 Yes Physical Exam Physical Exam Constitutional: Well developed, well nourished, no acute distress, non-toxic appearance. [] HENT: Normocephalic, atraumatic, bilateral external ears normal, oropharynx moist, no oral exudates, nose normal. [] Eyes: PERRLA, EOMI, conjunctiva normal, no discharge. [] Neck: Normal range of motion, no tenderness, supple. [] Cardiovascular: Regular rate and rhythm[] Lungs & Thorax: Bilateral breath sounds clear to auscultation [] Abdomen: Bowel sounds normal, soft, no tenderness. [] Skin: Warm, dry, no erythema, no rash. [] Extremities: No tenderness, no cyanosis, no clubbing, ROM intact, with lower e xtremity edema. [] Neurologic: Alert and oriented X 3, no focal deficits noted. [] Current Patient Data Vital Signs Vital Signs Date Time Temp Pulse Resp B/P (MAP) Pulse Ox O2 Delivery O2 Flow Rate FiO2 11/30/19 19:22 97.8 72 22 137/70 (92) 99 Room Air 97.8 Lab Values Laboratory Tests Test 11/30/19 19:42 White Blood Count 12.1 x10^3/uL (4.0-11.0) H Red Blood Count 3.63 x10^6/uL (3.50-5.40) Hemoglobin 11.5 g/dL (12.0-15.5) L Hematocrit 34.7 % (36.0-47.0) L Mean Corpuscular Volume 96 fL (79-100) Mean Corpuscular Hemoglobin 32 pg (25-35) Mean Corpuscular Hemoglobin Concent 33 g/dL (31-37) Red Cell Distribution Width 13.7 % (11.5-14.5) Platelet Count 381 x10^3/uL (140-400) Neutrophils (%) (Auto) 55 % (31-73) Lymphocytes (%) (Auto) 35 % (24-48) Monocytes (%) (Auto) 8 % (0-9) Eosinophils (%) (Auto) 2 % (0-3) Basophils (%) (Auto) 1 % (0-3) Neutrophils # (Auto) 6.6 x10^3/uL (1.8-7.7) Lymphocytes # (Auto) 4.2 x10^3/uL (1.0-4.8) Monocytes # (Auto) 1.0 x10^3/uL (0.0-1.1) Eosinophils # (Auto) 0.2 x10^3/uL (0.0-0.7) Basophils # (Auto) 0.1 x10^3/uL (0.0-0.2) Sodium Level 133 mmol/L (136-145) L Potassium Level 3.7 mmol/L (3.5-5.1) Chloride Level 93 mmol/L (98-107) L Carbon Dioxide Level 29 mmol/L (21-32) Anion Gap 11 (6-14) Blood Urea Nitrogen 25 mg/dL (7-20) H Creatinine 4.9 mg/dL (0.6-1.0) H Estimated GFR (Cockcroft-Gault) 10.8 Glucose Level 165 mg/dL (70-99) H Calcium Level 8.6 mg/dL (8.5-10.1) Laboratory Tests 11/30/19 19:42 Laboratory Tests 11/30/19 19:42 EKG EKG [] Radiology/Procedures Radiology/Procedures [] Course & Med Decision Making Course & Med Decision Making Pertinent Labs and Imaging studies reviewed. (See chart for details) [] Dragon Disclaimer Dragon Disclaimer This electronic medical record was generated, in whole or in part, using a voice recognition dictation system. Departure Departure Impression: Primary Impression: Muscle cramps Disposition: HOME, SELF-CARE Condition: STABLE Referrals: NO PCP (PCP) Patient Instructions: Muscle Cramps Scripts Ondansetron (ONDANSETRON ODT) 4 Mg Tab.rapdis 1 TAB PO PRN Q6-8HRS PRN for NAUSEA, #15 TAB Prov: YONI ANTHONY Jr. DO 11/30/19 Hydrocodone/Apap 5-325 (NORCO 5-325 TABLET) 1 Each Tablet 1-2 EACH PO PRN Q6HRS PRN for PAIN, #15 as needed for pain Prov: YONI ANTHONY Jr. DO 11/30/19 YONI ANTHONY Jr. DO Nov 30, 2019 20:05
[2019-11-30 20:52] VITALS: BP 131/70
[2019-11-30] MEDS ORDERED: ONDA4TAB12 PO (21:13)
[2019-11-30] MEDS ORDERED: HYDR-3164 PO (21:13)
== END 2019-11-30 21:31 | disposition home or self-care (01) ==
LOC: ER 19:13
DX: R25.2 Cramp and spasm (principal); R05 Cough; E11.40 Type 2 diabetes mellitus with diabetic neuropathy, unspecified; E78.00 Pure hypercholesterolemia, unspecified; I10 Essential (primary) hypertension; J44.9 Chronic obstructive pulmonary disease, unspecified; F17.200 Nicotine dependence, unspecified, uncomplicated; Z90.49 Acquired absence of other specified parts of digestive tract; Z90.710 Acquired absence of both cervix and uterus; Z90.81 Acquired absence of spleen; Z88.5 Allergy status to narcotic agent; Z88.6 Allergy status to analgesic agent
CPT/HCPCS: 36415; 80048; 85025; 96374; 96375; 99284; J2405; J3010